=== PATIENT | male | born 1960 | race Caucasian/White ===

== ENCOUNTER 2016-11-03 08:10 | Inpatient (IN) | payer MEDICARE, BC ==
[2016-11-03] MEDS ORDERED: Aspirin Low Dose CHEW TAB* 81 MG PO ONE (08:56)
[2016-11-03] MEDS ORDERED: Furosemide IV* 10 MG/ML 10 ML VIAL (100 MG) IV ONE ×2 (09:17→13:23)
[2016-11-03] MEDS ORDERED: Midodrine (NF) 5 MG TAB PO ONE (09:18)
[2016-11-03 09:21] LABS: Hematocrit 28 % (42-52); Hemoglobin 8.4 g/dl (14.0-18.0); Mean Corpuscular HGB Conc 30 g/dl (31-36); Mean Corpuscular Hemoglobin 25 pg (27-31); Mean Corpuscular Volume 82 fL (80-94); Mean Platelet Volume 7 um3 (7.4-10.4); Red Blood Count 3.43 10^6/ul (4.0-5.4); Red Cell Distribution Width 23 % (10.5-15); White Blood Count 12.8 10^3/ul (3.5-10.8)
[2016-11-03 09:22] LABS: Comments Flag Yes
[2016-11-03 09:23] LABS: Add Diff/Slide Review? Slide Review Added
--- NOTE | 2016-11-03 09:34 | RAD ---
INDICATION: Shortness of breath. COMPARISON: Comparison is made with a prior chest x-ray study from September 20, 2016. TECHNIQUE: A portable view of the chest was obtained. FINDINGS: The heart is mildly enlarged. There is a transvenous cardiac pacemaker present. The lungs are clear. No pleural effusion is seen. IMPRESSION: NO EVIDENCE FOR ACUTE FINDING.
[2016-11-03 09:47] LABS: Albumin 2.7 g/dL (3.2-5.2); BUN/Creatinine Ratio 31.7 (8-20); Calcium 8.1 mg/dL (8.6-10.3); EGFR African American 44.9 (>60); EGFR Non-African American 34.9 (>60); Globulin 2.7 g/dL (2-4); Potassium 5.4 mmol/L (3.5-5.0); Total Bilirubin 0.4 mg/dL (0.2-1.0); Total Protein 5.4 g/dL (6.4-8.9); Uric Acid 5.1 mg/dL (4.4-7.6)
[2016-11-03 09:52] LABS: Eosinophils % 4 % (0-6); Immature Granulocytes 7 % (0-9); Metamyelocytes % 4 % (0-2); Myelocytes % 2 % (0-1); Neutrophil % 76 % (38-83)
[2016-11-03 09:53] LABS: Hypochromasia 1+; Macrocytosis 1+; Microcytosis 1+; Polychromasia 1+
[2016-11-03 09:55] LABS: Troponin I 0.08 ng/mL (<0.04)
--- NOTE | 2016-11-03 13:31 | ADMNOTE ---
Subjective Date of Service: 11/03/16 Interval History: ADMISSION HISTORY AND PHYSICAL EXAM: Allergies Allergy/AdvReac Type Severity Reaction Status Date / Time Oxycodone Allergy Intermediate Altered Verified 11/03/16 08:12 Mental Status Spironolactone Allergy Intermediate Rash And Verified 11/03/16 08:12 Itching Home Medications Medication Instructions Recorded Confirmed Type Pantoprazole TAB (NF) [Protonix 40 mg PO QAM 04/16/16 11/03/16 History TAB (NF)] Epleronone (NF) [Inspra (NF)] 25 mg PO BID #0 04/18/16 11/03/16 History Gabapentin CAP(*) [Neurontin 300 300 mg PO QID 04/18/16 11/03/16 History CAP(*)] Acetaminophen TAB* [Tylenol TAB*] 650 mg PO Q6H PRN 05/22/16 11/03/16 History Midodrine (NF) 15 mg PO TID 05/22/16 11/03/16 History Warfarin TAB(*) [Coumadin TAB(*)] 5 mg PO TUTH 05/22/16 11/03/16 History Potassium Chlor TAB* [Potassium 60 meq PO QID 06/11/16 11/03/16 History Chlor TAB 20 MEQ*] Torsemide TAB* [Demadex 20 MG*] 140 mg PO BID 09/15/16 11/03/16 History Metolazone TAB* [Zaroxolyn TAB*] 5 mg PO DAILY PRN MDD 1 dose daily 09/20/16 History Warfarin TAB(*) [Coumadin TAB(*)] 7.5 mg PO MOWEFR 11/03/16 11/03/16 History Patient states he has gained about 30 lbs at home and is somewhat SOB. He states [facility] to get his furosemide IV, and that he takes all his meds bu sometimes doesn't take his metolazone. No chest apin, cough. Family History: Findings - unemarkable Social History: Findings - No alcohol or tobacco use. Lives Review of Systems - Measurements Intake and Output: Intake and Output Last 24 Hours 11/01/16 11/02/16 11/03/16 11/04/16 06:59 06:59 06:59 06:59 Weight 239 lb 1.6 oz - Review of Systems Constitutional Symptoms: Positive: Weight Gain - 30 lbs in 1 month Dermatology: Positive: Normal HEENT: Positive: Normal Eyes: Positive: Normal Thyroid: Positive: Primary Hypothyroidism Pulmonary: Positive: Normal Cardiology: Positive: Shortness of Breath Gastroenterology: Positive: Other - increased abdominal girth Genital - Urinary: Negative: Normal, Dysuria, Hematuria, Polyuria, Nocturia, Other Musculoskeletal: Negative: Joint Pain, Joint Stiffness, Arthritis, Osteoporosis, Low Back Pain , Sciatica, Joint Deformities, Kyphoscoliosis, Other Endocrinology: Positive: Thyroid Problems Hematologic/Lymphatic: Positive: Anemia Neurology: Positive: Normal Psychiatry: Positive: Normal Allergic/Immunologic: Negative: Hx Anaphylaxis, Hx Angioedema, Hx Environmental, Hx Seasonal, Athsma, Hx HIV, Immunocompromise, Swollen Glands LymphNodes, Other Objective Vital Signs 11/03/16 11/03/16 11/03/16 08:12 08:46 08:48 Temperature 99.4 F Pulse Rate 92 90 90 Respiratory 17 9 Rate Blood Pressure 98/71 81/59 (mmHg) O2 Sat by Pulse 100 100 100 Oximetry 11/03/16 11/03/16 11/03/16 09:00 09:30 09:45 Temperature Pulse Rate 92 93 95 Respiratory 14 16 Rate Blood Pressure 79/55 92/60 (mmHg) O2 Sat by Pulse 100 99 Oximetry 11/03/16 11/03/16 11/03/16 10:00 10:30 11:00 Temperature Pulse Rate 94 94 95 Respiratory 20 24 16 Rate Blood Pressure 79/54 67/43 82/57 (mmHg) O2 Sat by Pulse 100 97 100 Oximetry 11/03/16 11/03/16 11/03/16 11:30 12:00 12:30 Temperature Pulse Rate 94 131 95 Respiratory 17 14 18 Rate Blood Pressure 79/46 96/60 96/71 (mmHg) O2 Sat by Pulse 100 100 100 Oximetry 11/03/16 13:00 Temperature Pulse Rate 87 Respiratory 14 Rate Blood Pressure 90/69 (mmHg) O2 Sat by Pulse 100 Oximetry Oxygen Devices in Use Now: Nasal Cannula Appearance: Alert partly up in bed. In god spirits. Looks comfortable. Eyes: No Scleral Icterus Neck: NL Appearance and Movements; NL JVP, No Thyroid Enlargement, Masses Respiratory: Symmetrical Chest Expansion and Respiratory Effort, Clear to Auscultation, Clear to Percussion Cardiovascular: NL Sounds; No Murmurs; No JVD, RRR, No Edema, - Abdominal: - - Very enlarged. Prominenet umbilical hernia. Catheter in RLQ to drainage bag. Lymphatic: No Cervical Adenopathy, No Axillary Adenopathy, No Inguinal Adenopathy, No Auricular Adenopathy, - Skin: No Rash or Ulcers, No Nodules or Sclerosis, - Neurological: Alert and Oriented x 3, NL Sensation Result Diagrams: 11/03/16 09:11 11/03/16 09:11 Assess/Plan/Problems-Billing Assessment: - Patient Problems (1) Acute on chronic systolic (congestive) heart failure Current Visit: No Status: Acute Code(s): I50.23 - ACUTE ON CHRONIC SYSTOLIC (CONGESTIVE) HEART FAILURE SNOMED Code(s): 288665731 Comment: The patient has an EF 20-25% due to amylodosis. Second dose furosemide 80 mg in ER ordered. Start tonight: toresemide 140 mg bid + metolazone 5 mg bid. BMP 11/04. Strict I&O's. (2) Afib Current Visit: No Status: Acute Code(s): I48.91 - UNSPECIFIED ATRIAL FIBRILLATION SNOMED Code(s): 46043923 Comment: Increase warfarin dose as of 11/03/16. (3) Hypothyroidism Current Visit: No Status: Acute Code(s): E03.9 - HYPOTHYROIDISM, UNSPECIFIED SNOMED Code(s): 30500350 Comment: TSH 10.28 on admission. Started on Levothyroxine. Repeat TSH addon 9.97, increase levothyroxine to 50 mcg daily start 11/04. (4) Hyponatremia Current Visit: No Status: Acute Code(s): E87.1 - HYPO-OSMOLALITY AND HYPONATREMIA SNOMED Code(s): 44085939 Comment: Fluid restriction ordered. BMP 11/04. (5) Hyperkalemia Current Visit: No Status: Acute Code(s): E87.5 - HYPERKALEMIA SNOMED Code( s): 21340545 Comment: KCL and epleronone d/c'd. BMP 11/04.
[2016-11-03] MEDS ORDERED: Warfarin TAB(*) 5 MG PO SCH (14:00)
[2016-11-03 14:36] LABS: TSH (Thyroid Stimulating Horm) 9.77 mcIU/mL (0.34-5.60)
--- NOTE | 2016-11-03 15:21 | ED ---
IJuan Soohyun, scribed for Frantz Duggan MD on 11/03/16 at 0915 . Shortness of Breath - HPI Summary HPI Summary: This 56 y/o male presents to ED for acute on chronic SOB since 2 weeks ago. He also reports nonproductive cough, increased abd swelling and bilat BLE edema. Pt was scheduled to Dr. Thomas yesterday. Negative hx of DM. PMHx includes amyloidosis, HTN, CHF, pleural effusion, and sliding hiatal hernia. Pt states that pt has been self draining his abd fluid, and last drained himself last night. He reports 30 lb weight gain since last ED visit in September 2016. Pt is noted with blood pressure of 79/55 at time of initial evaluation, but states that it is at his baseline. - History of Current Complaint Chief Complaint: EDShortnessOfBreath Time Seen by Provider: 11/03/16 08:50 Hx Obtained From: Patient, Medical Records Onset/Duration: Gradual Onset Timing: Constant Current Severity: Moderate Dyspnea At: Rest Aggrevating Factors: Nothing Alleviating Factors: Nothing Associated Signs & Symptoms: Cough (Nonproductive) - Allergy/Home Medications Allergies/Adverse Reactions: Allergies Allergy/AdvReac Type Severity Reaction Status Date / Time Oxycodone Allergy Intermediate Altered Verified 11/03/16 08:12 Mental Status Spironolactone Allergy Intermediate Rash And Verified 11/03/16 08:12 Itching Home Medications: Home Medications Warfarin TAB(*) [Coumadin TAB(*)] 7.5 mg PO MOWEFR 11/03/16 [History Confirmed 11/03/16] PMH/Surg Hx/FS Hx/Imm Hx Endocrine/Hematology History: Reports: Hx Anticoagulant Therapy - warfarin, Hx Blood Disorders - factor X deficiency, thrombocytopenia, Hx Anemia, Other Endocrine/Hematological Disorders - amyloidosis Denies: Hx Diabetes, Hx Thyroid Disease Cardiovascular History: Reports: Hx Auto Implanted Cardiovert Defib - PACER/AICD , Hx Cardiac Arrest, Hx Cardiomegaly - ISCHEMIC CARDIOMYOPATHY, Hx Congestive Heart Failure - EF 20% DUE TO AMLOYDOSIS, Hx Hypercholesterolemia, Hx Hypotension - regularly 90s for SBP, Hx Pacemaker/ICD, Hx Syncope - d/t dehydration, Other Cardiovascular Problems/Disorders - CARDIOMYOPATHY Denies: Hx Hypertension Respiratory History: Reports: Hx Pleural Effusion, Hx Pneumonia, Hx Sleep Apnea - wears 2L O2 concentrator to bed at home, Other Respiratory Problems/Disorders - PNA Denies: Hx Asthma, Hx Chronic Bronchitis, Hx Chronic Obstructive Pulmonary Disease (COPD) GI History: Reports: Hx Gastroesophageal Reflux Disease, Hx Hiatal Hernia - UMBILICAL & PARAUMBILICAL, Other GI Disorders - ASCITES Denies: Hx Gall Bladder Disease History: Reports: Hx Chronic Renal Failure, Other Problems/Disorders - CKD Denies: Hx Dialysis, Hx Renal Disease Musculoskeletal History: Reports: Hx Back Problems, Hx Gout, Other Musculoskeletal History - gout Denies: Hx Arthritis, Hx Osteoporosis Sensory History: Reports: Hx Contacts or Glasses Denies: Hx Glaucoma Opthamlomology History: Reports: Hx Contacts or Glasses Denies: Hx Glaucoma Neurological History: Reports: Other Neuro Impairments/Disorders - episodes of syncope r/t dehydration, amyloidosis Denies: Hx Headaches, Hx Seizures, Hx Transient Ischemic Attacks (TIA) Psychiatric History: Denies: Hx Anxiety, Hx Depression - Cancer History Cancer Type, Location and Year: Family history Hx Chemotherapy: Yes - for amyloidosis - Surgical History Surgery Procedure, Year, and Place: R leg vericose vein stripping. Hemorrhioidectomy. aicd/pacer- strong memoral 01/28/16. paracentesis 04/15/16 Hx Anesthesia Reactions: No - Immunization History Date of Tetanus Vaccine: 2007 Date of Influenza Vaccine: UNKNOWN & REFUSED Infectious Disease History: No Infectious Disease History: Denies: Traveled Outside the [place] in Last 30 Days - Family History Known Family History: Positive: Other - CA. no malignant hyperthemia. no anesthesia reaction. - Social History Alcohol Use: None Hx Substance Use: No Substance Use Type: Reports: None Hx Tobacco Use: No Smoking Status (MU): Never Smoked Tobacco Have You Smoked in the Last Year: No Review of Systems Negative: Fever Negative: Erythema Negative: Chest Pain Positive: Shortness Of Breath Positive: Other. Negative: Abdominal Pain, Vomiting - abd swelling, Nausea Negative: dysuria, hematuria Positive: Edema - acute on chronic. Negative: Myalgia Negative: Rash Neurological: Other - no dizziness Negative: Anxious, Depressed All Other Systems Reviewed And Are Negative: Yes Physical Exam - Summary Physical Exam Summary: Constitutional: Well-developed, Well-nourished, Alert. (-) Distressed Skin: Dry. Cool to touch. HENT: Normocephalic; Atraumatic Eyes: Conjunctiva normal Neck: Musculoskeletal ROM normal neck. (-) JVD, (-) Stridor, (-) Tracheal deviation Cardio: Rhythm regular, rate normal, Heart sounds normal; Intact distal pulses; The pedal pulses are 2+ and symmetric. Radial pulses are 2+ and symmetric. (-) Murmur Pulmonary/Chest wall: Effort normal. (-) Respiratory distress, (-) Wheezes, (-) Rales Abd: Soft, (-) Tenderness, (+) Distension, (-) Guarding, (-) Rebound. Hernia soft to touch and easily reducible. Musculoskeletal: (-) Edema Lymph: (-) Cervical adenopathy Neuro: Alert, Oriented x3 Psych: Mood and affect Normal Triage Information Reviewed: Yes Vital Signs On Initial Exam: Initial Vitals Temp Pulse Resp BP Pulse Ox 99.4 F 92 17 98/71 100 11/03/16 08:12 11/03/16 08:12 11/03/16 08:12 11/03/16 08:12 11/03/16 08:12 Vital Signs Reviewed: Yes Diagnostics - Vital Signs Vital Signs Temp Pulse Resp BP Pulse Ox 11/03/16 08:12 99.4 F 92 17 98/71 100 - Laboratory Result Diagrams: 11/03/16 09:11 11/03/16 09:11 Lab Statement: Any lab studies that have been ordered have been reviewed, and results considered in the medical decision making process. - Radiology CXR Xray Interpretation: No Acute Changes Radiology Interpretation Completed By: Radiologist - EKG 09 Cardiac Rate: NL - 95 bpm EKG Rhythm: Sinus Rhythm Re-Evaluation - Re-Evaluation First Eval Re-Evaluation Time: 11:04 Comment: MD in room to re-evaluate pt. Course/Dx - Course Assessment/Plan: THis 56 y/o male presents to ED for acute on chronic SOB since this morning. Pt reports difficulty controlling her breathing since 1 week ago. SOB is worse with exertion and deep breath. Pt states that he was unable to get out of bed for his appointment with Dr. Thomas. Bloodwork reports repeat trop of 0.08 at 0911 AM and 1200 PM. CXR indicates no acute dz. Pt was noted with low blood pressure. Plan of care is discussed with Dr. Witt (shot coat tender ) and Dr. Oleary, who accepts the admission of the pt. - Diagnoses Provider Diagnoses: CHF exacerbation - Physician Notifications Discussed Care of Patient With: Dr. Witt (Denture Model Maker) at [address] Oleary (Hospitalist) at 1120 AM Time Discussed With Above Provider: 11:05 Instructed by Provider To: Admit As Inpatient Discharge - Discharge Plan Condition: Stable Disposition: ADMITTED TO [facility] Referrals: Brandyn Geller MD [Primary Care Provider] - The documentation as recorded by the Juan villarreal Soohyun accurately reflects the service I personally performed and the decisions made by , Frantz Duggan MD.
[2016-11-03] MEDS: CMC:Midodrine (NF) 5 MG TAB PO SCH ×2 (16:23→20:32)
[2016-11-03] MEDS: Gabapentin CAP(*) 300 MG PO SCH ×2 (16:23→20:32)
[2016-11-03] MEDS ORDERED: Potassium Chlor TAB* 20 MEQ TAB.ER PO SCH (17:00)
[2016-11-03] MEDS: Torsemide TAB* 20 MG PO SCH (20:31)
[2016-11-03] MEDS ORDERED: Torsemide TAB* 20 MG PO SCH (21:00)
[2016-11-03] MEDS ORDERED: [UNRECOGNIZED DRUG - OTHER] PO SCH (21:00)
[2016-11-04 05:36] LABS: BUN/Creatinine Ratio 35.2 (8-20); Blood Urea Nitrogen 58 mg/dL (6-24); CO2 Carbon Dioxide 26 mmol/L (22-32); Calcium 7.8 mg/dL (8.6-10.3); Chloride 91 mmol/L (101-111); EGFR African American 55.8 (>60); EGFR Non-African American 43.4 (>60); Glucose 109 mg/dL (70-100); Sodium 126 mmol/L (133-145)
[2016-11-04] MEDS: Levothyroxine TAB* 50 MCG TAB PO SCH (05:40)
[2016-11-04] MEDS: Acetaminophen TAB* 325 MG PO PRN ×2 (05:43→23:15)
[2016-11-04] MEDS ORDERED: Levothyroxine TAB* 25 MCG TAB PO SCH (06:00)
[2016-11-04] MEDS: Torsemide TAB* 20 MG PO SCH ×2 (08:57→20:30)
[2016-11-04] MEDS: CMC:Pantoprazole TAB (NF) 40 MG TAB PO SCH (08:57)
[2016-11-04] MEDS: Gabapentin CAP(*) 300 MG PO SCH ×4 (08:58→20:30)
[2016-11-04] MEDS: Allopurinol TAB* 300 MG PO SCH (08:59)
[2016-11-04] MEDS: Warfarin TAB(*) 7.5 MG PO SCH (08:59)
[2016-11-04] MEDS: CMC:Midodrine (NF) 5 MG TAB PO SCH ×3 (09:00→20:30)
[2016-11-04] MEDS ORDERED: Warfarin TAB(*) 7.5 MG PO SCH (13:24)
[2016-11-04 14:45] LABS: Magnesium 1.8 mg/dL (1.9-2.7)
[2016-11-04] MEDS ORDERED: Magnesium Sulfate 2 GM IV* 2 GM/50 ML BAG IVPB ONE (15:00)
[2016-11-04] MEDS ORDERED: Potassium Chlor TAB* 20 MEQ TAB.ER PO ONE ×2 (15:01→19:26)
[2016-11-04] MEDS: KCL 20 MEQ/100 ML IVPREMIX* 20 MEQ/100 ML BAG IV SCH ×2 (15:39→18:27)
--- NOTE | 2016-11-04 19:32 | PN ---
Subjective Date of Service: 11/04/16 Interval History: patient reports he feels much better today but c/o "Im not getting enough IV diuretic". He does feel like he has lost weight today and is less sob. No fevers or chills. Reports he feels that he has "a cold" with a cough and nasal congestion and mild sore throat. Denies CP. Reports good appetite. Family History: Findings - unemarkable Social History: Findings - No alcohol or tobacco use. Lives Objective Active Medications: Acetaminophen (Tylenol Tab*) 650 mg PO Q6H PRN PRN Reason: FEVER/PAIN Last Admin: 11/04/16 05:43 Dose: 650 mg Allopurinol (Zyloprim Tab*) 300 mg PO DAILY [facility] Last Admin: 11/04/16 08:59 Dose: 300 mg Gabapentin (Neurontin Cap(*)) 300 mg PO QID [facility] Last Admin: 11/04/16 17:01 Dose: 300 mg Levothyroxine Sodium (Synthroid Tab*) 50 mcg PO DAILY@0600 [facility] Last Admin: 11/04/16 05:40 Dose: 50 mcg Midodrine (Midodrine (Nf)) 15 mg PO TID [facility] PRN Reason: Protocol Last Admin: 11/04/16 13:23 Dose: 15 mg Pantoprazole Sodium (Protonix Tab (Nf)) 40 mg PO QAM [facility] Last Admin: 11/04/16 08:57 Dose: 40 mg Torsemide (Demadex*) 140 mg PO BID [facility] Last Admin: 11/04/16 08:57 Dose: 140 mg Warfarin Sodium (Coumadin Tab(*)) 7.5 mg PO DAILY [facility] PRN Reason: Protocol Last Admin: 11/04/16 08:59 Dose: 7.5 mg Vital Signs 11/03/16 11/03/16 11/03/16 20:00 20:14 20:32 Temperature 97.7 F Pulse Rate 83 Respiratory 19 16 18 Rate Blood Pressure 80/54 (mmHg) O2 Sat by Pulse 100 Oximetry 11/03/16 11/04/16 11/04/16 22:32 00:01 03:34 Temperature 97.4 F 98.3 F Pulse Rate 105 101 Respiratory 18 16 17 Rate Blood Pressure 78/48 91/55 (mmHg) O2 Sat by Pulse 100 99 Oximetry 11/04/16 11/04/16 11/04/16 07:44 08:00 08:58 Temperature 97.3 F Pulse Rate 89 Respiratory 16 16 16 Rate Blood Pressure 88/54 (mmHg) O2 Sat by Pulse 98 Oximetry 11/04/16 11/04/16 11/04/16 10:58 12:38 14:11 Temperature 98.3 F Pulse Rate 89 Respiratory 16 16 16 Rate Blood Pressure 97/53 (mmHg) O2 Sat by Pulse 100 Oximetry 11/04/16 11/04/16 11/04/16 14:38 15:57 17:01 Temperature 97.5 F Pulse Rate 87 Respiratory 16 16 16 Rate Blood Pressure 96/83 (mmHg) O2 Sat by Pulse 100 Oximetry Oxygen Devices in Use Now: Nasal Cannula Appearance: 56 yo male A+O x3 sitting up on the side of the bed in NAD Eyes: No Scleral Icterus, PERRLA Ears/Nose/Mouth/Throat: NL Teeth, Lips, Gums, Mucous Membranes Moist Neck: NL Appearance and Movements; NL JVP Respiratory: Symmetrical Chest Expansion and Respiratory Effort, Clear to Auscultation Cardiovascular: - - S1S2, 1+ LE b/l edema. Abdominal: - - distended, soft, nontender, NL BS Extremities: No Clubbing, Cyanosis Skin: No Nodules or Sclerosis Neurological: Alert and Oriented x 3, NL Sensation, NL Gait, NL Muscle Strength and Tone Lines/Tubes/Other Access: Clean, Dry and Intact Peripheral IV Nutrition: Taking PO's Result Diagrams: 11/03/16 09:11 11/04/16 14:25 Assess/Plan/Problems-Billing Assessment: Mr. Ocampo is a 56 yo male with a PMH of end-stage cardiomyopathy with chronic systolic HF with self-tap peritoneal catheter, afib, CDK stg 3b, hx of cardiac arrest, hx DVT, AICD placement who presents with c/o of 30 lb weight gain - Patient Problems (1) Acute on chronic systolic (congestive) heart failure Comment: The patient has an EF 20-25% due to amylodosis. Down 18lbs today. Continue toresemide 140 mg bid + metolazone 5 mg bid. Strict I&O's. Daily Weights (2) Afib Comment: Increase warfarin dose as of 11/03/16. check INR in am (3) Hyperkalemia Comment: now hypokalemia with diuresing. give replcement check in am (4) Hyponatremia Comment: improving. continue Fluid restriction (5) Hypothyroidism Comment: TSH 10.28 on admission. Started on Levothyroxine. Repeat TSH addon 9.97 , increased levothyroxine to 50 mcg daily (6) CKD (chronic kidney disease) stage 3, GFR 30-59 ml/min Comment: improving. Creatinine stable. Cont to monitor with diuresis (7) Cardiomyopathy Comment: Due to amyloidosis. EF 20-25% on 02/04/16. runs of vtach - magnesium low today 18.8; give replacement and recheck in am. (8) Full code status (9) DVT prophylaxis Comment: coumadin
[2016-11-05] MEDS ORDERED: Potassium Chlor TAB* 20 MEQ TAB.ER PO ONE ×2 (01:00→14:57)
[2016-11-05 04:58] LABS: Hematocrit 26 % (42-52); Hemoglobin 7.9 g/dl (14.0-18.0); Mean Corpuscular HGB Conc 31 g/dl (31-36); Mean Corpuscular Hemoglobin 25 pg (27-31); Mean Corpuscular Volume 81 fL (80-94); Mean Platelet Volume 7 um3 (7.4-10.4); Red Blood Count 3.19 10^6/ul (4.0-5.4); White Blood Count 8.7 10^3/ul (3.5-10.8)
[2016-11-05 05:02] LABS: Comments Flag Yes; Red Cell Distribution Width 23 % (10.5-15)
[2016-11-05 05:09] LABS: BUN/Creatinine Ratio 30.6 (8-20); Calcium 7.7 mg/dL (8.6-10.3); EGFR African American 50.4 (>60); EGFR Non-African American 39.2 (>60); Potassium 3.7 mmol/L (3.5-5.0)
[2016-11-05] MEDS: Levothyroxine TAB* 50 MCG TAB PO SCH (05:09)
[2016-11-05] MEDS: Allopurinol TAB* 300 MG PO SCH (07:53)
[2016-11-05] MEDS: CMC:Pantoprazole TAB (NF) 40 MG TAB PO SCH (07:54)
[2016-11-05] MEDS: CMC:Midodrine (NF) 5 MG TAB PO SCH ×3 (07:54→21:02)
[2016-11-05] MEDS: Gabapentin CAP(*) 300 MG PO SCH ×4 (07:54→21:03)
[2016-11-05] MEDS: Torsemide TAB* 20 MG PO SCH ×2 (07:54→21:03)
[2016-11-05] MEDS ORDERED: Magnesium Hydroxide LIQ* 30 ML UDC PO PRN (12:29)
[2016-11-05] MEDS ORDERED: Sodium Phosphate ADULT ENEMA* 118 ml bottle PR ONE (12:37)
[2016-11-05] MEDS ORDERED: Furosemide IV* 10 MG/ML 10 ML VIAL (100 MG) IV ONE (12:39)
[2016-11-05] MEDS ORDERED: guaiFENesin LIQ* 100 MG/5 ML UDC PO PRN (12:53)
--- NOTE | 2016-11-05 12:55 | PN ---
Subjective Date of Service: 11/05/16 Interval History: . Patient reports he feels better today but still feels fluid overloaded in his legs and abdomen. is unable to tell me how much he drained from peritoneal catheter. Denies SOB or CP. Reports he feels "too weak to go home". Denies needing subacute rehab and reports he was recently set up with PT Reports Dr. Geller is setting him up to go to the [facility] and he is waiting to hear back about the details. Family History: Findings - unemarkable Social History: Findings - No alcohol or tobacco use. Lives Objective Active Medications: Acetaminophen (Tylenol Tab*) 650 mg PO Q6H PRN PRN Reason: FEVER/PAIN Last Admin: 11/04/16 23:15 Dose: 650 mg Allopurinol (Zyloprim Tab*) 300 mg PO DAILY [facility] Last Admin: 11/05/16 07:53 Dose: 300 mg Furosemide (Lasix Iv*) 80 mg IV ONCE ONE Stop: 11/05/16 12:40 Gabapentin (Neurontin Cap(*)) 300 mg PO QID [facility] Last Admin: 11/05/16 07:54 Dose: 300 mg Levothyroxine Sodium (Synthroid Tab*) 50 mcg PO DAILY@0600 [facility] Last Admin: 11/05/16 05:09 Dose: 50 mcg Magnesium Hydroxide (Milk Of Magnesia Liq*) 30 ml PO Q4H PRN PRN Reason: CONSTIPATION Midodrine (Midodrine (Nf)) 15 mg PO TID [facility] PRN Reason: Protocol Last Admin: 11/05/16 07:54 Dose: 15 mg Pantoprazole Sodium (Protonix Tab (Nf)) 40 mg PO QAM [facility] Last Admin: 11/05/16 07:54 Dose: 40 mg Sodium Biphosphate/Sodium Phosphate (Fleet Enema*) 1 bottle WA ONCE ONE Stop: 11/05/16 12:38 Torsemide (Demadex*) 140 mg PO BID [facility] Last Admin: 11/05/16 07:54 Dose: 140 mg Warfarin Sodium (Coumadin Tab(*)) 7.5 mg PO DAILY [facility] PRN Reason: Protocol Last Admin: 11/04/16 08:59 Dose: 7.5 mg Vital Signs 11/04/16 11/04/16 11/04/16 14:11 14:38 15:57 Temperature 98.3 F 97.5 F Pulse Rate 89 87 Respiratory 16 16 16 Rate Blood Pressure 97/53 96/83 (mmHg) O2 Sat by Pulse 100 100 Oximetry 11/04/16 11/04/16 11/04/16 17:01 19:59 20:00 Temperature 98.8 F Pulse Rate 92 Respiratory 16 16 16 Rate Blood Pressure 88/53 (mmHg) O2 Sat by Pulse 100 Oximetry 11/04/16 11/04/16 11/05/16 20:30 22:30 00:23 Temperature 98.1 F Pulse Rate 95 Respiratory 18 18 16 Rate Blood Pressure 82/48 (mmHg) O2 Sat by Pulse 100 Oximetry 11/05/16 11/05/16 11/05/16 04:11 07:36 07:54 Temperature 98.8 F 98.1 F Pulse Rate 99 107 Respiratory 16 16 16 Rate Blood Pressure 86/53 81/54 (mmHg) O2 Sat by Pulse 100 95 Oximetry 11/05/16 11/05/16 07:58 11:19 Temperature 97.6 F Pulse Rate 106 Respiratory 18 18 Rate Blood Pressure 101/60 (mmHg) O2 Sat by Pulse 100 Oximetry Oxygen Devices in Use Now: Nasal Cannula Appearance: 56 yo chronically ill appearing male sitting up on the side of the bed in NAD. A+O x3 Eyes: No Scleral Icterus, PERRLA Ears/Nose/Mouth/Throat: NL Teeth, Lips, Gums, Mucous Membranes Moist Neck: NL Appearance and Movements; NL JVP Respiratory: Symmetrical Chest Expansion and Respiratory Effort Cardiovascular: NL Sounds; No Murmurs; No JVD, - - 1+ nonpitting edema Abdominal: - - round, obese abdomen, soft, nontender does not appear edematous. Peritoneal catheter in place - not noted erythema or drainage around site. NL BS x4 Extremities: - - b/l calf tenderness Skin: No Rash or Ulcers, No Nodules or Sclerosis Neurological: Alert and Oriented x 3, NL Sensation, NL Gait - uses walker , NL Muscle Strength and Tone Lines/Tubes/Other Access: Clean, Dry and Intact Peripheral IV Nutrition: Taking PO's Result Diagrams: 11/05/16 04:40 11/05/16 04:40 Assess/Plan/Problems-Billing Assessment: Mr. Ocampo is a 56 yo male with a PMH of end-stage cardiomyopathy with chronic systolic HF with self-tap peritoneal catheter, afib, CDK stg 3b, hx of cardiac arrest, hx DVT, AICD placement who presents with c/o of 30 lb weight gain - Patient Problems (1) Acute on chronic systolic (congestive) heart failure Comment: The patient has an EF 20-25% due to amylodosis. Down 18lbs today from admission, but then gained 2lbs overnight, question scale and if that is correct. - recent dry weight of around 212lb prior discharge, pts weight today 224lbs. Continue toresemide 140 mg bid + metolazone 5 mg bid. Give lasix 80 mg IV x once now. Restart pts outpt Lasix infusion of Lasix 140 mg IV MWF starting tomorrow. Strict I&O's. Low salt diet. Daily Weights (2) Afib Comment: Increase warfarin dose as of 11/03/16. check INR in am (3) Hyperkalemia Comment: Resolved. check in am (4) Hyponatremia Comment: improving. continue Fluid restriction (5) Hypothyroidism Comment: TSH 9.97 (was 10.28 6-7 weeks ago), levothyroxine was increased to 50 mcg daily on admission, will need f/u TSH in 6-8 weeks. (6) CKD (chronic kidney disease) stage 3, GFR 30-59 ml/min Comment: Creatinine stable. Cont to monitor with diuresis (7) Cardiomyopathy Comment: Due to amyloidosis. EF 20-25% on 02/04/16. Keep magnesium around 2 and K+ 4, pt had a few runs of Vtach yesterday (8) Ascites Comment: - Secondary to CHF. Pt has peritoneal catheter in place and drains fluid daily. (9) Full code status (10) DVT prophylaxis Comment: coumadin, INR subtherapuetic, add on HSQ Status and Disposition: inpatient with acute on chronic congestive heart failure. PT consult pending
[2016-11-05] MEDS: Heparin VIAL(*) 5000 UNITS/ML VIAL (FIVE THOUSAND) SUBCUT SCH ×2 (15:34→21:03)
--- NOTE | 2016-11-05 16:20 | RAD ---
INDICATION: Pain and swelling. COMPARISON: May 22, 2016 TECHNIQUE: Duplex interrogation of the Lowerextremity was performed. FINDINGS: Deep veins: The common femoral, great saphenous, profunda femoris, proximal, mid, and distal deep femoral, popliteal, posterior tibial, and peroneal veins were interrogated. There is normal compressibility, augmentation, and phasic flow. No thrombus is identified. There is limited evaluation of the common femoral veins as the patient was unable to tolerate compression and there is limited evaluation of the tibial veins bilaterally Superficial veins: There are no findings of superficial thrombophlebitis. Popliteal fossa:There is no evidence of a popliteal cyst. Soft tissues:There are no soft tissue abnormalities. IMPRESSION: MILDLY LIMITED EXAMINATION . NO DEEP VENOUS THROMBOSIS IS IDENTIFIED, HOWEVER.
[2016-11-05] MEDS: Warfarin TAB(*) 7.5 MG PO SCH ×2 (17:47→17:51)
[2016-11-06 01:28] LABS: BUN/Creatinine Ratio 29.9 (8-20); EGFR African American 56.2 (>60); EGFR Non-African American 43.7 (>60)
[2016-11-06] MEDS ORDERED: Potassium Chlor TAB* 20 MEQ TAB.ER PO ONE ×2 (04:00→09:30)
[2016-11-06] MEDS: Levothyroxine TAB* 50 MCG TAB PO SCH (06:11)
[2016-11-06] MEDS: Heparin VIAL(*) 5000 UNITS/ML VIAL (FIVE THOUSAND) SUBCUT SCH ×2 (06:11→13:56)
[2016-11-06 06:20] LABS: Hematocrit 26 % (42-52); Hemoglobin 7.8 g/dl (14.0-18.0); Mean Corpuscular HGB Conc 30 g/dl (31-36); Mean Corpuscular Hemoglobin 25 pg (27-31); Mean Corpuscular Volume 81 fL (80-94); Mean Platelet Volume 7 um3 (7.4-10.4); Red Blood Count 3.18 10^6/ul (4.0-5.4); White Blood Count 7.9 10^3/ul (3.5-10.8)
[2016-11-06 06:22] LABS: Comments Flag Yes; Red Cell Distribution Width 22 % (10.5-15)
[2016-11-06 06:35] LABS: BUN/Creatinine Ratio 31.7 (8-20); Calcium 7.7 mg/dL (8.6-10.3); EGFR African American 57.4 (>60); EGFR Non-African American 44.6 (>60); Potassium 3.3 mmol/L (3.5-5.0); Uric Acid 5.5 mg/dL (4.4-7.6)
[2016-11-06] MEDS: Gabapentin CAP(*) 300 MG PO SCH ×4 (07:29→21:58)
[2016-11-06] MEDS: CMC:Pantoprazole TAB (NF) 40 MG TAB PO SCH (07:30)
[2016-11-06] MEDS: CMC:Midodrine (NF) 5 MG TAB PO SCH ×3 (07:30→21:59)
[2016-11-06] MEDS: Allopurinol TAB* 300 MG PO SCH (07:30)
[2016-11-06] MEDS ORDERED: Furosemide IV* 10 MG/ML 10 ML VIAL (100 MG) IV ONE (09:00)
[2016-11-06] MEDS ORDERED: Metolazone TAB* 5 MG PO PRN (10:06)
--- NOTE | 2016-11-06 10:23 | PN ---
Subjective Date of Service: 11/06/16 Interval History: . patient c/o bilateral lower extremity "tenderness, pain when walking". Pt thinks he is having a gout flare or maybe has too much fluid in his legs. Still does not feel like he can go home because he is weak. Refuses subacute rehab. He denies SOB or CP. No fevers or chills. Reports good appetite. Family History: Findings - unemarkable Social History: Findings - No alcohol or tobacco use. Lives Objective Active Medications: Acetaminophen (Tylenol Tab*) 650 mg PO Q6H PRN PRN Reason: FEVER/PAIN Last Admin: 11/04/16 23:15 Dose: 650 mg Allopurinol (Zyloprim Tab*) 300 mg PO DAILY [facility] Last Admin: 11/06/16 07:30 Dose: 300 mg Eplerenone (Inspra (Nf)) 25 mg PO BID [facility] PRN Reason: Protocol Gabapentin (Neurontin Cap(*)) 300 mg PO QID [facility] Last Admin: 11/06/16 07:29 Dose: 300 mg Guaifenesin (Robitussin*) 5 ml PO Q6H PRN PRN Reason: COUGH Last Admin: 11/05/16 15:32 Dose: 5 ml Heparin Sodium (Porcine) (Heparin Vial(*)) 5,000 units SUBCUT Q8HR [facility] Last Admin: 11/06/16 06:11 Dose: 5,000 units Levothyroxine Sodium (Synthroid Tab*) 50 mcg PO DAILY@0600 [facility] Last Admin: 11/06/16 06:11 Dose: 50 mcg Magnesium Hydroxide (Milk Of Magnesia Liq*) 30 ml PO Q4H PRN PRN Reason: CONSTIPATION Last Admin: 11/05/16 15:32 Dose: 30 ml Metolazone (Zaroxolyn Tab*) 5 mg PO DAILY PRN PRN Reason: fluid retention Midodrine (Midodrine (Nf)) 15 mg PO TID [facility] PRN Reason: Protocol Last Admin: 11/06/16 07:30 Dose: 15 mg Pantoprazole Sodium (Protonix Tab (Nf)) 40 mg PO QAM [facility] Last Admin: 11/06/16 07:30 Dose: 40 mg Torsemide (Demadex*) 140 mg PO BID [facility] Last Admin: 11/05/16 21:03 Dose: 140 mg Warfarin Sodium (Coumadin Tab(*)) 7.5 mg PO DAILY@1700 [facility] PRN Reason: Protocol Last Admin: 11/05/16 17:47 Dose: 7.5 mg Vital Signs 11/05/16 11/05/16 11/05/16 11:19 15:33 15:34 Temperature 97.6 F 98.2 F Pulse Rate 106 108 Respiratory 18 18 18 Rate Blood Pressure 101/60 81/52 (mmHg) O2 Sat by Pulse 100 100 Oximetry 11/05/16 11/05/16 11/05/16 17:46 19:58 20:00 Temperature 98.2 F Pulse Rate 112 Respiratory 18 16 18 Rate Blood Pressure 89/63 (mmHg) O2 Sat by Pulse 100 Oximetry 11/05/16 11/05/16 11/05/16 21:03 23:03 23:23 Temperature 98.4 F Pulse Rate 110 Respiratory 18 18 17 Rate Blood Pressure 88/62 (mmHg) O2 Sat by Pulse 100 Oximetry 11/06/16 11/06/16 07:29 07:39 Temperature 98.1 F Pulse Rate 109 Respiratory 20 20 Rate Blood Pressure 97/71 (mmHg) O2 Sat by Pulse 100 Oximetry Oxygen Devices in Use Now: Nasal Cannula Appearance: 56 yo chronically ill appearing male sitting up on the side of the bed in NAD. A+O x3 Eyes: No Scleral Icterus, PERRLA Ears/Nose/Mouth/Throat: NL Teeth, Lips, Gums, Mucous Membranes Moist Neck: NL Appearance and Movements; NL JVP Respiratory: Symmetrical Chest Expansion and Respiratory Effort, Clear to Auscultation Cardiovascular: NL Sounds; No Murmurs; No JVD, RRR, No Edema Abdominal: - - distended, soft, nontender. Peritoneal catheter in place - no noted erythema or drainage around catheter. umbilicus hernia noted - soft, nontender Lymphatic: No Cervical Adenopathy Extremities: No Clubbing, Cyanosis, - - 1+ Skin: No Rash or Ulcers, No Nodules or Sclerosis Neurological: Alert and Oriented x 3, NL Sensation, NL Muscle Strength and Tone Lines/Tubes/Other Access: Clean, Dry and Intact Peripheral IV Nutrition: Taking PO's Result Diagrams: 11/06/16 06:08 11/06/16 06:08 Assess/Plan/Problems-Billing Assessment: Mr. Ocampo is a 56 yo male with a PMH of end-stage cardiomyopathy with chronic systolic HF with self-tap peritoneal catheter, afib, CDK stg 3b, hx of cardiac arrest, hx DVT, AICD placement who presents with c/o of 30 lb weight gain - Patient Problems (1) Acute on chronic systolic (congestive) heart failure Comment: End-stage HF. 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 Down 6-8lbs since admission, recent dry weight of around 212lb? prior discharge. Called infusion center they do not know dry weight as they do not weigh him. Sugegsted weekly weights Continue toresemide 140 mg bid + Inspra 25 mg bid. Give lasix 80 mg IV x once now. Restart pts outpt Lasix infusion of Lasix 140 mg IV MWF Patients home potassium is usually 60 meq QID, restarted at 40 meq QID as inspra was restarted today and pt initially presented with hyperkalemia. Strict I&O's. Low salt diet (pt is noncompliant with diet - education given) Daily Weights (2) Afib Comment: Increase warfarin dose as of 11/03/16. check INR in am (3) Hyperkalemia Comment: Resolved. check in am (4) Hyponatremia Comment: stable. continue Fluid restriction (5) Hypothyroidism Comment: TSH 9.97 (was 10.28 6-7 weeks ago), levothyroxine was increased to 50 mcg daily on admission, will need f/u TSH in 6-8 weeks. (6) CKD (chronic kidney disease) stage 3, GFR 30-59 ml/min Comment: Creatinine stable. Cont to monitor with diuresis (7) Cardiomyopathy Comment: Due to amyloidosis. EF 20-25% on 02/04/16. Keep magnesium around 2 and K+ 4, pt had a few runs of Vtach (8) Ascites Comment: - Secondary to CHF. Pt has peritoneal catheter in place and drains fluid daily. (9) Full code status (10) DVT prophylaxis Comment: coumadin, INR subtherapuetic Status and Disposition: inpatient with end-stage acute on chronic congestive heart failure. Plan for DC to home when stable.
[2016-11-06] MEDS: CMCS - Epleronone (NF) 25 MG TAB PO SCH ×2 (12:06→22:06)
[2016-11-06] MEDS: Torsemide TAB* 20 MG PO SCH ×2 (12:37→22:01)
[2016-11-06] MEDS: Potassium Chlor TAB* 20 MEQ TAB.ER PO SCH ×2 (16:21→22:00)
[2016-11-06] MEDS: Warfarin TAB(*) 7.5 MG PO SCH (16:22)
[2016-11-06] MEDS ORDERED: Potassium Chlor TAB* 20 MEQ TAB.ER PO SCH (23:00)
[2016-11-07] MEDS: Levothyroxine TAB* 50 MCG TAB PO SCH (05:35)
[2016-11-07 05:55] LABS: Hematocrit 28 % (42-52); Hemoglobin 8.2 g/dl (14.0-18.0); Mean Corpuscular HGB Conc 29 g/dl (31-36); Mean Corpuscular Hemoglobin 24 pg (27-31); Mean Corpuscular Volume 83 fL (80-94); Mean Platelet Volume 7 um3 (7.4-10.4); Red Blood Count 3.38 10^6/ul (4.0-5.4); Red Cell Distribution Width 22 % (10.5-15); White Blood Count 9.2 10^3/ul (3.5-10.8)
[2016-11-07 06:00] LABS: Comments Flag Yes
[2016-11-07 06:13] LABS: BUN/Creatinine Ratio 31.9 (8-20); Calcium 8.1 mg/dL (8.6-10.3); EGFR African American 57.8 (>60); EGFR Non-African American 44.9 (>60); Potassium 5.3 mmol/L (3.5-5.0)
[2016-11-07] MEDS: Allopurinol TAB* 300 MG PO SCH (08:31)
[2016-11-07] MEDS: Gabapentin CAP(*) 300 MG PO SCH ×4 (08:32→20:47)
[2016-11-07] MEDS: CMC:Midodrine (NF) 5 MG TAB PO SCH ×3 (08:34→20:48)
[2016-11-07] MEDS: CMC:Pantoprazole TAB (NF) 40 MG TAB PO SCH (08:34)
[2016-11-07] MEDS: Torsemide TAB* 20 MG PO SCH ×2 (08:35→21:24)
[2016-11-07] MEDS: CMCS - Epleronone (NF) 25 MG TAB PO SCH ×2 (08:35→20:47)
[2016-11-07] MEDS ORDERED: Metolazone TAB* 5 MG PO ONE (11:11)
[2016-11-07] MEDS: Potassium Chlor TAB* 20 MEQ TAB.ER PO SCH ×4 (11:45→20:48)
--- NOTE | 2016-11-07 13:24 | PN ---
Subjective Date of Service: 11/07/16 Interval History: C/O edema of legs, interferes with his walking. Family History: Findings - unemarkable Social History: Findings - No alcohol or tobacco use. Lives Objective Active Medications: Acetaminophen (Tylenol Tab*) 650 mg PO Q6H PRN PRN Reason: FEVER/PAIN Last Admin: 11/04/16 23:15 Dose: 650 mg Allopurinol (Zyloprim Tab*) 300 mg PO DAILY [facility] Last Admin: 11/07/16 08:31 Dose: 300 mg Eplerenone (Inspra (Nf)) 25 mg PO BID [facility] PRN Reason: Protocol Last Admin: 11/07/16 08:35 Dose: 25 mg Gabapentin (Neurontin Cap(*)) 300 mg PO QID [facility] Last Admin: 11/07/16 12:04 Dose: 300 mg Guaifenesin (Robitussin*) 5 ml PO Q6H PRN PRN Reason: COUGH Last Admin: 11/05/16 15:32 Dose: 5 ml Levothyroxine Sodium (Synthroid Tab*) 50 mcg PO DAILY@0600 [facility] Last Admin: 11/07/16 05:35 Dose: 50 mcg Magnesium Hydroxide (Milk Of Magnesia Liq*) 30 ml PO Q4H PRN PRN Reason: CONSTIPATION Last Admin: 11/05/16 15:32 Dose: 30 ml Metolazone (Zaroxolyn Tab*) 5 mg PO BID [facility] Midodrine (Midodrine (Nf)) 15 mg PO TID [facility] PRN Reason: Protocol Last Admin: 11/07/16 08:34 Dose: 15 mg Pantoprazole Sodium (Protonix Tab (Nf)) 40 mg PO QAM [facility] Last Admin: 11/07/16 08:34 Dose: 40 mg Potassium Chloride (Klor Con Er Tab*) 40 meq PO QID [facility] Last Admin: 11/07/16 12:03 Dose: 40 meq Torsemide (Demadex*) 160 mg PO BID [facility] Warfarin Sodium (Coumadin Tab(*)) 7.5 mg PO DAILY@1700 [facility] PRN Reason: Protocol Last Admin: 11/06/16 16:22 Dose: 7.5 mg Vital Signs 11/06/16 11/06/16 11/06/16 15:32 16:21 20:00 Temperature 98.5 F Pulse Rate 126 Respiratory 18 18 18 Rate Blood Pressure 82/62 (mmHg) O2 Sat by Pulse 99 Oximetry 11/06/16 11/07/16 11/07/16 21:58 00:24 07:51 Temperature 98.1 F 97.9 F Pulse Rate 102 100 Respiratory 18 16 16 Rate Blood Pressure 91/64 84/62 (mmHg) O2 Sat by Pulse 100 100 Oximetry 11/07/16 11/07/16 11/07/16 08:00 08:32 10:32 Temperature Pulse Rate Respiratory 16 16 18 Rate Blood Pressure (mmHg) O2 Sat by Pulse Oximetry 11/07/16 12:04 Temperature Pulse Rate Respiratory 18 Rate Blood Pressure (mmHg) O2 Sat by Pulse Oximetry Oxygen Devices in Use Now: None Appearance: Alert, sitting up in bed. In fair spirits. Looks comfortable. Eyes: No Scleral Icterus Ears/Nose/Mouth/Throat: Clear Oropharnyx, Mucous Membranes Moist Neck: NL Appearance and Movements; NL JVP, No Thyroid Enlargement, Masses Respiratory: Symmetrical Chest Expansion and Respiratory Effort, Clear to Auscultation, Clear to Percussion Cardiovascular: NL Sounds; No Murmurs; No JVD, RRR, - - 1+ edema legs/thighs Extremities: No Clubbing, Cyanosis, - - 1+ edema legs/thighs Skin: No Rash or Ulcers, No Nodules or Sclerosis Neurological: Alert and Oriented x 3, NL Sensation Result Diagrams: 11/07/16 05:19 11/07/16 10:48 Assess/Plan/Problems-Billing Assessment: Mr. Ocampo is a 56 yo male with a PMH of end-stage cardiomyopathy with chronic systolic HF with self-tap peritoneal catheter, afib, CDK stg 3b, hx of cardiac arrest, hx DVT, AICD placement who presents with c/o of 30 lb weight gain - Patient Problems (1) Acute on chronic systolic (congestive) heart failure Current Visit: Yes Status: Acute Code(s): I50.23 - ACUTE ON CHRONIC SYSTOLIC (CONGESTIVE) HEART FAILURE SNOMED Code(s): 416286881 Comment: End-stage HF. 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 Good negative fluids balance since admission despite not getting full dose of metalozone. The patient is discouraged by the slowness of the diruesis and he is correct that he is capable of faster diuresis. Increase toresemide to 160 mg bid. (2) Afib Current Visit: Yes Status: Chronic Code(s): I48.91 - UNSPECIFIED ATRIAL FIBRILLATION SNOMED Code(s): 66233397 Comment: Increase warfarin dose as of 11/03/16. INR 1.92 11/07, check in 2 days. (3) Hypothyroidism Current Visit: Yes Status: Acute Code(s): E03.9 - HYPOTHYROIDISM, UNSPECIFIED SNOMED Code(s): 95724190 Comment: TSH 9.97 (was 10.28 6-7 weeks ago), levothyroxine was increased to 50 mcg daily on admission, will need f/u TSH in 6-8 weeks. (4) Hyponatremia Current Visit: Yes Status: Acute Code(s): E87.1 - HYPO-OSMOLALITY AND HYPONATREMIA SNOMED Code(s): 15325257 Comment: stable. continue Fluid restriction (5) Hyperkalemia Current Visit: Yes Status: Acute Code(s): E87.5 - HYPERKALEMIA SNOMED Code (s): 74869709 Comment: K+ level 5.3 on 11/07 appears to be a lab error. Status and Disposition: inpatient with end-stage acute on chronic congestive heart failure. Plan for DC to home when stable.
[2016-11-07] MEDS: Warfarin TAB(*) 7.5 MG PO SCH (16:14)
[2016-11-07] MEDS: Metolazone TAB* 5 MG PO SCH (20:47)
[2016-11-07] MEDS: Acetaminophen TAB* 325 MG PO PRN (21:24)
[2016-11-08] MEDS: Acetaminophen TAB* 325 MG PO PRN ×3 (06:20→20:06)
[2016-11-08] MEDS: Levothyroxine TAB* 50 MCG TAB PO SCH (06:21)
[2016-11-08] MEDS: Allopurinol TAB* 300 MG PO SCH (07:40)
[2016-11-08] MEDS: Metolazone TAB* 5 MG PO SCH ×2 (07:40→20:06)
[2016-11-08] MEDS: CMC:Pantoprazole TAB (NF) 40 MG TAB PO SCH (07:42)
[2016-11-08 08:04] LABS: BUN/Creatinine Ratio 29.5 (8-20); Calcium 7.9 mg/dL (8.6-10.3); EGFR African American 51.8 (>60); EGFR Non-African American 40.3 (>60); Potassium 4.6 mmol/L (3.5-5.0)
--- NOTE | 2016-11-08 08:16 | PN ---
Subjective Date of Service: 11/08/16 Interval History: Patient c/o that hi uric acid is "burning his veins" and causing his olegs to be swollen and stiff. He states Dr. Geller gave him steroids to lower his uric acid level. Family History: Findings - unemarkable Social History: Findings - No alcohol or tobacco use. Lives Objective Active Medications: Acetaminophen (Tylenol Tab*) 650 mg PO Q6H PRN PRN Reason: FEVER/PAIN Last Admin: 11/08/16 06:20 Dose: 650 mg Allopurinol (Zyloprim Tab*) 300 mg PO DAILY [facility] Last Admin: 11/08/16 07:40 Dose: 300 mg Eplerenone (Inspra (Nf)) 25 mg PO BID [facility] PRN Reason: Protocol Last Admin: 11/07/16 20:47 Dose: 25 mg Gabapentin (Neurontin Cap(*)) 300 mg PO QID [facility] Last Admin: 11/07/16 20:47 Dose: 300 mg Guaifenesin (Robitussin*) 5 ml PO Q6H PRN PRN Reason: COUGH Last Admin: 11/05/16 15:32 Dose: 5 ml Levothyroxine Sodium (Synthroid Tab*) 50 mcg PO DAILY@0600 [facility] Last Admin: 11/08/16 06:21 Dose: 50 mcg Magnesium Hydroxide (Milk Of Magnesia Liq*) 30 ml PO Q4H PRN PRN Reason: CONSTIPATION Last Admin: 11/05/16 15:32 Dose: 30 ml Metolazone (Zaroxolyn Tab*) 5 mg PO BID [facility] Last Admin: 11/08/16 07:40 Dose: 5 mg Midodrine (Midodrine (Nf)) 15 mg PO TID [facility] PRN Reason: Protocol Last Admin: 11/07/16 20:48 Dose: 15 mg Pantoprazole Sodium (Protonix Tab (Nf)) 40 mg PO QAM [facility] Last Admin: 11/08/16 07:42 Dose: 40 mg Potassium Chloride (Klor Con Er Tab*) 40 meq PO QID [facility] Last Admin: 11/07/16 20:48 Dose: 40 meq Torsemide (Demadex*) 160 mg PO BID [facility] Last Admin: 11/07/16 21:24 Dose: 160 mg Warfarin Sodium (Coumadin Tab(*)) 7.5 mg PO DAILY@1700 [facility] PRN Reason: Protocol Last Admin: 11/07/16 16:14 Dose: 7.5 mg Vital Signs 11/07/16 11/07/16 11/07/16 08:32 10:32 12:04 Temperature Pulse Rate Respiratory 16 18 18 Rate Blood Pressure (mmHg) O2 Sat by Pulse Oximetry 11/07/16 11/07/16 11/07/16 13:32 14:04 15:45 Temperature 98.4 F 97.9 F Pulse Rate 99 99 Respiratory 18 18 Rate Blood Pressure 82/60 81/54 (mmHg) O2 Sat by Pulse 99 100 Oximetry 11/07/16 11/07/16 11/07/16 16:13 18:13 20:00 Temperature Pulse Rate Respiratory 18 16 16 Rate Blood Pressure (mmHg) O2 Sat by Pulse Oximetry 11/07/16 11/07/16 11/07/16 20:47 22:47 23:40 Temperature 97.3 F Pulse Rate 102 Respiratory 16 18 16 Rate Blood Pressure 88/62 (mmHg) O2 Sat by Pulse 100 Oximetry 11/08/16 07:24 Temperature 98.5 F Pulse Rate 102 Respiratory 16 Rate Blood Pressure 83/58 (mmHg) O2 Sat by Pulse 98 Oximetry Oxygen Devices in Use Now: None Appearance: Patient in Trandelenberg position in bed. Alert, in fair spirits. Looks comfortable. Eyes: No Scleral Icterus Neck: NL Appearance and Movements; NL JVP, No Thyroid Enlargement, Masses Respiratory: Symmetrical Chest Expansion and Respiratory Effort, Clear to Auscultation, Clear to Percussion Extremities: No Clubbing, Cyanosis, - - 1+ edema both legs Skin: No Rash or Ulcers, No Nodules or Sclerosis Neurological: Alert and Oriented x 3, NL Sensation Result Diagrams: 11/07/16 05:19 11/08/16 07:39 Assess/Plan/Problems-Billing Assessment: Mr. Ocampo is a 56 yo male with a PMH of end-stage cardiomyopathy with chronic systolic HF with self-tap peritoneal catheter, afib, CDK stg 3b, hx of cardiac arrest, hx DVT, AICD placement who presents with c/o of 30 lb weight gain - Patient Problems (1) Acute on chronic systolic (congestive) heart failure Current Visit: Yes Status: Acute Code(s): I50.23 - ACUTE ON CHRONIC SYSTOLIC (CONGESTIVE) HEART FAILURE SNOMED Code(s): 746507395 Comment: Acute on chronic sysolic CHF, EF 20-25% due to amylodosis. Excellent neg fluid balance with bid metolazone and increase dose of toresemide 160 mg bid. BMP 11/09. (2) Afib Current Visit: Yes Status: Chronic Code(s): I48.91 - UNSPECIFIED ATRIAL FIBRILLATION SNOMED Code(s): 93017339 Comment: Increased warfarin dose as of 11/03/16. INR 11/09. (3) Hypothyroidism Current Visit: Yes Status: Acute Code(s): E03.9 - HYPOTHYROIDISM, UNSPECIFIED SNOMED Code(s): 67748735 Comment: TSH 9.97 (was 10.28 6-7 weeks ago), levothyroxine was increased to 50 mcg daily on admission, will need f/u TSH in 6-8 weeks. (4) Hyponatremia Current Visit: Yes Status: Acute Code(s): E87.1 - HYPO-OSMOLALITY AND HYPONATREMIA SNOMED Code(s): 76318666 Comment: Stable. Continue fluid restriction (5) Hyperkalemia Current Visit: Yes Status: Acute Code(s): E87.5 - HYPERKALEMIA SNOMED Code (s): 57756523 Comment: K+ level 5.3 on 11/07 appears to be a lab error. K+ 4.6 11/08. BMP . (6) Gout Current Visit: No Status: Acute Code(s): M10.9 - GOUT, UNSPECIFIED SNOMED Code(s): 66242679 Comment: Continue allopurinol. Uric acid 5.5 on 11/06/16 is in the lower part of his usual range. Status and Disposition: inpatient with end-stage acute on chronic congestive heart failure. Plan for DC to home when stable.
[2016-11-08] MEDS: Torsemide TAB* 20 MG PO SCH ×2 (08:53→20:44)
[2016-11-08] MEDS: CMCS - Epleronone (NF) 25 MG TAB PO SCH ×2 (08:53→20:43)
[2016-11-08] MEDS: Gabapentin CAP(*) 300 MG PO SCH ×4 (08:53→20:43)
[2016-11-08] MEDS: CMC:Midodrine (NF) 5 MG TAB PO SCH ×3 (08:53→21:56)
[2016-11-08] MEDS: Potassium Chlor TAB* 20 MEQ TAB.ER PO SCH ×4 (08:53→20:44)
[2016-11-08] MEDS: Warfarin TAB(*) 7.5 MG PO SCH (17:07)
[2016-11-08] MEDS ORDERED: CMCS: Midodrine (NF) 5 MG TAB PO ONE (22:00)
[2016-11-09] MEDS: Levothyroxine TAB* 50 MCG TAB PO SCH (05:41)
[2016-11-09 07:18] LABS: BUN/Creatinine Ratio 27.7 (8-20); Calcium 7.9 mg/dL (8.6-10.3); EGFR Non-African American 37.3 (>60)
[2016-11-09 07:30] VITALS: BP 75/52
[2016-11-09] MEDS: CMC:Midodrine (NF) 5 MG TAB PO SCH ×2 (07:56→12:56)
[2016-11-09] MEDS: Gabapentin CAP(*) 300 MG PO SCH ×2 (09:16→12:56)
[2016-11-09] MEDS: Allopurinol TAB* 300 MG PO SCH (09:16)
[2016-11-09] MEDS: Potassium Chlor TAB* 20 MEQ TAB.ER PO SCH ×2 (09:16→12:56)
[2016-11-09] MEDS: CMCS - Epleronone (NF) 25 MG TAB PO SCH (09:16)
[2016-11-09] MEDS: CMC:Pantoprazole TAB (NF) 40 MG TAB PO SCH (09:16)
[2016-11-09] MEDS: Metolazone TAB* 5 MG PO SCH (09:16)
[2016-11-09] MEDS: Torsemide TAB* 20 MG PO SCH (10:04)
--- NOTE | 2016-11-09 10:12 | DCNOTE ---
Subjective Date of Service: 11/09/16 Interval History: C/O difficulty walking due to edema of his legs. Not SOB. No new c/o. Family History: Findings - unemarkable Social History: Findings - No alcohol or tobacco use. Lives Objective Active Medications: Acetaminophen (Tylenol Tab*) 975 mg PO Q6H PRN PRN Reason: FEVER/PAIN Last Admin: 11/08/16 20:06 Dose: 975 mg Allopurinol (Zyloprim Tab*) 300 mg PO DAILY [facility] Last Admin: 11/09/16 09:16 Dose: 300 mg Eplerenone (Inspra (Nf)) 25 mg PO BID [facility] PRN Reason: Protocol Last Admin: 11/09/16 09:16 Dose: 25 mg Gabapentin (Neurontin Cap(*)) 300 mg PO QID [facility] Last Admin: 11/09/16 09:16 Dose: 300 mg Guaifenesin (Robitussin*) 5 ml PO Q6H PRN PRN Reason: COUGH Last Admin: 11/05/16 15:32 Dose: 5 ml Levothyroxine Sodium (Synthroid Tab*) 50 mcg PO DAILY@0600 [facility] Last Admin: 11/09/16 05:41 Dose: 50 mcg Magnesium Hydroxide (Milk Of Magnesia Liq*) 30 ml PO Q4H PRN PRN Reason: CONSTIPATION Last Admin: 11/05/16 15:32 Dose: 30 ml Metolazone (Zaroxolyn Tab*) 5 mg PO BID [facility] Last Admin: 11/09/16 09:16 Dose: 5 mg Midodrine (Midodrine (Nf)) 15 mg PO 0900,1400,2100 [facility] PRN Reason: Protocol Last Admin: 11/09/16 07:56 Dose: Not Given Pantoprazole Sodium (Protonix Tab (Nf)) 40 mg PO QAM [facility] Last Admin: 11/09/16 09:16 Dose: 40 mg Potassium Chloride (Klor Con Er Tab*) 40 meq PO QID [facility] Last Admin: 11/09/16 09:16 Dose: 40 meq Torsemide (Demadex*) 160 mg PO BID [facility] Last Admin: 11/09/16 10:04 Dose: 160 mg Warfarin Sodium (Coumadin Tab(*)) 5 mg PO DAILY@1700 [facility] PRN Reason: Protocol Vital Signs 11/08/16 11/08/16 11/08/16 10:41 12:24 14:24 Temperature Pulse Rate Respiratory 16 16 18 Rate Blood Pressure (mmHg) O2 Sat by Pulse Oximetry 11/08/16 11/08/16 11/08/16 16:29 17:06 19:06 Temperature 98.1 F Pulse Rate 102 Respiratory 18 18 18 Rate Blood Pressure 75/48 (mmHg) O2 Sat by Pulse 100 Oximetry 11/08/16 11/08/16 11/08/16 20:00 20:43 22:43 Temperature Pulse Rate Respiratory 16 16 16 Rate Blood Pressure (mmHg) O2 Sat by Pulse Oximetry 11/08/16 11/09/16 11/09/16 23:56 07:30 09:16 Temperature 98.0 F 98.0 F Pulse Rate 99 98 Respiratory 16 18 18 Rate Blood Pressure 85/59 75/52 (mmHg) O2 Sat by Pulse 100 99 Oximetry Oxygen Devices in Use Now: None Appearance: Alert, sitting on the edge of his bed. In fair spirits. Looks comfortable. Eyes: No Scleral Icterus Neck: NL Appearance and Movements; NL JVP, No Thyroid Enlargement, Masses Respiratory: Symmetrical Chest Expansion and Respiratory Effort, Clear to Auscultation, Clear to Percussion Cardiovascular: - - 1+ edema both legs. Irreg heart beat. Distant heart sounds Skin: No Rash or Ulcers, No Nodules or Sclerosis, - Neurological: Alert and Oriented x 3, NL Sensation Result Diagrams: 11/07/16 05:19 11/09/16 06:03 Assess/Plan/Problems-Billing Assessment: Mr. Ocampo is a 56 yo male with a PMH of end-stage cardiomyopathy with chronic systolic HF with self-tap peritoneal catheter, afib, CDK stg 3b, hx of cardiac arrest, hx DVT, AICD placement who presents with c/o of 30 lb weight gain - Patient Problems (1) Acute on chronic systolic (congestive) heart failure Current Visit: Yes Status: Acute Code(s): I50.23 - ACUTE ON CHRONIC SYSTOLIC (CONGESTIVE) HEART FAILURE SNOMED Code(s): 770603117 Comment: Acute on chronic sysolic CHF, EF 20-25% due to amylodosis. Excellent neg fluid balance with bid metolazone and increased dose of toresemide 160 mg bid. BMP 11/12 then EVERY WEDNESDAY AND WEDNESDAY as outpt. Pt instructed to weigh himself every day, write down the weights and discuss his weights and his BMP EVERY WEEK with his PCP. He did not know his PCP's name but state he was in [facility]. (2) Afib Current Visit: Yes Status: Chronic Code(s): I48.91 - UNSPECIFIED ATRIAL FIBRILLATION SNOMED Code(s): 86500811 Comment: Hold warfarin until after lab 11/12/16, then call Dr. Thomas for warfarin instructions. . INR 11/12. (3) Hypothyroidism Current Visit: Yes Status: Acute Code(s): E03.9 - HYPOTHYROIDISM, UNSPECIFIED SNOMED Code(s): 81809502 Comment: TSH 9.97 (was 10.28 6-7 weeks ago), levothyroxine was increased to 50 mcg daily on admission, will need f/u TSH in 6-8 weeks. (4) Hyponatremia Current Visit: Yes Status: Acute Code(s): E87.1 - HYPO-OSMOLALITY AND HYPONATREMIA SNOMED Code(s): 25636869 Comment: Stable. Continue fluid restriction (5) Hyperkalemia Current Visit: Yes Status: Acute Code(s): E87.5 - HYPERKALEMIA SNOMED Code (s): 12931707 Comment: K+ level 5.3 on 11/07 appears to be a lab error. K+ 4.6 11/08. BMP as outpt. (6) Gout Current Visit: No Status: Acute Code(s): M10.9 - GOUT, UNSPECIFIED SNOMED Code(s): 10167579 Comment: Continue allopurinol. Uric acid 5.5 on 11/06/16 is in the lower part of his usual range. Status and Disposition: inpatient with end-stage acute on chronic congestive heart failure. Discharge now. Fup his PCP, Dr. Thomas. I told patient he does not need to go to the [facility]fusion [facility] any more. I told him he should have his abdominal catheter removed.
--- NOTE | 2016-11-09 10:16 | PN ---
Progress Note - Progress Note Note: Time spent on discharge 65 minutes.
--- NOTE | 2016-11-09 21:50 | DS ---
DISCHARGE SUMMARY: DATE OF ADMISSION: 11/03/16 DATE OF DISCHARGE: 11/09/16 HISTORY: This 56-year-old man came to the emergency room complaining he had gained about 30 pounds at home. He may have been somewhat short of breath, although this is just a minor part of his complaints. He said at home he sometimes did not take his metolazone, I am not sure why. The patient has been admitted many times with the same presentation. We have found that with sufficient doses of oral diuretics, he maintained a negative fluid balance. He is certainly capable of following the dietary restrictions. My only explanation for why things do not go well as an outpatient as that of inpatient on presumably the same exact treatment regimen is that he is not complying with the treatment regimen, either the diet, the fluid restriction, the medications or some combination of the above. The patient did get two doses of furosemide, the first day in the emergency room but thereafter was treated entirely with oral medications, all of which he has at home. I did increase his furosemide dose from 140 mg b.i.d. to 160 mg b.i.d. When his fluid overload goes down to where his legs are not so stiff and uncomfortable, his furosemide dose can be lowered some I would think. It would take a long time as an outpatient to find a regimen that will keep him at a steady weight without impairing his renal function. I do note that in the past no matter how much diuresis was achieved, even losing 20 to 30 pounds, there was no discernible effect on his renal function. His renal function at baseline though is considerably impaired. Though on this admission his TSH is elevated and his levothyroxine dose is also increased, he had a subtherapeutic INR, his warfarin was increased and then he had a supratherapeutic INR. This will need more attention as an outpatient. I have told them to hold his warfarin until his INR on 11/12/16, he has 5 mg tablets at home, he can resume those. Assuming his INR is no longer supratherapeutic, this should probably be checked at least once a week as well. I arranged for the patient to have an INR and BMP on 11/12/16. I have also arranged for him to have a BMP every Wednesday and . I told them to weigh himself every day, write down the weights and call his primary care physician once a week to discuss his weight for the past week as well as the two BMPs for the past week. I told them that there was really no point in him to going to the infusion center as he diureses quite well without the infusion center and he is really wasting his time there as well as significant medical resources. The same goes for his abdominal catheter which poses a risk of infection. The small amount of fluid removed through the abdominal catheter could easily be replaced by adjusting his diuretic dose for adequate urine output, which seems to not be a problem at all. DISCHARGE DIAGNOSES: 1. Acute on chronic systolic congestive heart failure. 2. Atrial fibrillation. 3. Hypothyroidism. 4. Hyponatremia. 5. Hyperkalemia. 6. Gout. DISCHARGE MEDICATIONS: 1. Levothyroxine 50 mcg daily. 2. Metolazone 5 mg b.i.d. 3. Torsemide 20 mg 8 tablets twice daily. 4. Pantoprazole 40 mg daily. 5. Eplerenone 25 mg b.i.d. 6. Gabapentin 300 mg 4 times a day. 7. Allopurinol 300 mg daily. 8. Acetaminophen 650 mg every 6 hours as needed. 9. Midodrine 15 mg t.i.d. 10. Warfarin 5 mg daily, not to start, to be on hold until 11/12/16. DISCHARGE DIET: Low sodium diet, 1500 mL per day fluid restriction. CC: Dr. Thomas* [id number]/[facility] #: [id number] MTDD
[2016-11-11] MEDS ORDERED: Warfarin TAB(*) 5 MG PO SCH (17:00)
== END 2016-11-09 15:25 | disposition home or self-care (01) | DRG 292 ==
LOC: ED 08:10 → MEDTELE 13:04 → MED 11-07 13:21
PROVIDERS: ADMIT Internal Medicine; ATTEND Internal Medicine
DX: I50.23 Acute on chronic systolic (congestive) heart failure (principal); E87.1 Hypo-osmolality and hyponatremia; R18.8 Other ascites; N18.3 Chronic kidney disease, stage 3 (moderate); I42.9 Cardiomyopathy, unspecified; Z79.01 Long term (current) use of anticoagulants; I48.91 Unspecified atrial fibrillation; E03.9 Hypothyroidism, unspecified; E87.5 Hyperkalemia; M10.9 Gout, unspecified; Z95.810 Presence of automatic (implantable) cardiac defibrillator; Z86.718 Personal history of other venous thrombosis and embolism; Z88.6 Allergy status to analgesic agent; Z88.8 Allergy status to other drugs, medicaments and biological substances; Z79.1 Long term (current) use of non-steroidal anti-inflammatories (NSAID); Z79.899 Other long term (current) drug therapy
CPT/HCPCS: 36415; 71010; 80048; 80053; 83605; 83735; 83880; 84132; 84443; 84484; 84550; 85025; 85610; 85730; 93005; 93970; 96365; A9270-GY; J1644; J1940; J3475; J3480

== ENCOUNTER 2016-11-17 12:00 | Inpatient (IN) | payer MEDICARE, BC ==
[2016-11-17 14:01] LABS: Urine Bilirubin Negative (Negative); Urine Glucose Negative (Negative); Urine Nitrite Negative (Negative)
[2016-11-17 14:13] LABS: Hematocrit 26 % (42-52); Mean Corpuscular HGB Conc 30 g/dl (31-36); Mean Corpuscular Hemoglobin 24 pg (27-31); Mean Corpuscular Volume 80 fL (80-94); Mean Platelet Volume 7 um3 (7.4-10.4); Red Blood Count 3.31 10^6/ul (4.0-5.4); White Blood Count 9.3 10^3/ul (3.5-10.8)
--- NOTE | 2016-11-17 14:15 | RAD ---
INDICATION: Shortness of breath. COMPARISON: Comparison is made with prior study from November 03, 2016. TECHNIQUE: A portable view of the chest was obtained. FINDINGS: There is a transvenous pacemaker present. The heart is mildly enlarged and unchanged from the prior exam. The lungs are clear. No pleural effusion is seen. IMPRESSION: NO EVIDENCE FOR ACUTE FINDING.
[2016-11-17 14:24] LABS: Comments Flag Yes; Red Cell Distribution Width 22 % (10.5-15)
[2016-11-17 14:33] LABS: Albumin 2.7 g/dL (3.2-5.2); C Reactive Protein 19.82 mg/L (< 5.00); Calcium 8.1 mg/dL (8.6-10.3); EGFR African American 41.5 (>60); EGFR Non-African American 32.3 (>60); Globulin 2.9 g/dL (2-4); Magnesium 2.1 mg/dL (1.9-2.7); Potassium 3.7 mmol/L (3.5-5.0); Total Bilirubin 0.4 mg/dL (0.2-1.0); Total Protein 5.6 g/dL (6.4-8.9)
[2016-11-17 14:36] LABS: Troponin I 0.08 ng/mL (<0.04)
[2016-11-17 15:00] LABS: TSH (Thyroid Stimulating Horm) 5.98 mcIU/mL (0.34-5.60)
[2016-11-17] MEDS ORDERED: Gabapentin CAP(*) 300 MG PO ONE ×2 (16:49→23:00)
[2016-11-17 17:24] LABS: Uric Acid 6.2 mg/dL (4.4-7.6)
[2016-11-17] MEDS ORDERED: Furosemide IV* 10 MG/ML 10 ML VIAL (100 MG) IV ONE (18:12)
--- NOTE | 2016-11-17 19:44 | ED ---
Ton Vazquez Matthew, scribed for Gaetano Owusu MD on 11/17/16 at 1520 . Shortness of Breath - HPI Summary HPI Summary: A 56 y/o male presents to the ED with gradually worsening, constant SOB since . Associated symptoms include pedal edema and distended abdomen. States that he's been taking his demadex twice a day, but he used to be prescribed the medication three times a day. - History of Current Complaint Chief Complaint: EDShortnessOfBreath Time Seen by Provider: 11/17/16 14:55 Hx Obtained From: Patient Onset/Duration: Gradual Onset, Lasting Weeks, Still Present Timing: Constant Current Severity: Moderate Dyspnea At: Rest Aggrevating Factors: Nothing Alleviating Factors: Nothing Associated Signs & Symptoms: Calf Pain/Swelling, Edema - Allergy/Home Medications Allergies/Adverse Reactions: Allergies Allergy/AdvReac Type Severity Reaction Status Date / Time Oxycodone Allergy Intermediate Altered Verified 11/03/16 08:12 Mental Status Spironolactone Allergy Intermediate Rash And Verified 11/03/16 08:12 Itching Home Medications: Home Medications Bisacodyl SUPP* [Dulcolax Supp*] 10 mg PO DAILY 11/17/16 [History Confirmed ] Hydrocortisone (Rectal) [Proctozone-Hc] 1 dose NM TID PRN 11/17/16 [History Confirmed 11/17/16] Warfarin TAB(*) [Coumadin TAB(*)] 7.5 mg PO SUTUTHSA 11/17/16 [History Confirmed 11/17/16] Warfarin TAB(*) [Coumadin TAB(*)] 10 mg PO MOWEFR 11/17/16 [History Confirmed ] PMH/Surg Hx/FS Hx/Imm Hx Endocrine/Hematology History: Reports: Hx Anticoagulant Therapy - warfarin, Hx Blood Disorders - factor X deficiency, thrombocytopenia, Hx Anemia, Other Endocrine/Hematological Disorders - amyloidosis Denies: Hx Diabetes, Hx Thyroid Disease Cardiovascular History: Reports: Hx Auto Implanted Cardiovert Defib - PACER/AICD , Hx Cardiac Arrest, Hx Cardiomegaly - ISCHEMIC CARDIOMYOPATHY, Hx Congestive Heart Failure - EF 20% DUE TO AMLOYDOSIS, Hx Hypercholesterolemia, Hx Hypotension - regularly 90s for SBP, Hx Pacemaker/ICD, Hx Syncope - d/t dehydration, Other Cardiovascular Problems/Disorders - CARDIOMYOPATHY Denies: Hx Hypertension Respiratory History: Reports: Hx Pleural Effusion, Hx Pneumonia, Hx Sleep Apnea - wears 2L O2 concentrator to bed at home, Other Respiratory Problems/Disorders - PNA Denies: Hx Asthma, Hx Chronic Bronchitis, Hx Chronic Obstructive Pulmonary Disease (COPD) GI History: Reports: Hx Gastroesophageal Reflux Disease, Hx Hiatal Hernia - UMBILICAL & PARAUMBILICAL, Other GI Disorders - ASCITES Denies: Hx Gall Bladder Disease History: Reports: Hx Chronic Renal Failure, Other Problems/Disorders - CKD Denies: Hx Dialysis, Hx Renal Disease Musculoskeletal History: Reports: Hx Back Problems, Hx Gout, Other Musculoskeletal History - gout Denies: Hx Arthritis, Hx Osteoporosis Sensory History: Reports: Hx Contacts or Glasses Denies: Hx Glaucoma Opthamlomology History: Reports: Hx Contacts or Glasses Denies: Hx Glaucoma Neurological History: Reports: Other Neuro Impairments/Disorders - episodes of syncope r/t dehydration, amyloidosis Denies: Hx Dementia, Hx Headaches, Hx Seizures, Hx Transient Ischemic Attacks (TIA) Psychiatric History: Denies: Hx Anxiety, Hx Depression - Cancer History Cancer Type, Location and Year: Family history Hx Chemotherapy: Yes - for amyloidosis - Surgical History Surgery Procedure, Year, and Place: R leg vericose vein stripping. Hemorrhioidectomy. aicd/pacer- strong memoral 01/28/16. paracentesis 04/15/16 Hx Anesthesia Reactions: No - Immunization History Date of Tetanus Vaccine: 2007 Date of Influenza Vaccine: UNKNOWN & REFUSED Infectious Disease History: No Infectious Disease History: Denies: Traveled Outside the [place] in Last 30 Days - Family History Known Family History: Positive: None - no malignant hyperthemia. no anesthesia reaction., Other - CA. no malignant hyperthemia. no anesthesia reaction. Family History: R & n/C - Social History Alcohol Use: None Hx Substance Use: No Substance Use Type: Reports: None Hx Tobacco Use: No Smoking Status (MU): Never Smoked Tobacco Have You Smoked in the Last Year: No Review of Systems Constitutional: Negative Eyes: Negative ENT: Negative Cardiovascular: Negative Positive: Shortness Of Breath Gastrointestinal: Other - distended abdomen Genitourinary: Negative Positive: Edema - pedal Skin: Negative Neurological: Negative Psychological: Normal All Other Systems Reviewed And Are Negative: Yes Physical Exam Vital Signs On Initial Exam: Initial Vitals Temp Pulse Resp BP Pulse Ox 98.6 F 103 22 83/54 100 11/17/16 12:02 11/17/16 12:02 11/17/16 12:02 11/17/16 12:02 11/17/16 12:02 Appearance: Positive: Well-Appearing, No Pain Distress, Obese Skin: Positive: Warm, Skin Color Reflects Adequate Perfusion, Dry Eyes: Positive: EOMI, LILLIAN ENT: Positive: Normal ENT inspection Neck: Positive: Supple, Nontender Cardiovascular: Positive: Tachycardia Abdomen Description: Positive: Nontender, Soft Bowel Sounds: Positive: Present Musculoskeletal: Positive: Edema Left, Edema Right, Other - ptting edema; ascites Neurological: Positive: Normal, Sensory/Motor Intact, Alert, Oriented to Person Place, Time Psychiatric: Positive: Normal, Affect/Mood Appropriate - [place] Coma Scale Coma Scale Total: 15 Diagnostics - Vital Signs Vital Signs Temp Pulse Resp BP Pulse Ox 11/17/16 14:59 23 11/17/16 14:30 15 84/60 11/17/16 14:00 102 26 75/46 98 11/17/16 13:30 14 74/44 11/17/16 13:00 17 88/64 11/17/16 12:52 19 92/67 11/17/16 12:51 21 11/17/16 12:02 98.6 F 103 22 83/54 100 - Laboratory Lab Results: Lab Results 11/17/16 11/17/16 11/17/16 Range/Units 12:48 14:00 14:00 WBC 9.3 (3.5-10.8) 10^3/ul RBC 3.31 L (4.0-5.4) 10^6/ul Hgb 8.0 L (14.0-18.0) g/dl Hct 26 L (42-52) % MCV 80 (80-94) fL MCH 24 L (27-31) pg MCHC 30 L (31-36) g/dl RDW 22 H (10.5-15) % Plt Count 297 (150-450) 10^3/ul MPV 7 L (7.4-10.4) um3 Neut % (Auto) 84.0 H (38-83) % Lymph % (Auto) 3.9 L (25-47) % [place] % (Auto) 8.8 (1-9) % Eos % (Auto) 2.0 (0-6) % Baso % (Auto) 1.3 (0-2) % Absolute Neuts (auto) 7.8 H (1.5-7.7) 10^3/ul Absolute Lymphs (auto) 0.4 L (1.0-4.8) 10^3/ul Absolute Monos (auto) 0.8 (0-0.8) 10^3/ul Absolute Eos (auto) 0.2 (0-0.6) 10^3/ul Absolute Basos (auto) 0.1 (0-0.2) 10^3/ul Absolute Nucleated RBC 0.04 10^3/ul Nucleated RBC % 0.4 INR (Anticoag Therapy) 1.62 H (0.89-1.11) APTT 35.7 (26.0-36.3) seconds Sodium (133-145) mmol/L Potassium (3.5-5.0) mmol/L Chloride (101-111) mmol/L Carbon Dioxide (22-32) mmol/L Anion Gap (2-11) mmol/L BUN (6-24) mg/dL Creatinine (0.67-1.17) mg/dL Est GFR ( Amer) (>60) Est GFR (Non-Af Amer) (>60) BUN/Creatinine Ratio (8-20) Glucose (70-100) mg/dL Lactic Acid (0.5-2.0) mmol/L Calcium (8.6-10.3) mg/dL Magnesium (1.9-2.7) mg/dL Total Bilirubin (0.2-1.0) mg/dL AST (13-39) U/L ALT (7-52) U/L Alkaline Phosphatase (34-104) U/L Total Creatine Kinase (10-223) U/L CK-MB (CK-2) (0.6-6.3) ng/mL Troponin I (<0.04) ng/mL C-Reactive Protein (< 5.00) mg/L B-Natriuretic Peptide ( - 100) pg/mL Total Protein (6.4-8.9) g/dL Albumin (3.2-5.2) g/dL Globulin (2-4) g/dL Albumin/Globulin Ratio (1-3) Lipase (11.0-82.0) U/L TSH (0.34-5.60) mcIU/mL Urine Color Straw Urine Appearance Clear Urine pH 7.0 (5-9) Ur Specific [place] 1.006 L (1.010-1.030) Urine Protein Negative (Negative) Urine Ketones Negative (Negative) Urine Blood Negative (Negative) Urine Nitrate Negative (Negative) Urine Bilirubin Negative (Negative) Urine Urobilinogen Negative (Negative) Ur Leukocyte Esterase Negative (Negative) Urine Glucose Negative (Negative) Urine Ascorbic Acid * H (Negative) 11/17/16 11/17/16 11/17/16 Range/Units 14:00 14:00 14:00 WBC (3.5-10.8) 10^3/ul RBC (4.0-5.4) 10^6/ul Hgb (14.0-18.0) g/dl Hct (42-52) % MCV (80-94) fL MCH (27-31) pg MCHC (31-36) g/dl RDW (10.5-15) % Plt Count (150-450) 10^3/ul MPV (7.4-10.4) um3 Neut % (Auto) (38-83) % Lymph % (Auto) (25-47) % [place] % (Auto) (1-9) % Eos % (Auto) (0-6) % Baso % (Auto) (0-2) % Absolute Neuts (auto) (1.5-7.7) 10^3/ul Absolute Lymphs (auto) (1.0-4.8) 10^3/ul Absolute Monos (auto) (0-0.8) 10^3/ul Absolute Eos (auto) (0-0.6) 10^3/ul Absolute Basos (auto) (0-0.2) 10^3/ul Absolute Nucleated RBC 10^3/ul Nucleated RBC % INR (Anticoag Therapy) (0.89-1.11) APTT (26.0-36.3) seconds Sodium 123 L (133-145) mmol/L Potassium 3.7 (3.5-5.0) mmol/L Chloride 88 L (101-111) mmol/L Carbon Dioxide 27 (22-32) mmol/L Anion Gap 8 (2-11) mmol/L BUN 66 H (6-24) mg/dL Creatinine 2.13 H (0.67-1.17) mg/dL Est GFR ( Amer) 41.5 (>60) Est GFR (Non-Af Amer) 32.3 (>60) BUN/Creatinine Ratio 31.0 H (8-20) Glucose 101 H (70-100) mg/dL Lactic Acid 1.3 (0.5-2.0) mmol/L Calcium 8.1 L (8.6-10.3) mg/dL Magnesium 2.1 (1.9-2.7) mg/dL Total Bilirubin 0.40 (0.2-1.0) mg/dL AST 25 (13-39) U/L ALT 18 (7-52) U/L Alkaline Phosphatase 88 (34-104) U/L Total Creatine Kinase 26 (10-223) U/L CK-MB (CK-2) 3.5 (0.6-6.3) ng/mL Troponin I 0.08 H* (<0.04) ng/mL C-Reactive Protein 19.82 H (< 5.00) mg/L B-Natriuretic Peptide 763 H ( - 100) pg/mL Total Protein 5.6 L (6.4-8.9) g/dL Albumin 2.7 L (3.2-5.2) g/dL Globulin 2.9 (2-4) g/dL Albumin/Globulin Ratio 0.9 L (1-3) Lipase 79 (11.0-82.0) U/L TSH 5.98 H (0.34-5.60) mcIU/mL Urine Color Urine Appearance Urine pH (5-9) Ur Specific [place] (1.010-1.030) Urine Protein (Negative) Urine Ketones (Negative) Urine Blood (Negative) Urine Nitrate (Negative) Urine Bilirubin (Negative) Urine Urobilinogen (Negative) Ur Leukocyte Esterase (Negative) Urine Glucose (Negative) Urine Ascorbic Acid (Negative) Result Diagrams: 11/17/16 14:00 11/17/16 14:00 Lab Statement: Any lab studies that have been ordered have been reviewed, and results considered in the medical decision making process. - Radiology CXR Xray Interpretation: No Acute Changes Radiology Interpretation Completed By: Radiologist - EKG 12:10 Cardiac Rate: Tachycardia - 101 EKG Rhythm: Sinus Rhythm EKG Interpretation: RBBB EKG Comparison: No Significant Change - 11/03/16 Course/Dx - Course Assessment/Plan: A 56 y/o male presents to the ED with gradually worsening, constant SOB since 11/03. His Demadex was recently changed from three times daily to BID. CXR shows no active cardiopulmonary disease. EKG is sinus tachycardia at 101 bpm with a RBBB. No Change from 11/03/16. Discussed the case with Dr. Pritchett who will admit the patient into her services. - Diagnoses Provider Diagnoses: CHF - Physician Notifications Discussed Care of Patient With: Dr. Pritchett (Hospitalist) at 16:01 -- Notified of patient's history and will admit the patient. Discharge - Discharge Plan Condition: Stable Disposition: ADMITTED TO [facility] documentation as recorded by the Ton villarreal Matthew accurately reflects the service I personally performed and the decisions made by me, Gaetano Owusu MD.
[2016-11-17] MEDS ORDERED: Warfarin TAB(*) 10 MG PO ONE (20:00)
[2016-11-17] MEDS: Gabapentin CAP(*) 300 MG PO SCH (20:26)
[2016-11-17] MEDS: CMCS: Midodrine (NF) 5 MG TAB PO SCH (20:27)
[2016-11-17] MEDS: EPLERONONE 25 MG PO SCH (20:27)
[2016-11-17] MEDS ORDERED: Potassium Chlor TAB* 20 MEQ TAB.ER PO SCH (21:00)
[2016-11-17] MEDS: Heparin VIAL(*) 5000 UNITS/ML VIAL (FIVE THOUSAND) SUBCUT SCH (21:44)
[2016-11-18 02:44] LABS: BUN/Creatinine Ratio 34.2 (8-20); Calcium 8.2 mg/dL (8.6-10.3); EGFR African American 45.7 (>60); EGFR Non-African American 35.6 (>60); Magnesium 2.1 mg/dL (1.9-2.7); Potassium 3.2 mmol/L (3.5-5.0)
[2016-11-18] MEDS: Heparin VIAL(*) 5000 UNITS/ML VIAL (FIVE THOUSAND) SUBCUT SCH ×3 (05:10→21:20)
[2016-11-18] MEDS: Levothyroxine TAB* 50 MCG TAB PO SCH (05:10)
[2016-11-18] MEDS ORDERED: Furosemide IV* 10 MG/ML 10 ML VIAL (100 MG) IV ONE (07:38)
[2016-11-18] MEDS: Omeprazole CAP* 20 MG PO SCH (08:29)
[2016-11-18] MEDS: CMCS: Midodrine (NF) 5 MG TAB PO SCH ×3 (08:29→20:03)
[2016-11-18] MEDS: Gabapentin CAP(*) 300 MG PO SCH ×4 (08:29→20:02)
[2016-11-18] MEDS: EPLERONONE 25 MG PO SCH ×2 (08:30→20:04)
[2016-11-18] MEDS: Allopurinol TAB* 300 MG PO SCH (08:30)
[2016-11-18] MEDS: Potassium Chlor TAB* 20 MEQ TAB.ER PO SCH ×4 (08:31→20:01)
[2016-11-18] MEDS: Bisacodyl SUPP* 10 MG SUPP PR SCH ×2 (08:31→18:20)
[2016-11-18] MEDS: Metolazone TAB* 5 MG PO SCH ×2 (08:31→19:31)
--- NOTE | 2016-11-18 10:24 | HP ---
HISTORY AND PHYSICAL: DATE OF ADMISSION: 11/17/16 TIME OF EVALUATION: 5:20 p.m. PRIMARY CARE PROVIDER: Dr. Watson INSURANCE AND BENEFITS CLERK: Cain Thomas MD. SKEIN SPOOLER: Brandyn Geller MD. CHIEF COMPLAINT: Shortness of breath. HISTORY OF PRESENT ILLNESS: Mr. 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 The patient has a long and complex history of congestive heart failure and he has been admitted to the hospital almost monthly. His last admission was from 11/03/16 to 11/09/16, and he states that on that admission he was not "diuresed well." He went home on a higher dose of torsemide, but states that he was still gaining weight anyway. He was being maintained with monthly admissions and on top of that he would come to the infusion center and get intravenous furosemide three times a week. Even with all those aggressive measures, he still required admission. Last year a peritoneal drain was placed, and he states that he empties it daily with 300 to 400 mL drainage every day. After his discharge, he was seen by Lili Mora, physician photography assistant at Dr. Thomas's office on 11/12/16. At that point, the recommendation was to stop the infusions for now and continue his oral diuretics on a higher dose to see how he would do usp with this plan, but she was clear that he may need to re- initiate IV Lasix therapy if he gains weight aggressively. The patient states that he is compliant with his low-salt diet and fluid restriction, but he is still drinking V8 juice that he states is a low-sodium version and also low-sodium dill pickles. He states that his weight continues to go up, and this morning he was up to 235 pounds. Shortness of breath has progressed. Lower extremity edema is worsened with weeping at this point, and he came to the emergency room for further evaluation. PAST MEDICAL HISTORY: 1. End-stage heart failure secondary to amyloidosis AL with cardiac involvement with multiple admissions at least once a month on top of receiving furosemide infusions three times a week. 2. Amyloidosis AL with cardiac involvement. As per cardiology records, the patient was denied a heart transplant at multiple facilities including [facility] in [place], [place]; [facility] in [place]; [facility] in [place], [place] originally two years ago; [facility]; [place]; and [facility]. He states that he is now being reconsidered for possible heart transplant at [facility], but he has not had any contact with them yet. 3. Status post cardiac arrest. Evaluated at [facility] with initial diagnosis of amyloidosis three years ago. 4. Chronic ascites secondary to chronic CHF and end-stage cardiomyopathy. 5. Status post peritoneal abdominal drain placed by Dr. Ambriz in May 2016. 6. Atrial flutter/fibrillation, on warfarin. 7. Nonsustained ventricular tachycardia, status post ICD placement by Dr. Bhandari at [facility]. 8. Severe cardiomyopathy. As per cardiology records, last ejection fraction is 9%. Please note that on the last echocardi[place] done [place] [facility] ejection fraction was 20% to 25%. This number of 9% is obtained from the last cardiology progress note. 9. Coagulopathy with factor 10 deficiency. 10. Gout. 11. Chronic hyponatremia. 12. CKD stage 3. 13. History of questionable cirrhosis of the liver; recent biopsy done August 2016 showed chronic steatohepatitis grade I and was negative for amyloid deposition. 14. GERD. 15. Peripheral neuropathy. MEDICATION LIST: 1. Acetaminophen 650 mg p.o. q.6 hours for any pain or fever. 2. Allopurinol 300 mg p.o. daily. 3. Bisacodyl suppository 10 mg per rectum daily. 4. Eplerenone 25 mg p.o. b.i.d. 5. Gabapentin 200 mg p.o. q.i.d. 6. Hydrocortisone rectal, one dose per rectum t.i.d. p.r.n. 7. Levothyroxine 50 mcg p.o. daily. 8. Metolazone 5 mg p.o. b.i.d. 9. Midodrine 15 mg p.o. t.i.d. 10. Pantoprazole 40 mg p.o. daily. 11. Potassium chloride 60 mEq p.o. q.i.d. 12. Torsemide 160 mg p.o. b.i.d. 13. Warfarin 7.5 mg p.o. on Sundays, Tuesdays, and Saturdays; and 10 mg on Mondays, Wednesdays and Fridays. ALLERGIES: 1. With OXYCODONE, the patient had altered mental status. 2. With SPIRONOLACTONE, he had rash and itching. FAMILY HISTORY: Reviewed and is noncontributory. SOCIAL HISTORY: No tobacco, alcohol or drug use. REVIEW OF SYSTEMS: A 14-point review of systems was performed, and all the pertinent negative and positive findings are in the HPI. PHYSICAL EXAMINATION GENERAL: The patient is a middle-aged, currently ill-appearing male, lying in ER stretcher, in no acute distress. VITAL SIGNS: Temperature 98.6, heart rate 103, respiratory rate 20, oxygen saturation 98% on room air, blood pressure 97/66. HEENT: Pupils are equal, reactive to light. Extraocular movements intact. Moist mucous membranes. CHEST: Breath sounds present bilaterally, decreased in bases. CVS: Normal S1, S2. Regular rate and rhythm. ABDOMEN: Distended with ascites. Nontender. Bowel sounds are present. There is a catheter on the right lower quadrant with no surrounding drainage. EXTREMITIES: Very severe bilateral lower extremity edema with weeping. NEURO: He is alert, awake, and oriented x3. Able to move all 4 extremities. LABORATORY AND IMAGING DATA: The patient had a CBC that showed a WBC of 9.3, hemoglobin 8, hematocrit 26, platelets 297, 84% neutrophils. INR 1.6. Chemistry showed a sodium of 123, potassium 3.7, chloride 88, BUN 66, creatinine 2.1, glucose 101. Lactic acid 1.3. Uric acid 6.2. Calcium 8.1, magnesium 2.1. LFTs were normal. Troponin 0.08. CRP 19. BNP 763. TSH 5.98. Urinalysis was negative. Chest x-ray showed no evidence for acute findings. EKG showed sinus tachycardia at 101 beats per minute with a right bundle branch block, a left fascicular block. No significant change when compared to his prior EKG from October 2016. ASSESSMENT AND PLAN: Mr. Ocampo is a 56-year-old male with a past medical history of end-stage heart failure secondary to amyloidosis with chronic systolic CHF with ejection fraction of 20% to 25%, chronic ascites, frequent admissions for fluid overload who presents to the emergency room again after gaining more than 10 pounds after his discharge two weeks ago. 1. Acute systolic CHF exacerbation. The patient will be admitted to the Telemetry floor, and we are going to continue aggressive diuresis. He is at a point now that I believe he will not respond to oral medications, so I am going to give him one dose of furosemide 120 mg IV and monitor his fluid status. The patient has advanced terminal disease, but he is not ready for hospice care at this time. His renal function is worse despite his significant fluid overload. I foresee worsening of his renal function with aggressive diuresis, but that needs to be performed for symptomatic relief. I am going to continue his Inspra and his Zaroxolyn. We are going to monitor his I's and O's and daily weights. I agree with Dr. Oleary's discharge summary and with Lili Mora' note that his major issue is probably dietary noncompliance. Although he states that he tries to buy low salt things, he continues to eat pickles, drink V8, and he appears to respond well to medications while in the hospital. In any case, we are going to continue to try diuresis and I believe he will probably require furosemide infusions as outpatient after discharge. 2. Hyponatremia secondary to chronic CHF. Continue diuresis and monitor. 3. Hypothyroidism. His TSH is 5.9 today, improved from his TSH of almost 10 two weeks ago. We will continue levothyroxine. 4. Atrial fibrillation. The patient is actually in sinus rhythm at this time. His INR is subtherapeutic, and we are going to increase his warfarin dose today and monitor his INR. 5. CKD stage 3. I believe his renal disease continues to progress, and his baseline creatinine is probably higher than what we are seeing now. 6. GERD. Continue PPI. 7. Peripheral neuropathy. Continue gabapentin. 8. DVT prophylaxis. Subcu heparin until the patient's INR is therapeutic again. 9. Code status was discussed with the patient. He understands that he has end - stage cardiac disease, but states that he wishes to be a full code. He states that his surrogate decision maker is his sister, oSl Vásquez, phone No. [phone]. He states that he has discussed his code status with her in the past , and she knows that if he needs to be on life support for more than five days he would want to have this discontinued. TIME SPENT: Approximately 65 minutes were spent with the patient's interview, medical records review, physical examination to complete this admission; more than half this time was spent [id number] with the patient in coordination of care. CC: Dr. Watson; Cain Thomas MD; Brandyn Geller MD * [id number]/[facility] #: [id number] MTDD
[2016-11-18] MEDS ORDERED: Docusate CAP* 100 MG PO PRN (12:48)
[2016-11-18] MEDS ORDERED: Hydrocortisone 1% CREAM* 1.5 GM PAK TOPICAL PRN (12:48)
[2016-11-18] MEDS: MINERALS PO SCH (14:13)
[2016-11-18] MEDS: Magnesium Oxide TAB* 400 MG PO SCH ×2 (14:13→20:04)
[2016-11-18] MEDS: MULTIVITAMINS PO SCH (14:13)
[2016-11-18] MEDS: NEOMYCIN TOPICAL SCH (15:04)
[2016-11-18] MEDS: POLYMYXIN B TOPICAL SCH (15:04)
[2016-11-18] MEDS: BACITRACIN TOPICAL SCH (15:04)
[2016-11-18] MEDS ORDERED: Warfarin TAB(*) 10 MG PO SCH (17:00)
[2016-11-18] MEDS: Gabapentin CAP(*) 300 MG PO PRN (17:06)
--- NOTE | 2016-11-18 17:06 | PN ---
Subjective Date of Service: 11/18/16 Interval History: HOSPITALIST PROGRESS NOTE Patient seen and examined at bedside. He feels a little better today with less dyspnea and LE weeping. Family History: Unchanged from Admission Social History: Unchanged from Admission Past Medical History: Unchanged from Admission Objective Active Medications: Acetaminophen (Tylenol Tab*) 650 mg PO Q6H PRN PRN Reason: FEVER/PAIN Allopurinol (Zyloprim Tab*) 300 mg PO DAILY [facility] Last Admin: 11/18/16 08:30 Dose: 300 mg Bisacodyl (Dulcolax Supp*) 10 mg ND DAILY [facility] Docusate Sodium (Colace Cap*) 100 mg PO BID PRN PRN Reason: CONSTIPATION Eplerenone (Inspra (Nf)) 25 mg PO BID [facility] Last Admin: 11/18/16 08:30 Dose: 25 mg Furosemide (Lasix Iv*) 120 mg IV ONCE ONE Stop: 11/19/16 09:01 Gabapentin (Neurontin Cap(*)) 300 mg PO QID [facility] Last Admin: 11/18/16 11:59 Dose: 300 mg Gabapentin (Neurontin Cap(*)) 300 mg PO DAILY PRN PRN Reason: PAIN Heparin Sodium (Porcine) (Heparin Vial(*)) 5,000 units SUBCUT Q8HR [facility] Last Admin: 11/18/16 14:14 Dose: 5,000 units Hydrocortisone (Hydrocortisone 1% Cream*) 1 applic TOPICAL TID PRN PRN Reason: Rectal Pain Levothyroxine Sodium (Synthroid Tab*) 50 mcg PO DAILY@0600 [facility] Last Admin: 11/18/16 05:10 Dose: 50 mcg Magnesium Oxide (Magox 400 Tab*) 400 mg PO BID [facility] Last Admin: 11/18/16 14:13 Dose: 400 mg Metolazone (Zaroxolyn Tab*) 5 mg PO 0830,2030 [facility] Last Admin: 11/18/16 08:31 Dose: 5 mg Midodrine (Midodrine (Nf)) 15 mg PO TID [facility] PRN Reason: Protocol Last Admin: 11/18/16 14:14 Dose: 15 mg Multivitamins/Minerals (Theragran/Minerals Tab*) 1 tab PO DAILY [facility] Last Admin: 11/18/16 14:13 Dose: 1 tab Neomycin/Polymyxin/Bacitracin (Neosporin Top Oint Tube*) 1 applic TOPICAL DAILY [facility] Last Admin: 11/18/16 15:04 Dose: 1 applic Omeprazole (Prilosec Cap*) 20 mg PO DAILY@0730 [facility] Last Admin: 11/18/16 08:29 Dose: 20 mg Potassium Chloride (Klor Con Er Tab*) 80 meq PO QID [facility] Last Admin: 11/18/16 11:58 Dose: 80 meq Warfarin Sodium (Coumadin Tab(*)) 7.5 mg PO SuTuThSa@1700 [facility] PRN Reason: Protocol Warfarin Sodium (Coumadin Tab(*)) 10 mg PO MoWeFr@1700 [facility] PRN Reason: Protocol Vital Signs 11/18/16 11/18/16 13:59 15:39 Temperature 97.2 F Pulse Rate 105 Respiratory 17 16 Rate Blood Pressure 88/59 (mmHg) O2 Sat by Pulse 98 Oximetry Oxygen Devices in Use Now: Nasal Cannula Appearance: Middle aged, chronically ill male sitting [facility] in bed in [facility]. Eyes: No Scleral Icterus Ears/Nose/Mouth/Throat: Mucous Membranes Moist Neck: Trachea Midline Respiratory: Symmetrical Chest Expansion and Respiratory Effort, - - BS+ bilaterally with bibasilar rales Cardiovascular: RRR - Normal S1 and S2 Abdominal: - - SOft, mild distention, peritoneal drain in place with no erythema or discharge, BS+ Extremities: - - Bilateral moderate LE edema Neurological: Alert and Oriented x 3, NL Muscle Strength and Tone Lines/Tubes/Other Access: Clean, Dry and Intact Peripheral IV Nutrition: Taking PO's Result Diagrams: 11/17/16 14:00 11/18/16 02:17 Assess/Plan/Problems-Billing Assessment: Mr. 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 - Patient Problems (1) Acute on chronic systolic (congestive) heart failure Comment: - Acute on chronic sysolic CHF, EF 20-25% due to amylodosis. - Continue Furosemide 120mg IV as tolerated. - Continue Inspra and Metolazone. - Weight down to 224lbs today. (2) Hyponatremia Comment: - Secondary to CHF. - Improving. - Continue to monitor. (3) Hypokalemia Comment: - Replete. (4) CKD (chronic kidney disease) stage 3, GFR 30-59 ml/min Comment: - Continue to monitor renal function. (5) Afib Comment: - Continue Warfarin. - INR trending up. (6) Peripheral neuropathy Comment: - Continue Gabapentin. (7) DVT prophylaxis Comment: - SQ heparin until INR>2.0. (8) Full code status Status and Disposition: Inpatient.
[2016-11-18] MEDS ORDERED: Hydrocortisone 1% CREAM* 30 GM TUBE TOPICAL PRN (18:15)
[2016-11-18] MEDS ORDERED: BENZOCAINE TOPICAL PRN (18:27)
[2016-11-19] MEDS: Levothyroxine TAB* 50 MCG TAB PO SCH (05:04)
[2016-11-19] MEDS: Gabapentin CAP(*) 300 MG PO PRN (05:04)
[2016-11-19] MEDS: Heparin VIAL(*) 5000 UNITS/ML VIAL (FIVE THOUSAND) SUBCUT SCH ×2 (05:05→16:27)
[2016-11-19 05:37] LABS: BUN/Creatinine Ratio 36.8 (8-20); Calcium 8.4 mg/dL (8.6-10.3); EGFR African American 53.5 (>60); EGFR Non-African American 41.6 (>60); Magnesium 2.2 mg/dL (1.9-2.7); Potassium 5.9 mmol/L (3.5-5.0)
[2016-11-19] MEDS: MULTIVITAMINS PO SCH (08:58)
[2016-11-19] MEDS: CMCS: Midodrine (NF) 5 MG TAB PO SCH ×3 (08:58→20:03)
[2016-11-19] MEDS: MINERALS PO SCH (08:58)
[2016-11-19] MEDS: BACITRACIN TOPICAL SCH (08:59)
[2016-11-19] MEDS: NEOMYCIN TOPICAL SCH (08:59)
[2016-11-19] MEDS: Potassium Chlor TAB* 20 MEQ TAB.ER PO SCH ×2 (08:59→13:41)
[2016-11-19] MEDS: POLYMYXIN B TOPICAL SCH (08:59)
[2016-11-19] MEDS: Omeprazole CAP* 20 MG PO SCH (09:00)
[2016-11-19] MEDS: EPLERONONE 25 MG PO SCH ×2 (09:00→20:03)
[2016-11-19] MEDS: Allopurinol TAB* 300 MG PO SCH (09:00)
[2016-11-19] MEDS: Bisacodyl SUPP* 10 MG SUPP PR SCH (09:00)
[2016-11-19] MEDS ORDERED: Furosemide IV* 10 MG/ML 10 ML VIAL (100 MG) IV ONE (09:00)
[2016-11-19] MEDS: Metolazone TAB* 5 MG PO SCH ×2 (09:00→19:36)
[2016-11-19] MEDS: Magnesium Oxide TAB* 400 MG PO SCH ×2 (09:01→20:03)
[2016-11-19] MEDS: Gabapentin CAP(*) 300 MG PO SCH ×4 (09:01→20:03)
[2016-11-19] MEDS ORDERED: Sodium Phosphate ADULT ENEMA* 118 ml bottle PR PRN (09:46)
--- NOTE | 2016-11-19 16:22 | PN ---
Subjective Date of Service: 11/19/16 Interval History: pt feels better. Stated that he "lost about 6 lbs with bowel movement today". C/o no SOB, no CP, no abd pain. Telem shows intermittent PVC's Family History: Unchanged from Admission Social History: Unchanged from Admission Past Medical History: Unchanged from Admission Objective Active Medications: Acetaminophen (Tylenol Tab*) 650 mg PO Q6H PRN PRN Reason: FEVER/PAIN Allopurinol (Zyloprim Tab*) 300 mg PO DAILY [facility] Last Admin: 11/19/16 09:00 Dose: 300 mg Bisacodyl (Dulcolax Supp*) 10 mg SD DAILY [facility] Last Admin: 11/19/16 09:00 Dose: Not Given Docusate Sodium (Colace Cap*) 100 mg PO BID PRN PRN Reason: CONSTIPATION Eplerenone (Inspra (Nf)) 25 mg PO BID [facility] Last Admin: 11/19/16 09:00 Dose: 25 mg Gabapentin (Neurontin Cap(*)) 300 mg PO QID [facility] Last Admin: 11/19/16 13:41 Dose: 300 mg Gabapentin (Neurontin Cap(*)) 300 mg PO DAILY PRN PRN Reason: PAIN Last Admin: 11/19/16 05:04 Dose: 300 mg Heparin Sodium (Porcine) (Heparin Vial(*)) 5,000 units SUBCUT Q8HR [facility] Last Admin: 11/19/16 05:05 Dose: 5,000 units Hydrocortisone (Hytone Cream 1%*) 1 applic TOPICAL TID PRN PRN Reason: Rectal Pain Levothyroxine Sodium (Synthroid Tab*) 50 mcg PO DAILY@0600 [facility] Last Admin: 11/19/16 05:04 Dose: 50 mcg Magnesium Oxide (Magox 400 Tab*) 400 mg PO BID [facility] Last Admin: 11/19/16 09:01 Dose: 400 mg Metolazone (Zaroxolyn Tab*) 5 mg PO 0830,2030 [facility] Last Admin: 11/19/16 09:00 Dose: 5 mg Midodrine (Midodrine (Nf)) 15 mg PO TID [facility] PRN Reason: Protocol Last Admin: 11/19/16 13:41 Dose: 15 mg Multivitamins/Minerals (Theragran/Minerals Tab*) 1 tab PO DAILY [facility] Last Admin: 11/19/16 08:58 Dose: 1 tab Neomycin/Polymyxin/Bacitracin (Neosporin Top Oint Tube*) 1 applic TOPICAL DAILY [facility] Last Admin: 11/19/16 08:59 Dose: 1 applic Pto Non Formulary Med* (Gum Numb Benzocaine 20% 1 Applic) 1 applic TOPICAL Q1H PRN PRN Reason: Oral pain Last Admin: 11/18/16 20:04 Dose: 1 applic Omeprazole (Prilosec Cap*) 20 mg PO DAILY@0730 [facility] Last Admin: 11/19/16 09:00 Dose: 20 mg Potassium Chloride (Klor Con Er Tab*) 80 meq PO QID [facility] Last Admin: 11/19/16 13:41 Dose: 80 meq Sodium Biphosphate/Sodium Phosphate (Fleet Enema*) 1 bottle SD DAILY PRN PRN Reason: CONSTIPATION Warfarin Sodium (Coumadin Tab(*)) 7.5 mg PO SuTuThSa@1700 [facility] PRN Reason: Protocol Warfarin Sodium (Coumadin Tab(*)) 10 mg PO MoWeFr@1700 [facility] PRN Reason: Protocol Last Admin: 11/18/16 17:06 Dose: 10 mg Vital Signs 11/18/16 11/18/16 11/18/16 17:06 18:51 19:06 Temperature Pulse Rate Respiratory 17 18 18 Rate Blood Pressure (mmHg) O2 Sat by Pulse Oximetry 11/18/16 11/18/16 11/18/16 19:18 20:02 22:02 Temperature 98.4 F Pulse Rate 106 Respiratory 16 18 18 Rate Blood Pressure 93/66 (mmHg) O2 Sat by Pulse 100 Oximetry 11/18/16 11/19/16 11/19/16 23:22 03:45 05:04 Temperature 99.0 F 98.3 F Pulse Rate 101 92 Respiratory 16 16 16 Rate Blood Pressure 96/58 123/70 (mmHg) O2 Sat by Pulse 100 99 Oximetry 11/19/16 11/19/16 11/19/16 07:04 07:48 08:00 Temperature Pulse Rate Respiratory 16 16 16 Rate Blood Pressure (mmHg) O2 Sat by Pulse Oximetry 11/19/16 11/19/16 11/19/16 08:37 09:01 11:17 Temperature 98.0 F Pulse Rate 90 97 Respiratory 18 16 Rate Blood Pressure 86/64 91/71 (mmHg) O2 Sat by Pulse 98 100 Oximetry 11/19/16 11/19/16 13:41 15:26 Temperature 96.8 F Pulse Rate 90 Respiratory 16 16 Rate Blood Pressure 97/63 (mmHg) O2 Sat by Pulse Oximetry Oxygen Devices in Use Now: None Appearance: 56 yo M in NAD, aAOx3 Eyes: No Scleral Icterus, PERRLA Ears/Nose/Mouth/Throat: NL Teeth, Lips, Gums, Mucous Membranes Moist Neck: NL Appearance and Movements; NL JVP, Trachea Midline Respiratory: Symmetrical Chest Expansion and Respiratory Effort, Clear to Auscultation Cardiovascular: NL Sounds; No Murmurs; No JVD, RRR Abdominal: - - pertitoneal drain in place, pt emptied approx 200 ml yellow cloudy fluid today. Abd soft, tended on palpation in R periumbilival area, no rebound, no guarding, BS+ Lymphatic: No Cervical Adenopathy Extremities: No Clubbing, Cyanosis, - - trace pedal edema b/l Skin: No Nodules or Sclerosis, - - venous stasis changes b/l LE's, R great toenail with an area of eschar noted at the tip of the toe-not infected. Neurological: Alert and Oriented x 3, NL Muscle Strength and Tone Result Diagrams: 11/17/16 14:00 11/19/16 04:54 Additional Lab and Data: Lab Results 11/17/16 11/17/16 11/17/16 Range/Units 12:48 14:00 14:00 WBC 9.3 (3.5-10.8) 10^3/ul RBC 3.31 L (4.0-5.4) 10^6/ul Hgb 8.0 L (14.0-18.0) g/dl Hct 26 L (42-52) % MCV 80 (80-94) fL MCH 24 L (27-31) pg MCHC 30 L (31-36) g/dl RDW 22 H (10.5-15) % Plt Count 297 (150-450) 10^3/ul MPV 7 L (7.4-10.4) um3 Neut % (Auto) 84.0 H (38-83) % Lymph % (Auto) 3.9 L (25-47) % Robertson % (Auto) 8.8 (1-9) % Eos % (Auto) 2.0 (0-6) % Baso % (Auto) 1.3 (0-2) % Absolute Neuts (auto) 7.8 H (1.5-7.7) 10^3/ul Absolute Lymphs (auto) 0.4 L (1.0-4.8) 10^3/ul Absolute Monos (auto) 0.8 (0-0.8) 10^3/ul Absolute Eos (auto) 0.2 (0-0.6) 10^3/ul Absolute Basos (auto) 0.1 (0-0.2) 10^3/ul Absolute Nucleated RBC 0.04 10^3/ul Nucleated RBC % 0.4 INR (Anticoag Therapy) 1.62 H (0.89-1.11) APTT 35.7 (26.0-36.3) seconds Sodium (133-145) mmol/L Potassium (3.5-5.0) mmol/L Chloride (101-111) mmol/L Carbon Dioxide (22-32) mmol/L Anion Gap (2-11) mmol/L BUN (6-24) mg/dL Creatinine (0.67-1.17) mg/dL Est GFR ( Amer) (>60) Est GFR (Non-Af Amer) (>60) BUN/Creatinine Ratio (8-20) Glucose (70-100) mg/dL Lactic Acid (0.5-2.0) mmol/L Calcium (8.6-10.3) mg/dL Magnesium (1.9-2.7) mg/dL Total Bilirubin (0.2-1.0) mg/dL AST (13-39) U/L ALT (7-52) U/L Alkaline Phosphatase (34-104) U/L Total Creatine Kinase (10-223) U/L CK-MB (CK-2) (0.6-6.3) ng/mL Troponin I (<0.04) ng/mL C-Reactive Protein (< 5.00) mg/L B-Natriuretic Peptide ( - 100) pg/mL Total Protein (6.4-8.9) g/dL Albumin (3.2-5.2) g/dL Globulin (2-4) g/dL Albumin/Globulin Ratio (1-3) Lipase (11.0-82.0) U/L TSH (0.34-5.60) mcIU/mL Urine Color Straw Urine Appearance Clear Urine pH 7.0 (5-9) Ur Specific [place] 1.006 L (1.010-1.030) Urine Protein Negative (Negative) Urine Ketones Negative (Negative) Urine Blood Negative (Negative) Urine Nitrate Negative (Negative) Urine Bilirubin Negative (Negative) Urine Urobilinogen Negative (Negative) Ur Leukocyte Esterase Negative (Negative) Urine Glucose Negative (Negative) Urine Ascorbic Acid * H (Negative) 11/17/16 11/17/16 11/17/16 Range/Units 14:00 14:00 14:00 WBC (3.5-10.8) 10^3/ul RBC (4.0-5.4) 10^6/ul Hgb (14.0-18.0) g/dl Hct (42-52) % MCV (80-94) fL MCH (27-31) pg MCHC (31-36) g/dl RDW (10.5-15) % Plt Count (150-450) 10^3/ul MPV (7.4-10.4) um3 Neut % (Auto) (38-83) % Lymph % (Auto) (25-47) % Robertson % (Auto) (1-9) % Eos % (Auto) (0-6) % Baso % (Auto) (0-2) % Absolute Neuts (auto) (1.5-7.7) 10^3/ul Absolute Lymphs (auto) (1.0-4.8) 10^3/ul Absolute Monos (auto) (0-0.8) 10^3/ul Absolute Eos (auto) (0-0.6) 10^3/ul Absolute Basos (auto) (0-0.2) 10^3/ul Absolute Nucleated RBC 10^3/ul Nucleated RBC % INR (Anticoag Therapy) (0.89-1.11) APTT (26.0-36.3) seconds Sodium 123 L (133-145) mmol/L Potassium 3.7 (3.5-5.0) mmol/L Chloride 88 L (101-111) mmol/L Carbon Dioxide 27 (22-32) mmol/L Anion Gap 8 (2-11) mmol/L BUN 66 H (6-24) mg/dL Creatinine 2.13 H (0.67-1.17) mg/dL Est GFR ( Amer) 41.5 (>60) Est GFR (Non-Af Amer) 32.3 (>60) BUN/Creatinine Ratio 31.0 H (8-20) Glucose 101 H (70-100) mg/dL Lactic Acid 1.3 (0.5-2.0) mmol/L Calcium 8.1 L (8.6-10.3) mg/dL Magnesium 2.1 (1.9-2.7) mg/dL Total Bilirubin 0.40 (0.2-1.0) mg/dL AST 25 (13-39) U/L ALT 18 (7-52) U/L Alkaline Phosphatase 88 (34-104) U/L Total Creatine Kinase 26 (10-223) U/L CK-MB (CK-2) 3.5 (0.6-6.3) ng/mL Troponin I 0.08 H* (<0.04) ng/mL C-Reactive Protein 19.82 H (< 5.00) mg/L B-Natriuretic Peptide 763 H ( - 100) pg/mL Total Protein 5.6 L (6.4-8.9) g/dL Albumin 2.7 L (3.2-5.2) g/dL Globulin 2.9 (2-4) g/dL Albumin/Globulin Ratio 0.9 L (1-3) Lipase 79 (11.0-82.0) U/L TSH 5.98 H (0.34-5.60) mcIU/mL Urine Color Urine Appearance Urine pH (5-9) Ur Specific [place] (1.010-1.030) Urine Protein (Negative) Urine Ketones (Negative) Urine Blood (Negative) Urine Nitrate (Negative) Urine Bilirubin (Negative) Urine Urobilinogen (Negative) Ur Leukocyte Esterase (Negative) Urine Glucose (Negative) Urine Ascorbic Acid (Negative) Assess/Plan/Problems-Billing Assessment: Mr. 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 Continue Furosemide 120mg IV as tolerated. Continue Inspra and Metolazone. Weight at 228 lbs today. (2) Hyponatremia Comment: Secondary to CHF- chronic, stable (3) Hypokalemia Comment: resolved, today potassium level high. Will stop K Cl , repeat level tonight. (4) CKD (chronic kidney disease) stage 3, GFR 30-59 ml/min Comment: Continue to monitor renal function. at baseline (5) Afib Comment: Continue Warfarin. INR therapeutic (6) Peripheral neuropathy Comment: Continue Gabapentin. (7) Abdominal tenderness Comment: R periumbilical, no pain reported. H/o peritoneal drain -will check peritoneal fluid today (8) DVT prophylaxis Comment: coumadin Status and Disposition: Inpatient.
[2016-11-19] MEDS ORDERED: Warfarin TAB(*) 5 MG PO SCH (17:00)
[2016-11-19 17:25] LABS: Calcium 8.6 mg/dL (8.6-10.3); EGFR African American 53.2 (>60); EGFR Non-African American 41.3 (>60); Potassium 5.6 mmol/L (3.5-5.0)
[2016-11-19 17:40] LABS: Body Fluid Appearance Cloudy; Body Fluid Total Cells Counted 100
[2016-11-19 17:43] LABS: Body Fluid WBC 7973 /mcL
[2016-11-20] MEDS: Gabapentin CAP(*) 300 MG PO PRN (05:07)
[2016-11-20] MEDS: Levothyroxine TAB* 50 MCG TAB PO SCH (05:07)
[2016-11-20 06:42] LABS: BUN/Creatinine Ratio 33.5 (8-20); Calcium 8.6 mg/dL (8.6-10.3); EGFR African American 49.8 (>60); EGFR Non-African American 38.7 (>60)
[2016-11-20 06:44] LABS: Potassium 6.2 mmol/L (3.5-5.0)
[2016-11-20] MEDS ORDERED: Sodium Polystyrene ORAL.SOL* 15 GM/60 ML BTL PO ONE (07:24)
[2016-11-20] MEDS ORDERED: Calcium Gluconate INJ* 1 GM in NS 0.9% 50 ML* 50 ML IVPB ONE (07:24)
[2016-11-20] MEDS: Omeprazole CAP* 20 MG PO SCH (07:59)
[2016-11-20] MEDS: Metolazone TAB* 5 MG PO SCH ×2 (07:59→21:12)
[2016-11-20] MEDS: Magnesium Oxide TAB* 400 MG PO SCH ×2 (08:49→22:00)
[2016-11-20] MEDS: MULTIVITAMINS PO SCH (08:49)
[2016-11-20] MEDS: CMCS: Midodrine (NF) 5 MG TAB PO SCH ×3 (08:49→22:00)
[2016-11-20] MEDS: NEOMYCIN TOPICAL SCH ×2 (08:49→08:56)
[2016-11-20] MEDS: Allopurinol TAB* 300 MG PO SCH (08:49)
[2016-11-20] MEDS: POLYMYXIN B TOPICAL SCH ×2 (08:49→08:56)
[2016-11-20] MEDS: MINERALS PO SCH (08:49)
[2016-11-20] MEDS: BACITRACIN TOPICAL SCH ×2 (08:49→08:56)
[2016-11-20] MEDS: EPLERONONE 25 MG PO SCH ×2 (08:49→22:03)
[2016-11-20] MEDS: Gabapentin CAP(*) 300 MG PO SCH ×4 (08:52→22:01)
[2016-11-20] MEDS: Bisacodyl SUPP* 10 MG SUPP PR SCH (08:52)
--- NOTE | 2016-11-20 09:43 | PN ---
Progress Note - Progress Note SOAP: Subjective: []Patient called office and asked I see him. Admission fluid overload and has lost some weight. He has back pain and harder to walk. Had re-evaluation of his amyloid sent to [facility] in [facility] for possible cardiac transplant. Acetaminophen (Tylenol Tab*) 650 mg PO Q6H PRN PRN Reason: FEVER/PAIN Allopurinol (Zyloprim Tab*) 300 mg PO DAILY [facility] Last Admin: 11/20/16 08:49 Dose: 300 mg Bisacodyl (Dulcolax Supp*) 10 mg PA DAILY [facility] Last Admin: 11/20/16 08:52 Dose: Not Given Docusate Sodium (Colace Cap*) 100 mg PO BID PRN PRN Reason: CONSTIPATION Last Admin: 11/20/16 05:07 Dose: 100 mg Eplerenone (Inspra (Nf)) 25 mg PO BID [facility] Last Admin: 11/20/16 08:49 Dose: 25 mg Furosemide (Lasix Iv*) 120 mg IV DAILY [facility] Gabapentin (Neurontin Cap(*)) 300 mg PO QID [facility] Last Admin: 11/20/16 08:52 Dose: Not Given Gabapentin (Neurontin Cap(*)) 300 mg PO DAILY PRN PRN Reason: PAIN Last Admin: 11/20/16 05:07 Dose: 300 mg Hydrocortisone (Hytone Cream 1%*) 1 applic TOPICAL TID PRN PRN Reason: Rectal Pain Levothyroxine Sodium (Synthroid Tab*) 50 mcg PO DAILY@0600 [facility] Last Admin: 11/20/16 05:07 Dose: 50 mcg Magnesium Oxide (Magox 400 Tab*) 400 mg PO BID [facility] Last Admin: 11/20/16 08:49 Dose: 400 mg Metolazone (Zaroxolyn Tab*) 5 mg PO 0830,2030 [facility] Last Admin: 11/20/16 07:59 Dose: 5 mg Midodrine (Midodrine (Nf)) 15 mg PO TID [facility] PRN Reason: Protocol Last Admin: 11/20/16 08:49 Dose: 15 mg Multivitamins/Minerals (Theragran/Minerals Tab*) 1 tab PO DAILY [facility] Last Admin: 11/20/16 08:49 Dose: 1 tab Neomycin/Polymyxin/Bacitracin (Neosporin Top Oint Tube*) 1 applic TOPICAL DAILY [facility] Last Admin: 11/20/16 08:56 Dose: Not Given Pto Non Formulary Med* (Gum Numb Benzocaine 20% 1 Applic) 1 applic TOPICAL Q1H PRN PRN Reason: Oral pain Last Admin: 11/18/16 20:04 Dose: 1 applic Omeprazole (Prilosec Cap*) 20 mg PO DAILY@0730 [facility] Last Admin: 11/20/16 07:59 Dose: 20 mg Sodium Biphosphate/Sodium Phosphate (Fleet Enema*) 1 bottle PA DAILY PRN PRN Reason: CONSTIPATION Last Admin: 11/20/16 00:28 Dose: 1 bottle Warfarin Sodium (Coumadin Tab(*)) 7.5 mg PO SuTuThSa@1700 [facility] PRN Reason: Protocol Last Admin: 11/19/16 16:44 Dose: 7.5 mg Warfarin Sodium (Coumadin Tab(*)) 10 mg PO MoWeFr@1700 [facility] PRN Reason: Protocol Last Admin: 11/18/16 17:06 Dose: 10 mg Objective: [] Vital Signs Temp Pulse Resp BP Pulse Ox 98.3 F 90 18 87/63 100 11/20/16 03:34 11/20/16 03:34 11/20/16 07:52 11/20/16 03:34 11/20/16 03:34 HEENT - mucosa moist. CTA distant S1S2 and regular ABD - Fluid wave, modest tenderness, drain in place Assessment: []56 year old end stage heart failure from presumed amyloid cardiac disease, liver dysfunction and renal failure. Repeat admissions for fluid overload. Has peritoneal drain. He has been evaluated for transplant in [place] and turned down. Subsequently he has had discussions with team at [facility] but has not been evaluated. [facility] requested re-evaluation for amyloid, done end of 2016 and was negative. The are presenting his case at their conference to determine if he should present for further testing. I do not know if transplant is a realistic option for him, unlikely. However, since he did do the testing I think [facility] should provide him a formal answer. Plan: []1. Continue care per hospitalist team 2. PT for back pain 3. I will call [facility] for them to contact patient once he has been presented in conference.
[2016-11-20] MEDS ORDERED: Furosemide IV* 10 MG/ML 10 ML VIAL (100 MG) IV SCH (10:00)
[2016-11-20] MEDS: NS 0.9% IV SCH (10:20)
[2016-11-20] MEDS: FUROSEMIDE IV SCH (10:20)
[2016-11-20 11:06] LABS: BUN/Creatinine Ratio 31.2 (8-20); Calcium 8.8 mg/dL (8.6-10.3); EGFR African American 47.7 (>60); EGFR Non-African American 37.1 (>60); Potassium 5.3 mmol/L (3.5-5.0)
--- NOTE | 2016-11-20 12:41 | PN ---
Subjective Date of Service: 11/20/16 Interval History: Pt has no new complaints. hyperkalemic this AM, no significant arrhythmia noted on telem apart for PVC's Family History: Unchanged from Admission Social History: Unchanged from Admission Past Medical History: Unchanged from Admission Objective Active Medications: Acetaminophen (Tylenol Tab*) 650 mg PO Q6H PRN PRN Reason: FEVER/PAIN Allopurinol (Zyloprim Tab*) 300 mg PO DAILY [facility] Last Admin: 11/20/16 08:49 Dose: 300 mg Bisacodyl (Dulcolax Supp*) 10 mg [place] DAILY [facility] Last Admin: 11/20/16 08:52 Dose: Not Given Docusate Sodium (Colace Cap*) 100 mg PO BID PRN PRN Reason: CONSTIPATION Last Admin: 11/20/16 05:07 Dose: 100 mg Eplerenone (Inspra (Nf)) 25 mg PO BID [facility] Last Admin: 11/20/16 08:49 Dose: 25 mg Gabapentin (Neurontin Cap(*)) 300 mg PO QID [facility] Last Admin: 11/20/16 08:52 Dose: Not Given Gabapentin (Neurontin Cap(*)) 300 mg PO DAILY PRN PRN Reason: PAIN Last Admin: 11/20/16 05:07 Dose: 300 mg Hydrocortisone (Hytone Cream 1%*) 1 applic TOPICAL TID PRN PRN Reason: Rectal Pain Furosemide 120 mg/ Sodium (Chloride) 62 mls @ 124 mls/hr IV DAILY [facility] Last Admin: 11/20/16 10:20 Dose: 124 mls/hr Levothyroxine Sodium (Synthroid Tab*) 50 mcg PO DAILY@0600 [facility] Last Admin: 11/20/16 05:07 Dose: 50 mcg Magnesium Oxide (Magox 400 Tab*) 400 mg PO BID [facility] Last Admin: 11/20/16 08:49 Dose: 400 mg Metolazone (Zaroxolyn Tab*) 5 mg PO 0830,2030 [facility] Last Admin: 11/20/16 07:59 Dose: 5 mg Midodrine (Midodrine (Nf)) 15 mg PO TID [facility] PRN Reason: Protocol Last Admin: 11/20/16 08:49 Dose: 15 mg Multivitamins/Minerals (Theragran/Minerals Tab*) 1 tab PO DAILY [facility] Last Admin: 11/20/16 08:49 Dose: 1 tab Neomycin/Polymyxin/Bacitracin (Neosporin Top Oint Tube*) 1 applic TOPICAL DAILY [facility] Last Admin: 11/20/16 08:56 Dose: Not Given Pto Non Formulary Med* (Gum Numb Benzocaine 20% 1 Applic) 1 applic TOPICAL Q1H PRN PRN Reason: Oral pain Last Admin: 11/18/16 20:04 Dose: 1 applic Omeprazole (Prilosec Cap*) 20 mg PO DAILY@0730 [facility] Last Admin: 11/20/16 07:59 Dose: 20 mg Sodium Biphosphate/Sodium Phosphate (Fleet Enema*) 1 bottle [place] DAILY PRN PRN Reason: CONSTIPATION Last Admin: 11/20/16 00:28 Dose: 1 bottle Warfarin Sodium (Coumadin Tab(*)) 7.5 mg PO SuTuThSa@1700 [facility] PRN Reason: Protocol Last Admin: 11/19/16 16:44 Dose: 7.5 mg Warfarin Sodium (Coumadin Tab(*)) 10 mg PO MoWeFr@1700 [facility] PRN Reason: Protocol Last Admin: 11/18/16 17:06 Dose: 10 mg Vital Signs 11/19/16 11/19/16 11/19/16 13:41 14:53 15:26 Temperature 96.8 F Pulse Rate 97 90 Respiratory 16 16 16 Rate Blood Pressure 97/63 97/63 (mmHg) O2 Sat by Pulse 100 Oximetry 11/19/16 11/19/16 11/19/16 16:45 18:45 18:48 Temperature Pulse Rate Respiratory 16 18 16 Rate Blood Pressure (mmHg) O2 Sat by Pulse Oximetry 11/19/16 11/19/16 11/19/16 19:26 20:03 22:03 Temperature 97.3 F Pulse Rate 89 Respiratory 18 16 16 Rate Blood Pressure 85/57 (mmHg) O2 Sat by Pulse 100 Oximetry 11/19/16 11/20/16 11/20/16 23:43 03:34 05:07 Temperature 97.9 F 98.3 F Pulse Rate 113 90 Respiratory 16 16 18 Rate Blood Pressure 92/60 87/63 (mmHg) O2 Sat by Pulse 100 100 Oximetry 11/20/16 11/20/16 11/20/16 07:07 07:48 07:52 Temperature 98.3 F Pulse Rate 82 Respiratory 16 20 18 Rate Blood Pressure 85/58 (mmHg) O2 Sat by Pulse 100 Oximetry 11/20/16 11:48 Temperature 98.0 F Pulse Rate 103 Respiratory 16 Rate Blood Pressure 80/56 (mmHg) O2 Sat by Pulse 100 Oximetry Oxygen Devices in Use Now: None Appearance: 56 yo M in nAD, aAOx3 Eyes: No Scleral Icterus, PERRLA Neck: NL Appearance and Movements; NL JVP, Trachea Midline Respiratory: Symmetrical Chest Expansion and Respiratory Effort, Clear to Auscultation Cardiovascular: NL Sounds; No Murmurs; No JVD, RRR Abdominal: - - distended-chronic, small umbillical hernia, nontender. Abd soft, NT, BS+. peritoneal drain in place Lymphatic: No Cervical Adenopathy Extremities: No Clubbing, Cyanosis, - - trace pedal edema b/l and venous stasis changes-distal LE's Skin: No Nodules or Sclerosis Neurological: Alert and Oriented x 3, NL Muscle Strength and Tone Result Diagrams: 11/17/16 14:00 11/20/16 10:21 Additional Lab and Data: Lab Results 11/17/16 11/17/16 11/17/16 Range/Units 12:48 14:00 14:00 WBC 9.3 (3.5-10.8) 10^3/ul RBC 3.31 L (4.0-5.4) 10^6/ul Hgb 8.0 L (14.0-18.0) g/dl Hct 26 L (42-52) % MCV 80 (80-94) fL MCH 24 L (27-31) pg MCHC 30 L (31-36) g/dl RDW 22 H (10.5-15) % Plt Count 297 (150-450) 10^3/ul MPV 7 L (7.4-10.4) um3 Neut % (Auto) 84.0 H (38-83) % Lymph % (Auto) 3.9 L (25-47) % [place] % (Auto) 8.8 (1-9) % Eos % (Auto) 2.0 (0-6) % Baso % (Auto) 1.3 (0-2) % Absolute Neuts (auto) 7.8 H (1.5-7.7) 10^3/ul Absolute Lymphs (auto) 0.4 L (1.0-4.8) 10^3/ul Absolute Monos (auto) 0.8 (0-0.8) 10^3/ul Absolute Eos (auto) 0.2 (0-0.6) 10^3/ul Absolute Basos (auto) 0.1 (0-0.2) 10^3/ul Absolute Nucleated RBC 0.04 10^3/ul Nucleated RBC % 0.4 INR (Anticoag Therapy) 1.62 H (0.89-1.11) APTT 35.7 (26.0-36.3) seconds Sodium (133-145) mmol/L Potassium (3.5-5.0) mmol/L Chloride (101-111) mmol/L Carbon Dioxide (22-32) mmol/L Anion Gap (2-11) mmol/L BUN (6-24) mg/dL Creatinine (0.67-1.17) mg/dL Est GFR ( Amer) (>60) Est GFR (Non-Af Amer) (>60) BUN/Creatinine Ratio (8-20) Glucose (70-100) mg/dL Lactic Acid (0.5-2.0) mmol/L Calcium (8.6-10.3) mg/dL Magnesium (1.9-2.7) mg/dL Total Bilirubin (0.2-1.0) mg/dL AST (13-39) U/L ALT (7-52) U/L Alkaline Phosphatase (34-104) U/L Total Creatine Kinase (10-223) U/L CK-MB (CK-2) (0.6-6.3) ng/mL Troponin I (<0.04) ng/mL C-Reactive Protein (< 5.00) mg/L B-Natriuretic Peptide ( - 100) pg/mL Total Protein (6.4-8.9) g/dL Albumin (3.2-5.2) g/dL Globulin (2-4) g/dL Albumin/Globulin Ratio (1-3) Lipase (11.0-82.0) U/L TSH (0.34-5.60) mcIU/mL Urine Color Straw Urine Appearance Clear Urine pH 7.0 (5-9) Ur Specific [place] 1.006 L (1.010-1.030) Urine Protein Negative (Negative) Urine Ketones Negative (Negative) Urine Blood Negative (Negative) Urine Nitrate Negative (Negative) Urine Bilirubin Negative (Negative) Urine Urobilinogen Negative (Negative) Ur Leukocyte Esterase Negative (Negative) Urine Glucose Negative (Negative) Urine Ascorbic Acid * H (Negative) 11/17/16 11/17/16 11/17/16 Range/Units 14:00 14:00 14:00 WBC (3.5-10.8) 10^3/ul RBC (4.0-5.4) 10^6/ul Hgb (14.0-18.0) g/dl Hct (42-52) % MCV (80-94) fL MCH (27-31) pg MCHC (31-36) g/dl RDW (10.5-15) % Plt Count (150-450) 10^3/ul MPV (7.4-10.4) um3 Neut % (Auto) (38-83) % Lymph % (Auto) (25-47) % [place] % (Auto) (1-9) % Eos % (Auto) (0-6) % Baso % (Auto) (0-2) % Absolute Neuts (auto) (1.5-7.7) 10^3/ul Absolute Lymphs (auto) (1.0-4.8) 10^3/ul Absolute Monos (auto) (0-0.8) 10^3/ul Absolute Eos (auto) (0-0.6) 10^3/ul Absolute Basos (auto) (0-0.2) 10^3/ul Absolute Nucleated RBC 10^3/ul Nucleated RBC % INR (Anticoag Therapy) (0.89-1.11) APTT (26.0-36.3) seconds Sodium 123 L (133-145) mmol/L Potassium 3.7 (3.5-5.0) mmol/L Chloride 88 L (101-111) mmol/L Carbon Dioxide 27 (22-32) mmol/L Anion Gap 8 (2-11) mmol/L BUN 66 H (6-24) mg/dL Creatinine 2.13 H (0.67-1.17) mg/dL Est GFR ( Amer) 41.5 (>60) Est GFR (Non-Af Amer) 32.3 (>60) BUN/Creatinine Ratio 31.0 H (8-20) Glucose 101 H (70-100) mg/dL Lactic Acid 1.3 (0.5-2.0) mmol/L Calcium 8.1 L (8.6-10.3) mg/dL Magnesium 2.1 (1.9-2.7) mg/dL Total Bilirubin 0.40 (0.2-1.0) mg/dL AST 25 (13-39) U/L ALT 18 (7-52) U/L Alkaline Phosphatase 88 (34-104) U/L Total Creatine Kinase 26 (10-223) U/L CK-MB (CK-2) 3.5 (0.6-6.3) ng/mL Troponin I 0.08 H* (<0.04) ng/mL C-Reactive Protein 19.82 H (< 5.00) mg/L B-Natriuretic Peptide 763 H ( - 100) pg/mL Total Protein 5.6 L (6.4-8.9) g/dL Albumin 2.7 L (3.2-5.2) g/dL Globulin 2.9 (2-4) g/dL Albumin/Globulin Ratio 0.9 L (1-3) Lipase 79 (11.0-82.0) U/L TSH 5.98 H (0.34-5.60) mcIU/mL Urine Color Urine Appearance Urine pH (5-9) Ur Specific [place] (1.010-1.030) Urine Protein (Negative) Urine Ketones (Negative) Urine Blood (Negative) Urine Nitrate (Negative) Urine Bilirubin (Negative) Urine Urobilinogen (Negative) Ur Leukocyte Esterase (Negative) Urine Glucose (Negative) Urine Ascorbic Acid (Negative) Microbiology and Other Data: Microbiology 11/19/16 15:43 Sterile Body Fluid Culture - Preliminary Peritoneal Fluid Sterile Body Fluid Culture - Preliminary 11/19/16 15:43 Gram Stain - Final Body Fluid - Peritoneal Assess/Plan/Problems-Billing Assessment: Mr. 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 Continue Furosemide 120mg IV as tolerated. Continue Inspra and Metolazone. Weight at 224 lbs today. (2) Hyponatremia Comment: Secondary to CHF- chronic, stable (3) CKD (chronic kidney disease) stage 3, GFR 30-59 ml/min Comment: Continue to monitor renal function. at baseline (4) Afib Comment: INR>3.7 , coumadin on hold (5) Peripheral neuropathy Comment: Continue Gabapentin. (6) Abdominal tenderness Comment: R periumbilical-resolved. H/o peritoneal drain -peritoneal fluid with only 100 cells total, but positive for G+ cocci, most likley strep. Suspect colonization of drain, since cell count and diff not suggestive of infection. Pt also currently asymptomatic, nontoxic appearing. afebrile will follow cx results (7) Hyperkalemia Comment: Kcl d/c'd on 11/19/16 AM, still hyperkalemia worsened. Given Kayexalate adn Ca Gluconate. Repeat K down to 5.3. Lasix also could be therapeutic for hyperkalemia today will re-check levels in AM (8) DVT prophylaxis Comment: INR>3 coumadin on hold Status and Disposition: Inpatient.
[2016-11-21 05:11] LABS: BUN/Creatinine Ratio 32.4 (8-20); Calcium 8.2 mg/dL (8.6-10.3); EGFR African American 49.8 (>60); EGFR Non-African American 38.7 (>60); Magnesium 1.9 mg/dL (1.9-2.7); Potassium 3.8 mmol/L (3.5-5.0)
[2016-11-21] MEDS: Levothyroxine TAB* 50 MCG TAB PO SCH (05:39)
[2016-11-21] MEDS: Acetaminophen TAB* 325 MG PO PRN ×2 (07:25→17:52)
[2016-11-21] MEDS: Omeprazole CAP* 20 MG PO SCH (07:25)
[2016-11-21] MEDS ORDERED: Piperac/Tazob 3.375 gm in NS* 3.375 GM/100 ML BAG IVPB ONE (09:00)
[2016-11-21] MEDS: Gabapentin CAP(*) 300 MG PO SCH ×4 (09:10→20:55)
[2016-11-21] MEDS: CMCS: Midodrine (NF) 5 MG TAB PO SCH ×3 (09:11→20:53)
[2016-11-21] MEDS: MULTIVITAMINS PO SCH (09:11)
[2016-11-21] MEDS: Allopurinol TAB* 300 MG PO SCH (09:11)
[2016-11-21] MEDS: Magnesium Oxide TAB* 400 MG PO SCH ×2 (09:11→20:55)
[2016-11-21] MEDS: Metolazone TAB* 5 MG PO SCH ×2 (09:11→20:42)
[2016-11-21] MEDS: MINERALS PO SCH (09:11)
[2016-11-21] MEDS: Bisacodyl SUPP* 10 MG SUPP PR SCH (09:12)
[2016-11-21] MEDS: NS 0.9% IV SCH (10:05)
[2016-11-21] MEDS: FUROSEMIDE IV SCH (10:05)
[2016-11-21] MEDS: EPLERONONE 25 MG PO SCH ×2 (10:07→20:51)
[2016-11-21] MEDS: POLYMYXIN B TOPICAL SCH (12:31)
[2016-11-21] MEDS: NEOMYCIN TOPICAL SCH (12:31)
[2016-11-21] MEDS: BACITRACIN TOPICAL SCH (12:31)
--- NOTE | 2016-11-21 12:48 | PN ---
Subjective Date of Service: 11/21/16 Interval History: Feels well, denies abd pain. Family History: Unchanged from Admission Social History: Unchanged from Admission Past Medical History: Unchanged from Admission Objective Active Medications: Acetaminophen (Tylenol Tab*) 650 mg PO Q6H PRN PRN Reason: FEVER/PAIN Last Admin: 11/21/16 07:25 Dose: 650 mg Allopurinol (Zyloprim Tab*) 300 mg PO DAILY [facility] Last Admin: 11/21/16 09:11 Dose: 300 mg Bisacodyl (Dulcolax Supp*) 10 mg [place] DAILY [facility] Last Admin: 11/21/16 09:12 Dose: Not Given Docusate Sodium (Colace Cap*) 100 mg PO BID PRN PRN Reason: CONSTIPATION Last Admin: 11/20/16 05:07 Dose: 100 mg Eplerenone (Inspra (Nf)) 25 mg PO BID [facility] Last Admin: 11/21/16 10:07 Dose: 25 mg Gabapentin (Neurontin Cap(*)) 300 mg PO QID [facility] Last Admin: 11/21/16 09:10 Dose: 300 mg Gabapentin (Neurontin Cap(*)) 300 mg PO DAILY PRN PRN Reason: PAIN Last Admin: 11/20/16 05:07 Dose: 300 mg Hydrocortisone (Hytone Cream 1%*) 1 applic TOPICAL TID PRN PRN Reason: Rectal Pain Furosemide 120 mg/ Sodium (Chloride) 62 mls @ 124 mls/hr IV DAILY [facility] Last Admin: 11/21/16 10:05 Dose: 124 mls/hr Piperacillin Sod/Tazobactam Sod (Zosyn 3.375 Gm In Ns Premix*) 3.375 gm in 100 mls @ 25 mls/hr IVPB Q8H [facility] Levothyroxine Sodium (Synthroid Tab*) 50 mcg PO DAILY@0600 [facility] Last Admin: 11/21/16 05:39 Dose: 50 mcg Magnesium Oxide (Magox 400 Tab*) 400 mg PO BID [facility] Last Admin: 11/21/16 09:11 Dose: 400 mg Metolazone (Zaroxolyn Tab*) 5 mg PO 0830,2030 [facility] Last Admin: 11/21/16 09:11 Dose: 5 mg Midodrine (Midodrine (Nf)) 15 mg PO TID [facility] PRN Reason: Protocol Last Admin: 11/21/16 09:11 Dose: 15 mg Multivitamins/Minerals (Theragran/Minerals Tab*) 1 tab PO DAILY [facility] Last Admin: 11/21/16 09:11 Dose: 1 tab Neomycin/Polymyxin/Bacitracin (Neosporin Top Oint Tube*) 1 applic TOPICAL DAILY [facility] Last Admin: 11/21/16 12:31 Dose: Not Given Pto Non Formulary Med* (Gum Numb Benzocaine 20% 1 Applic) 1 applic TOPICAL Q1H PRN PRN Reason: Oral pain Last Admin: 11/18/16 20:04 Dose: 1 applic Omeprazole (Prilosec Cap*) 20 mg PO DAILY@0730 [facility] Last Admin: 11/21/16 07:25 Dose: 20 mg Sodium Biphosphate/Sodium Phosphate (Fleet Enema*) 1 bottle [place] DAILY PRN PRN Reason: CONSTIPATION Last Admin: 11/20/16 00:28 Dose: 1 bottle Vital Signs 11/20/16 11/20/16 11/20/16 13:53 15:08 17:53 Temperature 98.0 F Pulse Rate 100 Respiratory 18 18 16 Rate Blood Pressure 96/59 (mmHg) O2 Sat by Pulse 100 Oximetry 11/20/16 11/20/16 11/20/16 19:53 20:00 20:01 Temperature 98.1 F Pulse Rate 102 Respiratory 16 16 18 Rate Blood Pressure 92/66 (mmHg) O2 Sat by Pulse 100 Oximetry 11/20/16 11/20/16 11/20/16 22:01 23:54 23:55 Temperature 98.3 F Pulse Rate 103 137 Respiratory 16 16 Rate Blood Pressure 150/90 81/50 (mmHg) O2 Sat by Pulse 99 Oximetry 11/21/16 11/21/16 11/21/16 00:01 03:30 07:35 Temperature 97.9 F 98.6 F Pulse Rate 103 91 Respiratory 16 16 16 Rate Blood Pressure 86/64 82/59 (mmHg) O2 Sat by Pulse 98 96 Oximetry 11/21/16 11/21/16 11/21/16 08:00 09:10 11:18 Temperature 98.6 F Pulse Rate 108 Respiratory 16 16 16 Rate Blood Pressure 99/56 (mmHg) O2 Sat by Pulse 100 Oximetry Oxygen Devices in Use Now: None Appearance: 56 yo M in nAd, aAOx3 Eyes: No Scleral Icterus, PERRLA Ears/Nose/Mouth/Throat: NL Teeth, Lips, Gums, Mucous Membranes Moist Neck: NL Appearance and Movements; NL JVP, Trachea Midline Respiratory: Symmetrical Chest Expansion and Respiratory Effort, Clear to Auscultation Cardiovascular: NL Sounds; No Murmurs; No JVD, RRR Abdominal: - - distended, peritoneal drain in place. Umbilical hernia-not tender Extremities: No Clubbing, Cyanosis, - - trace pedal edema b/l Skin: No Nodules or Sclerosis, - - venosu stasis skin discoloration -b/l LE's Neurological: Alert and Oriented x 3, NL Muscle Strength and Tone Result Diagrams: 11/17/16 14:00 11/21/16 04:48 Additional Lab and Data: Lab Results 11/17/16 11/17/16 11/17/16 Range/Units 12:48 14:00 14:00 WBC 9.3 (3.5-10.8) 10^3/ul RBC 3.31 L (4.0-5.4) 10^6/ul Hgb 8.0 L (14.0-18.0) g/dl Hct 26 L (42-52) % MCV 80 (80-94) fL MCH 24 L (27-31) pg MCHC 30 L (31-36) g/dl RDW 22 H (10.5-15) % Plt Count 297 (150-450) 10^3/ul MPV 7 L (7.4-10.4) um3 Neut % (Auto) 84.0 H (38-83) % Lymph % (Auto) 3.9 L (25-47) % [place] % (Auto) 8.8 (1-9) % Eos % (Auto) 2.0 (0-6) % Baso % (Auto) 1.3 (0-2) % Absolute Neuts (auto) 7.8 H (1.5-7.7) 10^3/ul Absolute Lymphs (auto) 0.4 L (1.0-4.8) 10^3/ul Absolute Monos (auto) 0.8 (0-0.8) 10^3/ul Absolute Eos (auto) 0.2 (0-0.6) 10^3/ul Absolute Basos (auto) 0.1 (0-0.2) 10^3/ul Absolute Nucleated RBC 0.04 10^3/ul Nucleated RBC % 0.4 INR (Anticoag Therapy) 1.62 H (0.89-1.11) APTT 35.7 (26.0-36.3) seconds Sodium (133-145) mmol/L Potassium (3.5-5.0) mmol/L Chloride (101-111) mmol/L Carbon Dioxide (22-32) mmol/L Anion Gap (2-11) mmol/L BUN (6-24) mg/dL Creatinine (0.67-1.17) mg/dL Est GFR ( Amer) (>60) Est GFR (Non-Af Amer) (>60) BUN/Creatinine Ratio (8-20) Glucose (70-100) mg/dL Lactic Acid (0.5-2.0) mmol/L Calcium (8.6-10.3) mg/dL Magnesium (1.9-2.7) mg/dL Total Bilirubin (0.2-1.0) mg/dL AST (13-39) U/L ALT (7-52) U/L Alkaline Phosphatase (34-104) U/L Total Creatine Kinase (10-223) U/L CK-MB (CK-2) (0.6-6.3) ng/mL Troponin I (<0.04) ng/mL C-Reactive Protein (< 5.00) mg/L B-Natriuretic Peptide ( - 100) pg/mL Total Protein (6.4-8.9) g/dL Albumin (3.2-5.2) g/dL Globulin (2-4) g/dL Albumin/Globulin Ratio (1-3) Lipase (11.0-82.0) U/L TSH (0.34-5.60) mcIU/mL Urine Color Straw Urine Appearance Clear Urine pH 7.0 (5-9) Ur Specific [place] 1.006 L (1.010-1.030) Urine Protein Negative (Negative) Urine Ketones Negative (Negative) Urine Blood Negative (Negative) Urine Nitrate Negative (Negative) Urine Bilirubin Negative (Negative) Urine Urobilinogen Negative (Negative) Ur Leukocyte Esterase Negative (Negative) Urine Glucose Negative (Negative) Urine Ascorbic Acid * H (Negative) 11/17/16 11/17/16 11/17/16 Range/Units 14:00 14:00 14:00 WBC (3.5-10.8) 10^3/ul RBC (4.0-5.4) 10^6/ul Hgb (14.0-18.0) g/dl Hct (42-52) % MCV (80-94) fL MCH (27-31) pg MCHC (31-36) g/dl RDW (10.5-15) % Plt Count (150-450) 10^3/ul MPV (7.4-10.4) um3 Neut % (Auto) (38-83) % Lymph % (Auto) (25-47) % [place] % (Auto) (1-9) % Eos % (Auto) (0-6) % Baso % (Auto) (0-2) % Absolute Neuts (auto) (1.5-7.7) 10^3/ul Absolute Lymphs (auto) (1.0-4.8) 10^3/ul Absolute Monos (auto) (0-0.8) 10^3/ul Absolute Eos (auto) (0-0.6) 10^3/ul Absolute Basos (auto) (0-0.2) 10^3/ul Absolute Nucleated RBC 10^3/ul Nucleated RBC % INR (Anticoag Therapy) (0.89-1.11) APTT (26.0-36.3) seconds Sodium 123 L (133-145) mmol/L Potassium 3.7 (3.5-5.0) mmol/L Chloride 88 L (101-111) mmol/L Carbon Dioxide 27 (22-32) mmol/L Anion Gap 8 (2-11) mmol/L BUN 66 H (6-24) mg/dL Creatinine 2.13 H (0.67-1.17) mg/dL Est GFR ( Amer) 41.5 (>60) Est GFR (Non-Af Amer) 32.3 (>60) BUN/Creatinine Ratio 31.0 H (8-20) Glucose 101 H (70-100) mg/dL Lactic Acid 1.3 (0.5-2.0) mmol/L Calcium 8.1 L (8.6-10.3) mg/dL Magnesium 2.1 (1.9-2.7) mg/dL Total Bilirubin 0.40 (0.2-1.0) mg/dL AST 25 (13-39) U/L ALT 18 (7-52) U/L Alkaline Phosphatase 88 (34-104) U/L Total Creatine Kinase 26 (10-223) U/L CK-MB (CK-2) 3.5 (0.6-6.3) ng/mL Troponin I 0.08 H* (<0.04) ng/mL C-Reactive Protein 19.82 H (< 5.00) mg/L B-Natriuretic Peptide 763 H ( - 100) pg/mL Total Protein 5.6 L (6.4-8.9) g/dL Albumin 2.7 L (3.2-5.2) g/dL Globulin 2.9 (2-4) g/dL Albumin/Globulin Ratio 0.9 L (1-3) Lipase 79 (11.0-82.0) U/L TSH 5.98 H (0.34-5.60) mcIU/mL Urine Color Urine Appearance Urine pH (5-9) Ur Specific [place] (1.010-1.030) Urine Protein (Negative) Urine Ketones (Negative) Urine Blood (Negative) Urine Nitrate (Negative) Urine Bilirubin (Negative) Urine Urobilinogen (Negative) Ur Leukocyte Esterase (Negative) Urine Glucose (Negative) Urine Ascorbic Acid (Negative) Microbiology and Other Data: Microbiology 11/19/16 15:43 Sterile Body Fluid Culture - Preliminary Peritoneal Fluid Sterile Body Fluid Culture - Preliminary 11/19/16 15:43 Gram Stain - Final Body Fluid - Peritoneal Assess/Plan/Problems-Billing Assessment: Mr. 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 - Patient Problems (1) Peritonitis Comment: associated with peritoneal cath Cx growing E. Faecium No symptoms, but ascites fluid shows >7000 WBC's Zosynn started , blood cx pending (2) Acute on chronic systolic (congestive) heart failure Comment: Acute on chronic sysolic CHF, EF 20-25% due to amylodosis. Continue Furosemide 120mg IV as tolerated. Continue Inspra and Metolazone. Weight at 223 lbs today. (3) Hyponatremia Comment: Secondary to CHF- chronic, stable (4) CKD (chronic kidney disease) stage 3, GFR 30-59 ml/min Comment: Continue to monitor renal function. at baseline (5) Afib Comment: INR>3.7 , coumadin on hold (6) Peripheral neuropathy Comment: Continue Gabapentin. (7) Hyperkalemia Comment: resolved (8) DVT prophylaxis Comment: INR>3 coumadin on hold Status and Disposition: Inpatient.
[2016-11-21] MEDS: Piperac/Tazob 3.375 gm in NS* 3.375 GM/100 ML BAG IVPB SCH ×2 (12:51→20:57)
[2016-11-21 14:53] LABS: Total Protein, BF 3.1 g/dL
[2016-11-22] MEDS: Piperac/Tazob 3.375 gm in NS* 3.375 GM/100 ML BAG IVPB SCH (05:40)
[2016-11-22] MEDS: Gabapentin CAP(*) 300 MG PO PRN (05:43)
[2016-11-22] MEDS: Levothyroxine TAB* 50 MCG TAB PO SCH (05:44)
[2016-11-22 06:55] LABS: Hematocrit 28 % (42-52); Hemoglobin 8.2 g/dl (14.0-18.0); Mean Corpuscular HGB Conc 29 g/dl (31-36); Mean Corpuscular Hemoglobin 24 pg (27-31); Mean Corpuscular Volume 80 fL (80-94); Mean Platelet Volume 7 um3 (7.4-10.4); Red Blood Count 3.48 10^6/ul (4.0-5.4); Red Cell Distribution Width 22 % (10.5-15); White Blood Count 6.6 10^3/ul (3.5-10.8)
[2016-11-22 07:02] LABS: Comments Flag Yes
[2016-11-22 07:19] LABS: BUN/Creatinine Ratio 26.8 (8-20); Calcium 8.2 mg/dL (8.6-10.3); EGFR African American 43.4 (>60); EGFR Non-African American 33.8 (>60); Potassium 3.1 mmol/L (3.5-5.0)
[2016-11-22] MEDS: Omeprazole CAP* 20 MG PO SCH (07:58)
[2016-11-22] MEDS: Gabapentin CAP(*) 300 MG PO SCH ×4 (07:58→20:46)
[2016-11-22] MEDS: Metolazone TAB* 5 MG PO SCH ×2 (07:59→20:43)
[2016-11-22] MEDS: Allopurinol TAB* 300 MG PO SCH (07:59)
[2016-11-22 08:55] LABS: C Reactive Protein 9.1 mg/L (< 5.00)
[2016-11-22 08:56] LABS: C Reactive Protein 25.99 mg/L (< 5.00)
[2016-11-22] MEDS ORDERED: Furosemide IV* 10 MG/ML 10 ML VIAL (100 MG) ONE (08:58)
[2016-11-22] MEDS: CMCS: Midodrine (NF) 5 MG TAB PO SCH ×3 (09:05→20:48)
[2016-11-22] MEDS: MINERALS PO SCH (09:06)
[2016-11-22] MEDS: MULTIVITAMINS PO SCH (09:06)
[2016-11-22] MEDS: FUROSEMIDE IV SCH (09:06)
[2016-11-22] MEDS: EPLERONONE 25 MG PO SCH ×2 (09:06→20:45)
[2016-11-22] MEDS: Potassium Chlor TAB* 20 MEQ TAB.ER PO SCH (09:06)
[2016-11-22] MEDS: Magnesium Oxide TAB* 400 MG PO SCH ×2 (09:06→20:48)
[2016-11-22] MEDS: NS 0.9% IV SCH (09:06)
[2016-11-22] MEDS: POLYMYXIN B TOPICAL SCH (09:07)
[2016-11-22] MEDS: BACITRACIN TOPICAL SCH (09:07)
[2016-11-22] MEDS: NEOMYCIN TOPICAL SCH (09:07)
[2016-11-22] MEDS: Bisacodyl SUPP* 10 MG SUPP PR SCH (11:20)
--- NOTE | 2016-11-22 13:01 | PN ---
Subjective Date of Service: 11/22/16 Interval History: Pt feels well. Denies abd pain. Happy with weight loss. Family History: Unchanged from Admission Social History: Unchanged from Admission Past Medical History: Unchanged from Admission Objective Active Medications: Acetaminophen (Tylenol Tab*) 650 mg PO Q6H PRN PRN Reason: FEVER/PAIN Last Admin: 11/21/16 17:52 Dose: 650 mg Allopurinol (Zyloprim Tab*) 300 mg PO DAILY [facility] Last Admin: 11/22/16 07:59 Dose: 300 mg Bisacodyl (Dulcolax Supp*) [address] DAILY [facility] Last Admin: 11/22/16 11:20 Dose: Not Given Docusate Sodium (Colace Cap*) 100 mg PO BID PRN PRN Reason: CONSTIPATION Last Admin: 11/20/16 05:07 Dose: 100 mg Eplerenone (Inspra (Nf)) 25 mg PO BID [facility] Last Admin: 11/22/16 09:06 Dose: 25 mg Gabapentin (Neurontin Cap(*)) 300 mg PO QID [facility] [place] Last Admin: 11/22/16 12:34 Dose: 300 mg Gabapentin (Neurontin Cap(*)) 300 mg PO DAILY PRN PRN Reason: PAIN Last Admin: 11/22/16 05:43 Dose: 300 mg Hydrocortisone (Hytone Cream 1%*) 1 applic TOPICAL TID PRN PRN Reason: Rectal Pain Furosemide 100 mg/ Sodium (Chloride) 60 mls @ 120 mls/hr IV DAILY [facility] Last Admin: 11/22/16 09:06 Dose: 120 mls/hr Ampicillin Sodium 1 gm/ Sodium (Chloride) 50 mls @ 200 mls/hr IVPB Q6H [facility] Ceftriaxone Sodium 1,000 mg/ (Sodium Chloride) 50 mls @ 200 mls/hr IVPB Q24H [facility] Levothyroxine Sodium (Synthroid Tab*) 50 mcg PO DAILY@0600 [facility] Last Admin: 11/22/16 05:44 Dose: 50 mcg Magnesium Oxide (Magox 400 Tab*) 400 mg PO BID [facility] Last Admin: 11/22/16 09:06 Dose: 400 mg Metolazone (Zaroxolyn Tab*) 5 mg PO 30,2029 [facility] Last Admin: 11/22/16 07:59 Dose: 5 mg Midodrine (Midodrine (Nf)) 15 mg PO TID [facility] PRN Reason: Protocol Last Admin: 11/22/16 12:34 Dose: 15 mg Multivitamins/Minerals (Theragran/Minerals Tab*) 1 tab PO DAILY [facility] [place] Last Admin: 11/22/16 09:06 Dose: 1 tab Neomycin/Polymyxin/Bacitracin (Neosporin Top Oint Tube*) 1 applic TOPICAL DAILY [facility] [place] Last Admin: 11/22/16 09:07 Dose: 1 applic Pto Non Formulary Med* (Gum Numb Benzocaine 20% 1 Applic) 1 applic TOPICAL Q1H PRN PRN Reason: Oral pain Last Admin: 11/18/16 20:04 Dose: 1 applic Omeprazole (Prilosec Cap*) 20 mg PO DAILY@0730 [facility] [place] Last Admin: 11/22/16 07:58 Dose: 20 mg Potassium Chloride (Klor Con Er Tab*) 40 meq PO DAILY [facility] [place] Last Admin: 11/22/16 09:06 Dose: 40 meq Sodium Biphosphate/Sodium Phosphate (Fleet Enema*) [address] DAILY PRN PRN Reason: CONSTIPATION Last Admin: 11/20/16 00:28 Dose: 1 bottle Warfarin Sodium (Coumadin Tab(*)) 5 mg PO DAILY@1700 [facility] PRN Reason: Protocol Vital Signs 11/21/16 11/21/16 11/21/16 17:46 18:58 20:00 Temperature 98.6 F Pulse Rate 109 Respiratory 18 18 16 Rate Blood Pressure 89/56 (mmHg) O2 Sat by Pulse 100 Oximetry 11/21/16 11/21/16 11/22/16 20:55 23:29 03:33 Temperature 98.2 F 98.1 F Pulse Rate 97 98 Respiratory 16 16 16 Rate Blood Pressure 88/52 90/63 (mmHg) O2 Sat by Pulse 100 100 Oximetry 11/22/16 11/22/16 11/22/16 05:43 07:16 07:58 Temperature 98.9 F Pulse Rate 104 Respiratory 16 20 16 Rate Blood Pressure 88/53 (mmHg) O2 Sat by Pulse 96 Oximetry 11/22/16 11/22/16 08:00 12:34 Temperature Pulse Rate Respiratory 16 20 Rate Blood Pressure (mmHg) O2 Sat by Pulse Oximetry Oxygen Devices in Use Now: None Appearance: 56 yo M in nAd, aAOx3 Eyes: No Scleral Icterus, PERRLA Ears/Nose/Mouth/Throat: NL Teeth, Lips, Gums, Mucous Membranes Moist Neck: NL Appearance and Movements; NL JVP, Trachea Midline Respiratory: Symmetrical Chest Expansion and Respiratory Effort, Clear to Auscultation Cardiovascular: NL Sounds; No Murmurs; No JVD, RRR Abdominal: - - slightly distended, soft, NT, BS+, small umbilical hernia in place, nontender. Peritoneal cath in place Lymphatic: No Cervical Adenopathy Extremities: No Clubbing, Cyanosis, - - trace ankle edema b/l Skin: No Nodules or Sclerosis Neurological: Alert and Oriented x 3, NL Muscle Strength and Tone Result Diagrams: 11/22/16 06:47 11/22/16 06:47 Additional Lab and Data: Lab Results 11/17/16 11/17/16 11/17/16 Range/Units 12:48 14:00 14:00 WBC 9.3 (3.5-10.8) 10^3/ul RBC 3.31 L (4.0-5.4) 10^6/ul Hgb 8.0 L (14.0-18.0) g/dl Hct 26 L (42-52) % MCV 80 (80-94) fL MCH 24 L (27-31) pg MCHC 30 L (31-36) g/dl RDW 22 H (10.5-15) % Plt Count 297 (150-450) 10^3/ul MPV 7 L (7.4-10.4) um3 Neut % (Auto) 84.0 H (38-83) % Lymph % (Auto) 3.9 L (25-47) % [place] % (Auto) 8.8 (1-9) % Eos % (Auto) 2.0 (0-6) % Baso % (Auto) 1.3 (0-2) % Absolute Neuts (auto) 7.8 H (1.5-7.7) 10^3/ul Absolute Lymphs (auto) 0.4 L (1.0-4.8) 10^3/ul Absolute Monos (auto) 0.8 (0-0.8) 10^3/ul Absolute Eos (auto) 0.2 (0-0.6) 10^3/ul Absolute Basos (auto) 0.1 (0-0.2) 10^3/ul Absolute Nucleated RBC 0.04 10^3/ul Nucleated RBC % 0.4 INR (Anticoag Therapy) 1.62 H (0.89-1.11) APTT 35.7 (26.0-36.3) seconds Sodium (133-145) mmol/L Potassium (3.5-5.0) mmol/L Chloride (101-111) mmol/L Carbon Dioxide (22-32) mmol/L Anion Gap (2-11) mmol/L BUN (6-24) mg/dL Creatinine (0.67-1.17) mg/dL Est GFR ( Amer) (>60) Est GFR (Non-Af Amer) (>60) BUN/Creatinine Ratio (8-20) Glucose (70-100) mg/dL Lactic Acid (0.5-2.0) mmol/L Calcium (8.6-10.3) mg/dL Magnesium (1.9-2.7) mg/dL Total Bilirubin (0.2-1.0) mg/dL AST (13-39) U/L ALT (7-52) U/L Alkaline Phosphatase (34-104) U/L Total Creatine Kinase (10-223) U/L CK-MB (CK-2) (0.6-6.3) ng/mL Troponin I (<0.04) ng/mL C-Reactive Protein (< 5.00) mg/L B-Natriuretic Peptide ( - 100) pg/mL Total Protein (6.4-8.9) g/dL Albumin (3.2-5.2) g/dL Globulin (2-4) g/dL Albumin/Globulin Ratio (1-3) Lipase (11.0-82.0) U/L TSH (0.34-5.60) mcIU/mL Urine Color Straw Urine Appearance Clear Urine pH 7.0 (5-9) Ur Specific [place] 1.006 L (1.010-1.030) Urine Protein Negative (Negative) Urine Ketones Negative (Negative) Urine Blood Negative (Negative) Urine Nitrate Negative (Negative) Urine Bilirubin Negative (Negative) Urine Urobilinogen Negative (Negative) Ur Leukocyte Esterase Negative (Negative) Urine Glucose Negative (Negative) Urine Ascorbic Acid * H (Negative) 11/17/16 11/17/16 11/17/16 Range/Units 14:00 14:00 14:00 WBC (3.5-10.8) 10^3/ul RBC (4.0-5.4) 10^6/ul Hgb (14.0-18.0) g/dl Hct (42-52) % MCV (80-94) fL MCH (27-31) pg MCHC (31-36) g/dl RDW (10.5-15) % Plt Count (150-450) 10^3/ul MPV (7.4-10.4) um3 Neut % (Auto) (38-83) % Lymph % (Auto) (25-47) % [place] % (Auto) (1-9) % Eos % (Auto) (0-6) % Baso % (Auto) (0-2) % Absolute Neuts (auto) (1.5-7.7) 10^3/ul Absolute Lymphs (auto) (1.0-4.8) 10^3/ul Absolute Monos (auto) (0-0.8) 10^3/ul Absolute Eos (auto) (0-0.6) 10^3/ul Absolute Basos (auto) (0-0.2) 10^3/ul Absolute Nucleated RBC 10^3/ul Nucleated RBC % INR (Anticoag Therapy) (0.89-1.11) APTT (26.0-36.3) seconds Sodium 123 L (133-145) mmol/L Potassium 3.7 (3.5-5.0) mmol/L Chloride 88 L (101-111) mmol/L Carbon Dioxide 27 (22-32) mmol/L Anion Gap 8 (2-11) mmol/L BUN 66 H (6-24) mg/dL Creatinine 2.13 H (0.67-1.17) mg/dL Est GFR ( Amer) 41.5 (>60) Est GFR (Non-Af Amer) 32.3 (>60) BUN/Creatinine Ratio 31.0 H (8-20) Glucose 101 H (70-100) mg/dL Lactic Acid 1.3 (0.5-2.0) mmol/L Calcium 8.1 L (8.6-10.3) mg/dL Magnesium 2.1 (1.9-2.7) mg/dL Total Bilirubin 0.40 (0.2-1.0) mg/dL AST 25 (13-39) U/L ALT 18 (7-52) U/L Alkaline Phosphatase 88 (34-104) U/L Total Creatine Kinase 26 (10-223) U/L CK-MB (CK-2) 3.5 (0.6-6.3) ng/mL Troponin I 0.08 H* (<0.04) ng/mL C-Reactive Protein 19.82 H (< 5.00) mg/L B-Natriuretic Peptide 763 H ( - 100) pg/mL Total Protein 5.6 L (6.4-8.9) g/dL Albumin 2.7 L (3.2-5.2) g/dL Globulin 2.9 (2-4) g/dL Albumin/Globulin Ratio 0.9 L (1-3) Lipase 79 (11.0-82.0) U/L TSH 5.98 H (0.34-5.60) mcIU/mL Urine Color Urine Appearance Urine pH (5-9) Ur Specific [place] (1.010-1.030) Urine Protein (Negative) Urine Ketones (Negative) Urine Blood (Negative) Urine Nitrate (Negative) Urine Bilirubin (Negative) Urine Urobilinogen (Negative) Ur Leukocyte Esterase (Negative) Urine Glucose (Negative) Urine Ascorbic Acid (Negative) Microbiology and Other Data: Microbiology 11/19/16 15:43 Sterile Body Fluid Culture - Preliminary Peritoneal Fluid Sterile Body Fluid Culture - Preliminary 11/19/16 15:43 Gram Stain - Final Body Fluid - Peritoneal Assess/Plan/Problems-Billing Assessment: Mr. 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 - Patient Problems (1) Peritonitis Comment: associated with peritoneal cath Cx growing E. Faecium No symptoms, but ascites fluid shows >7000 WBC's Zosyn started initially, will change to ampicillin and Ceftriaxone based on sensitivities. (2) Acute on chronic systolic (congestive) heart failure Comment: Acute on chronic sysolic CHF, EF 20-25% due to amyloidosis. Continue Furosemide 100 mg IV as tolerated. Continue Inspra and Metolazone. Weight at 215 lbs today. (3) Hyponatremia Comment: Secondary to CHF- chronic, stable (4) CKD (chronic kidney disease) stage 3, GFR 30-59 ml/min Comment: Continue to monitor renal function. at baseline (5) Afib Comment: INR>3.7 , coumadin will be restarted today at a lower dose 5 mg. (6) Peripheral neuropathy Comment: Continue Gabapentin. (7) Hyperkalemia Comment: resolved (8) DVT prophylaxis Comment: INR>3 Status and Disposition: Inpatient.
[2016-11-22] MEDS ORDERED: cefTRIAXone VIAL(*) 1,000 MG in NS 0.9% 50 ML* 50 ML IVPB SCH (13:30)
[2016-11-22] MEDS: Ampicillin ADVAN(*) 1 GM in NS 0.9% 50 ML* 50 ML IVPB SCH ×2 (15:45→20:31)
[2016-11-22] MEDS: Acetaminophen TAB* 325 MG PO PRN (16:49)
[2016-11-22] MEDS ORDERED: Warfarin TAB(*) 5 MG PO SCH (17:00)
[2016-11-22 22:10] LABS: Magnesium 1.9 mg/dL (1.9-2.7)
[2016-11-23] MEDS: Ampicillin ADVAN(*) 1 GM in NS 0.9% 50 ML* 50 ML IVPB SCH ×4 (02:24→20:54)
[2016-11-23] MEDS: Levothyroxine TAB* 50 MCG TAB PO SCH (05:28)
[2016-11-23 06:11] LABS: BUN/Creatinine Ratio 26.1 (8-20); Calcium 8.3 mg/dL (8.6-10.3); EGFR Non-African American 32.7 (>60); Potassium 2.9 mmol/L (3.5-5.0)
[2016-11-23] MEDS: Omeprazole CAP* 20 MG PO SCH (08:13)
[2016-11-23] MEDS: Gabapentin CAP(*) 300 MG PO SCH ×4 (08:13→20:55)
[2016-11-23] MEDS: Metolazone TAB* 5 MG PO SCH ×2 (08:13→20:57)
[2016-11-23] MEDS: Allopurinol TAB* 300 MG PO SCH (08:13)
[2016-11-23] MEDS ORDERED: Potassium Chlor TAB* 20 MEQ TAB.ER PO ONE (08:45)
[2016-11-23] MEDS ORDERED: Furosemide IV* 10 MG/ML 10 ML VIAL (100 MG) ONE (08:47)
[2016-11-23] MEDS: EPLERONONE 25 MG PO SCH ×2 (08:54→21:00)
[2016-11-23] MEDS: NS 0.9% IV SCH (08:55)
[2016-11-23] MEDS: FUROSEMIDE IV SCH (08:55)
[2016-11-23] MEDS: Potassium Chlor TAB* 20 MEQ TAB.ER PO SCH (08:56)
[2016-11-23] MEDS: MULTIVITAMINS PO SCH (08:56)
[2016-11-23] MEDS: POLYMYXIN B TOPICAL SCH (08:56)
[2016-11-23] MEDS: NEOMYCIN TOPICAL SCH (08:56)
[2016-11-23] MEDS: Magnesium Oxide TAB* 400 MG PO SCH ×2 (08:56→20:57)
[2016-11-23] MEDS: BACITRACIN TOPICAL SCH (08:56)
[2016-11-23] MEDS: CMCS: Midodrine (NF) 5 MG TAB PO SCH ×3 (08:56→20:58)
[2016-11-23] MEDS: MINERALS PO SCH (08:56)
[2016-11-23] MEDS: Torsemide TAB* 20 MG PO SCH ×2 (09:14→22:47)
[2016-11-23] MEDS: Bisacodyl SUPP* 10 MG SUPP PR SCH (09:19)
[2016-11-23] MEDS ORDERED: Vancomycin(*) 500 MG VIAL ONE (12:00)
--- NOTE | 2016-11-23 15:45 | CONS ---
CONSULTATION REPORT: DATE OF CONSULT: 11/23/16 REQUESTING PHYSICIAN: Isha Bland MD CONSULTING SERVICE: Infectious Disease. REASON FOR CONSULT: Peritoneal catheter infection. IMPRESSION: 1. Right lower quadrant peritoneal catheter for intermittent drainage of chronic ascites. He has had some purulent drainage around it. He has had some focal abdominal pain around the catheter, but the fluids come out clear, fluid sample sent to lab that showed 79,00 white blood cells, 70% polys, and the cultures growing Enterococcus faecalis. He has been on ampicillin. He thinks the drainage around it has resolved and he has no further pain. I do think that the catheter is infected. 2. Chronic ascites secondary to hepatic congestion from chronic heart failure and end-stage cardiomyopathy. 3. Amyloidosis with cardiac involvement of congestive heart failure. 4. History of cardiac arrest. 5. Peritoneal abdominal drain, placed May 2016. 6. Atrial fibrillation. 7. History of nonsustained ventricular tachycardia, status post ICD placement. 8. 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 RECOMMENDATIONS: Continue ampicillin 1 g every 6 hours. Stop the ceftriaxone. I discussed with him that retaining the catheter and curing this infection is low likelihood, but not zero. He would like to try and retain the catheter all costs and willing to accept the risks that thus may develop a recurrence including abdominal pain that would be life threatening if antibiotic alone fails, so we will continue the ampicillin a gram every 6 hours and I would like to have and get 500 mg of vancomycin intraperitoneally through the catheter to attempt to sterilize it and dwell within the peritoneum to treatment for peritoneal dialysis catheter infections. Then, we will plan on a few more days of ampicillin and monitor for return of symptoms if they do not, great; if they do, then he would need the catheter out and he can accept that. HISTORY OF PRESENT ILLNESS: This is a 56-year-old man with right lower quadrant peritoneal drain placed for intermittent ascites removal, which is done daily. He gets between 200 and 800 cc a day out. It has been clear and no crud floating it. He has had no fever, chills, or sweats and was admitted for heart failure. About 5 days ago, developed pain around the catheter with some purulent drainage. Dr. Bland sent the fluid with results as above. He has been on ampicillin and ceftriaxone with improvement in the pain and drainage, which have both resolved. Still has no fever, chills, or sweats. PAST MEDICAL HISTORY: 1. 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 2. Chronic ascites likely due to passive congestion of the liver in the setting of congestive heart failure now with right lower quadrant drain placed in May 2016. 3. History of cardiac arrest, history of nonsustained ventricular tachycardia. 4. Status post ICD placement. 5. Atrial fibrillation. 6. Factor X deficiency. 7. Gout. 8. Chronic hyponatremia. 9. Chronic kidney disease, stage 3. 10. Gastroesophageal reflux disease. 11. Peripheral neuropathy. MEDICATIONS: 1. Ampicillin 1 g every 6 hours. 2. Tylenol. 3. Allopurinol. 4. Bisacodyl. 5. Eplerenone. 6. Gabapentin. 7. Magnesium. 8. Levothyroxine. 9. Metolazone. 10. Midodrine. 11. Omeprazole. 12. Torsemide. 13. Warfarin. 14. Ceftriaxone 1 g a day. ALLERGIES: To SPIRONOLACTONE and OXYCODONE. FAMILY HISTORY: No recurrent infections or TB. SOCIAL HISTORY: Lives outside of [place] and . Has no travel or sick contact. REVIEW OF SYSTEMS: All negative except as noted above. PHYSICAL EXAM: General: He is not in distress and not diaphoretic. Vital Signs : Temperature is 36.8, heart rate is 110, respiratory rate 16, blood pressure 80 /60, and O2 sat 96% on room air. Neurological: He is awake and oriented x3. Follows all commands. Moves all extremities. Answers all questions. HEENT: There is no conjunctival hemorrhage. Oropharynx is clear. Neck: Neck is supple without nuchal rigidity. Lymph Nodes: There is no cervical, supraclavicular, inguinal, axillary, or epitrochlear lymphadenopathy. Heart: Regular and tachycardic without murmurs. Lungs: Decreased breath sounds at the bases bilaterally without wheezes or rales. Abdomen: Distended mildly, nontender. His umbilicus is everted. There is a right lower quadrant drain without surrounding erythema or expressible drainage. The fluid that is draining out of it is clear. Skin: There is no rash or splinter hemorrhage. There is diffuse hyperpigmentation. Musculoskeletal: There is no spine tenderness to palpation or joint synovitis. DIAGNOSTIC STUDIES/LAB DATA: White blood cell 6, hemoglobin 8, and platelets 253. Creatinine is 2.1. Please see impressions and recommendations as outlined above, which I have discussed with Dr. Bland. Thank for asking me to see Mr. Ocampo in consultation. [id number]/[facility] #: [id number]
[2016-11-23] MEDS: Acetaminophen TAB* 325 MG PO PRN (17:54)
[2016-11-23] MEDS: Warfarin TAB(*) 7.5 MG PO SCH (17:54)
--- NOTE | 2016-11-23 18:06 | PN ---
Subjective Date of Service: 11/23/16 Interval History: Pt has no complaints Family History: Unchanged from Admission Social History: Unchanged from Admission Past Medical History: Unchanged from Admission Objective Active Medications: Acetaminophen (Tylenol Tab*) 650 mg PO Q6H PRN PRN Reason: FEVER/PAIN Last Admin: 11/23/16 17:54 Dose: 650 mg Allopurinol (Zyloprim Tab*) 300 mg PO DAILY [facility] Last Admin: 11/23/16 08:13 Dose: 300 mg Bisacodyl (Dulcolax Supp*) 10 mg AR DAILY [facility] Last Admin: 11/23/16 09:19 Dose: Not Given Docusate Sodium (Colace Cap*) 100 mg PO BID PRN PRN Reason: CONSTIPATION Last Admin: 11/20/16 05:07 Dose: 100 mg Eplerenone (Inspra (Nf)) 25 mg PO BID [facility] Last Admin: 11/23/16 08:54 Dose: 25 mg Gabapentin (Neurontin Cap(*)) 300 mg PO QID [facility] Last Admin: 11/23/16 17:55 Dose: 300 mg Gabapentin (Neurontin Cap(*)) 300 mg PO DAILY PRN PRN Reason: PAIN Last Admin: 11/22/16 05:43 Dose: 300 mg Hydrocortisone (Hytone Cream 1%*) 1 applic TOPICAL TID PRN PRN Reason: Rectal Pain Ampicillin Sodium 1 gm/ Sodium (Chloride) 50 mls @ 200 mls/hr IVPB Q6H [facility] Last Admin: 11/23/16 16:07 Dose: 200 mls/hr Levothyroxine Sodium (Synthroid Tab*) 50 mcg PO DAILY@0600 [facility] Last Admin: 11/23/16 05:28 Dose: 50 mcg Magnesium Oxide (Magox 400 Tab*) 400 mg PO BID [facility] Last Admin: 11/23/16 08:56 Dose: 400 mg Metolazone (Zaroxolyn Tab*) 5 mg PO 829,2029 [facility] Last Admin: 11/23/16 08:13 Dose: 5 mg Midodrine (Midodrine (Nf)) 15 mg PO TID [facility] PRN Reason: Protocol Last Admin: 11/23/16 12:50 Dose: 15 mg Multivitamins/Minerals (Theragran/Minerals Tab*) 1 tab PO DAILY [facility] Last Admin: 11/23/16 08:56 Dose: 1 tab Neomycin/Polymyxin/Bacitracin (Neosporin Top Oint Tube*) 1 applic TOPICAL DAILY [facility] Last Admin: 11/23/16 08:56 Dose: 1 applic Pto Non Formulary Med* (Gum Numb Benzocaine 20% 1 Applic) 1 applic TOPICAL Q1H PRN PRN Reason: Oral pain Last Admin: 11/18/16 20:04 Dose: 1 applic Omeprazole (Prilosec Cap*) 20 mg PO DAILY@0730 [facility] Last Admin: 11/23/16 08:13 Dose: 20 mg Pharmacy Profile Note (Coumadin Daily Reminder*) 1 note FOLLOW UP 1700 [facility] Last Admin: 11/23/16 17:56 Dose: 1 note Potassium Chloride (Klor Con Er Tab*) 40 meq PO DAILY [facility] Last Admin: 11/23/16 08:56 Dose: 40 meq Sodium Biphosphate/Sodium Phosphate (Fleet Enema*) 1 bottle AR DAILY PRN PRN Reason: CONSTIPATION Last Admin: 11/20/16 00:28 Dose: 1 bottle Torsemide (Demadex*) 160 mg PO BID [facility] Last Admin: 11/23/16 09:14 Dose: 160 mg Warfarin Sodium (Coumadin Tab(*)) 7.5 mg PO DAILY@1700 [facility] PRN Reason: Protocol Last Admin: 11/23/16 17:54 Dose: 7.5 mg Vital Signs 11/22/16 11/22/16 11/22/16 19:47 20:00 20:23 Temperature 98.4 F Pulse Rate 110 109 Respiratory 18 18 Rate Blood Pressure 80/50 92/55 (mmHg) O2 Sat by Pulse 99 Oximetry 11/22/16 11/22/16 11/22/16 20:46 22:46 23:45 Temperature 98.2 F Pulse Rate 107 Respiratory 18 18 20 Rate Blood Pressure 88/62 (mmHg) O2 Sat by Pulse 96 Oximetry 11/23/16 11/23/16 11/23/16 03:34 07:17 08:00 Temperature 98.2 F Pulse Rate 107 109 Respiratory 16 16 18 Rate Blood Pressure 87/54 83/62 (mmHg) O2 Sat by Pulse 100 96 Oximetry 11/23/16 11/23/16 11/23/16 08:13 12:50 17:55 Temperature Pulse Rate Respiratory 18 18 16 Rate Blood Pressure (mmHg) O2 Sat by Pulse Oximetry Oxygen Devices in Use Now: None Appearance: 56 yo m in NAD, aAOx3 Eyes: No Scleral Icterus, PERRLA Ears/Nose/Mouth/Throat: NL Teeth, Lips, Gums, Mucous Membranes Moist Neck: NL Appearance and Movements; NL JVP, Trachea Midline Respiratory: Symmetrical Chest Expansion and Respiratory Effort, Clear to Auscultation Cardiovascular: NL Sounds; No Murmurs; No JVD, RRR Abdominal: - - distened, soft, NT, BS+, umbilical hernia present. Peritoneal cath in place Lymphatic: No Cervical Adenopathy Extremities: No Clubbing, Cyanosis, - - trace pedal edema b/l Skin: No Nodules or Sclerosis Neurological: Alert and Oriented x 3, NL Muscle Strength and Tone Result Diagrams: 11/22/16 06:47 11/23/16 05:22 Additional Lab and Data: Lab Results 11/17/16 11/17/16 11/17/16 Range/Units 12:48 14:00 14:00 WBC 9.3 (3.5-10.8) 10^3/ul RBC 3.31 L (4.0-5.4) 10^6/ul Hgb 8.0 L (14.0-18.0) g/dl Hct 26 L (42-52) % MCV 80 (80-94) fL MCH 24 L (27-31) pg MCHC 30 L (31-36) g/dl RDW 22 H (10.5-15) % Plt Count 297 (150-450) 10^3/ul MPV 7 L (7.4-10.4) um3 Neut % (Auto) 84.0 H (38-83) % Lymph % (Auto) 3.9 L (25-47) % [place] % (Auto) 8.8 (1-9) % Eos % (Auto) 2.0 (0-6) % Baso % (Auto) 1.3 (0-2) % Absolute Neuts (auto) 7.8 H (1.5-7.7) 10^3/ul Absolute Lymphs (auto) 0.4 L (1.0-4.8) 10^3/ul Absolute Monos (auto) 0.8 (0-0.8) 10^3/ul Absolute Eos (auto) 0.2 (0-0.6) 10^3/ul Absolute Basos (auto) 0.1 (0-0.2) 10^3/ul Absolute Nucleated RBC 0.04 10^3/ul Nucleated RBC % 0.4 INR (Anticoag Therapy) 1.62 H (0.89-1.11) APTT 35.7 (26.0-36.3) seconds Sodium (133-145) mmol/L Potassium (3.5-5.0) mmol/L Chloride (101-111) mmol/L Carbon Dioxide (22-32) mmol/L Anion Gap (2-11) mmol/L BUN (6-24) mg/dL Creatinine (0.67-1.17) mg/dL Est GFR ( Amer) (>60) Est GFR (Non-Af Amer) (>60) BUN/Creatinine Ratio (8-20) Glucose (70-100) mg/dL Lactic Acid (0.5-2.0) mmol/L Calcium (8.6-10.3) mg/dL Magnesium (1.9-2.7) mg/dL Total Bilirubin (0.2-1.0) mg/dL AST (13-39) U/L ALT (7-52) U/L Alkaline Phosphatase (34-104) U/L Total Creatine Kinase (10-223) U/L CK-MB (CK-2) (0.6-6.3) ng/mL Troponin I (<0.04) ng/mL C-Reactive Protein (< 5.00) mg/L B-Natriuretic Peptide ( - 100) pg/mL Total Protein (6.4-8.9) g/dL Albumin (3.2-5.2) g/dL Globulin (2-4) g/dL Albumin/Globulin Ratio (1-3) Lipase (11.0-82.0) U/L TSH (0.34-5.60) mcIU/mL Urine Color Straw Urine Appearance Clear Urine pH 7.0 (5-9) Ur Specific [place] 1.006 L (1.010-1.030) Urine Protein Negative (Negative) Urine Ketones Negative (Negative) Urine Blood Negative (Negative) Urine Nitrate Negative (Negative) Urine Bilirubin Negative (Negative) Urine Urobilinogen Negative (Negative) Ur Leukocyte Esterase Negative (Negative) Urine Glucose Negative (Negative) Urine Ascorbic Acid * H (Negative) 11/17/16 11/17/16 11/17/16 Range/Units 14:00 14:00 14:00 WBC (3.5-10.8) 10^3/ul RBC (4.0-5.4) 10^6/ul Hgb (14.0-18.0) g/dl Hct (42-52) % MCV (80-94) fL MCH (27-31) pg MCHC (31-36) g/dl RDW (10.5-15) % Plt Count (150-450) 10^3/ul MPV (7.4-10.4) um3 Neut % (Auto) (38-83) % Lymph % (Auto) (25-47) % [place] % (Auto) (1-9) % Eos % (Auto) (0-6) % Baso % (Auto) (0-2) % Absolute Neuts (auto) (1.5-7.7) 10^3/ul Absolute Lymphs (auto) (1.0-4.8) 10^3/ul Absolute Monos (auto) (0-0.8) 10^3/ul Absolute Eos (auto) (0-0.6) 10^3/ul Absolute Basos (auto) (0-0.2) 10^3/ul Absolute Nucleated RBC 10^3/ul Nucleated RBC % INR (Anticoag Therapy) (0.89-1.11) APTT (26.0-36.3) seconds Sodium 123 L (133-145) mmol/L Potassium 3.7 (3.5-5.0) mmol/L Chloride 88 L (101-111) mmol/L Carbon Dioxide 27 (22-32) mmol/L Anion Gap 8 (2-11) mmol/L BUN 66 H (6-24) mg/dL Creatinine 2.13 H (0.67-1.17) mg/dL Est GFR ( Amer) 41.5 (>60) Est GFR (Non-Af Amer) 32.3 (>60) BUN/Creatinine Ratio 31.0 H (8-20) Glucose 101 H (70-100) mg/dL Lactic Acid 1.3 (0.5-2.0) mmol/L Calcium 8.1 L (8.6-10.3) mg/dL Magnesium 2.1 (1.9-2.7) mg/dL Total Bilirubin 0.40 (0.2-1.0) mg/dL AST 25 (13-39) U/L ALT 18 (7-52) U/L Alkaline Phosphatase 88 (34-104) U/L Total Creatine Kinase 26 (10-223) U/L CK-MB (CK-2) 3.5 (0.6-6.3) ng/mL Troponin I 0.08 H* (<0.04) ng/mL C-Reactive Protein 19.82 H (< 5.00) mg/L B-Natriuretic Peptide 763 H ( - 100) pg/mL Total Protein 5.6 L (6.4-8.9) g/dL Albumin 2.7 L (3.2-5.2) g/dL Globulin 2.9 (2-4) g/dL Albumin/Globulin Ratio 0.9 L (1-3) Lipase 79 (11.0-82.0) U/L TSH 5.98 H (0.34-5.60) mcIU/mL Urine Color Urine Appearance Urine pH (5-9) Ur Specific [place] (1.010-1.030) Urine Protein (Negative) Urine Ketones (Negative) Urine Blood (Negative) Urine Nitrate (Negative) Urine Bilirubin (Negative) Urine Urobilinogen (Negative) Ur Leukocyte Esterase (Negative) Urine Glucose (Negative) Urine Ascorbic Acid (Negative) Microbiology and Other Data: Microbiology 11/19/16 15:43 Sterile Body Fluid Culture - Preliminary Peritoneal Fluid Sterile Body Fluid Culture - Preliminary 11/19/16 15:43 Gram Stain - Final Body Fluid - Peritoneal Assess/Plan/Problems-Billing Assessment: Mr. 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 - Patient Problems (1) Peritonitis Comment: associated with peritoneal cath Cx growing E. Faecium No symptoms, but ascites fluid shows >7000 WBC's cont ampicillin. Intraperitoneal Vanc ordered by ID. consult appreciated (2) Acute on chronic systolic (congestive) heart failure Comment: Acute on chronic sysolic CHF, EF 20-25% due to amyloidosis. due to mild increase in creatinine will d/c IV Lasix and start Torsemide PO. Continue Inspra and Metolazone. Weight at 212 lbs today. (3) Hyponatremia Comment: Secondary to CHF- chronic, stable (4) CKD (chronic kidney disease) stage 3, GFR 30-59 ml/min Comment: Continue to monitor renal function. silghtly increased (5) Afib Comment: INR 1.9 , coumadin restarted on 11/22/16 (6) Peripheral neuropathy Comment: Continue Gabapentin. (7) Hyperkalemia Comment: resolved (8) DVT prophylaxis Comment: INR 1.9 Status and Disposition: Inpatient.
[2016-11-24] MEDS: Ampicillin ADVAN(*) 1 GM in NS 0.9% 50 ML* 50 ML IVPB SCH ×4 (02:11→20:14)
[2016-11-24 05:38] LABS: BUN/Creatinine Ratio 28.7 (8-20); Calcium 8.7 mg/dL (8.6-10.3); EGFR African American 52.5 (>60); EGFR Non-African American 40.8 (>60); Potassium 2.9 mmol/L (3.5-5.0)
[2016-11-24] MEDS: Levothyroxine TAB* 50 MCG TAB PO SCH (06:06)
[2016-11-24] MEDS ORDERED: Potassium Chlor TAB* 20 MEQ TAB.ER PO ONE (07:23)
[2016-11-24] MEDS: Metolazone TAB* 5 MG PO SCH ×2 (07:33→20:16)
[2016-11-24] MEDS: Omeprazole CAP* 20 MG PO SCH (07:33)
[2016-11-24] MEDS: Allopurinol TAB* 300 MG PO SCH (07:33)
[2016-11-24] MEDS: Gabapentin CAP(*) 300 MG PO SCH ×4 (07:33→21:11)
--- NOTE | 2016-11-24 09:00 | PN ---
Subjective Date of Service: 11/24/16 Interval History: pt stated that after draining his peritoneal fluid approx 50 ml of cloudy fluid was obtained Denies abd pain Family History: Unchanged from Admission Social History: Unchanged from Admission Past Medical History: Unchanged from Admission Objective Active Medications: Acetaminophen (Tylenol Tab*) 650 mg PO Q6H PRN PRN Reason: FEVER/PAIN Last Admin: 11/23/16 17:54 Dose: 650 mg Allopurinol (Zyloprim Tab*) 300 mg PO DAILY [facility] Last Admin: 11/24/16 07:33 Dose: 300 mg Bisacodyl (Dulcolax Supp*) 10 mg DC DAILY [facility] Last Admin: 11/23/16 09:19 Dose: Not Given Docusate Sodium (Colace Cap*) 100 mg PO BID PRN PRN Reason: CONSTIPATION Last Admin: 11/20/16 05:07 Dose: 100 mg Eplerenone (Inspra (Nf)) 25 mg PO BID [facility] Last Admin: 11/23/16 21:00 Dose: 25 mg Gabapentin (Neurontin Cap(*)) 300 mg PO QID [facility] Last Admin: 11/24/16 07:33 Dose: 300 mg Gabapentin (Neurontin Cap(*)) 300 mg PO DAILY PRN PRN Reason: PAIN Last Admin: 11/22/16 05:43 Dose: 300 mg Hydrocortisone (Hytone Cream 1%*) 1 applic TOPICAL TID PRN PRN Reason: Rectal Pain Ampicillin Sodium 1 gm/ Sodium (Chloride) 50 mls @ 200 mls/hr IVPB Q6H [facility] Last Admin: 11/24/16 07:32 Dose: 200 mls/hr Levothyroxine Sodium (Synthroid Tab*) 50 mcg PO DAILY@0600 [facility] Last Admin: 11/24/16 06:06 Dose: 50 mcg Magnesium Oxide (Magox 400 Tab*) 400 mg PO BID [facility] Last Admin: 11/23/16 20:57 Dose: 400 mg Metolazone (Zaroxolyn Tab*) 5 mg PO 0830,2029 [facility] Last Admin: 11/24/16 07:33 Dose: 5 mg Midodrine (Midodrine (Nf)) 15 mg PO TID [facility] PRN Reason: Protocol Last Admin: 11/23/16 20:58 Dose: 15 mg Multivitamins/Minerals (Theragran/Minerals Tab*) 1 tab PO DAILY [facility] Last Admin: 11/23/16 08:56 Dose: 1 tab Neomycin/Polymyxin/Bacitracin (Neosporin Top Oint Tube*) 1 applic TOPICAL DAILY [facility] Last Admin: 11/23/16 08:56 Dose: 1 applic Pto Non Formulary Med* (Gum Numb Benzocaine 20% 1 Applic) 1 applic TOPICAL Q1H PRN PRN Reason: Oral pain Last Admin: 11/18/16 20:04 Dose: 1 applic Omeprazole (Prilosec Cap*) 20 mg PO DAILY@0730 [facility] Last Admin: 11/24/16 07:33 Dose: 20 mg Pharmacy Profile Note (Coumadin Daily Reminder*) 1 note FOLLOW UP 1700 [facility] Last Admin: 11/23/16 17:56 Dose: 1 note Potassium Chloride (Klor Con Er Tab*) 40 meq PO DAILY [facility] Last Admin: 11/23/16 08:56 Dose: 40 meq Sodium Biphosphate/Sodium Phosphate (Fleet Enema*) 1 bottle DC DAILY PRN PRN Reason: CONSTIPATION Last Admin: 11/20/16 00:28 Dose: 1 bottle Torsemide (Demadex*) 160 mg PO BID [facility] Last Admin: 11/23/16 22:47 Dose: 160 mg Warfarin Sodium (Coumadin Tab(*)) 7.5 mg PO DAILY@1700 [facility] PRN Reason: Protocol Last Admin: 11/23/16 17:54 Dose: 7.5 mg Vital Signs 11/23/16 11/23/16 11/23/16 12:50 14:45 17:55 Temperature 97.8 F Pulse Rate 102 Respiratory 18 16 Rate Blood Pressure 89/64 (mmHg) O2 Sat by Pulse 100 Oximetry 11/23/16 11/23/16 11/23/16 19:53 20:00 20:55 Temperature 98.4 F Pulse Rate 95 Respiratory 18 20 20 Rate Blood Pressure 67/39 (mmHg) O2 Sat by Pulse 99 Oximetry 11/24/16 11/24/16 11/24/16 00:20 01:30 03:35 Temperature 97.4 F 97.0 F Pulse Rate 93 94 Respiratory 16 20 16 Rate Blood Pressure 88/57 80/52 (mmHg) O2 Sat by Pulse 98 100 Oximetry 11/24/16 11/24/16 07:33 07:37 Temperature Pulse Rate Respiratory 18 18 Rate Blood Pressure (mmHg) O2 Sat by Pulse Oximetry Oxygen Devices in Use Now: None Appearance: 56 yo M in nAD, aAOx3 Eyes: No Scleral Icterus, PERRLA Ears/Nose/Mouth/Throat: NL Teeth, Lips, Gums Neck: NL Appearance and Movements; NL JVP, Trachea Midline Respiratory: Symmetrical Chest Expansion and Respiratory Effort, Clear to Auscultation Cardiovascular: NL Sounds; No Murmurs; No JVD, RRR Abdominal: - - slightly distended, soft, NT, BS+, peritoneal cath in place- surrounding skin clean. Umbilical hernia-nontender Lymphatic: No Cervical Adenopathy Extremities: No Clubbing, Cyanosis, - - trace pedal edema Skin: No Nodules or Sclerosis Neurological: Alert and Oriented x 3, NL Muscle Strength and Tone Result Diagrams: 11/22/16 06:47 11/24/16 05:15 Additional Lab and Data: Lab Results 11/17/16 11/17/16 11/17/16 Range/Units 12:48 14:00 14:00 WBC 9.3 (3.5-10.8) 10^3/ul RBC 3.31 L (4.0-5.4) 10^6/ul Hgb 8.0 L (14.0-18.0) g/dl Hct 26 L (42-52) % MCV 80 (80-94) fL MCH 24 L (27-31) pg MCHC 30 L (31-36) g/dl RDW 22 H (10.5-15) % Plt Count 297 (150-450) 10^3/ul MPV 7 L (7.4-10.4) um3 Neut % (Auto) 84.0 H (38-83) % Lymph % (Auto) 3.9 L (25-47) % [place] % (Auto) 8.8 (1-9) % Eos % (Auto) 2.0 (0-6) % Baso % (Auto) 1.3 (0-2) % Absolute Neuts (auto) 7.8 H (1.5-7.7) 10^3/ul Absolute Lymphs (auto) 0.4 L (1.0-4.8) 10^3/ul Absolute Monos (auto) 0.8 (0-0.8) 10^3/ul Absolute Eos (auto) 0.2 (0-0.6) 10^3/ul Absolute Basos (auto) 0.1 (0-0.2) 10^3/ul Absolute Nucleated RBC 0.04 10^3/ul Nucleated RBC % 0.4 INR (Anticoag Therapy) 1.62 H (0.89-1.11) APTT 35.7 (26.0-36.3) seconds Sodium (133-145) mmol/L Potassium (3.5-5.0) mmol/L Chloride (101-111) mmol/L Carbon Dioxide (22-32) mmol/L Anion Gap (2-11) mmol/L BUN (6-24) mg/dL Creatinine (0.67-1.17) mg/dL Est GFR ( Amer) (>60) Est GFR (Non-Af Amer) (>60) BUN/Creatinine Ratio (8-20) Glucose (70-100) mg/dL Lactic Acid (0.5-2.0) mmol/L Calcium (8.6-10.3) mg/dL Magnesium (1.9-2.7) mg/dL Total Bilirubin (0.2-1.0) mg/dL AST (13-39) U/L ALT (7-52) U/L Alkaline Phosphatase (34-104) U/L Total Creatine Kinase (10-223) U/L CK-MB (CK-2) (0.6-6.3) ng/mL Troponin I (<0.04) ng/mL C-Reactive Protein (< 5.00) mg/L B-Natriuretic Peptide ( - 100) pg/mL Total Protein (6.4-8.9) g/dL Albumin (3.2-5.2) g/dL Globulin (2-4) g/dL Albumin/Globulin Ratio (1-3) Lipase (11.0-82.0) U/L TSH (0.34-5.60) mcIU/mL Urine Color Straw Urine Appearance Clear Urine pH 7.0 (5-9) Ur Specific [place] 1.006 L (1.010-1.030) Urine Protein Negative (Negative) Urine Ketones Negative (Negative) Urine Blood Negative (Negative) Urine Nitrate Negative (Negative) Urine Bilirubin Negative (Negative) Urine Urobilinogen Negative (Negative) Ur Leukocyte Esterase Negative (Negative) Urine Glucose Negative (Negative) Urine Ascorbic Acid * H (Negative) 11/17/16 11/17/16 11/17/16 Range/Units 14:00 14:00 14:00 WBC (3.5-10.8) 10^3/ul RBC (4.0-5.4) 10^6/ul Hgb (14.0-18.0) g/dl Hct (42-52) % MCV (80-94) fL MCH (27-31) pg MCHC (31-36) g/dl RDW (10.5-15) % Plt Count (150-450) 10^3/ul MPV (7.4-10.4) um3 Neut % (Auto) (38-83) % Lymph % (Auto) (25-47) % [place] % (Auto) (1-9) % Eos % (Auto) (0-6) % Baso % (Auto) (0-2) % Absolute Neuts (auto) (1.5-7.7) 10^3/ul Absolute Lymphs (auto) (1.0-4.8) 10^3/ul Absolute Monos (auto) (0-0.8) 10^3/ul Absolute Eos (auto) (0-0.6) 10^3/ul Absolute Basos (auto) (0-0.2) 10^3/ul Absolute Nucleated RBC 10^3/ul Nucleated RBC % INR (Anticoag Therapy) (0.89-1.11) APTT (26.0-36.3) seconds Sodium 123 L (133-145) mmol/L Potassium 3.7 (3.5-5.0) mmol/L Chloride 88 L (101-111) mmol/L Carbon Dioxide 27 (22-32) mmol/L Anion Gap 8 (2-11) mmol/L BUN 66 H (6-24) mg/dL Creatinine 2.13 H (0.67-1.17) mg/dL Est GFR ( Amer) 41.5 (>60) Est GFR (Non-Af Amer) 32.3 (>60) BUN/Creatinine Ratio 31.0 H (8-20) Glucose 101 H (70-100) mg/dL Lactic Acid 1.3 (0.5-2.0) mmol/L Calcium 8.1 L (8.6-10.3) mg/dL Magnesium 2.1 (1.9-2.7) mg/dL Total Bilirubin 0.40 (0.2-1.0) mg/dL AST 25 (13-39) U/L ALT 18 (7-52) U/L Alkaline Phosphatase 88 (34-104) U/L Total Creatine Kinase 26 (10-223) U/L CK-MB (CK-2) 3.5 (0.6-6.3) ng/mL Troponin I 0.08 H* (<0.04) ng/mL C-Reactive Protein 19.82 H (< 5.00) mg/L B-Natriuretic Peptide 763 H ( - 100) pg/mL Total Protein 5.6 L (6.4-8.9) g/dL Albumin 2.7 L (3.2-5.2) g/dL Globulin 2.9 (2-4) g/dL Albumin/Globulin Ratio 0.9 L (1-3) Lipase 79 (11.0-82.0) U/L TSH 5.98 H (0.34-5.60) mcIU/mL Urine Color Urine Appearance Urine pH (5-9) Ur Specific [place] (1.010-1.030) Urine Protein (Negative) Urine Ketones (Negative) Urine Blood (Negative) Urine Nitrate (Negative) Urine Bilirubin (Negative) Urine Urobilinogen (Negative) Ur Leukocyte Esterase (Negative) Urine Glucose (Negative) Urine Ascorbic Acid (Negative) Microbiology and Other Data: Microbiology 11/19/16 15:43 Sterile Body Fluid Culture - Preliminary Peritoneal Fluid Sterile Body Fluid Culture - Preliminary 11/19/16 15:43 Gram Stain - Final Body Fluid - Peritoneal Assess/Plan/Problems-Billing Assessment: Mr. 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 - Patient Problems (1) Peritonitis Comment: associated with peritoneal cath Cx growing E. Faecium No symptoms, but ascites fluid shows >7000 WBC's cont ampicillin. Intraperitoneal Vanc ordered by ID on 11/23/16. ID consult appreciated (2) Acute on chronic systolic (congestive) heart failure Comment: Acute on chronic sysolic CHF, EF 20-25% due to amyloidosis. due to mild increase in creatinine IV Lasix was discontinued and pt was restarted on at home dose of Torsemide PO on 11/23/16. Continue Inspra and Metolazone. Weight at 212 lbs today. (3) Hyponatremia Comment: Secondary to CHF- chronic, stable (4) CKD (chronic kidney disease) stage 3, GFR 30-59 ml/min Comment: Continue to monitor renal function. silghtly increased (5) Afib Comment: INR 1.9 , coumadin restarted on 11/22/16 (6) Peripheral neuropathy Comment: Continue Gabapentin. (7) Hyperkalemia Comment: resolved (8) Hypokalemia Comment: increase K Cl to BID (9) Hypotension Comment: chronic, pt's SBP is at 80-90 baseline. cont midodrine (10) DVT prophylaxis Comment: INR 1.9 Status and Disposition: Inpatient.
[2016-11-24] MEDS: EPLERONONE 25 MG PO SCH ×2 (09:13→21:12)
[2016-11-24] MEDS: Torsemide TAB* 20 MG PO SCH ×2 (09:14→21:15)
[2016-11-24] MEDS: Potassium Chlor TAB* 20 MEQ TAB.ER PO SCH ×2 (09:14→21:12)
[2016-11-24] MEDS: POLYMYXIN B TOPICAL SCH (09:15)
[2016-11-24] MEDS: BACITRACIN TOPICAL SCH (09:15)
[2016-11-24] MEDS: MULTIVITAMINS PO SCH (09:15)
[2016-11-24] MEDS: CMCS: Midodrine (NF) 5 MG TAB PO SCH ×3 (09:15→21:11)
[2016-11-24] MEDS: MINERALS PO SCH (09:15)
[2016-11-24] MEDS: Magnesium Oxide TAB* 400 MG PO SCH ×2 (09:15→21:10)
[2016-11-24] MEDS: NEOMYCIN TOPICAL SCH (09:15)
[2016-11-24] MEDS: Bisacodyl SUPP* 10 MG SUPP PR SCH (12:52)
[2016-11-24] MEDS: Warfarin TAB(*) 7.5 MG PO SCH (17:16)
--- NOTE | 2016-11-24 17:40 | PN ---
Progress Note - Progress Note SOAP: Subjective: DOS: 11/24/16 CC: abd pain HPI: 56 year old man with NICM, hepatic congestion, chronic ascites with RLQ drain since May 2016. Admitted with CHF. Now with lower abd pain, pus around catheter, had fluid sample sent. Fluid comes out clear, pus is resolved around catheter and pain improve. No fever, rash, or diarrhea. Objective: [] Vital Signs Temp 37.0 C 11/24/16 15:53 Pulse 89 11/24/16 15:53 Resp 16 11/24/16 17:15 BP 92/57 11/24/16 15:53 Pulse Ox 97 11/24/16 15:53 Intake & Output 11/23/16 11/24/16 11/24/16 18:59 06:59 18:59 Intake Total 827 470 223 Output Total 1515 2050 1025 Balance -450 -6602 -802 Weight 212 lb 14.4 oz Intake: IV Fluids 77 60 58 AMPIC ILLIN 57 60 58 NS (0.9%) 20 IVPB 10 50 AMPIC ILLIN 50 Lasix 10 Oral 730 360 165 Pigtail Drain 10 Output: Abdominal Drain 90 Pigtail Drain 50 Urine 1425 2050 975 Other: Estimated Void Medium # Bowel Movements 0 # Voids 2 0 1 Gen:[id number] HEENT:PERRL, MMM Neck:supple Heart:RRR no murmur Lungs:CTA BL Abd:+BS NTND soft; RLQ catheter, no surrounding erythema Skin: no rash LN:no visible or palpable LN Laboratory Results - last 24 hr 11/19/16 11/24/16 11/24/16 15:43 05:15 05:15 INR (Anticoag Therapy) 1.90 H Sodium 132 L Potassium 2.9 L Chloride 92 L Carbon Dioxide 32 Anion Gap 8 BUN 50 H Creatinine 1.74 H Est GFR ( Amer) 52.5 Est GFR (Non-Af Amer) 40.8 BUN/Creatinine Ratio 28.7 H Glucose 91 Calcium 8.7 Fluid Source Peritoneal Fluid Albumin 1150 Assessment: 1. Enterococcal peritoneal drain catheter infection and peritonitis 2. NICM with acute systolic congestive heart failure 3. chronic ascites Plan: 1. continue ampicillin IV and vancomycin 500 mg in catheter overnight Discussed with Dr Bland
[2016-11-24] MEDS ORDERED: Vancomycin(*) 500 MG in NS 0.9% 250 ML* 250 ML IVPB ONE (17:47)
[2016-11-24] MEDS ORDERED: Vancomycin(*) 500 MG in NS 0.9% 250 ML* 250 ML ONE (18:30)
--- NOTE | 2016-11-24 19:30 | RAD ---
HISTORY: Peritoneal catheter for fluid drainage, pain and discomfort around catheter COMPARISONS: None relevant TECHNIQUE: Multiple transverse and longitudinal ultrasound images were obtained of the area of pain in the right lower quadrant and around the entry of the peritoneal catheter. FINDINGS: There is no inflammatory change or free fluid or loculated fluid collection in the area of pain around the visualized portion of the peritoneal catheter. IMPRESSION: NO FREE OR LOCULATED FLUID COLLECTIONS OR INFLAMMATORY CHANGE WITHIN THE AREA OF PAIN OR AROUND THE VISUALIZED PORTION OF THE PERITONEAL CATHETER.
[2016-11-25] MEDS: Ampicillin ADVAN(*) 1 GM in NS 0.9% 50 ML* 50 ML IVPB SCH ×4 (02:00→21:27)
[2016-11-25] MEDS: Levothyroxine TAB* 50 MCG TAB PO SCH (05:32)
[2016-11-25 05:40] LABS: BUN/Creatinine Ratio 27.1 (8-20); Calcium 8.3 mg/dL (8.6-10.3); EGFR African American 51.4 (>60)
[2016-11-25] MEDS: Gabapentin CAP(*) 300 MG PO SCH ×4 (08:38→22:10)
[2016-11-25] MEDS: Metolazone TAB* 5 MG PO SCH ×2 (08:40→21:27)
[2016-11-25] MEDS: Omeprazole CAP* 20 MG PO SCH (08:40)
--- NOTE | 2016-11-25 09:40 | PN ---
Progress Note - Progress Note SOAP: Subjective: DOS: 11/25/16 CC: abd pain HPI: 56 year old man with NICM, hepatic congestion, chronic ascites with RLQ drain since May 2016. Admitted with CHF. Then developed lower abd pain, pus around catheter, had fluid sample sent. Fluid continues to come out clear, pus is resolved around catheter and pain almost gone. No fever, rash, or diarrhea. Objective: [] Vital Signs Temp 36.9 C 11/25/16 07:43 Pulse 89 11/25/16 07:43 Resp 16 11/25/16 08:38 BP 84/55 11/25/16 07:43 Pulse Ox 97 11/25/16 07:43 Intake & Output 11/24/16 11/25/16 11/25/16 18:59 06:59 18:59 Intake Total 223 1120 Output Total 1025 1400 775 Balance -802 -280 -775 Weight 212 lb 3.2 oz Intake: IV Fluids 58 20 AMPIC ILLIN 58 NS (0.9%) 20 IVPB 50 AMPIC ILLIN 50 Oral 165 800 Pigtail Drain 250 Output: Abdominal Drain 75 Pigtail Drain 50 Urine 975 1400 700 Other: # Bowel Movements 1 Estimated Stool Amount Medium # Voids 1 Gen:AAOX3 HEENT:PERRL, MMM Neck:supple Heart:RRR no murmur Lungs:CTA BL Abd:+BS NTND soft; RLQ catheter, no surrounding erythema Skin: no rash LN:no visible or palpable LN Laboratory Results - last 24 hr 11/19/16 11/25/16 11/25/16 15:43 04:41 04:41 INR (Anticoag Therapy) 2.28 H Sodium 132 L Potassium 3.0 L Chloride 93 L Carbon Dioxide 29 Anion Gap 10 BUN 48 H Creatinine 1.77 H Est GFR ( Amer) 51.4 Est GFR (Non-Af Amer) 40.0 BUN/Creatinine Ratio 27.1 H Glucose 97 Calcium 8.3 L Fluid Source Peritoneal Fluid Albumin 1150 Assessment: 1. Enterococcal peritoneal drain catheter infection and peritonitis, improving 2. NICM with acute systolic congestive heart failure 3. chronic ascites Plan: 1. continue ampicillin IV and vancomycin 500 mg again this evening to dwell overnight. I discussed with him need to watch for return of symptoms after stopping abx and that case would need to remove the catheter. 25 min floor time >50% in counseling regarding risk of recurrence of infection and need to return and likely catheter removal in that case. All questions answered.
[2016-11-25] MEDS: Bisacodyl SUPP* 10 MG SUPP PR SCH (10:03)
[2016-11-25] MEDS: Allopurinol TAB* 300 MG PO SCH (10:11)
[2016-11-25] MEDS: Potassium Chlor TAB* 20 MEQ TAB.ER PO SCH ×2 (10:12→22:09)
[2016-11-25] MEDS: Magnesium Oxide TAB* 400 MG PO SCH ×2 (10:13→22:11)
[2016-11-25] MEDS: CMCS: Midodrine (NF) 5 MG TAB PO SCH ×3 (10:13→22:11)
[2016-11-25] MEDS: Torsemide TAB* 20 MG PO SCH ×2 (10:13→22:12)
[2016-11-25] MEDS: MULTIVITAMINS PO SCH (10:14)
[2016-11-25] MEDS: MINERALS PO SCH (10:14)
[2016-11-25] MEDS: EPLERONONE 25 MG PO SCH ×2 (10:14→22:13)
[2016-11-25] MEDS: POLYMYXIN B TOPICAL SCH (10:18)
[2016-11-25] MEDS: NEOMYCIN TOPICAL SCH (10:18)
[2016-11-25] MEDS: BACITRACIN TOPICAL SCH (10:18)
[2016-11-25] MEDS: Acetaminophen TAB* 325 MG PO PRN (14:02)
--- NOTE | 2016-11-25 14:18 | PN ---
Subjective Date of Service: 11/25/16 Interval History: Patient seen this afternoon. Has no complaints. Says legs are skinny. No SOB. No abdominal pain. Family History: Unchanged from Admission Social History: Unchanged from Admission Past Medical History: Unchanged from Admission Objective Active Medications: Acetaminophen (Tylenol Tab*) 650 mg PO Q6H PRN Allopurinol (Zyloprim Tab*) 300 mg PO DAILY ANAHI Bisacodyl (Dulcolax Supp*) 10 mg MO DAILY ANAHI Docusate Sodium (Colace Cap*) 100 mg PO BID PRN Eplerenone (Inspra (Nf)) 25 mg PO BID ANAHI Gabapentin (Neurontin Cap(*)) 300 mg PO QID ANAHI Gabapentin (Neurontin Cap(*)) 300 mg PO DAILY PRN Hydrocortisone (Hytone Cream 1%*) 1 applic TOPICAL TID PRN Ampicillin Sodium 1 gm/ Sodium (Chloride) 50 mls @ 200 mls/hr IVPB Q6H ANAHI Vancomycin HCl 500 mg/ Sodium (Chloride) 250 mls @ 0 mls/hr .SEE ORDER ONCE ONE Levothyroxine Sodium (Synthroid Tab*) 50 mcg PO DAILY@0600 [facility] Magnesium Oxide (Magox 400 Tab*) 400 mg PO BID ANAHI Metolazone (Zaroxolyn Tab*) 5 mg PO 0830,2030 [facility] Midodrine (Midodrine (Nf)) 15 mg PO TID [facility] Multivitamins/Minerals (Theragran/Minerals Tab*) 1 tab PO DAILY [facility] Neomycin/Polymyxin/Bacitracin (Neosporin Top Oint Tube*) 1 applic TOPICAL DAILY [facility] Pto Non Formulary Med* (Gum Numb Benzocaine 20% 1 Applic) 1 applic TOPICAL Q1H PRN Omeprazole (Prilosec Cap*) 20 mg PO DAILY@0730 [facility] Pharmacy Profile Note (Coumadin Daily Reminder*) 1 note FOLLOW UP 1700 [facility] Potassium Chloride (Klor Con Er Tab*) 40 meq PO BID [facility] Sodium Biphosphate/Sodium Phosphate (Fleet Enema*) 1 bottle MO DAILY PRN Torsemide (Demadex*) 160 mg PO BID [facility] Warfarin Sodium (Coumadin Tab(*)) 7.5 mg PO DAILY@1700 [facility] Vital Signs 11/24/16 11/24/16 11/24/16 15:53 17:15 19:41 Temperature 98.6 F 98.2 F Pulse Rate 89 98 Respiratory 19 16 16 Rate Blood Pressure 92/57 88/54 (mmHg) O2 Sat by Pulse 97 97 Oximetry 11/24/16 11/25/16 11/25/16 23:33 04:04 07:43 Temperature 98.1 F 98.7 F 98.5 F Pulse Rate 91 86 89 Respiratory 16 16 15 Rate Blood Pressure 82/56 98/79 84/55 (mmHg) O2 Sat by Pulse 100 99 97 Oximetry 11/25/16 11/25/16 12:15 12:37 Temperature 98.3 F Pulse Rate 94 Respiratory 18 16 Rate Blood Pressure 97/68 (mmHg) O2 Sat by Pulse 100 Oximetry Oxygen Devices in Use Now: None Appearance: Middle-aged, M, laying in bed in NAD Ears/Nose/Mouth/Throat: Mucous Membranes Moist Neck: NL Appearance and Movements; NL JVP Respiratory: Symmetrical Chest Expansion and Respiratory Effort, Clear to Auscultation Cardiovascular: NL Sounds; No Murmurs; No JVD, RRR Abdominal: NL Sounds; No Tenderness; No Distention, - - abdominal drain dressing appears c/d/i Lymphatic: No Cervical Adenopathy Extremities: No Edema Skin: No Rash or Ulcers Neurological: Alert and Oriented x 3 Result Diagrams: 11/22/16 06:47 11/25/16 04:41 Microbiology and Other Data: Assess/Plan/Problems-Billing Assessment: Mr. 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 Faecium No symptoms, but ascites fluid shows >7000 WBC's cont ampicillin. Intraperitoneal Vanc ordered by ID on 11/23/16. ID consult appreciated, will give one more dose tonight (11/25) and then stop ABx (2) Acute on chronic systolic (congestive) heart failure Current Visit: Yes Comment: Acute on chronic sysolic CHF, EF 20-25% due to amyloidosis. due to mild increase in creatinine IV Lasix was discontinued and pt was restarted on at home dose of Torsemide PO on 11/23/16. Continue Inspra and Metolazone. Weight at 211 lbs today. (3) Afib Current Visit: Yes Comment: INR 2.2, coumadin restarted on 11/22/16 (4) CKD (chronic kidney disease) stage 3, GFR 30-59 ml/min Current Visit: Yes Comment: Continue to monitor renal function, seems back to baseline (5) Hyponatremia Current Visit: Yes Comment: Secondary to CHF- chronic, stable (6) Peripheral neuropathy Current Visit: Yes Comment: Continue Gabapentin. (7) Hypokalemia Current Visit: Yes Comment: Continue 40 mEq BID (8) Hypotension Current Visit: No Comment: chronic, pt's SBP is at 80-90 baseline. cont midodrine (9) DVT prophylaxis Current Visit: No Comment: coumadin, INR therapuetic Status and Disposition: Inpatient, possible d/c 11/26
[2016-11-25] MEDS: Warfarin TAB(*) 7.5 MG PO SCH (16:23)
[2016-11-25] MEDS ORDERED: Vancomycin(*) 500 MG in NS 0.9% 250 ML* 250 ML ONE (18:00)
[2016-11-26] MEDS: Ampicillin ADVAN(*) 1 GM in NS 0.9% 50 ML* 50 ML IVPB SCH ×3 (03:15→14:22)
[2016-11-26] MEDS: Acetaminophen TAB* 325 MG PO PRN (03:22)
[2016-11-26] MEDS: Gabapentin CAP(*) 300 MG PO PRN (03:22)
[2016-11-26] MEDS: Levothyroxine TAB* 50 MCG TAB PO SCH (05:59)
[2016-11-26 06:19] LABS: BUN/Creatinine Ratio 29.5 (8-20); Calcium 8.2 mg/dL (8.6-10.3); EGFR African American 52.8 (>60); EGFR Non-African American 41.1 (>60); Potassium 3.2 mmol/L (3.5-5.0)
[2016-11-26 07:29] VITALS: BP 80/55
[2016-11-26] MEDS: Torsemide TAB* 20 MG PO SCH (08:51)
[2016-11-26] MEDS: Omeprazole CAP* 20 MG PO SCH (08:54)
[2016-11-26] MEDS: CMCS: Midodrine (NF) 5 MG TAB PO SCH ×2 (08:54→14:23)
[2016-11-26] MEDS: Allopurinol TAB* 300 MG PO SCH (08:55)
[2016-11-26] MEDS: Metolazone TAB* 5 MG PO SCH (08:55)
[2016-11-26] MEDS: Bisacodyl SUPP* 10 MG SUPP PR SCH (08:56)
[2016-11-26] MEDS: EPLERONONE 25 MG PO SCH (08:56)
[2016-11-26] MEDS: Gabapentin CAP(*) 300 MG PO SCH ×2 (08:57→14:21)
[2016-11-26] MEDS: Magnesium Oxide TAB* 400 MG PO SCH (08:58)
[2016-11-26] MEDS: Potassium Chlor TAB* 20 MEQ TAB.ER PO SCH (08:58)
[2016-11-26] MEDS: MULTIVITAMINS PO SCH (08:58)
[2016-11-26] MEDS: MINERALS PO SCH (08:58)
[2016-11-26] MEDS: NEOMYCIN TOPICAL SCH (09:03)
[2016-11-26] MEDS: POLYMYXIN B TOPICAL SCH (09:03)
[2016-11-26] MEDS: BACITRACIN TOPICAL SCH (09:03)
--- NOTE | 2016-11-26 09:55 | DCNOTE ---
Patient seen this morning. Says he feels well, no abdominal pain, fever, chills , SOB. Says he has gained weight. On exam, mild LE edema, R sided abdominal drain site appears c/d/i, some bloody/ yellow discharge on dressing when removed Completed ID recommended ABx therapy. Will discharge home with a close eye on catheter. F/U with ID. Will continue outpatient IV Lasix infusions, will give 80 mg IV x 1 today.
[2016-11-26] MEDS ORDERED: Furosemide IV* 10 MG/ML 10 ML VIAL (100 MG) IV ONE (10:00)
--- NOTE | 2016-11-26 13:19 | DS ---
CC: Dr. Watson DATE OF ADMISSION: 11/17/2016. DATE OF DISCHARGE: 11/26/2016. PRIMARY CARE PHYSICIAN: Dr. Watson. CONSULTATIONS DURING HOSPITALIZATION: Dr. Raleigh Wetzel, Infectious Disease; Dr. Brandyn Geller, He matology/Oncology. PRINCIPAL DISCHARGE DIAGNOSES: Acute on chronic systolic CHF exacerbation, peritonitis secondary to intra-abdominal catheter. SECONDARY DIAGNOSES: End-stage heart failure secondary to amyloidosis, as per Dr. Geller's last note recent biopsy was negative, following up with [facility]; chronic ascites secondary to CHF; atrial fibrillation/flutter, on Coumadin; nonsustained ventricular tachycardia, status post ICD placement; coagulopathy and factor X deficiency; gout; hyponatremia; chronic kidney disease stage 3; GERD; per ipheral neuropathy. DISCHARGE MEDICATION REGIMEN: 1. Triamcinolone paste 0.1 percent one application topically daily as needed for sores. 2. Tylenol 650 mg by mouth every 6 hours as needed for pain. 3. Allopurinol 300 mg by mouth daily. 4. Eplerenone 25 mg by mouth 2 times daily. 5. Gabapentin 300 mg by mouth four times daily. 6. Synthroid 50 mcg by mouth daily. 7. Metolazone 5 mg by mouth 2 times daily. 8. Midodrine 50 mg by mouth 3 times daily. 9. Coumadin 10 mg by mouth Wednesday, Wednesday and Wednesday; 7.5 mg Wednesday, Wednesday, and . 10. Dulcolax suppository 10 mg by mouth daily. 11. Protonix 40 mg by mouth daily. 12. Potassium chloride 60 mEq by mouth 4 times daily. 13. Torsemide 160 mg by mouth 2 times daily. 14. Hydrocortisone one dose rectally 3 times daily as needed for hemorrhoids. 15. Magnesium oxide 400 mg by mouth 2 times daily. 16. Colace 100 mg by mouth 2 times daily as needed for constipation. 17. Multivitamin one tablet by mouth daily. 18. Neosporin one application topical daily. 19. Gabapentin 300 mg by mouth daily as needed. 20. Benzocaine one application topical every hour as needed for mouth sores. STUDIES DONE DURING HOSPITALIZATION: 1. Chest x-ray: Impression: No evidence for acute findings. 2. Ultrasound of the abdomen: Impression: No free or loculated fluid collections or inflammatory change within the area of pain or around the visualized portion of the peritoneal catheter. HISTORY OF PRESENT ILLNESS AND HOSPITAL SUMMARY: Please see the full history and physical by Dr. Abrams for full details. Briefly, Mr. Ocampo is a 56-year-old man with a past medical history as above who presented to the hospital with shortness of breath, weight gain which is a recurrent issue for the patient and has prompted multiple hospitalization recently. He was started on IV diuresis in ad dition to his high doses of oral diuretics at home. The patient's weight and symptoms decreased ove r the following days. The patient has an abdominal catheter that was placed by Dr. Ambriz in order to drain his recurrent ascitic fluid. He had some discharge from around the catheter which prompted culture of his peritoneal fluid which grew enterococcus. The patient was evaluated by Maria Guadalupe D jt after receiving a few days of IV antibiotics and Dr. Wetzel recommended continuing Ampicill in and also doing a 500 mg of Vancomycin intraperitoneal catheter dwell in order to try to salvage t he catheter. This was done for a total of three days in addition to the IV antibiotic therapy. The patient will be discharged home and will need to keep a very close eye on the catheter. I encourag ed him to maintain sterile procedure when changing the dressing. He will need to follow-up with Dr. Wetzel and with his PCP Dr. Watson, as well as keep the scheduled appointment with Dr. Geller. Total time spent on this discharge was 40 minutes. This is a summary of the hospitalization. Doris calle see the full medical record for further details. [id number]/[facility] #: [id number]
== END 2016-11-26 14:41 | disposition home or self-care (01) | DRG 291 ==
LOC: ED 12:00 → MEDTELE 15:54
PROVIDERS: ADMIT Hospitalist; ATTEND Hospitalist
DX: I50.23 Acute on chronic systolic (congestive) heart failure (principal); K65.8 Other peritonitis; I47.2 Ventricular tachycardia; E85.4 Organ-limited amyloidosis; R18.8 Other ascites; I43 Cardiomyopathy in diseases classified elsewhere; E87.1 Hypo-osmolality and hyponatremia; I48.92 Unspecified atrial flutter; T85.79XA Infection and inflammatory reaction due to other internal prosthetic devices, implants and grafts, initial encounter; I45.2 Bifascicular block; B95.2 Enterococcus as the cause of diseases classified elsewhere; M10.9 Gout, unspecified; N18.3 Chronic kidney disease, stage 3 (moderate); K74.60 Unspecified cirrhosis of liver; I48.91 Unspecified atrial fibrillation; K21.9 Gastro-esophageal reflux disease without esophagitis; G62.9 Polyneuropathy, unspecified; Y92.9 Unspecified place or not applicable; Z95.810 Presence of automatic (implantable) cardiac defibrillator; Z79.01 Long term (current) use of anticoagulants; Z79.1 Long term (current) use of non-steroidal anti-inflammatories (NSAID); Z79.899 Other long term (current) drug therapy; Z88.6 Allergy status to analgesic agent; Z88.8 Allergy status to other drugs, medicaments and biological substances
CPT/HCPCS: 36415; 71010; 76705; 80048; 80053; 81003; 82042; 82550; 82553; 83605; 83690; 83735; 83880; 84157; 84443; 84484; 84550; 85025; 85610; 85730; 86140; 87040; 87077; 87186; 87205; 89051; 93005; 99232; A9270-GY; J0610; J0696; J1644; J1940; J2543; J3370

== ENCOUNTER 2016-12-11 12:19 | Emergency (ER) | payer MEDICARE, BC ==
[2016-12-11 19:05] VITALS: BP 96/58
--- NOTE | 2016-12-11 19:20 | ED ---
Do Vazquez Erika, scribed for Guillermo Solorzano MD on 12/11/16 at 1912 . Complex/Multi-Sys Presentation - HPI Summary HPI Summary: Patient is a 56-year-old male presenting to the ED with a CC of a constantly leaking peritoneal catheter. Patient reports that he nicked the catheter this morning. He states he drained 500 ccs yesterday and 800 ccs this morning. - History Of Current Complaint Chief Complaint: EDGeneral Time Seen by Provider: 12/11/16 15:45 Hx Obtained From: Patient Onset/Duration: Sudden Onset, Lasting Hours, Still Present Timing: Constant Severity Currently: Moderate Severity Initially: Moderate Aggravating Factor(s): Nothing Alleviating Factor(s): Nothing Associated Signs And Symptoms: Positive: Other - leaking peritoneal tube - Allergies/Home Medications Allergies/Adverse Reactions: Allergies Allergy/AdvReac Type Severity Reaction Status Date / Time Oxycodone Allergy Intermediate Altered Verified 12/11/16 12:22 Mental Status Spironolactone Allergy Intermediate Rash And Verified 12/11/16 12:22 Itching PMH/Surg Hx/FS Hx/Imm Hx Endocrine/Hematology History: Reports: Hx Anticoagulant Therapy - warfarin, Hx Blood Disorders - factor X deficiency, thrombocytopenia, Hx Anemia, Other Endocrine/Hematological Disorders - amyloidosis Denies: Hx Diabetes, Hx Thyroid Disease Cardiovascular History: Reports: Hx Auto Implanted Cardiovert Defib - PACER/AICD , Hx Cardiac Arrest, Hx Cardiomegaly - ISCHEMIC CARDIOMYOPATHY, Hx Congestive Heart Failure - EF 20% DUE TO AMLOYDOSIS, Hx Hypercholesterolemia, Hx Hypotension - regularly 90s for SBP, Hx Pacemaker/ICD, Hx Syncope - d/t dehydration, Other Cardiovascular Problems/Disorders - CARDIOMYOPATHY Denies: Hx Hypertension Respiratory History: Reports: Hx Pleural Effusion, Hx Pneumonia, Hx Sleep Apnea - wears 2L O2 concentrator to bed at home, Other Respiratory Problems/Disorders - PNA Denies: Hx Asthma, Hx Chronic Bronchitis, Hx Chronic Obstructive Pulmonary Disease (COPD) GI History: Reports: Hx Gastroesophageal Reflux Disease, Hx Hiatal Hernia - UMBILICAL & PARAUMBILICAL, Other GI Disorders - ASCITES Denies: Hx Gall Bladder Disease History: Reports: Hx Chronic Renal Failure, Other Problems/Disorders - CKD Denies: Hx Dialysis, Hx Renal Disease Musculoskeletal History: Reports: Hx Back Problems, Hx Gout, Other Musculoskeletal History - gout Denies: Hx Arthritis, Hx Osteoporosis Sensory History: Reports: Hx Contacts or Glasses - reading Denies: Hx Glaucoma Opthamlomology History: Reports: Hx Contacts or Glasses - reading Denies: Hx Glaucoma Neurological History: Reports: Other Neuro Impairments/Disorders - episodes of syncope r/t dehydration, amyloidosis Denies: Hx Dementia, Hx Headaches, Hx Seizures, Hx Transient Ischemic Attacks (TIA) Psychiatric History: Denies: Hx Anxiety, Hx Depression - Cancer History Cancer Type, Location and Year: Family history Hx Chemotherapy: Yes - for amyloidosis - Surgical History Surgery Procedure, Year, and Place: R leg vericose vein stripping. Hemorrhioidectomy. aicd/pacer- strong memoral 01/28/16. paracentesis 04/15/16 Hx Anesthesia Reactions: No - Immunization History Date of Tetanus Vaccine: 2007 Date of Influenza Vaccine: UNKNOWN & REFUSED Infectious Disease History: No Infectious Disease History: Denies: Traveled Outside the [place] in Last 30 Days - Family History Known Family History: Positive: Other - [place] - Social History Alcohol Use: None Hx Substance Use: No Substance Use Type: Reports: None Hx Tobacco Use: No Smoking Status (MU): Never Smoked Tobacco Have You Smoked in the Last Year: No Review of Systems Negative: Fever Gastrointestinal: Other - leaking peritoneal tube All Other Systems Reviewed And Are Negative: Yes Physical Exam - Summary Physical Exam Summary: The patient is well-nourished in no acute distress and in no acute pain. The skin is warm and dry and skin color reflects adequate perfusion. HEENT: The head is normocephalic and atraumatic. The pupils are equal and reactive. The conjunctivae are clear and without drainage. Nares are patent and without drainage. Mouth reveals moist mucous membranes and the throat is without erythema and exudate. The external ears are intact. The ear canals are patent and without drainage. The tympanic membranes are intact. Neck is supple with full range of motion and non-tender. There are no carotid bruits. There is no neck vein distension. Respiratory: Chest is non-tender. Lungs are clear to auscultation and breath sounds are symmetrical and equal. Cardiovascular: Hear is regular rate and rhythm. There is no murmur or rub auscultated. There is no peripheral edema and pulses are symmetrical and equal. Abdomen: The abdomen is soft and non-tender. There are normal bowel sounds heard in all four quadrants and there is no organomegaly palpated. Ascites in abdomen. Draining from the peritoneal catheter. Musculoskeletal: There is no back pain noted. Extremities are non-tender with full range of motion. There is good capillary refill. There is no peripheral edema or calf tenderness elicited. Neurological: Patient is alert and oriented to person, place and time. The patient has symmetrical motor strength in all four extremities. Cranial nerves are grossly intact. Deep tendon reflexes are symmetrical and equal in all four extremities. Psychiatric: The patient has an appropriate affect and does not exhibit any anxiety or depression. Triage Information Reviewed: Yes Vital Signs On Initial Exam: Initial Vitals Temp Pulse Resp BP Pulse Ox 98.3 F 94 18 72/51 100 12/11/16 12:22 12/11/16 12:22 12/11/16 12:22 12/11/16 12:22 12/11/16 12:22 Vital Signs Reviewed: Yes - Shay Coma Scale Coma Scale Total: 15 Diagnostics - Vital Signs Vital Signs Temp Pulse Resp BP Pulse Ox 12/11/16 14:30 81 20 84/58 96 12/11/16 14:00 91 20 79/60 96 12/11/16 13:30 91 20 79/59 98 12/11/16 13:00 95 18 77/54 99 12/11/16 12:53 95 20 79/53 100 12/11/16 12:44 95 22 99 12/11/16 12:42 80/50 12/11/16 12:22 98.3 F 94 18 72/51 100 - Laboratory Lab Statement: Any lab studies that have been ordered have been reviewed, and results considered in the medical decision making process. Complex Multi-Symp Course/Dx Assessment/Plan: A 56 y/o M presents to the ED with a leaking peritoneal tube that was nicked this morning. Dr. Ambriz clamped the tube and will follow up with the patient next week for formal repair. Dr. Anand is aware of the patient in case symptoms return. Patient was discharged home with follow up from Dr. Ambriz, and was advised to return to the ED should symptoms return. - Diagnoses Differential Diagnoses/HQI/PQRI: Other - ascites, chf Provider Diagnoses: chronic ascites - Physician Notifications Discussed Care Of Patient With: Dr. Ambriz (radiology) at 15:58 - will evaluate the patient. Dr. Ambriz at 17:57 - successfully clamped the tube. Discharge - Discharge Plan Condition: Stable Disposition: HOME Referrals: Brandyn Geller MD [Primary Care Provider] - Tom Ambriz MD [Medical Doctor] - Additional Instructions: Please keep the clamp in place. Call Dr. Ambriz next week for a formal replacement. Return to the ED if symptoms worsen. The documentation as recorded by the Do villarreal Erika accurately reflects the service I personally performed and the decisions made by , Guillermo Solorzano MD.
== END 2016-12-11 19:30 | disposition home or self-care (01) ==
LOC: ED 12:19
DX: R18.8 Other ascites (principal); T85.631A Leakage of intraperitoneal dialysis catheter, initial encounter; Z79.01 Long term (current) use of anticoagulants
CPT/HCPCS: 99283

== ENCOUNTER 2016-12-27 20:07 | Observation (INO) | payer MEDICARE, BC ==
[2016-12-27] MEDS ORDERED: Furosemide IV* 10 MG/ML 10 ML VIAL (100 MG) IV ONE (20:41)
[2016-12-27 20:53] LABS: Hematocrit 30 % (42-52); Hemoglobin 8.7 g/dl (14.0-18.0); Mean Corpuscular HGB Conc 29 g/dl (31-36); Mean Corpuscular Hemoglobin 24 pg (27-31); Mean Corpuscular Volume 81 fL (80-94); Mean Platelet Volume 8 um3 (7.4-10.4); Red Blood Count 3.68 10^6/ul (4.0-5.4); Red Cell Distribution Width 23 % (10.5-15); White Blood Count 11.9 10^3/ul (3.5-10.8)
[2016-12-27 20:54] LABS: Add Diff/Slide Review? Slide Review Added; Comments Flag Yes
[2016-12-27 21:02] LABS: Albumin 2.9 g/dL (3.2-5.2); BUN/Creatinine Ratio 29.8 (8-20); Calcium 8.4 mg/dL (8.6-10.3); EGFR Non-African American 30.3 (>60); Globulin 3.1 g/dL (2-4); Magnesium 2.3 mg/dL (1.9-2.7); Potassium 5.1 mmol/L (3.5-5.0); Total Bilirubin 0.4 mg/dL (0.2-1.0)
[2016-12-27 21:08] LABS: Troponin I 0.08 ng/mL (<0.04)
--- NOTE | 2016-12-27 21:16 | RAD ---
Indication: Shortness of breath. Single frontal view of the chest performed at 6 hours was reviewed. Comparison is made with previous exam dated November 17, 2016. Cardiomegaly is noted. Pacemaker leads are in place. Lung cobian are clear. When compared to previous exam no significant change is noted. IMPRESSION: CARDIOMEGALY. NO ACTIVE DISEASE IS NOTED.
[2016-12-27 21:25] LABS: Eosinophils % 4 % (0-6); Hypochromasia 2+; Immature Granulocytes 8 % (0-9); Macrocytosis 1+; Metamyelocytes % 2 % (0-2); Microcytosis 1+; Neutrophil % 80 % (38-83)
--- NOTE | 2016-12-28 00:53 | ED ---
Ton Vazquez Matthew, scribed for Alfred Iniguez on 12/27/16 at 2039 . Shortness of Breath - HPI Summary HPI Summary: A 56 y/o male presents to the ED with SOB since last night. The patient has a Hx of CHF and states that he's been building up fluid. Associated symptoms include pedal edema bilaterally, constipation, and mild cough. The patient denies chest pain. His SOB worsens with exertion. - History of Current Complaint Chief Complaint: EDShortnessOfBreath Time Seen by Provider: 12/27/16 20:24 Hx Obtained From: Patient Onset/Duration: Gradual Onset, Lasting Days, Still Present Timing: Constant Current Severity: Moderate Dyspnea At: Rest Aggrevating Factors: Movement Associated Signs & Symptoms: Cough (Nonproductive) - mild, Edema - pedal bilaterally - Allergy/Home Medications Allergies/Adverse Reactions: Allergies Allergy/AdvReac Type Severity Reaction Status Date / Time Oxycodone Allergy Intermediate Altered Verified 12/25/16 12:15 Mental Status Spironolactone Allergy Intermediate Rash And Verified 12/25/16 12:15 Itching PMH/Surg Hx/FS Hx/Imm Hx Endocrine/Hematology History: Reports: Hx Anticoagulant Therapy - warfarin, Hx Blood Disorders - factor X deficiency, thrombocytopenia, Hx Anemia, Other Endocrine/Hematological Disorders - amyloidosis Denies: Hx Diabetes, Hx Thyroid Disease Cardiovascular History: Reports: Hx Auto Implanted Cardiovert Defib - PACER/AICD , Hx Cardiac Arrest, Hx Cardiomegaly - ISCHEMIC CARDIOMYOPATHY, Hx Congestive Heart Failure - EF 20% DUE TO AMLOYDOSIS, Hx Hypercholesterolemia, Hx Hypotension - regularly 90s for SBP, Hx Pacemaker/ICD, Hx Syncope - d/t dehydration, Other Cardiovascular Problems/Disorders - CARDIOMYOPATHY Denies: Hx Hypertension Respiratory History: Reports: Hx Pleural Effusion, Hx Pneumonia, Hx Sleep Apnea - wears 2L O2 concentrator to bed at home, Other Respiratory Problems/Disorders - PNA Denies: Hx Asthma, Hx Chronic Bronchitis, Hx Chronic Obstructive Pulmonary Disease (COPD) GI History: Reports: Hx Gastroesophageal Reflux Disease, Hx Hiatal Hernia - UMBILICAL & PARAUMBILICAL, Other GI Disorders - ASCITES Denies: Hx Gall Bladder Disease History: Reports: Hx Chronic Renal Failure, Other Problems/Disorders - CKD Denies: Hx Dialysis, Hx Renal Disease Musculoskeletal History: Reports: Hx Back Problems, Hx Gout, Other Musculoskeletal History - gout Denies: Hx Arthritis, Hx Osteoporosis Sensory History: Reports: Hx Contacts or Glasses - reading Denies: Hx Glaucoma Opthamlomology History: Reports: Hx Contacts or Glasses - reading Denies: Hx Glaucoma Neurological History: Reports: Other Neuro Impairments/Disorders - episodes of syncope r/t dehydration, amyloidosis Denies: Hx Dementia, Hx Headaches, Hx Seizures, Hx Transient Ischemic Attacks (TIA) Psychiatric History: Denies: Hx Anxiety, Hx Depression - Cancer History Cancer Type, Location and Year: Family history Hx Chemotherapy: Yes - for amyloidosis - Surgical History Surgery Procedure, Year, and Place: R leg vericose vein stripping. Hemorrhioidectomy. aicd/pacer- strong memoral 01/28/16. paracentesis 04/15/16 Hx Anesthesia Reactions: No - Immunization History Date of Tetanus Vaccine: 2007 Date of Influenza Vaccine: UNKNOWN & REFUSED Infectious Disease History: No Infectious Disease History: Denies: Traveled Outside the [place] in Last 30 Days - Family History Known Family History: Positive: Other - CA Family History: no malignant hyperthemia. no anesthesia reaction. - Social History Alcohol Use: None Hx Substance Use: No Substance Use Type: Reports: None Hx Tobacco Use: No Smoking Status (MU): Never Smoked Tobacco Have You Smoked in the Last Year: No Review of Systems Constitutional: Negative Eyes: Negative ENT: Negative Cardiovascular: Negative Negative: Chest Pain Positive: Shortness Of Breath, Cough - mild Gastrointestinal: Negative Genitourinary: Other - constipation Positive: Edema - pedal bilaterally Skin: Negative Neurological: Negative Psychological: Normal All Other Systems Reviewed And Are Negative: Yes Physical Exam Triage Information Reviewed: Yes Vital Signs On Initial Exam: Initial Vitals Temp Pulse Resp BP Pulse Ox 98.9 F 86 22 82/62 100 12/27/16 20:10 12/27/16 20:10 12/27/16 20:10 12/27/16 20:10 12/27/16 20:10 Vital Signs Reviewed: Yes Appearance: Positive: No Pain Distress Skin: Positive: Warm, Skin Color Reflects Adequate Perfusion, Dry Head/Face: Positive: Normal Head/Face Inspection Eyes: Positive: EOMI, LILLIAN ENT: Positive: Normal ENT inspection Neck: Positive: Supple, Nontender Respiratory/Lung Sounds: Positive: Clear to Auscultation, Breath Sounds Present Cardiovascular: Positive: RRR, Pulses are Symmetrical in both Upper and Lower Extremities Abdomen Description: Positive: Nontender, Soft, Distended, Other: - right sided peritoneal drain Bowel Sounds: Positive: Present Musculoskeletal: Positive: Other - bilateral pedal edema Neurological: Positive: Normal, Sensory/Motor Intact, Alert, Oriented to Person Place, Time Psychiatric: Positive: Affect/Mood Appropriate Diagnostics - Vital Signs Vital Signs Temp Pulse Resp BP Pulse Ox 12/27/16 20:10 98.9 F 86 22 82/62 100 - Laboratory Result Diagrams: 12/27/16 20:35 12/27/16 20:35 Lab Statement: Any lab studies that have been ordered have been reviewed, and results considered in the medical decision making process. - Radiology CXR Xray Interpretation: Positive (See Comments) - IMPRESSION: CARDIOMEGALY. NO ACTIVE DISEASE IS NOTED. Radiology Interpretation Completed By: Radiologist - EKG 20:27 Cardiac Rate: NL - 88 bpm EKG Rhythm: Sinus Rhythm EKG Interpretation: RBBB Course/Dx - Course Assessment/Plan: A 56 y/o male presents to the ED with SOB since last night. Associated symptoms include pedal edema bilaterally, constipation, and mild cough. The patient denies chest pain. His SOB worsens with exertion. Labs were reviewed. CXR shows cardiomegaly. EKG shows NSR at 88 bpm with RBBB. Discussed the case with Dr. Lema who will admit the patient. - Diagnoses Provider Diagnoses: Ascites, CHF exacerbation - Physician Notifications Discussed Care of Patient With: Dr. Lema (Hospitalist) at 23:18 -- Notified of patient's history and will evalute the patient. Dr. Lema ( Hospitalist) at 00:25 -- He will admit the patient Discharge - Discharge Plan Condition: Stable Disposition: ADMITTED TO [facility] Referrals: Brandyn Geller MD [Primary Care Provider] - The documentation as recorded by the Ton villarreal Matthew accurately reflects the service I personally performed and the decisions made by , Alfred Iniguez.
--- NOTE | 2016-12-28 01:50 | HP ---
H&P (Free Text) History and Physical: PCP: Date/Time of Evaluation: CC: HPI: PMedHx PSurgHx SocHx: FamHx: ROS: as above, otherwise reviewed and all were negative Constitutional: NAD, normally developed, well-nourished vitals: HEENM: atraumatic; sclera/conjunctiva: ; blephara: ; fundi: ; auricles: ; external auditory canals/tympanic membranes: ; hearing: ; nose/nasal: ; dentition: ; oropharynx: Neck: soft tissue: ; thyroid: Pulmonary: clear to auscultation bilaterally, good aeration, no accessory muscle use, percussion, fremitus CV: RR/RR, normal S1S2, no carotid bruit, no femoral bruit, no abdominal bruit, no jugular venous distention, 2+ B DP/PT, no edema Abdominal: soft, non-distended, non-tender, no rebound/guarding/rigidity, normoactive bowel sounds, no hepatosplenomegaly or masses, no costovertebral angle tenderness Lymph: neck: ; axilla: ; groin: Musculoskeletal: general: ; gait: ; stability: Integumental: Neurological cranial nerves I: smell II: visual cobian III/IV/: light reflex, EOMI/PERRLA, convergence, accommodation V: corneal reflex, facial sensation, mastication VII: facial symmetry, eye clench VIII: hearing IX/X: palatal motion, gag reflex, dysarthria XI: shoulder shrug, trapezius atrophy XII: tongue fasciculation, protrusion, voice articulation motor: handed LUE: proximally, distally, & floor press operator strength RUE: proximally, distally, & floor press operator strength LLE: proximally & distally RLE: proximally & distally coordination finger/nose: heal/broussard: dysdiadochokinesia: sensory crude touch: pinprick: vibration: proprioception: DTRs biceps: triceps: brachioradialis: patellar: Achilles: Babinski: Psychiatric orientation: affect: mood: eye contact: content: memory: responses: insight: Testing: ECG, personally reviewed: CXR, personally reviewed: Impression: DIAGNOSIS & PLAN Primary Secondary Admission Rational: DVTp: Code Status: HCP:
[2016-12-28] MEDS ORDERED: Triamcinolone PASTE 0.1% (NF) 5 GM TUBE TOPICAL PRN (05:06)
[2016-12-28] MEDS ORDERED: Gabapentin CAP(*) 300 MG PO PRN (05:06)
[2016-12-28] MEDS ORDERED: HYDROCORTISONE PR PRN (05:06)
[2016-12-28] MEDS ORDERED: Docusate CAP* 100 MG PO PRN (05:06)
[2016-12-28] MEDS ORDERED: BENZOCAINE TOPICAL PRN (05:06)
[2016-12-28] MEDS: Carvedilol TAB* 3.125 MG PO SCH ×2 (06:35→16:56)
[2016-12-28] MEDS: Levothyroxine TAB* 50 MCG TAB PO SCH (06:36)
[2016-12-28] MEDS: Acetaminophen TAB* 325 MG PO PRN ×2 (06:36→12:40)
[2016-12-28] MEDS: Gabapentin CAP(*) 300 MG PO SCH ×4 (06:37→21:26)
[2016-12-28] MEDS: Allopurinol TAB* 300 MG PO SCH (06:38)
[2016-12-28] MEDS: Omeprazole CAP* 20 MG PO SCH (06:38)
[2016-12-28] MEDS: Potassium Chlor TAB* 20 MEQ TAB.ER PO SCH ×4 (08:18→21:19)
[2016-12-28] MEDS: Magnesium Oxide TAB* 400 MG PO SCH ×2 (08:18→21:20)
[2016-12-28] MEDS: MIDODRINE 5 MG PO SCH ×3 (08:19→21:16)
[2016-12-28] MEDS: Multivitamins/Minerals TAB PO SCH ×2 (08:19→21:20)
[2016-12-28] MEDS: Torsemide TAB* 20 MG PO SCH ×3 (08:34→21:13)
[2016-12-28] MEDS: [UNRECOGNIZED DRUG - OTHER] PO SCH ×2 (10:33→21:18)
[2016-12-28] MEDS: Metolazone TAB* 5 MG PO SCH ×2 (10:33→21:20)
[2016-12-28 14:08] LABS: BUN/Creatinine Ratio 34.3 (8-20); Calcium 8.1 mg/dL (8.6-10.3); EGFR African American 45.2 (>60); EGFR Non-African American 35.1 (>60); Potassium 3.1 mmol/L (3.5-5.0)
[2016-12-28 14:10] LABS: Troponin I 0.1 ng/mL (<0.04)
[2016-12-28] MEDS: Neomycin/Polym/Bacit TOP OINT* 15 GM TOPICAL SCH (14:41)
[2016-12-28 14:59] LABS: TSH (Thyroid Stimulating Horm) 4.92 mcIU/mL (0.34-5.60)
[2016-12-28] MEDS ORDERED: Warfarin TAB(*) 5 MG PO SCH (17:00)
--- NOTE | 2016-12-28 22:44 | HP ---
HISTORY AND PHYSICAL: DATE OF ADMISSION: 12/28/16 PROVIDER: NICOLAS Brojas ATTENDING PHYSICIAN: Dr. Himanshu Herrera * (report dictated by UZIEL Borjas). PRIMARY CARE PROVIDER: Dr. Watson. CARDIOLOGISTS: Dr. Thomas and PRIMO Bassett. HYDRO PLANT TECHNICIAN: Dr. Geller. CHIEF COMPLAINT: Shortness of breath. HISTORY OF PRESENT ILLNESS: Mr. 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 He reports his peritoneal catheter, which he drains 3 times a day and normally gets 200-300 mL , is only draining 25 mL. His catheter was just exchanged several weeks ago by Dr. Ambriz. The patient denies any fever, chills, or cough. He does report orthopnea, stating, "I feel like my lungs are filling up with fluid when I lay down." The patient states, "I know what my problem is, I'm constipated and therefore my pills don't work and I can't pee." He also thinks this is why his peritoneal catheter will not drain. His last bowel movement was last night and he did have a bowel movement yesterday morning after a Fleet enema. He reports the constipation is slowly resolving, but he states in the meantime, he has "filled up with fluid." The patient reports a 20-pound weight gain in the last week. He reports his dry weight to be 205 pounds. Today, he is noted to be 227 pounds. I spoke with his primary financial director, PRIMO Bassett, who reports that the patient's dry weight is actually between 218 and 225 pounds and has not been 205 pounds in approximately a year. The last weight the financial director's office has on file is from 11/12/16 of 224 pounds. The patient goes to the outpatient infusion clinic for IV Lasix Wednesday, Wednesday, and Wednesday, in which the patient receives 100 mg of Lasix Wednesday, Wednesday, and Wednesday; this was recently decreased in the last several weeks from 140 mg 3 times a week. Due to that, his torsemide was increased. The patient's blood pressures on my assessment were noted to be systolically in the 60s, so the patient's midodrine was held. The patient was given his midodrine this morning and his blood pressures are now systolically in the 80s, which is the patient's baseline. The patient denies any recent fevers or chills. No erythema or drainage noted around the peritoneal catheter. No pain around the catheter site. The patient was treated for a peritoneal catheter infection in early November and the catheter was exchanged. Again I spoke to PRIMO Bassett, on admission, who follows the patient closely as an outpatient. She reports that she sees the patient regularly and the patient calls the office almost every day. The patient is also followed by Dr. Geller, who has sent a request to the [facility] [place] [facility] for reevaluation for amyloid, which was done at the end of and was negative. The patient is still awaiting to hear from the [facility] [place] [facility] to see if he is a candidate for a heart transplant. He was evaluated for transplant in [place] and was turned down, as well as at the [facility] [place] [facility] in [place], [place]. Per Lili Mora, she confirms that they are still awaiting word from the [facility] [place] [facility]. She has spoken to the patient at length in the past about palliative care and the patient has adamantly refused. The patient will be admitted to the hospitalist service on telemetry for diuresing. It appears that the patient is not far from his dry weight as his weight is 227 today and per Lili Mora, his weight fluctuates between 218 and 225. PAST MEDICAL HISTORY: 1. End-stage heart failure secondary to amyloidosis AL with cardiac involvement with multiple admissions at least once a month on top of receiving Lasix infusions t.i.d. 2. Amyloidosis AL with cardiac involvement. The patient has been denied a heart transplant at multiple facilities including [facility] [place] [facility] in [place], [place], [facility] in [place], [facility] [place] [facility] in [place], [place], [facility], and [place], [place], [facility] [place] [facility]. The patient is currently awaiting reevaluation for a possible heart transplant at [facility] [place] [facility] at [place], but has not had any contact with them yet. 3. Chronic ascites secondary to chronic CHF and end-stage cardiomyopathy. 4. Status post cardiac arrest, evaluated at [facility] with initial diagnosis of amyloidosis 3 years ago. 5. Status post peritoneal abdominal drain placed by Dr. Ambriz in May 2016. 6. Atrial flutter/fib, on Coumadin. 7. Nonsustained ventricular tachycardia, status post ICD placement by Dr. Maldonado at [facility]. 8. Severe cardiomyopathy. Per Lili Mora, EF is less than 20%. 9. Coagulopathy with factor X deficiency. 10. Gout. 11. Chronic hyponatremia. 12. Chronic kidney disease stage 3. 13. Questionable history of cirrhosis of the liver, recent biopsy done in August 2016 showed chronic steatohepatitis grade 1 and was negative for amyloid deposition. 14. Peripheral neuropathy. 15. GERD. HOME MEDICATIONS: 1. Coreg 3.125 mg p.o. b.i.d. 2. Multivitamin 1 tab p.o. b.i.d. 3. Torsemide 140 mg p.o. t.i.d. 4. Coumadin 5 mg p.o. Wednesday, Wednesday, , Wednesday. 5. Coumadin 10 mg p.o. Wednesday, Wednesday, and Wednesday. 6. Triamcinolone 0.1% one application topical daily p.r.n. 7. Potassium chloride 60 mEq p.o. q.i.d. 8. Protonix 40 mg p.o. q.a.m. 9. Neosporin 1 application daily p.r.n. 10. Midodrine 50 mg p.o. t.i.d. 11. Zaroxolyn 5 mg p.o. b.i.d. 12. Magnesium oxide 400 mg p.o. b.i.d. 13. Synthroid 50 mcg p.o. daily. 14. Hydrocortisone rectal 1 dose per rectum t.i.d. p.r.n. 15. GumNumb Benzocaine one application topical q.1 hour p.r.n. 16. Neurontin 300 mg p.o. daily p.r.n. 17. Neurontin 300 mg p.o. q.i.d. 18. Eplerenone 25 mg p.o. b.i.d. 19. Colace 100 mg p.o. b.i.d. p.r.n. 20. Dulcolax suppository 10 mg p.o. daily. 21. Allopurinol 300 mg p.o. daily. 22. Acetaminophen 650 mg p.o. q. 6 hours p.r.n. 23. Furosemide 100 mg IV 3 times a week at the outpatient infusion clinic. This was recently decreased from 140 mg. ALLERGIES: OXYCODONE - altered mental status, SPIRONOLACTONE - rash and itching. FAMILY HISTORY: Reviewed and noncontributory. SOCIAL HISTORY: Denies any history of tobacco abuse. Denies alcohol use or recreational drug use. The patient currently lives alone. His sister is his healthcare proxy. REVIEW OF SYSTEMS: A 14-point review of systems was performed. All the pertinent positives and negatives are mentioned in the history of present illness. PHYSICAL EXAMINATION GENERAL APPEARANCE: A 56-year-old chronically ill-appearing male, sitting up on the side of the bed, in no acute distress. VITAL SIGNS: Temperature 97.4, heart rate 95, respirations 22, O2 sat 100% on room air, and blood pressure 84/55. HEENT: Head is normocephalic, atraumatic. Pupils are equal and reactive to light. Oropharynx is clear. Moist mucous membranes. Extraocular movements are intact. NECK: Supple. No cervical or supraclavicular lymphadenopathy. LUNGS: Clear to auscultation bilaterally. Good aeration throughout. CARDIAC: S1 and S2. Regular rate and rhythm. ABDOMEN: Obese, soft, nontender, nondistended. Normal bowel sounds x4. There is no ascites noted. There is a right lower quadrant catheter with clean, dry, and intact dressing. No drainage noted. No erythema noted. EXTREMITIES: Moves all extremities equally. Right lower extremity has trace to 1+ edema with noted weeping on his broussard. Left lower extremity, no weeping noted, trace to 1+ edema. NEUROLOGICAL: Alert and oriented x3. Sensation in lower extremities is intact to light touch. Neuro exam is grossly intact. DIAGNOSTIC STUDIES/LAB DATA: Sodium 124, potassium 5.1, chloride 93, carbon dioxide 23, anion gap 8, BUN 67, creatinine 2.25, glucose 98, lactic acid 1.3, calcium 8.4, magnesium 2.3, total bilirubin 0.40, AST 35, ALT 23, alkaline phosphatase 101. Troponin 0.08, BNP 694, total protein 6.0, albumin 2.9, INR 2.49. WBC is 11.9, RBC 6.68, Hgb 8.7, Hct 30, MCV 81, MCH 24, MCHC 29, RDW 23, platelet count 315. Chest x-ray. Impression: Cardiomegaly. No active disease is noted. EKG: Sinus rhythm with a rate of 88. Right bundle-branch block noted. In comparison to prior EKG, no acute ischemic changes noted. ASSESSMENT AND PLAN: Mr. Ocampo is a 56-year-old male with a past medical history of end-stage heart failure secondary to amyloidosis with chronic congestive heart failure with an ejection fraction less than 20%, chronic ascites with peritoneal catheter with self-drainage and outpatient furosemide infusions 3 times a week, who presents to the emergency department today with complaint of shortness of breath for one day, right lower extremity edema with weeping, and a 20-pound weight gain. 1. Acute systolic congestive heart failure. The patient will be admitted to the telemetry floor. After evaluating the patient and speaking with PRIMO Bassett, it appears the patient is just mildly fluid overloaded. The patient reports a 20- pound weight gain and states that his dry weight is 205, but per Lili Mora, he has not been 205 in close to a year and his dry weight really is 218 to 225. The patient received 100 mg of Lasix IV last night, recommendation per Lili Mora is to hold his IV 100 mg of Lasix today, and the patient can be maintained on his normal scheduled medications. At that time, I am not going to change any of the patient's medications and see what the patient's weight is tomorrow. At that time, he may need one more IV dose, but that is not clear yet. I do have concerns that the peritoneal catheter is reported to only be draining 25 mL when he reports usually 200-300. We will touch base with Dr. Ambriz to ask him to look at the catheter for patency. The patient does not appear to be infected and the peritoneal catheter site does not appear to be infected. Continue to monitor strict I's and O's. Daily weights. He is on a fluid restriction of 1500 mL. Heart healthy diet, low salt. 2. Elevated troponin. No EKG changes. No chest pain. This appears to be around the patient's baseline of 0.07 to 0.08. 3. Hyponatremia. The patient appears to be around his baseline. Per Lili Mora, his baseline is between 122 and 124. 4. Chronic kidney disease stage 3. The patient's creatinine is 2.25. The patient appears to be around his baseline. 5. Atrial fibrillation. Currently in sinus rhythm with a right bundle branch block. INR is therapeutic. Continue his home dose Coumadin. Continue to monitor INR. 6. Gastroesophageal reflux disease. Continue PPI. 7. Hypothyroidism. Add on TSH. Continue Synthroid. 8. Peripheral neuropathy. Continue gabapentin. 9. DVT prophylaxis. INR is therapeutic on Coumadin. 10. Code status. The patient wishes to be a full code. His healthcare proxy is his sister Sol Vásquez, phone number is [phone]. TIME SPENT: Approximately 75 minutes was spent on this admission. This case was discussed with the attending physician, Dr. Herrera, who agreed with the plan of care. GORDY PEACE NP CC: Dr. Watson; Dr. Thomas; PRIMO Bassett; Dr. Geller* [id number]/[facility] #: [id number] [facility]
[2016-12-29] MEDS: [UNRECOGNIZED DRUG - OTHER] PO SCH ×2 (00:09→08:19)
[2016-12-29] MEDS: Metolazone TAB* 5 MG PO SCH ×2 (00:09→08:20)
[2016-12-29] MEDS: Torsemide TAB* 20 MG PO SCH ×3 (00:15→14:06)
[2016-12-29] MEDS: Levothyroxine TAB* 50 MCG TAB PO SCH (05:42)
[2016-12-29] MEDS: Carvedilol TAB* 3.125 MG PO SCH (05:42)
[2016-12-29] MEDS: Allopurinol TAB* 300 MG PO SCH (05:42)
[2016-12-29 05:47] LABS: Hematocrit 29 % (42-52); Hemoglobin 8.8 g/dl (14.0-18.0); Mean Corpuscular HGB Conc 30 g/dl (31-36); Mean Corpuscular Hemoglobin 24 pg (27-31); Mean Corpuscular Volume 80 fL (80-94); Mean Platelet Volume 7 um3 (7.4-10.4); Red Blood Count 3.63 10^6/ul (4.0-5.4); White Blood Count 10.6 10^3/ul (3.5-10.8)
[2016-12-29 05:56] LABS: Comments Flag Yes; Red Cell Distribution Width 23 % (10.5-15)
[2016-12-29] MEDS: Gabapentin CAP(*) 300 MG PO SCH ×2 (05:58→12:30)
[2016-12-29 06:05] LABS: BUN/Creatinine Ratio 36.6 (8-20); Calcium 8.2 mg/dL (8.6-10.3); EGFR African American 49.5 (>60); EGFR Non-African American 38.5 (>60); Potassium 3.1 mmol/L (3.5-5.0)
[2016-12-29 08:07] LABS: Troponin I 0.11 ng/mL (<0.04)
[2016-12-29] MEDS: MIDODRINE 5 MG PO SCH ×2 (08:19→14:05)
[2016-12-29] MEDS: Potassium Chlor TAB* 20 MEQ TAB.ER PO SCH ×2 (08:20→12:30)
[2016-12-29] MEDS: Omeprazole CAP* 20 MG PO SCH (08:21)
[2016-12-29] MEDS: Magnesium Oxide TAB* 400 MG PO SCH (08:21)
[2016-12-29] MEDS: Multivitamins/Minerals TAB PO SCH (08:21)
[2016-12-29] MEDS: Neomycin/Polym/Bacit TOP OINT* 15 GM TOPICAL SCH (10:41)
[2016-12-29 12:49] VITALS: BP 93/64
[2016-12-29] MEDS ORDERED: Warfarin TAB(*) 5 MG PO SCH ×2 (17:00)
--- NOTE | 2016-12-30 04:53 | DS ---
DISCHARGE SUMMARY: DATE OF ADMISSION: 12/28/16 DATE OF DISCHARGE: 12/29/16 HOSPITAL STATUS: Observation. PROVIDER: Gordy Peace NP ATTENDING PHYSICIAN: Dr. Bland* (report dictated by Gordy Peace NP). PRIMARY CARE PROVIDER: Dr. Watson. CERTIFIED PHYSICAL THERAPIST ASSISTANT: Dr. Thomas and PRIMO Bassett. ASSEMBLER DC FIELD YOKE: Dr. Geller. PRIMARY DIAGNOSIS: End-stage systolic heart failure exacerbation, mild, secondary to amyloidosis AL with cardiac involvement with frequent hospital admissions, on outpatient IV infusions of Lasix. SECONDARY DIAGNOSES: 1. Amyloidosis AL with cardiac involvement. The patient has been denied heart transplant in multiple facilities including [facility] in [place], [place] ; [facility] in [place]; [facility] in [place], [place]; [facility]; [place]; [place], [place], [facility] [place] [facility]. The patient is currently waiting a re- evaluation for possible heart transplant in [facility] [place] [facility] in [place], but has not contacted them yet. Dr. Geller is following this. 2. Chronic ascites secondary to chronic congestive heart failure and end-stage cardiomyopathy with a peritoneal catheter placed by Dr. Ambriz. 3. Status post cardiac arrest, evaluated at [facility] with initial diagnosis of amyloidosis 3 years ago. 4. Atrial flutter/fibrillation, on Coumadin. 5. Nonsustained ventricular tachycardia, status post implantable cardioverter- defibrillator placement by Dr. Bhandari at [facility]. 6. Severe cardiomyopathy per Lili Mora. Ejection fraction of less than 20%. 7. Coagulopathy with factor X deficiency. 8. Gout. 9. Chronic hyponatremia. 10. Chronic kidney disease, stage 3. 11. Questionable history of cirrhosis with a recent biopsy done in August 2016 showing chronic steatohepatitis grade 1 and was negative for amyloid deposition. 12. Peripheral neuropathy. 13. Gastroesophageal reflux disease. DISCHARGE MEDICATIONS: 1. Coreg 3.125 mg p.o. b.i.d. 2. Multivitamin 1 tab p.o. b.i.d. 3. Torsemide 140 mg p.o. t.i.d. 4. Coumadin 5 mg p.o. Wednesday, Wednesday, , and Wednesday. 5. Coumadin 10 mg p.o. Wednesday, Wednesday, Wednesday. 6. Triamcinolone 0.1% one application topically daily p.r.n. 7. Potassium chloride 60 mEq p.o. four times a day. 8. Protonix 40 mg p.o. q.a.m. 9. Neosporin 1 application topical daily p.r.n. 10. Midodrine 15 mg p.o. t.i.d. 11. Zaroxolyn 5 mg p.o. b.i.d. 12. Magnesium oxide 400 mg p.o. b.i.d. 13. Synthroid 50 mcg p.o. daily. 14. Hydrocortisone rectal 1 dose per rectum t.i.d. p.r.n. 15. GumNumb benzocaine 1 application topical q.1 hour p.r.n. 16. Neurontin 300 mg p.o. daily p.r.n. 17. Neurontin 300 mg p.o. four times a day. 18. Eplerenone 25 mg p.o. b.i.d. 19. Colace 100 mg p.o. b.i.d. p.r.n. 20. Dulcolax suppository 10 mg p.o. daily. 21. Allopurinol 300 mg p.o. daily. 22. Acetaminophen 650 mg p.o. q.6 hours p.r.n. 23. Furosemide 100 mg IV 3 times a week at the outpatient infusion clinic, recently decreased from 140 mg. 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 The patient reports his peritoneal catheter which he drains out 3 times a day and normally gets 200 to 300 mL each drainage, was only draining 25 mL for the past day. The patient was admitted to the hospitalist service for end-stage systolic congestive heart failure exacerbation. I know the patient from previous hospitalizations and his exacerbation appeared to be mild. The patient's weight on admission was between 127 to 135. Please note that the 235 was in the emergency department and frequently differs from the floor weight. Therefore, I suspect the weight that was done on for admission of December 14 was his real weight. The patient today on evaluation was down to 221. I spoke to the patient's primary web marketing analyst, PRIMO Bassett, who reports the patient' s dry weight is between 218 and 225. Per the patient, his dry weight is 205; however, per his web marketing analyst, he has not been this way in approximately a year. The patient receives IV Lasix in the outpatient infusion clinic of 100 mg Wednesday, Wednesday, and Wednesday. On admission, he received 100 mg of Lasix on Wednesday evening. Wednesday, I held his 100 mg of Lasix as the patient received it the evening before and the patient has done well with weight loss where he is now at his dry weight. The patient has very trace to 1+ lower extremity edema with a small area on the right leg noted to be weeping. His peritoneal catheter since admission has been draining 200 to 300 mL 3 times a day. I did speak with Dr. Ambriz who recommended that the catheter was not draining to obtain a CT of the abdomen; however, this was not needed as the catheter appeared to be working without difficulty. The patient was admitted to telemetry and had 3 beats of ventricular tachycardia noted. His magnesium was within normal limits at 2.3. He was asymptomatic of this. Sodium on admission was 124, up to 130 today. This is the patient's baseline. Cardiac enzymes, troponin were between 0.08 and 0.11, which is the patient's baseline. No EKG changes noted. His creatinine was 2.25 on admission, down to 1.83, which is the patient's baseline. Chest x-ray on admission showing cardiomegaly with no active disease noted. Per the patient, lung exam is completely clear without any fluid noted. Per Lili Mora, the patient never has fluid in his lungs even when he is fluid overloaded. The patient's blood pressures were noted to be systolically in the 70s to 90s which is the patient's baseline. He did have a couple of blood pressure systolically in the 60s; however, his midodrine was held in the emergency department and he was asymptomatic of this. Once restarted, his blood pressures came back up to his baseline. The patient is stable for discharge home. Please note the patient's dry weight is between 218 and 225 pounds. The patient will resume his home medications and follow up with his web marketing analyst as an outpatient. DISCHARGE PLAN: The patient is stable for discharge home. The patient is at his dry weight, around 221. The patient was instructed to follow up with PRIMO Bassett, Cardiology, within the next week. Follow up with Dr. Watson within 3 to 5 days. Continue outpatient furosemide IV infusions as previously scheduled. TIME SPENT: Approximately 60 minutes was spent on this discharge. GORDY PEACE NP CC: Dr. Watson; Dr. Thomas; PRIMO Bassett; Dr. Geller* [id number]/[facility] #: [id number] [facility]
== END 2016-12-29 14:25 | disposition home or self-care (01) ==
LOC: ED 20:07 → MEDTELE 12-28 01:37
PROVIDERS: ADMIT Hospitalist; ATTEND Internal Medicine
DX: E85.9 Amyloidosis, unspecified (principal); I50.20 Unspecified systolic (congestive) heart failure; R18.8 Other ascites; I42.8 Other cardiomyopathies; Z86.74 Personal history of sudden cardiac arrest; I48.91 Unspecified atrial fibrillation; Z79.01 Long term (current) use of anticoagulants; I47.2 Ventricular tachycardia; Z95.810 Presence of automatic (implantable) cardiac defibrillator; D68.2 Hereditary deficiency of other clotting factors; M10.9 Gout, unspecified; E87.1 Hypo-osmolality and hyponatremia; N18.3 Chronic kidney disease, stage 3 (moderate); G62.9 Polyneuropathy, unspecified; K21.9 Gastro-esophageal reflux disease without esophagitis; Z79.899 Other long term (current) drug therapy
CPT/HCPCS: 36415; 71010; 80048; 80053; 83605; 83735; 83880; 84443; 84484; 85025; 85610; 85730; 93005; 96374; 99284; A9270-GY; G0378; J1940

== ENCOUNTER 2016-12-31 13:23 | Inpatient (IN) | payer MEDICARE, BC ==
[2016-12-31] MEDS: Piperac/Tazob 3.375 gm in NS* 3.375 GM/100 ML BAG IVPB ONE ×2 (14:50→19:49)
--- NOTE | 2016-12-31 15:01 | RAD ---
INDICATION: Short of breath COMPARISON: Chest x-ray December 27, 2016 TECHNIQUE: An AP portable view obtained at 1440 hours is submitted. FINDINGS: Bones/Soft Tissues: There are no acute bony findings. There is a left-sided cardiac pacemaker/defibrillator Cardiomediastinal: The cardiomediastinal silhouette is enlarged, unchanged. Lungs: There are no infiltrates. Pleura: There are no pleural effusions. Other: None IMPRESSION: ENLARGED CARDIAC SILHOUETTE, UNCHANGED.
[2016-12-31 15:24] LABS: Add Diff/Slide Review? Slide Review Added; Comments Flag Yes; Hematocrit 31 % (42-52); Hemoglobin 9.1 g/dl (14.0-18.0); Mean Corpuscular HGB Conc 29 g/dl (31-36); Mean Corpuscular Hemoglobin 24 pg (27-31); Mean Corpuscular Volume 83 fL (80-94); Mean Platelet Volume 8 um3 (7.4-10.4); Red Blood Count 3.76 10^6/ul (4.0-5.4); White Blood Count 12.6 10^3/ul (3.5-10.8)
[2016-12-31 15:25] LABS: Red Cell Distribution Width 23 % (10.5-15)
[2016-12-31 15:47] LABS: Troponin I 0.09 ng/mL (<0.04)
[2016-12-31 15:52] LABS: Eosinophils % 3 % (0-6); Hypochromasia 1+; Neutrophil % 83 % (38-83)
[2016-12-31 15:53] LABS: Albumin 2.8 g/dL (3.2-5.2); BUN/Creatinine Ratio 25.2 (8-20); Calcium 8.8 mg/dL (8.6-10.3); EGFR African American 30.5 (>60); EGFR Non-African American 23.8 (>60); Macrocytosis 1+; Polychromasia 1+; Total Bilirubin 0.9 mg/dL (0.2-1.0); Total Protein 5.8 g/dL (6.4-8.9)
[2016-12-31 15:58] LABS: Potassium 7.2 mmol/L (3.5-5.0)
[2016-12-31] MEDS: NS 0.9% 1000 ML* 1,000 ML IV ONE ×4 (16:00→19:50)
[2016-12-31] MEDS: Calcium Gluconate INJ* 4 GM in NS 0.9% 250 ML* 250 ML IV ONE ×2 (16:10→19:50)
[2016-12-31] MEDS ORDERED: Albuterol 2.5 MG/3 ML NEB.SOL* (0.083%) INH ONE (16:37)
[2016-12-31] MEDS ORDERED: Albuterol 0.5% CONC NEB.SOL* 5 MG/ML 20 ml BOT ONE (16:40)
[2016-12-31] MEDS ORDERED: EPINEPHrine AMP 1 MG/ML* 1 MG in D5W 250 ML BAG* 250 ML SCH (17:00)
[2016-12-31] MEDS ORDERED: Albuterol 2.5 MG/3 ML NEB.SOL* (0.083%) INH SCH (17:00)
[2016-12-31] MEDS ORDERED: EPINEPHrine SYR 0.1 MG/ML* (1:10,000) SYRINGE ONE (17:03)
[2016-12-31] MEDS ORDERED: DOPamine 200 MG/250 ML IVPREM* 200 MG/250 ML ML IV ONE (17:05)
[2016-12-31] MEDS ORDERED: Ondansetron INJ* 2 MG/ML VIAL IV PRN (17:10)
[2016-12-31] MEDS ORDERED: Sodium Polystyrene RECTAL* 30 GM/120 ML RECTAL.SUS PR ONE (17:10)
[2016-12-31] MEDS ORDERED: NS 0.9% 1000 ML* 1,000 ML IV SCH (17:15)
[2016-12-31] MEDS: Dextrose 50% Syringe 50 ML* 25 GM/50 ML SYRINGE IV PUSH ONE ×2 (17:55→19:51)
[2016-12-31] MEDS ORDERED: Piperac/Tazob 3.375 gm in NS* 3.375 GM/100 ML BAG IVPB ONE (18:00)
--- NOTE | 2016-12-31 18:21 | RAD ---
INDICATION: Central line placement. COMPARISON: Comparison is made with a prior chest x-ray study from approximately 3 hours earlier. TECHNIQUE: A portable view of the chest was obtained. FINDINGS: The heart is moderately enlarged and unchanged. There is a transvenous pacemaker present. The patient is status post placement of a central venous catheter. The catheter enters from the right jugular approach and demonstrates normal course. The catheter tip projects over the region of the superior vena cava. The lungs are clear. No pneumothorax or pleural effusion is seen. IMPRESSION: STATUS POST CENTRAL VENOUS CATHETER PLACEMENT, NO EVIDENCE FOR ACUTE FINDING.
--- NOTE | 2016-12-31 19:13 | RAD ---
INDICATION: Lower abdominal pain. COMPARISON: Comparison is made with a prior CT of the abdomen and pelvis from July 13, 2016. TECHNIQUE: A CT scan of the abdomen and pelvis was performed without intravenous or oral contrast. Contiguous axial sections were obtained from the lung bases through the symphysis pubis. Images were reconstructed in the coronal and sagittal planes. FINDINGS: Images through the lung bases demonstrate small bilateral pleural effusions and a small pericardial effusion. The pericardial effusion appears unchanged from the prior exam. The pleural effusions have decreased from the prior study. The liver is normal and size and without significant focal abnormality on this noncontrast study. There are calcified gallstones present. The spleen is mildly enlarged and unchanged. The pancreas appears to be within normal limits. The adrenal glands and kidneys are normal in size. No renal calculi or hydronephrosis is seen. The aorta is normal in caliber with mild calcific plaque present. No significant enlarged retroperitoneal lymph nodes are seen. The stomach, small and large bowel appear nondistended. The appendix is within normal limits. There is a small to moderate amount of ascites present. There is diffuse thickening of the wall of the small bowel and colon which may be secondary to ascites or infection. There is a small periumbilical hernia containing fat. There is a peritoneal catheter present in the right lower quadrant. There is a small a moderate amount of free intraperitoneal fluid present. No free intraperitoneal air is seen. No significant focal osseous abnormality is seen. IMPRESSION: 1. SMALL PERICARDIAL EFFUSION, UNCHANGED. 2. SMALL BILATERAL PLEURAL EFFUSIONS, DECREASED. 3. SOTAO-DI-TCJNTEYP AMOUNT OF ASCITES, NEW. 4. DIFFUSE THICKENING OF THE WALL OF THE SMALL BOWEL AND COLON POSSIBLY SECONDARY TO THE ASCITES ALTERNATIVELY CONSIDER ENTEROCOLITIS SECONDARY TO INFECTIOUS OR LESS LIKELY ISCHEMIC ETIOLOGIES. 5. CHOLELITHIASIS.
[2016-12-31 19:39] LABS: BUN/Creatinine Ratio 25.2 (8-20); Calcium 8.7 mg/dL (8.6-10.3); EGFR African American 35.2 (>60); EGFR Non-African American 27.4 (>60)
[2016-12-31] MEDS: Vancomycin(*) 1,000 MG in NS 0.9% 250 ML* 250 ML IVPB ONE (19:50)
--- NOTE | 2016-12-31 20:12 | RAD ---
INDICATION: Acute renal failure. COMPARISON: Comparison is made with a prior CT of the abdomen and pelvis of the same day. TECHNIQUE: Multiple real-time images of the kidneys were obtained. FINDINGS: The kidneys are normal in size shape and echogenicity. The right kidney measured 10.0 x 5.4 x 4.6 cm and the left kidney measured 10.6 x 5.1 x 5.1 cm. No significant focal abnormality or hydronephrosis was present. IMPRESSION: NEGATIVE EXAM.
[2016-12-31] MEDS: Piperac/Tazob 3.375 gm in NS* 3.375 GM/100 ML BAG IVPB SCH (21:05)
[2016-12-31] MEDS: Heparin VIAL(*) 5000 UNITS/ML VIAL (FIVE THOUSAND) SUBCUT SCH (21:05)
[2016-12-31 22:06] LABS: Body Fluid Appearance Clear
--- NOTE | 2016-12-31 22:25 | HP ---
HISTORY AND PHYSICAL: DATE OF ADMISSION: 12/31/16 PRIMARY CARE PROVIDER: Dr. Watson. The patient is presenting to the ER today with complaints of not feeling well. ATTENDING PHYSICIAN: Jeff Rangel DO *(report being dictated by Jean Marie England NP) CHIEF COMPLAINT: Not feeling well. HISTORY OF PRESENT ILLNESS: Mr. Ocampo is a 56-year-old male patient with multiple medical problems. He was just here for 2 days, discharged about 2 days ago secondary to the CHF exacerbation and was sent home on his standing diuretics and sent home with potassium. Fortunately today, he was feeling weak and tired. He says that he was having some abdominal discomfort and he decided to coming into the ER. He was complaining of also having a headache. He denied having any chest pain or any shortness of breath. He appeared to be stable in terms of his fluid management. He denied having any cough, fevers, shortness of breath, or any chest discomfort. He came in and was evaluated. It was noted that he was profoundly bradycardic. It was noted that he was hypotensive and he had several electrolyte abnormalities and derangements, so the regeneration operator service was asked to evaluate for admission. PAST MEDICAL HISTORY: Significant for: 1. Amyloidosis AL with cardiac involvement. 2. Chronic ascites secondary to CHF and end-stage cardiomyopathy. 3. Status post cardiac arrest. 4. AFib and aflutter. 5. Nonsustained V-tach, status post ICD. 6. Severe cardiomyopathy with EF less than 20%. 7. Coagulopathy with factor X deficiency. 8. Gout. 9. Chronic hyponatremia. 10. CKD stage 3. 11. Question of history of cirrhosis. 12. Peripheral neuropathy. 13. GERD. PAST SURGICAL HISTORY: He has had an AICD placement and a history of a peritoneal drain catheter placed. HOME MEDICATIONS: According to the last discharge summary include: 1. Coreg 3.125 mg p.o. b.i.d. 2. Multivitamin 1 tablet p.o. b.i.d. 3. Demadex 140 mg p.o. every t.i.d. 4. Coumadin 5 mg Wednesday, Wednesday, , and Wednesday. 5. Coumadin 10 mg Wednesday, Wednesday, and Wednesday. 6. Triamcinolone cream 1 application topical daily as needed. 7. Potassium 60 mEq 4 times a day. 8. Protonix 40 mg p.o. daily. 9. Neosporin 1 application topically daily as needed. 10. Midodrine 1 tablet p.o. t.i.d. 11. Zaroxolyn 5 mg p.o. b.i.d. 12. Mag ox 400 mg p.o. b.i.d. 13. Synthroid 50 mcg daily. 14. Hydrocortisone rectal one dose per rectum t.i.d. as needed. 15. Benzocaine 1 application topically every hour as needed. 16. Neurontin 300 mg daily as needed. 17. Neurontin 300 mg p.o. t.i.d. 18. Eplerenone 25 mg p.o. b.i.d. 19. Colace 100 mg p.o. b.i.d. as needed. 20. Dulcolax 10 mg p.o. daily. 21. Allopurinol 300 mg daily. 22. Acetaminophen 650 mg p.o. every 6 hours as needed. 23. Lasix 100 mg IV 3 times a week at an outpatient clinic. ALLERGIES TO MEDICATIONS: Include ALDACTONE and OXYCODONE. FAMILY HISTORY: Reviewed and noncontributory to the chief complaint at this point. His mother had colon cancer, father of old age. SOCIAL HISTORY: He does not smoke and he does not drink. Surrogate decision maker is his sister, Avis. REVIEW OF SYSTEMS: He denied any weight change. He denied having any double vision. He denied having any ear discharge. He denies having any rhinorrhea or sore throat. There is no thyroid enlargement. He denied any chest pain. He denies any orthopnea. He does admit to having some abdominal discomfort, though no nausea or vomiting. Denied having any dysuria or any frequency or loss of consciousness. Says that the peritoneal drain has been working and he denied having any cloudy discharge from here. PHYSICAL EXAMINATION GENERAL: At this time, Mr. Ocampo is a 56-year-old male patient. He appears to be older than stated age. He is drowsy. He does not appear to be tachypneic, but he does not appear to be in extremis. He is lying in the ER stretcher. He is in Trendelenburg. VITAL SIGNS: Blood pressure initially when he came in was 80/53 with a pulse of 57 down to 30 with a respirations of 14, O2 sat 97%, his heart rate now is 108, blood pressure 80/51. His baseline blood pressure systolics run right between 80 and 90. HEENT: Head atraumatic. Eyes: Sclerae anicteric. Throat: Oral mucosa appears to be dry. No oropharyngeal erythema. NECK: Supple. LUNGS: Clear to auscultation. They were diminished in the bases. HEART: Sounds S1 and S2. He is bradycardic. ABDOMEN: Rounded and appeared to have a massive amount of ascites. There is a PD drain, which the site does not appear to be erythematic. The PD fluid that is in the catheter appears to be clear. He has tenderness in the right upper and right lower quadrant. EXTREMITIES: Pulses were 2+ throughout. He is moving his extremities. SKIN: Intact. NEUROLOGIC: He is drowsy, but he awakens to his name. He follows simple commands. He had no gross focal deficits. LABORATORY DATA: Labs revealed a WBC of 12.6, RBC of 3.76, hemoglobin of 9.1, hematocrit of 30, platelet count of 331. Sodium was 124, potassium 7.2, chloride 92, bicarb 21, BUN 70, creatinine 2.78. His baseline creatinine is about 1.9 to 2. His glucose 110, lactic 3.4, calcium 8.8, total bili 0.9, AST 31 , ALT 20, alk phos 94, troponin 0.09, which runs right near his baseline and his albumin was 2.8. He had a chest x-ray obtained today, showed enlarged cardiac silhouette unchanged. The EKG obtained today initially showed a sinus bradycardia with a rate of 47 with a right bundle-branch block that is changed from his previous EKG. The bradycardia is new. He typically does have actually right bundle-branch block with a fascicular block as well. His last echo shows an EF of 20% to 25%. Old medical records were reviewed. ASSESSMENT AND PLAN: Mr. Ocampo is a 56-year-old male patient with multiple medical problems presenting today with abdominal discomfort, headache, not feeling well, on evaluation found to be bradycardic and found to be hypotensive. Alumni Relations Officer service was asked to evaluate for admission. He will be admitted under inpatient status for: 1. Bradycardia. I suspect this is probably from metabolic derangements. He is hyperkalemic. The plan is to treat the underlying metabolic derangements and for the time being, I did put him on dopamine. He is responding. I gave him a little bit of bicarb and atropine and this has helped. I am hopeful that continue the dopamine and wean him off this after his potassium and his acid load clears. I did discuss the case with Dr. Thomas, who felt we need to treat the underlying hyperkalemia. 2. Shock. Again, this is probably cardiogenic secondary to poor flow state due to the bradycardia and hypotensive. We are reversing the hypotension right now. Dopamine seems to be improving. He is more alert now and we will continue to follow this. We will be giving him fluids. He is breathing stable. Obviously, we are going to need to diurese this gentleman after all the amount of fluids that we have given him. He has gotten about 3 L down here in the ER. He may need more. 3. Acute renal failure. This is probably multifactorial. Somewhat related to prerenal secondary to poor flow state and shock. There is probably some acute tubular necrosis and he is also hydrated. I think we need to give him fluids. We will get a FENa and renal ultrasound to make sure he is not obstructed, but this purely seems to be from dehydration. 4. Hyperkalemia. This is probably again causing the bradycardia thus leading to his shock state. I am going to go ahead and give him Kayexalate, insulin, calcium gluconate, and he is on albuterol, and for the time being, we will support him through with atropine p.r.n. in addition to this, dopamine drip. We will follow his BMPs every 4 hours and I am going to give him another dose of P.R. Kayexalate. I do not think he would withstand dialysis with his blood pressures. His baseline blood pressure is right around 90 to 80, so I do not think dialysis is an option. 5. Congestive heart failure. Again, at this point, we are holding diuretics. We will need to diurese him after all the fluids and the shock state resolved. 6. Amyloidosis. He can follow with Dr. Geller and his primary team. 7. Ascites with abdominal discomfort. I am going to drain his peritoneal drain t.i.d. In addition to this, we will send off his fluid for evaluation. He was tender on exam. CT is pending. For the time being, I am treating empirically with Zosyn. If the peritoneal fluids comes back and appears to be suspicious for infection, obviously we will give him a dose of peritoneal vanco. 8. History of atrial fibrillation. He appears to be in a sinus rhythm currently, we will monitor. 9. History of ventricular tachycardia. He has got the defibrillator. The pacer pads will be on. 10. Gout. Hold his allopurinol. 11. Chronic kidney disease with acute renal failure. Again, probably multifactorial. We will hold nephrotoxic agents. I tried to hydrate him and we will follow. 12. Cirrhosis of the liver. Again, not an active process at this point. 13. Neuropathy. Holding the gabapentin. We are going to start this later. 14. Gastroesophageal reflux disease. Continue with PPI therapy. 15. DVT prophylaxis. I do not have an INR on the gentleman. He is on Coumadin for the factor V disorder. We will try to get an INR on him and adjust his Coumadin quarterly. 16. Factor X deficiency and history of atrial fibrillation. Continue with his meds as prescribed. 17. Code status: Full code. 18. Fluid, electrolytes, nutrition. He is n.p.o. until we can stabilize him. TIME SPENT: Time spent on the admission was approximately 90 minutes of critical care of time, I did discuss the plan of care with the regeneration operator, Dr. Rangel, who is in agreement. JEAN MARIE ENGLAND NP CC: Dr. Watson; Dr. Thomas* [id number]/[facility] #: [id number] [facility]
[2016-12-31 22:27] LABS: Body Fluid Reactive Lymph 3 %; Body Fluid Total Cells Counted 100
[2016-12-31 22:29] LABS: BUN/Creatinine Ratio 26.5 (8-20); Calcium 8.7 mg/dL (8.6-10.3); EGFR African American 35.3 (>60); EGFR Non-African American 27.5 (>60); Potassium 4.8 mmol/L (3.5-5.0)
[2016-12-31 22:30] LABS: Body Fluid WBC 521 /mcL
[2016-12-31] MEDS: DOPamine 200 MG/250 ML IVPREM* 200 MG/250 ML ML IV SCH (23:59)
[2017-01-01 02:36] LABS: BUN/Creatinine Ratio 25.5 (8-20); Calcium 8.7 mg/dL (8.6-10.3); EGFR Non-African American 27.2 (>60); Potassium 4.6 mmol/L (3.5-5.0)
[2017-01-01] MEDS: DOPamine 200 MG/250 ML IVPREM* 200 MG/250 ML ML IV SCH ×2 (04:22→08:33)
[2017-01-01] MEDS: Piperac/Tazob 3.375 gm in NS* 3.375 GM/100 ML BAG IVPB SCH (05:37)
[2017-01-01] MEDS: Heparin VIAL(*) 5000 UNITS/ML VIAL (FIVE THOUSAND) SUBCUT SCH (05:37)
[2017-01-01 05:51] LABS: BUN/Creatinine Ratio 25.6 (8-20); Calcium 8.8 mg/dL (8.6-10.3); EGFR African American 35.2 (>60); EGFR Non-African American 27.4 (>60); Potassium 4.3 mmol/L (3.5-5.0)
[2017-01-01 06:02] LABS: Hematocrit 30 % (42-52); Hemoglobin 9.1 g/dl (14.0-18.0); Mean Corpuscular HGB Conc 30 g/dl (31-36); Mean Corpuscular Hemoglobin 24 pg (27-31); Mean Corpuscular Volume 81 fL (80-94); Mean Platelet Volume 8 um3 (7.4-10.4); Red Blood Count 3.74 10^6/ul (4.0-5.4); White Blood Count 12.9 10^3/ul (3.5-10.8)
[2017-01-01 06:03] LABS: Comments Flag Yes; Red Cell Distribution Width 23 % (10.5-15)
[2017-01-01] MEDS: Vancomycin(*) 1,000 MG in NS 0.9% 250 ML* 250 ML IVPB ONE (07:08)
[2017-01-01] MEDS: NS 0.9% 1000 ML* 1,000 ML IV ONE (07:12)
--- NOTE | 2017-01-01 11:29 | PN ---
Progress Note - Progress Note Note: CRITICAL CARE MEDICINE Date: 01/01/17 Time: 1000 SUBJECTIVE: Patient seen and examined. PHYSICAL EXAM: Vital Signs: Reviewed. Neurologic: awake, communicating well. HEENT: pupils equal. Sclera anicteric. Trachea midline. Cardiovascular: S1 S2 tachy 100. Respiratory: clear with dec bases Abdomen: Soft, nt, distention probably chronic. dep fluid. drain in place. Extremities: Warm. Chronic skin changes. dep fluid. Access: RIJ with significant ecchymosis in region. LABS: Reviewed. IMAGING: Reviewed. MEDICATIONS: Reviewed. ASSESSMENT: 56 M Symptomatic bradycardia and cardiogenic shock on admission sec to hyperkalemia ( iatrogenic) with acute on chronic renal failure Amylodosis AL CAF on anticoag Chronic ascities - tx for peritonitis on admission PLAN: Neurologic: much better. stable. Can resume chronic regimens for discomfort. Cardiovascular: Perfsuing. vol status stable. No further IVF but can take po. add back bb if bp stable. utilize outpt midodrine. Nml sbp 80s. Respiratory: Yamile well. Ra. oob. Gastrointestinal: po diet. drained 800ml this am and doesn't need further drainage. Abd pain better with K clearance. Renal/Metabolic: better K. Bun slow to come down. Baseline Cr clearance disfunction and will need diuretics back soon but can hold off today. Infectious Disease: No sbp. can dc abx. Hematology: stable. inr ok. resume Coumadin tomorrow. Endocrine: stable. Musculoskeletal: oob. ambulate. Psych/Social: pt expressed understanding. Supportive and preventative care as ordered. SUP: po VTE prophylaxis: coumadin. Pyle catheter dcd; dc cvc Disposition: ICU today but potential floor within next 24h Code Status: Full presently Critical Care Time: 30min Karma Rangel DO
[2017-01-01] MEDS: CMCS: Midodrine (NF) 5 MG TAB PO SCH ×3 (12:32→20:58)
[2017-01-01] MEDS: Gabapentin CAP(*) 300 MG PO SCH ×2 (12:38→21:00)
[2017-01-01] MEDS ORDERED: Warfarin TAB(*) 5 MG PO ONE (17:00)
[2017-01-01] MEDS ORDERED: Omeprazole CAP* 20 MG PO ONE (17:42)
[2017-01-01] MEDS ORDERED: Gabapentin CAP(*) 300 MG ONE (17:51)
[2017-01-01] MEDS: Levothyroxine TAB* 50 MCG TAB PO SCH (17:53)
[2017-01-01] MEDS ORDERED: [UNRECOGNIZED DRUG - OTHER] TOPICAL PRN (20:32)
[2017-01-01] MEDS ORDERED: BENZOCAINE TOPICAL PRN (20:32)
[2017-01-01] MEDS: Carvedilol TAB* 3.125 MG PO SCH (20:58)
[2017-01-01] MEDS: TRIAMCINOLONE PASTE 0.1% TOPICAL SCH (20:59)
[2017-01-01 21:11] LABS: Magnesium 2.3 mg/dL (1.9-2.7)
[2017-01-02] MEDS: Omeprazole CAP* 20 MG PO SCH (05:42)
[2017-01-02] MEDS: Levothyroxine TAB* 50 MCG TAB PO SCH (05:42)
[2017-01-02 06:00] LABS: Hematocrit 26 % (42-52); Hemoglobin 7.8 g/dl (14.0-18.0); Mean Corpuscular HGB Conc 31 g/dl (31-36); Mean Corpuscular Hemoglobin 25 pg (27-31); Mean Corpuscular Volume 81 fL (80-94); Mean Platelet Volume 7 um3 (7.4-10.4); Red Blood Count 3.15 10^6/ul (4.0-5.4); Red Cell Distribution Width 24 % (10.5-15); White Blood Count 9.6 10^3/ul (3.5-10.8)
[2017-01-02 06:01] LABS: Comments Flag Yes
[2017-01-02 06:15] LABS: BUN/Creatinine Ratio 27.2 (8-20); EGFR African American 38.4 (>60); EGFR Non-African American 29.9 (>60); Magnesium 2.3 mg/dL (1.9-2.7); Phosphorus 5.4 mg/dL (2.5-5.0); Potassium 3.4 mmol/L (3.5-5.0)
[2017-01-02] MEDS: Gabapentin CAP(*) 300 MG PO SCH ×3 (06:49→17:02)
[2017-01-02] MEDS ORDERED: Triamcinolone PASTE 0.1% (NF) 5 GM TUBE TOPICAL PRN (08:57)
[2017-01-02] MEDS ORDERED: Docusate CAP* 100 MG PO PRN (08:57)
[2017-01-02] MEDS ORDERED: Carvedilol TAB* 3.125 MG PO SCH (09:00)
[2017-01-02] MEDS ORDERED: Gabapentin CAP(*) 300 MG PO SCH (09:00)
[2017-01-02] MEDS: Carvedilol TAB* 3.125 MG PO SCH ×2 (09:21→21:06)
[2017-01-02] MEDS: CMCS: Midodrine (NF) 5 MG TAB PO SCH ×3 (09:21→21:07)
[2017-01-02] MEDS: Torsemide TAB* 20 MG PO SCH ×3 (09:27→22:02)
[2017-01-02] MEDS: Allopurinol TAB* 300 MG PO SCH (09:27)
[2017-01-02] MEDS: Metolazone TAB* 5 MG PO SCH ×2 (09:28→21:06)
[2017-01-02] MEDS: Magnesium Oxide TAB* 400 MG PO SCH ×2 (09:28→21:06)
[2017-01-02] MEDS: Bisacodyl SUPP* 10 MG SUPP PR SCH (09:29)
[2017-01-02] MEDS: Neomycin/Polym/Bacit TOP OINT* 15 GM TOPICAL SCH (12:30)
[2017-01-02 13:08] LABS: Body Fluid Sodium 128 mmol/L
--- NOTE | 2017-01-02 13:35 | PN ---
Subjective Date of Service: 01/02/17 Interval History: pt feels well. Upset about his weight increase. His goal of weight is 221 lbs. Objective Active Medications: Acetaminophen (Tylenol Supp*) 650 mg NC Q6H PRN PRN Reason: FEVER/PAIN Albuterol (Ventolin 2.5 Mg/3 Ml Neb.Dede*) 2.5 mg INH .Q20M [facility] Allopurinol (Zyloprim Tab*) 300 mg PO DAILY [facility] Last Admin: 01/02/17 09:27 Dose: 300 mg Bisacodyl (Dulcolax Supp*) 10 mg NC DAILY [facility] Last Admin: 01/02/17 09:29 Dose: Not Given Carvedilol (Coreg Tab*) 3.125 mg PO BID [facility] Last Admin: 01/02/17 09:21 Dose: 3.125 mg Docusate Sodium (Colace Cap*) 100 mg PO BID PRN PRN Reason: CONSTIPATION Gabapentin (Neurontin Cap(*)) 300 mg PO 0000,0600,1200,1800 [facility] Last Admin: 01/02/17 12:41 Dose: 300 mg Gabapentin (Neurontin Cap(*)) 300 mg PO DAILY PRN PRN Reason: PAIN Levothyroxine Sodium (Synthroid Tab*) 50 mcg PO DAILY@0600 [facility] Last Admin: 01/02/17 05:42 Dose: 50 mcg Magnesium Oxide (Magox 400 Tab*) 400 mg PO BID [facility] Last Admin: 01/02/17 09:28 Dose: 400 mg Metolazone (Zaroxolyn Tab*) 5 mg PO BID [facility] Last Admin: 01/02/17 09:28 Dose: 5 mg Midodrine (Midodrine (Nf)) 15 mg PO TID [facility] PRN Reason: Protocol Last Admin: 01/02/17 12:41 Dose: 15 mg Neomycin/Polymyxin/Bacitracin (Neosporin Top Oint Tube*) 1 applic TOPICAL DAILY [facility] Last Admin: 01/02/17 12:30 Dose: Not Given Pto: Gumb Numb Topical Anesthetic Gel [20% Benzocaine] 1 dose TOPICAL Q1H PRN PRN Reason: MOUTH PAIN Last Admin: 01/01/17 21:02 Dose: 1 dose Omeprazole (Prilosec Cap*) 20 mg PO DAILY@0600 [facility] Last Admin: 01/02/17 05:42 Dose: 20 mg Ondansetron HCl (Zofran Inj*) 4 mg IV Q6H PRN PRN Reason: NAUSEA Pharmacy Profile Note (Coumadin Daily Reminder*) 1 note FOLLOW UP 1700 [facility] Last Admin: 01/01/17 17:57 Dose: 1 note Torsemide (Demadex*) 140 mg PO TID [facility] Last Admin: 01/02/17 12:42 Dose: 140 mg Triamcinolone Acetonide (Triamcinolone 0.1% Paste *) 1 applic TOPICAL BEDTIME [facility] Last Admin: 01/01/17 20:59 Dose: 1 applic Warfarin Sodium (Coumadin Tab(*)) 5 mg PO SUTUTHSA [facility] PRN Reason: Protocol Warfarin Sodium (Coumadin Tab(*)) 10 mg PO MOWEFR [facility] PRN Reason: Protocol Vital Signs 01/01/17 01/01/17 01/01/17 14:00 14:15 14:16 Temperature Pulse Rate 77 Respiratory 21 23 Rate Blood Pressure 78/50 (mmHg) O2 Sat by Pulse 95 Oximetry 01/01/17 01/01/17 01/01/17 15:00 16:00 17:00 Temperature 97.3 F Pulse Rate 85 81 85 Respiratory 17 22 16 Rate Blood Pressure 82/57 64/37 85/55 (mmHg) O2 Sat by Pulse 100 95 98 Oximetry 01/01/17 01/01/17 01/01/17 18:00 18:07 19:00 Temperature Pulse Rate 90 87 Respiratory 17 15 12 Rate Blood Pressure 81/50 83/51 (mmHg) O2 Sat by Pulse 95 100 Oximetry 01/01/17 01/01/17 01/01/17 19:57 20:00 21:00 Temperature 97.2 F Pulse Rate 174 81 Respiratory 16 18 Rate Blood Pressure 78/49 82/51 (mmHg) O2 Sat by Pulse 100 100 Oximetry 01/01/17 01/02/17 01/02/17 22:00 00:28 03:31 Temperature 98.7 F 96.8 F Pulse Rate 79 86 Respiratory 17 16 16 Rate Blood Pressure 77/54 88/53 94/65 (mmHg) O2 Sat by Pulse 100 100 Oximetry 01/02/17 01/02/17 01/02/17 06:49 07:45 09:19 Temperature Pulse Rate Respiratory 16 20 Rate Blood Pressure (mmHg) O2 Sat by Pulse 99 Oximetry 01/02/17 12:41 Temperature Pulse Rate Respiratory 18 Rate Blood Pressure (mmHg) O2 Sat by Pulse Oximetry Oxygen Devices in Use Now: None Appearance: 56 yo F in nAd, aAOx3 Eyes: No Scleral Icterus, PERRLA Ears/Nose/Mouth/Throat: NL Teeth, Lips, Gums, Mucous Membranes Moist Neck: NL Appearance and Movements; NL JVP, Trachea Midline Respiratory: Symmetrical Chest Expansion and Respiratory Effort, Clear to Auscultation Cardiovascular: NL Sounds; No Murmurs; No JVD, RRR Abdominal: - - soft, distended, peritoneal drain in place, BS presents, NT Extremities: - - +1 pitting pedeal edema b/l Skin: No Nodules or Sclerosis Neurological: Alert and Oriented x 3, NL Muscle Strength and Tone Result Diagrams: 01/02/17 05:30 01/02/17 05:30 Microbiology and Other Data: Microbiology 12/31/16 21:50 Gram Stain - Final Peritoneal Fluid Body Fluid Culture - Preliminary No Growth Day 1 01/01/17 05:05 Aerobic Blood Culture - Preliminary Blood Line No Growth Day 1 Anaerobic Blood Culture - Preliminary No Growth Day 1 01/01/17 04:50 Aerobic Blood Culture - Preliminary Blood Venous No Growth Day 1 Anaerobic Blood Culture - Preliminary No Growth Day 1 Assess/Plan/Problems-Billing Assessment: 56 yo M with h/o CHF(sysrolic-chronic), amyloidosis, CKD, V. tach, ICD, A. fib on Coumadin ,admitted with cardiogenic shock due to hyperkalemia and bradycardia - Patient Problems (1) Cardiogenic shock Comment: due to bradycardia secondary to iatrogenic hyperkalemia. Pt stated that he took a lot of potassium, because naik was afraid of "getting too low". He was unable to tell me how many tabs of KCl he took pririor to his admission. (2) Chronic systolic CHF (congestive heart failure) Comment: chronic sysolic CHF, EF 20-25% due to amyloidosis. pt was restarted on at home dose of Torsemide PO on 01/02/17. Continue Inspra and Metolazolone (3) Ascites Comment: chronic, Due to CHF. Patient is past came weekly for therapeutic paracentesis. He was advised in the past to have the abdominal catheter removed due to the risk of infection He refused. Had an episode of peritonitis in 11/2016. today he obtained 400 ml of fluid via catheter. no evidence of infection. (4) Hyperkalemia Comment: resolved. due to restarting pt's diurectics will restart KCl at a lower dose (5) Anemia Comment: Followed by Dr Geller. this time, suspect hemodilution, but will check stool guaiac (6) Hyponatremia Comment: Stable, due to CHF. (7) Hypotension Comment: chronic, pt's SBP is at 80-90 baseline. cont midodrine (8) DVT prophylaxis Comment: coumadin, INR therapuetic
[2017-01-02] MEDS: Warfarin TAB(*) 5 MG PO SCH (17:02)
[2017-01-02] MEDS ORDERED: Potassium Chlor TAB* 20 MEQ TAB.ER PO SCH (21:00)
[2017-01-02] MEDS: [UNRECOGNIZED DRUG - OTHER] PO SCH (22:02)
[2017-01-02] MEDS: TRIAMCINOLONE PASTE 0.1% TOPICAL SCH (22:03)
[2017-01-03] MEDS: Gabapentin CAP(*) 300 MG PO SCH ×5 (01:39→23:14)
[2017-01-03] MEDS ORDERED: Levothyroxine TAB* 50 MCG TAB PO SCH (06:00)
[2017-01-03] MEDS: Omeprazole CAP* 20 MG PO SCH (06:11)
[2017-01-03] MEDS: Levothyroxine TAB* 50 MCG TAB PO SCH (06:11)
[2017-01-03 07:47] LABS: Hematocrit 26 % (42-52); Hemoglobin 7.8 g/dl (14.0-18.0); Mean Corpuscular HGB Conc 30 g/dl (31-36); Mean Corpuscular Hemoglobin 24 pg (27-31); Mean Corpuscular Volume 81 fL (80-94); Mean Platelet Volume 7 um3 (7.4-10.4); Red Blood Count 3.24 10^6/ul (4.0-5.4); White Blood Count 8.6 10^3/ul (3.5-10.8)
[2017-01-03 07:59] LABS: BUN/Creatinine Ratio 29.9 (8-20); Calcium 7.9 mg/dL (8.6-10.3); EGFR African American 43.7 (>60); EGFR Non-African American 33.9 (>60)
[2017-01-03 08:01] LABS: Comments Flag Yes; Red Cell Distribution Width 23 % (10.5-15)
[2017-01-03 08:06] LABS: Potassium 2.7 mmol/L (3.5-5.0)
[2017-01-03] MEDS: [UNRECOGNIZED DRUG - OTHER] PO SCH ×2 (08:36→21:57)
[2017-01-03] MEDS: CMCS: Midodrine (NF) 5 MG TAB PO SCH ×3 (08:37→21:56)
[2017-01-03] MEDS: Potassium Chlor TAB* 20 MEQ TAB.ER PO SCH ×3 (08:38→21:54)
[2017-01-03] MEDS: Carvedilol TAB* 3.125 MG PO SCH ×2 (08:40→21:55)
[2017-01-03] MEDS: Metolazone TAB* 5 MG PO SCH ×2 (08:41→21:55)
[2017-01-03] MEDS: Magnesium Oxide TAB* 400 MG PO SCH ×2 (08:41→21:55)
[2017-01-03] MEDS: Allopurinol TAB* 300 MG PO SCH (08:41)
[2017-01-03] MEDS: Torsemide TAB* 20 MG PO SCH ×3 (08:46→22:25)
[2017-01-03] MEDS: Neomycin/Polym/Bacit TOP OINT* 15 GM TOPICAL SCH (08:47)
[2017-01-03] MEDS: Bisacodyl SUPP* 10 MG SUPP PR SCH (08:47)
--- NOTE | 2017-01-03 09:35 | ED ---
Ton Vazquez Matthew, scribed for Frantz Duggan MD on 12/31/16 at 1525 . Abdominal Pain/Male - HPI Summary HPI Summary: A 56 y/o male presents to the ED with diffuse abdominal pain since this morning. The pain is rated 8/10 in severity. Associated symptoms include headache, back pain, and diarrhea - since yesterday. The patient states that his nurse came to visit him this morning and found him to be hypotensive. The patient has not urinated today. He has a Hx of CHF and ascites. - History of Current Complaint Stated Complaint: WEAKNESS Time Seen by Provider: 12/31/16 14:39 Hx Obtained From: Patient Onset/Duration: Lasting Hours, Still Present Timing: Constant Severity Initially: Moderate Severity Currently: Moderate Location: Diffuse Associated Signs And Symptoms: Positive: Back Pain, Diarrhea - since 2 days ago , Other - headache, abdominal distended; hypotension - Allergies/Home Medications Allergies/Adverse Reactions: Allergies Allergy/AdvReac Type Severity Reaction Status Date / Time Oxycodone Allergy Intermediate Altered Verified 12/25/16 12:15 Mental Status Spironolactone Allergy Intermediate Rash And Verified 12/25/16 12:15 Itching Home Medications: Home Medications Multivitamins/Minerals TAB* [Theragran/minerals TAB*] 1 tab PO BID 12/31/16 [ History Confirmed 12/31/16] Warfarin TAB(*) [Coumadin TAB(*)] 10 mg PO MOWEFR 12/31/16 [History Confirmed ] PMH/Surg Hx/FS Hx/Imm Hx Endocrine/Hematology History: Reports: Hx Anticoagulant Therapy - warfarin, Hx Blood Disorders - factor X deficiency, thrombocytopenia, Hx Anemia, Other Endocrine/Hematological Disorders - amyloidosis Denies: Hx Diabetes, Hx Thyroid Disease Cardiovascular History: Reports: Hx Auto Implanted Cardiovert Defib - PACER/AICD , Hx Cardiac Arrest, Hx Cardiomegaly - ISCHEMIC CARDIOMYOPATHY, Hx Congestive Heart Failure - EF 20% DUE TO AMLOYDOSIS, Hx Hypercholesterolemia, Hx Hypotension - regularly 90s for SBP, Hx Pacemaker/ICD, Hx Syncope - d/t dehydration, Other Cardiovascular Problems/Disorders - CARDIOMYOPATHY Denies: Hx Hypertension Respiratory History: Reports: Hx Pleural Effusion, Hx Pneumonia, Hx Sleep Apnea - wears 2L O2 concentrator to bed at home, Other Respiratory Problems/Disorders - PNA Denies: Hx Asthma, Hx Chronic Bronchitis, Hx Chronic Obstructive Pulmonary Disease (COPD) GI History: Reports: Hx Gastroesophageal Reflux Disease, Hx Hiatal Hernia - UMBILICAL & PARAUMBILICAL, Other GI Disorders - ASCITES Denies: Hx Gall Bladder Disease History: Reports: Hx Chronic Renal Failure, Other Problems/Disorders - CKD Denies: Hx Dialysis, Hx Renal Disease Musculoskeletal History: Reports: Hx Arthritis, Hx Back Problems, Hx Gout, Other Musculoskeletal History - gout Denies: Hx Osteoporosis Sensory History: Reports: Hx Contacts or Glasses - reading Denies: Hx Glaucoma Opthamlomology History: Reports: Hx Contacts or Glasses - reading Denies: Hx Glaucoma Neurological History: Reports: Other Neuro Impairments/Disorders - episodes of syncope r/t dehydration, amyloidosis Denies: Hx Dementia, Hx Headaches, Hx Seizures, Hx Transient Ischemic Attacks (TIA) Psychiatric History: Denies: Hx Anxiety, Hx Depression - Cancer History Cancer Type, Location and Year: Family history Hx Hematologic Symptoms: No Hx Chemotherapy: Yes - for amyloidosis - Surgical History Surgery Procedure, Year, and Place: R leg vericose vein stripping. Hemorrhioidectomy. aicd/pacer- strong memoral 01/28/16. paracentesis 04/15/16 Hx Anesthesia Reactions: No - Immunization History Date of Tetanus Vaccine: 2007 Date of Influenza Vaccine: UNKNOWN & REFUSED Infectious Disease History: Denies: Traveled Outside the [place] in Last 30 Days - Family History Known Family History: Positive: Other - [place] Family History: no malignant hyperthemia. no anesthesia reaction. - Social History Alcohol Use: None Hx Substance Use: No Substance Use Type: Reports: None Hx Tobacco Use: No Smoking Status (MU): Never Smoked Tobacco Have You Smoked in the Last Year: No Review of Systems Constitutional: Negative Negative: Fever, Chills Eyes: Negative Negative: Erythema ENT: Negative Negative: Sore Throat Cardiovascular: Other - hypotension Negative: Palpitations, Chest Pain Respiratory: Negative Negative: Shortness Of Breath, Cough Gastrointestinal: Other - abdominal distended Positive: Abdominal Pain - Diffuse, Diarrhea - since 2 days ago. Negative: Vomiting, Nausea Genitourinary: Negative Negative: dysuria, hematuria Positive: Myalgia - back pain Skin: Negative Negative: Rash Positive: Headache Psychological: Normal All Other Systems Reviewed And Are Negative: Yes Physical Exam Triage Information Reviewed: Yes Vital Signs On Initial Exam: Initial Vitals BP 80/53 12/31/16 14:18 Vital Signs Reviewed: Yes Appearance: Positive: No Pain Distress Skin: Positive: Warm, Dry Head/Face: Positive: Other - Normocephalic; Atraumatic Eyes: Positive: Conjunctiva Clear ENT: Positive: Other - Dry Oral mucous membrane Neck: Positive: No Lymphadenopathy, Other: - Full ROM Respiratory/Lung Sounds: Positive: Other - Normal Effort. Negative: Rales, Rhonchi, Stridor, Tracheal Deviation, Wheezes Cardiovascular: Positive: RRR, Pulses are Symmetrical in both Upper and Lower Extremities. Negative: Murmur Abdomen Description: Positive: Soft, Other: - Distended abdomen; Abdomen is tender to palpitation; Clear fluid coming from the patient's drain; ascites of the abdomen Musculoskeletal: Positive: Other - +1 pitting edema in the LE Neurological: Positive: Alert, Oriented to Person Place, Time Psychiatric: Positive: Affect/Mood Appropriate Procedures - Procedure Summary Procedure Summary: Ultrasound guided in real time time into cannulated non-pulsatile compressible vessel representing internal vesicle - Central Line Central Line Lumen: triple Central Line Procedure: betadine prep, sterile drapes applied, sterile dressing applied Central Line Position: internal jugular (R) Anesthesia: Lidocaine cc's of anesthesia: 2 Complications: none Central Line Post Position: sutured, good blood return, position confirmed w/ CXR Diagnostics - Vital Signs Vital Signs Pulse Resp BP Pulse Ox 12/31/16 14:30 54 14 72/49 97 12/31/16 14:20 79 13 99 12/31/16 14:18 80/53 - Laboratory Result Diagrams: 12/31/16 15:15 12/31/16 19:13 Lab Statement: Any lab studies that have been ordered have been reviewed, and results considered in the medical decision making process. - Radiology CXR Xray Interpretation: No Acute Changes - IMPRESSION: ENLARGED CARDIAC SILHOUETTE , UNCHANGED. Radiology Interpretation Completed By: Radiologist - EKG 16:05 Cardiac Rate: Bradycardia - 47 bpm EKG Interpretation: Wide Complex; No STEMI Abdominal Pain Fem Course/Dx - Diagnoses Provider Diagnoses: Hyperkalemia, EKG abnormalities, Peritonitis, Sinus tachycardia - Provider Notifications Discussed Care Of Patient With: Dr. Rangel (ICU) at 16:16 -- Notified of patient's history. He agrees with large volume fluid resuscitation, and holding of pressors. He understands CT A/P is pending on the patient and that he may have peritonitis. He was notified that the patients BP is currently in the 70s and the potassium is 7.2 with EKG changes. Jean Marie England (Hospitalist PA) at 17 :13 -- Notified of patient's history and will admit the patient to the ICU. - Critical Care Time Critical Care Time: 30-74 min - 60 minutes Discharge - Discharge Plan Condition: Critical Disposition: ADMITTED TO [facility] The documentation as recorded by the Ton villarreal Matthew accurately reflects the service I personally performed and the decisions made by me, Frantz Duggan MD.
[2017-01-03] MEDS ORDERED: Furosemide IV* 10 MG/ML 10 ML VIAL (100 MG) IV ONE (10:25)
--- NOTE | 2017-01-03 10:54 | PN ---
Subjective Date of Service: 01/03/17 Interval History: Pt is feeling ok. He states his breathing remains labored especially while up and walking. He feels he has a tremendous amount of fluid in his legs. Objective Active Medications: Acetaminophen (Tylenol Supp*) 650 mg NE Q6H PRN PRN Reason: FEVER/PAIN Albuterol (Ventolin 2.5 Mg/3 Ml Neb.Dede*) 2.5 mg INH .Q20M [facility] Allopurinol (Zyloprim Tab*) 300 mg PO DAILY [facility] Last Admin: 01/03/17 08:41 Dose: 300 mg Bisacodyl (Dulcolax Supp*) 10 mg NE DAILY [facility] Last Admin: 01/03/17 08:47 Dose: Not Given Carvedilol (Coreg Tab*) 3.125 mg PO BID [facility] Last Admin: 01/03/17 08:40 Dose: 3.125 mg Docusate Sodium (Colace Cap*) 100 mg PO BID PRN PRN Reason: CONSTIPATION Eplerenone (Inspra (Nf)) 25 mg PO BID [facility] Last Admin: 01/03/17 08:36 Dose: 25 mg Gabapentin (Neurontin Cap(*)) 300 mg PO 0000,0600,1200,1800 [facility] Last Admin: 01/03/17 06:11 Dose: 300 mg Gabapentin (Neurontin Cap(*)) 300 mg PO DAILY PRN PRN Reason: PAIN Levothyroxine Sodium (Synthroid Tab*) 50 mcg PO DAILY@0600 [facility] Last Admin: 01/03/17 06:11 Dose: 50 mcg Magnesium Oxide (Magox 400 Tab*) 400 mg PO BID [facility] Last Admin: 01/03/17 08:41 Dose: 400 mg Metolazone (Zaroxolyn Tab*) 5 mg PO BID [facility] Last Admin: 01/03/17 08:41 Dose: 5 mg Midodrine (Midodrine (Nf)) 15 mg PO TID [facility] PRN Reason: Protocol Last Admin: 01/03/17 08:37 Dose: 15 mg Neomycin/Polymyxin/Bacitracin (Neosporin Top Oint Tube*) 1 applic TOPICAL DAILY [facility] Last Admin: 01/03/17 08:47 Dose: 1 applic Pto: Gumb Numb Topical Anesthetic Gel [20% Benzocaine] 1 dose TOPICAL Q1H PRN PRN Reason: MOUTH PAIN Last Admin: 01/01/17 21:02 Dose: 1 dose Omeprazole (Prilosec Cap*) 20 mg PO DAILY@0600 [facility] Last Admin: 01/03/17 06:11 Dose: 20 mg Ondansetron HCl (Zofran Inj*) 4 mg IV Q6H PRN PRN Reason: NAUSEA Pharmacy Profile Note (Coumadin Daily Reminder*) 1 note FOLLOW UP 1700 [facility] Last Admin: 01/02/17 17:11 Dose: 1 note Potassium Chloride (Klor Con Er Tab*) 60 meq PO TID [facility] Last Admin: 01/03/17 08:38 Dose: 60 meq Torsemide (Demadex*) 140 mg PO TID [facility] Last Admin: 01/03/17 08:46 Dose: 140 mg Triamcinolone Acetonide (Triamcinolone 0.1% Paste *) 1 applic TOPICAL BEDTIME [facility] Last Admin: 01/02/17 22:03 Dose: 1 applic Warfarin Sodium (Coumadin Tab(*)) 5 mg PO SUTUTHSA [facility] PRN Reason: Protocol Last Admin: 01/02/17 17:02 Dose: 5 mg Warfarin Sodium (Coumadin Tab(*)) 10 mg PO MOWEFR [facility] PRN Reason: Protocol Vital Signs 01/02/17 01/02/17 01/02/17 11:58 12:41 15:08 Temperature 97.6 F 97.6 F Pulse Rate 83 89 Respiratory 16 18 17 Rate Blood Pressure 91/58 85/58 (mmHg) O2 Sat by Pulse 99 100 Oximetry 01/02/17 01/02/17 01/02/17 17:02 19:14 20:00 Temperature 98.1 F Pulse Rate 87 Respiratory 16 17 17 Rate Blood Pressure 95/56 (mmHg) O2 Sat by Pulse 100 Oximetry 01/02/17 01/03/17 01/03/17 23:52 01:39 04:39 Temperature 98.6 F 98.2 F Pulse Rate 82 80 Respiratory 16 16 16 Rate Blood Pressure 93/53 86/52 (mmHg) O2 Sat by Pulse 100 98 Oximetry 01/03/17 01/03/17 06:11 08:00 Temperature Pulse Rate Respiratory 16 16 Rate Blood Pressure (mmHg) O2 Sat by Pulse Oximetry Oxygen Devices in Use Now: None Appearance: Middle aged male sitting on the edge of the bed, NAD Eyes: No Scleral Icterus Ears/Nose/Mouth/Throat: Mucous Membranes Moist Respiratory: Symmetrical Chest Expansion and Respiratory Effort, Clear to Auscultation Cardiovascular: NL Sounds; No Murmurs; No JVD, RRR, - - 2+ tense LE edema Abdominal: NL Sounds; No Tenderness; No Distention, - - Peritoneal drain in place Extremities: No Clubbing, Cyanosis Skin: No Rash or Ulcers, No Nodules or Sclerosis Neurological: Alert and Oriented x 3 Result Diagrams: 01/03/17 07:09 01/03/17 07:10 Microbiology and Other Data: Microbiology 12/31/16 21:50 Gram Stain - Final Peritoneal Fluid Body Fluid Culture - Preliminary No Growth Day 1 01/01/17 05:05 Aerobic Blood Culture - Preliminary Blood Line No Growth Day 1 Anaerobic Blood Culture - Preliminary No Growth Day 1 01/01/17 04:50 Aerobic Blood Culture - Preliminary Blood Venous No Growth Day 1 Anaerobic Blood Culture - Preliminary No Growth Day 1 Assess/Plan/Problems-Billing Mr Ocampo is a 56 yo M with h/o CHF (sysrolic-chronic), amyloidosis, CKD, V. tach , ICD, A. fib on Coumadin ,admitted with cardiogenic shock due to hyperkalemia and bradycardia. - Patient Problems (1) Cardiogenic shock Current Visit: Yes Status: Acute Code(s): R57.0 - CARDIOGENIC SHOCK SNOMED Code(s): 68148469 Comment: [place] to be due to bradycardia secondary to marked hyperkalemia. Today the patient states he did not take any more than his prescribed amount of KCl at home. Cardiogenic shock has resolved. He remains hypotensive though this is his baseline. (2) Hyperkalemia Current Visit: Yes Status: Acute Code(s): E87.5 - HYPERKALEMIA SNOMED Code (s): 40030082 Comment: Resolved-pt is now low as he has been off his usual dose of KCl. Unclear how much potassium he was actually taking at home as he has told 2 different people 2 different stories. (3) Chronic systolic CHF (congestive heart failure) Current Visit: Yes Status: Acute Code(s): I50.22 - CHRONIC SYSTOLIC ( CONGESTIVE) HEART FAILURE SNOMED Code(s): 723844509 Comment: The patient has chronic sysolic CHF with an EF of 20-25% due to amyloidosis. He has been restarted on his home diuretics as of 01/02/17 however he remains heavier than his dry weight. Will give 100mg IV lasix today and monitor his UOP and weight. (4) Ascites Current Visit: Yes Status: Acute Code(s): R18.8 - OTHER ASCITES SNOMED Code(s): 792560536 Comment: Secondary to severe CHF. He continues to use a peritoneal drain daily. Fluid from admission grew enterococcus faecalis though he clinically does not appear to be infected. ? colonization of the drain. Will discuss with Dr. Wetzel tomorrow. (5) Hyponatremia Current Visit: Yes Status: Acute Code(s): E87.1 - HYPO-OSMOLALITY AND HYPONATREMIA SNOMED Code(s): 81890654 Comment: Chronic and stable. Hyponatremia is secondary to his chronic CHF and diuretic usage. (6) Anemia Current Visit: Yes Status: Acute Code(s): D64.9 - ANEMIA, UNSPECIFIED SNOMED Code(s): 531174296 Comment: H/H is stable but slightly lower than his baseline. Stool guaiac negative. Continue to follow H/H. (7) Afib Current Visit: Yes Status: Acute Code(s): I48.91 - UNSPECIFIED ATRIAL FIBRILLATION SNOMED Code(s): 50477957 Comment: INR remains therapeutic. Continue current dose of coumadin. HR is controlled on coreg 3.125mg BID. (8) Amyloidosis Current Visit: Yes Status: Acute Code(s): E85.9 - AMYLOIDOSIS, UNSPECIFIED SNOMED Code(s): 67224050 Comment: Diagnosis noted. Follow up with Dr. Geller and outpatient team for further management. (9) CKD (chronic kidney disease) stage 3, GFR 30-59 ml/min Current Visit: Yes Status: Acute Code(s): N18.3 - CHRONIC KIDNEY DISEASE, STAGE 3 (MODERATE) SNOMED Code(s): 028172107 Comment: The patient had LEÓN on admission likely secondary to cardiogenic shock. He now is close to his baseline creatinine. (10) Hypothyroidism Current Visit: Yes Status: Acute Code(s): E03.9 - HYPOTHYROIDISM, UNSPECIFIED SNOMED Code(s): 67698592 Comment: TSH in appropriate range on 12/28/16. Continue current dose of synthroid. (11) DVT prophylaxis Current Visit: Yes Status: Acute Onset Date: 12/30/14 Code(s): KGC4738 - SNOMED Code(s): 674483006 Comment: coumadin, therapuetic INR (12) Full code status Current Visit: Yes Status: Chronic Onset Date: 12/30/14 Code(s): Z78.9 - OTHER SPECIFIED HEALTH STATUS SNOMED Code(s): 090341308
[2017-01-03] MEDS: Warfarin TAB(*) 5 MG PO SCH ×2 (16:38→16:39)
[2017-01-03] MEDS: TRIAMCINOLONE PASTE 0.1% TOPICAL SCH ×2 (22:26)
[2017-01-04] MEDS: Omeprazole CAP* 20 MG PO SCH (05:39)
[2017-01-04] MEDS: Gabapentin CAP(*) 300 MG PO SCH ×4 (05:39→23:52)
[2017-01-04] MEDS: Levothyroxine TAB* 50 MCG TAB PO SCH (05:40)
[2017-01-04] MEDS ORDERED: Furosemide IV* 10 MG/ML 10 ML VIAL (100 MG) IV ONE (07:59)
[2017-01-04] MEDS ORDERED: KCL 20 MEQ/100 ML IVPREMIX* 20 MEQ/100 ML BAG IV SCH (08:00)
--- NOTE | 2017-01-04 08:12 | PN ---
Subjective Date of Service: 01/04/17 Interval History: Pt is feeling well. He states today when he flushed the peritoneal drain he noted particles in the fluid. He denies any abdominal pain. He states that his drain was changed about 2 weeks ago. He states he did not urinate as much as he thought he would after getting the IV lasix yesterday. Objective Active Medications: Acetaminophen (Tylenol Supp*) 650 mg ME Q6H PRN PRN Reason: FEVER/PAIN Albuterol (Ventolin 2.5 Mg/3 Ml Neb.Dede*) 2.5 mg INH .Q20M [facility] Allopurinol (Zyloprim Tab*) 300 mg PO DAILY [facility] Last Admin: 01/03/17 08:41 Dose: 300 mg Bisacodyl (Dulcolax Supp*) 10 mg ME DAILY [facility] Last Admin: 01/03/17 08:47 Dose: Not Given Carvedilol (Coreg Tab*) 3.125 mg PO BID [facility] Last Admin: 01/03/17 21:55 Dose: 3.125 mg Docusate Sodium (Colace Cap*) 100 mg PO BID PRN PRN Reason: CONSTIPATION Eplerenone (Inspra (Nf)) 25 mg PO BID [facility] Gabapentin (Neurontin Cap(*)) 300 mg PO 0000,0600,1200,1800 [facility] Last Admin: 01/04/17 05:39 Dose: 300 mg Gabapentin (Neurontin Cap(*)) 300 mg PO DAILY PRN PRN Reason: PAIN Potassium Chloride (Potassium Chloride 20 Meq/100 Ml Ivpremix*) 20 meq in 100 mls @ 50 mls/hr IV Q2H [facility] Stop: 01/04/17 11:59 Furosemide 100 mg/ Sodium (Chloride) 60 mls @ 120 mls/hr IV ONCE ONE Stop: 01/04/17 08:59 Levothyroxine Sodium (Synthroid Tab*) 50 mcg PO DAILY@0600 [facility] Last Admin: 01/04/17 05:40 Dose: 50 mcg Magnesium Oxide (Magox 400 Tab*) 400 mg PO BID [facility] Last Admin: 01/03/17 21:55 Dose: 400 mg Metolazone (Zaroxolyn Tab*) 5 mg PO BID [facility] Last Admin: 01/03/17 21:55 Dose: 5 mg Midodrine (Midodrine (Nf)) 15 mg PO TID [facility] PRN Reason: Protocol Last Admin: 01/03/17 21:56 Dose: 15 mg Neomycin/Polymyxin/Bacitracin (Neosporin Top Oint Tube*) 1 applic TOPICAL DAILY [facility] Last Admin: 01/03/17 08:47 Dose: 1 applic Pto: Gumb Numb Topical Anesthetic Gel [20% Benzocaine] 1 dose TOPICAL Q1H PRN PRN Reason: MOUTH PAIN Last Admin: 01/01/17 21:02 Dose: 1 dose Omeprazole (Prilosec Cap*) 20 mg PO DAILY@0600 [facility] Last Admin: 01/04/17 05:39 Dose: 20 mg Ondansetron HCl (Zofran Inj*) 4 mg IV Q6H PRN PRN Reason: NAUSEA Pharmacy Profile Note (Coumadin Daily Reminder*) 1 note FOLLOW UP 1700 [facility] Last Admin: 01/03/17 16:39 Dose: 1 note Potassium Chloride (Klor Con Er Tab*) 60 meq PO QID [facility] Torsemide (Demadex*) 140 mg PO TID [facility] Last Admin: 01/03/17 22:25 Dose: 140 mg Triamcinolone Acetonide (Triamcinolone 0.1% Paste *) 1 applic TOPICAL BEDTIME [facility] Last Admin: 01/03/17 22:26 Dose: Not Given Warfarin Sodium (Coumadin Tab(*)) 5 mg PO SUTUTHSA [facility] PRN Reason: Protocol Last Admin: 01/03/17 16:39 Dose: Not Given Warfarin Sodium (Coumadin Tab(*)) 10 mg PO MOWEFR [facility] PRN Reason: Protocol Vital Signs 01/03/17 01/03/17 01/03/17 13:21 16:13 16:38 Temperature 97.5 F Pulse Rate 74 Respiratory 18 18 18 Rate Blood Pressure 88/53 (mmHg) O2 Sat by Pulse 100 Oximetry 01/03/17 01/03/17 01/03/17 19:25 19:31 19:32 Temperature 97.6 F Pulse Rate 85 Respiratory 18 18 Rate Blood Pressure 83/52 (mmHg) O2 Sat by Pulse 100 Oximetry 01/03/17 01/03/17 01/04/17 20:40 23:14 01:03 Temperature 98.1 F Pulse Rate 63 Respiratory 16 20 Rate Blood Pressure 83/53 (mmHg) O2 Sat by Pulse 99 99 Oximetry 01/04/17 01/04/17 01/04/17 01:14 03:08 05:39 Temperature 97.7 F Pulse Rate 77 Respiratory 14 20 16 Rate Blood Pressure 85/50 (mmHg) O2 Sat by Pulse 94 Oximetry Oxygen Devices in Use Now: None Appearance: Middle aged male lying in bed with his feet raised, NAD Eyes: No Scleral Icterus Ears/Nose/Mouth/Throat: Mucous Membranes Moist Respiratory: Symmetrical Chest Expansion and Respiratory Effort, Clear to Auscultation Cardiovascular: NL Sounds; No Murmurs; No JVD, RRR, - - 1+ LE edema, skin is wrinkled slightly Abdominal: NL Sounds; No Tenderness; No Distention Extremities: No Clubbing, Cyanosis Skin: No Rash or Ulcers, No Nodules or Sclerosis Neurological: Alert and Oriented x 3 Result Diagrams: 01/03/17 07:09 01/03/17 16:00 Microbiology and Other Data: Microbiology 12/31/16 21:50 Gram Stain - Final Peritoneal Fluid Body Fluid Culture - Preliminary No Growth Day 1 01/01/17 05:05 Aerobic Blood Culture - Preliminary Blood Line No Growth Day 1 Anaerobic Blood Culture - Preliminary No Growth Day 1 01/01/17 04:50 Aerobic Blood Culture - Preliminary Blood Venous No Growth Day 1 Anaerobic Blood Culture - Preliminary No Growth Day 1 Assess/Plan/Problems-Billing Mr Ocampo is a 56 yo M with h/o CHF (sysrolic-chronic), amyloidosis, CKD, V. tach , ICD, A. fib on Coumadin ,admitted with cardiogenic shock due to hyperkalemia and bradycardia. - Patient Problems (1) Cardiogenic shock Current Visit: Yes Status: Acute Code(s): R57.0 - CARDIOGENIC SHOCK SNOMED Code(s): 69236863 Comment: [place] to be due to bradycardia secondary to marked hyperkalemia. Cardiogenic shock has resolved. He remains hypotensive though this is his baseline. (2) Hyperkalemia Current Visit: Yes Status: Acute Code(s): E87.5 - HYPERKALEMIA SNOMED Code (s): 32913910 Comment: Resolved-pt's K level remains low. Continue aggressive supplementation due to his aggressive diuretic therapy. (3) Chronic systolic CHF (congestive heart failure) Current Visit: Yes Status: Acute Code(s): I50.22 - CHRONIC SYSTOLIC ( CONGESTIVE) HEART FAILURE SNOMED Code(s): 732990324 Comment: Continue IV lasix today. His weight decreased slightly from yesterday. While trying to correct the hypokalemia will work on diuresing the patient further. Continue home doses of torsemide, metolazone and inspra. (4) Ascites Current Visit: Yes Status: Acute Code(s): R18.8 - OTHER ASCITES SNOMED Code(s): 285485980 Comment: Secondary to severe CHF. He continues to use a peritoneal drain daily. Fluid from admission grew enterococcus faecalis though he clinically does not appear to be infected. The patient states he had the drain changed about 2 weeks ago which makes me more concerned than if it was the original drain that was thought to be colonized. Will talk to Dr. Wetzel today. (5) Hyponatremia Current Visit: Yes Status: Acute Code(s): E87.1 - HYPO-OSMOLALITY AND HYPONATREMIA SNOMED Code(s): 39894049 Comment: Chronic and stable. Hyponatremia is secondary to his chronic CHF and diuretic usage. (6) Anemia Current Visit: Yes Status: Acute Code(s): D64.9 - ANEMIA, UNSPECIFIED SNOMED Code(s): 021071409 Comment: H/H is stable but slightly lower than his baseline. Stool guaiac negative. Follow up CBC tomorrow-he has bruising on the R side of his neck- perhaps this contributed some. (7) Afib Current Visit: Yes Status: Acute Code(s): I48.91 - UNSPECIFIED ATRIAL FIBRILLATION SNOMED Code(s): 49832079 Comment: INR remains therapeutic. Continue current dose of coumadin. HR is controlled on coreg 3.125mg BID. (8) Amyloidosis Current Visit: Yes Status: Acute Code(s): E85.9 - AMYLOIDOSIS, UNSPECIFIED SNOMED Code(s): 63375727 Comment: Diagnosis noted. Follow up with Dr. Geller and outpatient team for further management. (9) CKD (chronic kidney disease) stage 3, GFR 30-59 ml/min Current Visit: Yes Status: Acute Code(s): N18.3 - CHRONIC KIDNEY DISEASE, STAGE 3 (MODERATE) SNOMED Code(s): 861029815 Comment: The patient had LEÓN on admission likely secondary to cardiogenic shock. Follow up creatinine pending. (10) Hypothyroidism Current Visit: Yes Status: Acute Code(s): E03.9 - HYPOTHYROIDISM, UNSPECIFIED SNOMED Code(s): 22825663 Comment: TSH in appropriate range on 12/28/16. Continue current dose of synthroid. (11) DVT prophylaxis Current Visit: Yes Status: Acute Onset Date: 12/30/14 Code(s): EZB5405 - SNOMED Code(s): 624787232 Comment: coumadin, therapuetic INR (12) Full code status Current Visit: Yes Status: Chronic Onset Date: 12/30/14 Code(s): Z78.9 - OTHER SPECIFIED HEALTH STATUS SNOMED Code(s): 472348783
[2017-01-04] MEDS ORDERED: NS 0.9% IV ONE (08:30)
[2017-01-04] MEDS ORDERED: FUROSEMIDE IV ONE (08:30)
[2017-01-04] MEDS ORDERED: Warfarin TAB(*) 5 MG PO SCH (08:57)
[2017-01-04 09:12] LABS: BUN/Creatinine Ratio 31.5 (8-20); Calcium 8.4 mg/dL (8.6-10.3); EGFR African American 44.7 (>60); EGFR Non-African American 34.7 (>60); Magnesium 2.1 mg/dL (1.9-2.7); Potassium 3.2 mmol/L (3.5-5.0)
[2017-01-04] MEDS: Bisacodyl SUPP* 10 MG SUPP PR SCH (09:21)
[2017-01-04] MEDS: Allopurinol TAB* 300 MG PO SCH (09:21)
[2017-01-04] MEDS: Carvedilol TAB* 3.125 MG PO SCH ×2 (09:21→20:50)
[2017-01-04] MEDS: Metolazone TAB* 5 MG PO SCH ×2 (09:22→20:51)
[2017-01-04] MEDS: CMCS: Midodrine (NF) 5 MG TAB PO SCH ×3 (09:22→20:52)
[2017-01-04] MEDS: EPLERONONE 25 MG PO SCH ×2 (09:22→21:31)
[2017-01-04] MEDS: Magnesium Oxide TAB* 400 MG PO SCH ×2 (09:22→20:52)
[2017-01-04] MEDS: Potassium Chlor TAB* 20 MEQ TAB.ER PO SCH ×4 (09:24→20:50)
[2017-01-04] MEDS: Torsemide TAB* 20 MG PO SCH ×3 (09:24→21:31)
[2017-01-04] MEDS ORDERED: Furosemide IV* 10 MG/ML 10 ML VIAL (100 MG) ONE (10:07)
[2017-01-04] MEDS: Neomycin/Polym/Bacit TOP OINT* 15 GM TOPICAL SCH (10:26)
[2017-01-04] MEDS: Warfarin TAB(*) 5 MG PO SCH (18:07)
[2017-01-04] MEDS: TRIAMCINOLONE PASTE 0.1% TOPICAL SCH (21:34)
[2017-01-04 21:51] LABS: BF PH 6.3
[2017-01-05] MEDS: Levothyroxine TAB* 50 MCG TAB PO SCH (06:25)
[2017-01-05] MEDS: Omeprazole CAP* 20 MG PO SCH (06:25)
[2017-01-05] MEDS: Gabapentin CAP(*) 300 MG PO SCH ×4 (06:26→23:33)
[2017-01-05 08:30] LABS: Hematocrit 28 % (42-52); Hemoglobin 8.3 g/dl (14.0-18.0); Mean Corpuscular HGB Conc 30 g/dl (31-36); Mean Corpuscular Hemoglobin 24 pg (27-31); Mean Corpuscular Volume 81 fL (80-94); Mean Platelet Volume 7 um3 (7.4-10.4); Red Blood Count 3.43 10^6/ul (4.0-5.4); White Blood Count 8.8 10^3/ul (3.5-10.8)
[2017-01-05 08:33] LABS: Comments Flag Yes
[2017-01-05 08:34] LABS: Red Cell Distribution Width 23 % (10.5-15)
[2017-01-05 08:53] LABS: BUN/Creatinine Ratio 31.6 (8-20); Calcium 8.3 mg/dL (8.6-10.3); EGFR African American 45.7 (>60); EGFR Non-African American 35.6 (>60); Potassium 4.1 mmol/L (3.5-5.0)
[2017-01-05] MEDS: Allopurinol TAB* 300 MG PO SCH (09:27)
[2017-01-05] MEDS: Magnesium Oxide TAB* 400 MG PO SCH ×2 (09:27→21:23)
[2017-01-05] MEDS: Carvedilol TAB* 3.125 MG PO SCH (09:27)
[2017-01-05] MEDS: Metolazone TAB* 5 MG PO SCH ×2 (09:27→21:23)
[2017-01-05] MEDS: Potassium Chlor TAB* 20 MEQ TAB.ER PO SCH ×4 (09:27→21:22)
[2017-01-05] MEDS: Bisacodyl SUPP* 10 MG SUPP PR SCH (09:30)
[2017-01-05] MEDS: CMCS: Midodrine (NF) 5 MG TAB PO SCH ×3 (09:32→21:22)
[2017-01-05] MEDS: EPLERONONE 25 MG PO SCH ×2 (09:56→21:22)
[2017-01-05] MEDS: Torsemide TAB* 20 MG PO SCH ×3 (09:57→21:53)
--- NOTE | 2017-01-05 11:45 | PN ---
Subjective Date of Service: 01/05/17 Interval History: Pt is feeling ok. He thinks it is difficult to walk from his room to the shower room because of the swelling in his LE. He would like to increase the lasix IV to 120mg today. He is also confused how his potassium level can improve on his usual home dose of potassium despite continuing on the diuretic therapy. Objective Active Medications: Acetaminophen (Tylenol Supp*) 650 mg [place] Q6H PRN PRN Reason: FEVER/PAIN Albuterol (Ventolin 2.5 Mg/3 Ml Neb.Dede*) 2.5 mg INH .Q20M [facility] Allopurinol (Zyloprim Tab*) 300 mg PO DAILY [facility] Last Admin: 01/05/17 09:27 Dose: 300 mg Bisacodyl (Dulcolax Supp*) 10 mg [place] DAILY [facility] Last Admin: 01/05/17 09:30 Dose: Not Given Carvedilol (Coreg Tab*) 3.125 mg PO BID [facility] Last Admin: 01/05/17 09:27 Dose: 3.125 mg Docusate Sodium (Colace Cap*) 100 mg PO BID PRN PRN Reason: CONSTIPATION Eplerenone (Inspra (Nf)) 25 mg PO BID [facility] Last Admin: 01/05/17 09:56 Dose: 25 mg Furosemide (Lasix Iv*) 120 mg IV ONCE ONE Stop: 01/05/17 12:01 Gabapentin (Neurontin Cap(*)) 300 mg PO 0000,0600,1200,1800 [facility] Last Admin: 01/05/17 06:26 Dose: 300 mg Gabapentin (Neurontin Cap(*)) 300 mg PO DAILY PRN PRN Reason: PAIN Levothyroxine Sodium (Synthroid Tab*) 50 mcg PO DAILY@0600 [facility] Last Admin: 01/05/17 06:25 Dose: 50 mcg Magnesium Oxide (Magox 400 Tab*) 400 mg PO BID [facility] Last Admin: 01/05/17 09:27 Dose: 400 mg Metolazone (Zaroxolyn Tab*) 5 mg PO BID [facility] Last Admin: 01/05/17 09:27 Dose: 5 mg Midodrine (Midodrine (Nf)) 15 mg PO TID [facility] PRN Reason: Protocol Last Admin: 01/05/17 09:32 Dose: 15 mg Neomycin/Polymyxin/Bacitracin (Neosporin Top Oint Tube*) 1 applic TOPICAL DAILY [facility] Last Admin: 01/04/17 10:26 Dose: 1 applic Pto: Gumb Numb Topical Anesthetic Gel [20% Benzocaine] 1 dose TOPICAL Q1H PRN PRN Reason: MOUTH PAIN Last Admin: 01/01/17 21:02 Dose: 1 dose Omeprazole (Prilosec Cap*) 20 mg PO DAILY@0600 [facility] Last Admin: 01/05/17 06:25 Dose: 20 mg Ondansetron HCl (Zofran Inj*) 4 mg IV Q6H PRN PRN Reason: NAUSEA Pharmacy Profile Note (Coumadin Daily Reminder*) 1 note FOLLOW UP 1700 [facility] Last Admin: 01/04/17 18:10 Dose: 1 note Potassium Chloride (Klor Con Er Tab*) 60 meq PO QID [facility] Last Admin: 01/05/17 09:27 Dose: 60 meq Throat Lozenges (Chloraseptic Christine*) 1 christine PO Q4H PRN PRN Reason: SORE THROAT Torsemide (Demadex*) 140 mg PO TID [facility] Last Admin: 01/05/17 09:57 Dose: 140 mg Triamcinolone Acetonide (Triamcinolone 0.1% Paste *) 1 applic TOPICAL BEDTIME [facility] Last Admin: 01/04/17 21:34 Dose: Not Given Warfarin Sodium (Coumadin Tab(*)) 5 mg PO SuTuThSa@1700 [facility] PRN Reason: Protocol Warfarin Sodium (Coumadin Tab(*)) 10 mg PO MoWeFr@1700 [facility] PRN Reason: Protocol Last Admin: 01/04/17 18:07 Dose: 10 mg Vital Signs 01/04/17 01/04/17 01/04/17 12:35 14:35 15:07 Temperature 97.6 F Pulse Rate 73 Respiratory 18 20 14 Rate Blood Pressure 93/57 (mmHg) O2 Sat by Pulse 99 Oximetry 01/04/17 01/04/17 01/04/17 18:08 19:36 20:00 Temperature 98.4 F Pulse Rate 80 Respiratory 18 16 16 Rate Blood Pressure 88/42 (mmHg) O2 Sat by Pulse 100 Oximetry 01/04/17 01/04/17 01/04/17 20:08 23:31 23:52 Temperature 98.6 F Pulse Rate 75 Respiratory 16 20 16 Rate Blood Pressure 84/55 (mmHg) O2 Sat by Pulse 100 100 Oximetry 01/05/17 01/05/17 01/05/17 01:52 03:16 06:26 Temperature 98.9 F Pulse Rate 71 Respiratory 16 18 16 Rate Blood Pressure 81/52 (mmHg) O2 Sat by Pulse 100 Oximetry 01/05/17 01/05/17 01/05/17 07:10 07:29 08:26 Temperature 98.6 F Pulse Rate 72 Respiratory 14 16 16 Rate Blood Pressure 84/52 (mmHg) O2 Sat by Pulse 100 Oximetry Oxygen Devices in Use Now: None Appearance: Middle aged male sitting on the edge of the bed, NAD Eyes: No Scleral Icterus Ears/Nose/Mouth/Throat: Mucous Membranes Moist, - - slightly marbled appearance of posterior pharynx Respiratory: Symmetrical Chest Expansion and Respiratory Effort, Clear to Auscultation Cardiovascular: NL Sounds; No Murmurs; No JVD, RRR, - - 1+ LE edema Abdominal: NL Sounds; No Tenderness; No Distention Extremities: No Clubbing, Cyanosis Skin: No Rash or Ulcers, No Nodules or Sclerosis Neurological: Alert and Oriented x 3 Result Diagrams: 01/05/17 08:22 01/05/17 08:22 Microbiology and Other Data: Microbiology 12/31/16 21:50 Gram Stain - Final Peritoneal Fluid Body Fluid Culture - Preliminary No Growth Day 1 01/01/17 05:05 Aerobic Blood Culture - Preliminary Blood Line No Growth Day 1 Anaerobic Blood Culture - Preliminary No Growth Day 1 01/01/17 04:50 Aerobic Blood Culture - Preliminary Blood Venous No Growth Day 1 Anaerobic Blood Culture - Preliminary No Growth Day 1 Assess/Plan/Problems-Billing Mr Ocampo is a 56 yo M with h/o CHF (sysrolic-chronic), amyloidosis, CKD, V. tach , ICD, A. fib on Coumadin ,admitted with cardiogenic shock due to hyperkalemia and bradycardia. - Patient Problems (1) Cardiogenic shock Current Visit: Yes Status: Acute Code(s): R57.0 - CARDIOGENIC SHOCK SNOMED Code(s): 93685359 Comment: [place] to be due to bradycardia secondary to marked hyperkalemia. Cardiogenic shock has resolved. He remains hypotensive though this is his baseline. (2) Hyperkalemia Current Visit: Yes Status: Acute Code(s): E87.5 - HYPERKALEMIA SNOMED Code (s): 81201327 Comment: Hypokalemia has resolved. Continue to monitor in the setting of aggressive diuresis. (3) Chronic systolic CHF (congestive heart failure) Current Visit: Yes Status: Acute Code(s): I50.22 - CHRONIC SYSTOLIC ( CONGESTIVE) HEART FAILURE SNOMED Code(s): 697581768 Comment: Continue IV lasix today though increase to 120mg IV x1 as his weight is not dropping as fast as it has in the past. His weight today is again down however. Clinically the patient is doing well. He does not want to go home until his LE edema is completely gone and he is at his dry weight of 210lb. I tried to explain that it is not necessary to diurese him completely as he can continue to work on this as an outpatient and that while the LE edema is furstrating it is not life threatening. Will evaluate day by day to determine if he needs to stay in the hospital. Continue torsemide, metolazone and inspra. (4) Ascites Current Visit: Yes Status: Acute Code(s): R18.8 - OTHER ASCITES SNOMED Code(s): 974738027 Comment: Secondary to severe CHF and cirrhosis. He continues to use a peritoneal drain daily. Fluid from admission grew enterococcus faecalis though he clinically does not appear to be infected. Dr. Wetzel will consult today. No signs that he is actually infected at this time. (5) Hyponatremia Current Visit: Yes Status: Acute Code(s): E87.1 - HYPO-OSMOLALITY AND HYPONATREMIA SNOMED Code(s): 00316660 Comment: Chronic and stable. Hyponatremia is secondary to his chronic CHF and diuretic usage. (6) Anemia Current Visit: Yes Status: Acute Code(s): D64.9 - ANEMIA, UNSPECIFIED SNOMED Code(s): 910216205 Comment: H/H is stable. (7) Afib Current Visit: Yes Status: Acute Code(s): I48.91 - UNSPECIFIED ATRIAL FIBRILLATION SNOMED Code(s): 22879231 Comment: INR remains therapeutic. Continue current dose of coumadin. HR is controlled on coreg 3.125mg BID. (8) Amyloidosis Current Visit: Yes Status: Acute Code(s): E85.9 - AMYLOIDOSIS, UNSPECIFIED SNOMED Code(s): 32442607 Comment: Diagnosis noted. Follow up with Dr. Geller and outpatient team for further management. (9) CKD (chronic kidney disease) stage 3, GFR 30-59 ml/min Current Visit: Yes Status: Acute Code(s): N18.3 - CHRONIC KIDNEY DISEASE, STAGE 3 (MODERATE) SNOMED Code(s): 507631685 Comment: Creatinine is actually improving in the face of IV diuresis in addition to his usual oral regimen. (10) Hypothyroidism Current Visit: Yes Status: Acute Code(s): E03.9 - HYPOTHYROIDISM, UNSPECIFIED SNOMED Code(s): 53652238 Comment: TSH in appropriate range on 12/28/16. Continue current dose of synthroid. (11) DVT prophylaxis Current Visit: Yes Status: Acute Onset Date: 12/30/14 Code(s): IKY3272 - SNOMED Code(s): 174055613 Comment: coumadin, therapuetic INR (12) Full code status Current Visit: Yes Status: Chronic Onset Date: 12/30/14 Code(s): Z78.9 - OTHER SPECIFIED HEALTH STATUS SNOMED Code(s): 391500326
[2017-01-05] MEDS ORDERED: Furosemide IV* 10 MG/ML 10 ML VIAL (100 MG) IV ONE (12:00)
[2017-01-05] MEDS: Neomycin/Polym/Bacit TOP OINT* 15 GM TOPICAL SCH (12:13)
[2017-01-05] MEDS: Benzocaine/Menthol LOZ* 1 LOZENGE PO PRN (14:20)
[2017-01-05] MEDS ORDERED: Vancomycin(*) 500 MG VIAL ONE (16:00)
[2017-01-05] MEDS: Warfarin TAB(*) 5 MG PO SCH (17:26)
[2017-01-05] MEDS: TRIAMCINOLONE PASTE 0.1% TOPICAL SCH (21:26)
--- NOTE | 2017-01-05 22:06 | CONS ---
CONSULTATION REPORT: DATE OF CONSULTATION: 01/05/17 REQUESTING PHYSICIAN: Dr. Pritchett. CONSULTING SERVICE: Infectious Disease. REASON FOR CONSULTATION: Positive ascites fluid culture. IMPRESSION: 1. Enterococcus faecalis growing from peritoneal drain which he uses to drain his chronic ascites. It had a tunnel infection with Enterococcus faecalis in October, then it was replaced after treatment. He has had some pain and particulate in the fluid when he flushes it, and a small amount of purulent drainage around the tube. We will plan to treat as a catheter infection. I do not think he has peritonitis. 2. Chronic ascites due to passive congestion of the liver due to heart failure. 3. Amyloidosis, cardiac. 4. Status post ICD placement. 5. Factor X deficiency. 6. Chronic kidney disease. RECOMMENDATIONS: Vancomycin to dwell in the catheter overnight. I will follow his symptoms around the catheter. HISTORY OF PRESENT ILLNESS: This is a 56-year-old man with chronic ascites, admitted with hyperkalemia and shock felt to be cardiogenic. He had an ICU stay requiring pressors, had correction of his hyperkalemia, and he is back to baseline. Incidentally, he had a culture taken from his catheter on the that showed no organisms on a Gram stain and the culture grew Enterococcus faecalis. There are 500 white cells in the fluid, 50% monocytes, 20% neutrophils. He has had no abdominal pain. He has had a scant amount of drainage around the catheter entrance site. Occasional cloudy material in the fluid that drains out. He has had no fevers or chills. PAST MEDICAL HISTORY: 1. Cardiac amyloid with nonischemic cardiomyopathy. 2. Passive congestion of the liver and chronic ascites. 3. Atrial fibrillation. 4. Factor X deficiency. 5. History of cardiac arrest. 6. Status post ICD placement. 7. Gout. 8. Hyponatremia. 9. Chronic kidney disease stage 3. 10. Peripheral neuropathy. 11. Gastroesophageal reflux disease. 12. Chronic right lower quadrant peritoneal drain. ALLERGIES: 1. ALDACTONE. 2. OXYCODONE. MEDICATIONS: 1. Tylenol. 2. Albuterol. 3. Benzocaine. 4. Coreg. 5. Docusate. 6. Eplerenone. 7. Lasix IV. 8. Gabapentin. 9. Levothyroxine. 10. Metolazone. 11. Omeprazole. 12. Warfarin. SOCIAL HISTORY: Lives outside [place]. No sick contacts. He has been in the hospital over the last week. FAMILY HISTORY: No recurrent infections. His mother had colon cancer. His father of old age. REVIEW OF SYSTEMS: All negative through 12-point review of systems except as noted above. PHYSICAL EXAM: Vital Signs: Temperature is 37, heart rate 70, respiratory rate 16, blood pressure 90/50, O2 sat 100% on room air. In general, he is awake in no distress. Neurologically, he is oriented x3. Follows all commands. HEENT: There is no conjunctival hemorrhage. Oropharynx without lesions. Neck is supple without nuchal rigidity. Lymph Nodes: There is no cervical, supraclavicular, inguinal, axillary, or epitrochlear lymphadenopathy. Heart has regular rate and rhythm without murmurs, rubs, or gallops. Lungs are clear to auscultation bilaterally. Abdomen is obese. There is a shifting wave. His umbilicus is protuberant. It is nontender. There are bowel sounds present. There is a right lower quadrant drain site without surrounding erythema. Skin: There is no rash or splinter hemorrhages. Musculoskeletal: No spine tenderness to palpation or joint synovitis. LABORATORY DATA: White blood cell count 8, hemoglobin 8, platelets 222, creatinine is 1.9. Please see impressions and recommendations outlined above, which I have discussed with Dr. Pritchett. Thanks for asking me to see Mr. Ocampo in consultation. [id number]/[facility] #: [id number] MTDD
[2017-01-06] MEDS: Carvedilol TAB* 3.125 MG PO SCH ×3 (01:43→21:17)
[2017-01-06] MEDS: Benzocaine/Menthol LOZ* 1 LOZENGE PO PRN ×2 (02:56→08:24)
[2017-01-06] MEDS: Omeprazole CAP* 20 MG PO SCH (05:28)
[2017-01-06] MEDS: Gabapentin CAP(*) 300 MG PO SCH ×4 (05:28→23:31)
[2017-01-06] MEDS: Levothyroxine TAB* 50 MCG TAB PO SCH (05:29)
[2017-01-06 07:34] LABS: BUN/Creatinine Ratio 31.4 (8-20); Calcium 8.2 mg/dL (8.6-10.3); EGFR Non-African American 37.3 (>60); Magnesium 2.1 mg/dL (1.9-2.7); Potassium 3.3 mmol/L (3.5-5.0)
[2017-01-06] MEDS: Potassium Chlor TAB* 20 MEQ TAB.ER PO SCH ×4 (08:14→21:25)
[2017-01-06] MEDS: Allopurinol TAB* 300 MG PO SCH (08:15)
[2017-01-06] MEDS: Magnesium Oxide TAB* 400 MG PO SCH ×2 (08:15→21:18)
[2017-01-06] MEDS: Metolazone TAB* 5 MG PO SCH ×2 (08:15→21:18)
[2017-01-06] MEDS: Bisacodyl SUPP* 10 MG SUPP PR SCH (08:15)
[2017-01-06] MEDS: CMCS: Midodrine (NF) 5 MG TAB PO SCH ×3 (08:15→21:17)
[2017-01-06] MEDS: Neomycin/Polym/Bacit TOP OINT* 15 GM TOPICAL SCH (08:15)
[2017-01-06] MEDS ORDERED: Potassium Chlor TAB* 20 MEQ TAB.ER PO ONE (08:43)
[2017-01-06] MEDS: Torsemide TAB* 20 MG PO SCH ×3 (09:45→21:19)
[2017-01-06] MEDS: EPLERONONE 25 MG PO SCH ×2 (09:46→21:17)
--- NOTE | 2017-01-06 09:56 | PN ---
Subjective Date of Service: 01/06/17 Interval History: Pt is feeling well. He states the SCDs have helped with his LE edema. He denies any SOB. He wants his potassium to be stable prior to going home. Objective Active Medications: Acetaminophen (Tylenol Supp*) 650 mg IL Q6H PRN PRN Reason: FEVER/PAIN Albuterol (Ventolin 2.5 Mg/3 Ml Neb.Dede*) 2.5 mg INH .Q20M [facility] Allopurinol (Zyloprim Tab*) 300 mg PO DAILY [facility] Last Admin: 01/06/17 08:15 Dose: 300 mg Bisacodyl (Dulcolax Supp*) 10 mg [place] DAILY [facility] Last Admin: 01/06/17 08:15 Dose: Not Given Carvedilol (Coreg Tab*) 3.125 mg PO BID [facility] Last Admin: 01/06/17 08:14 Dose: 3.125 mg Docusate Sodium (Colace Cap*) 100 mg PO BID PRN PRN Reason: CONSTIPATION Eplerenone (Inspra (Nf)) 25 mg PO BID [facility] Last Admin: 01/05/17 21:22 Dose: 25 mg Gabapentin (Neurontin Cap(*)) 300 mg PO 0000,0600,1200,1800 [facility] Last Admin: 01/06/17 05:28 Dose: 300 mg Gabapentin (Neurontin Cap(*)) 300 mg PO DAILY PRN PRN Reason: PAIN Levothyroxine Sodium (Synthroid Tab*) 50 mcg PO DAILY@0600 [facility] Last Admin: 01/06/17 05:29 Dose: 50 mcg Magnesium Oxide (Magox 400 Tab*) 400 mg PO BID [facility] Last Admin: 01/06/17 08:15 Dose: 400 mg Metolazone (Zaroxolyn Tab*) 5 mg PO BID [facility] Last Admin: 01/06/17 08:15 Dose: 5 mg Midodrine (Midodrine (Nf)) 15 mg PO TID [facility] PRN Reason: Protocol Last Admin: 01/06/17 08:15 Dose: 15 mg Neomycin/Polymyxin/Bacitracin (Neosporin Top Oint Tube*) 1 applic TOPICAL DAILY [facility] Last Admin: 01/05/17 12:13 Dose: 1 applic Pto: Gumb Numb Topical Anesthetic Gel [20% Benzocaine] 1 dose TOPICAL Q1H PRN PRN Reason: MOUTH PAIN Last Admin: 01/01/17 21:02 Dose: 1 dose Omeprazole (Prilosec Cap*) 20 mg PO DAILY@0600 [facility] Last Admin: 01/06/17 05:28 Dose: 20 mg Ondansetron HCl (Zofran Inj*) 4 mg IV Q6H PRN PRN Reason: NAUSEA Pharmacy Profile Note (Coumadin Daily Reminder*) 1 note FOLLOW UP 1700 [facility] Last Admin: 01/05/17 17:27 Dose: 1 note Potassium Chloride (Klor Con Er Tab*) 60 meq PO QID [facility] Last Admin: 01/06/17 08:14 Dose: 60 meq Throat Lozenges (Chloraseptic [place]*) 1 christine PO Q4H PRN PRN Reason: SORE THROAT Last Admin: 01/06/17 08:24 Dose: 1 christine Torsemide (Demadex*) 140 mg PO TID [facility] Last Admin: 01/05/17 21:53 Dose: 140 mg Triamcinolone Acetonide (Triamcinolone 0.1% Paste *) 1 applic TOPICAL BEDTIME [facility] Last Admin: 01/05/17 21:26 Dose: 1 applic Warfarin Sodium (Coumadin Tab(*)) 5 mg PO SuTuThSa@1700 [facility] PRN Reason: Protocol Last Admin: 01/05/17 17:26 Dose: 5 mg Warfarin Sodium (Coumadin Tab(*)) 10 mg PO MoWeFr@1700 [facility] PRN Reason: Protocol Last Admin: 01/04/17 18:07 Dose: 10 mg Vital Signs 01/05/17 01/05/17 01/05/17 12:11 14:11 15:49 Temperature 98.6 F Pulse Rate 73 Respiratory 16 15 Rate Blood Pressure 83/58 (mmHg) O2 Sat by Pulse 100 Oximetry 01/05/17 01/05/17 01/05/17 17:27 19:27 19:40 Temperature 97.8 F Pulse Rate 74 Respiratory 15 20 20 Rate Blood Pressure 81/58 (mmHg) O2 Sat by Pulse 100 Oximetry 01/05/17 01/05/17 01/05/17 20:00 23:33 23:47 Temperature 97.4 F Pulse Rate 46 Respiratory 18 18 Rate Blood Pressure 90/47 (mmHg) O2 Sat by Pulse 100 Oximetry 01/06/17 01/06/17 01/06/17 01:33 05:28 07:19 Temperature 98.0 F Pulse Rate 76 Respiratory 18 18 16 Rate Blood Pressure 119/55 (mmHg) O2 Sat by Pulse 100 Oximetry 01/06/17 07:28 Temperature Pulse Rate Respiratory 16 Rate Blood Pressure (mmHg) O2 Sat by Pulse Oximetry Oxygen Devices in Use Now: None Appearance: Middle aged male sitting up in bed, NAD Eyes: No Scleral Icterus Ears/Nose/Mouth/Throat: Mucous Membranes Moist Respiratory: Symmetrical Chest Expansion and Respiratory Effort, Clear to Auscultation Cardiovascular: NL Sounds; No Murmurs; No JVD, RRR, - - 1+ LE edema Abdominal: NL Sounds; No Tenderness; No Distention Extremities: No Clubbing, Cyanosis Skin: No Rash or Ulcers, No Nodules or Sclerosis Neurological: Alert and Oriented x 3 Result Diagrams: 01/05/17 08:22 01/06/17 06:17 Microbiology and Other Data: Microbiology 12/31/16 21:50 Gram Stain - Final Peritoneal Fluid Body Fluid Culture - Preliminary No Growth Day 1 01/01/17 05:05 Aerobic Blood Culture - Preliminary Blood Line No Growth Day 1 Anaerobic Blood Culture - Preliminary No Growth Day 1 01/01/17 04:50 Aerobic Blood Culture - Preliminary Blood Venous No Growth Day 1 Anaerobic Blood Culture - Preliminary No Growth Day 1 Assess/Plan/Problems-Billing Mr Ocampo is a 56 yo M with h/o CHF (sysrolic-chronic), amyloidosis, CKD, V. tach , ICD, A. fib on Coumadin ,admitted with cardiogenic shock due to hyperkalemia and bradycardia. - Patient Problems (1) Cardiogenic shock Current Visit: Yes Status: Acute Code(s): R57.0 - CARDIOGENIC SHOCK SNOMED Code(s): 24628360 Comment: [place] to be due to bradycardia secondary to marked hyperkalemia. Cardiogenic shock has resolved. He remains hypotensive though this is his baseline. (2) Hyperkalemia Current Visit: Yes Status: Acute Code(s): E87.5 - HYPERKALEMIA SNOMED Code (s): 94055238 Comment: Pt is hypokalemic again. Continue to replace and monitor in the setting of aggressive diuresis. (3) Chronic systolic CHF (congestive heart failure) Current Visit: Yes Status: Acute Code(s): I50.22 - CHRONIC SYSTOLIC ( CONGESTIVE) HEART FAILURE SNOMED Code(s): 607049676 Comment: Give IV lasix 120mg IV today. Continue inspra, metolazone and torsemide. Possibly home tomorrow. (4) Ascites Current Visit: Yes Status: Acute Code(s): R18.8 - OTHER ASCITES SNOMED Code(s): 762750663 Comment: Secondary to severe CHF and cirrhosis. He continues to use a peritoneal drain daily. Fluid from admission grew enterococcus faecalis. No peritonitis, ? catheter infection. Dr. Wetzel had vancomycin instilled into the drain last night. Await further recommendations. (5) Hyponatremia Current Visit: Yes Status: Acute Code(s): E87.1 - HYPO-OSMOLALITY AND HYPONATREMIA SNOMED Code(s): 42488999 Comment: Chronic and stable. Hyponatremia is secondary to his chronic CHF and diuretic usage. (6) Anemia Current Visit: Yes Status: Acute Code(s): D64.9 - ANEMIA, UNSPECIFIED SNOMED Code(s): 955223885 Comment: H/H is stable. (7) Afib Current Visit: Yes Status: Acute Code(s): I48.91 - UNSPECIFIED ATRIAL FIBRILLATION SNOMED Code(s): 76598645 Comment: INR remains therapeutic. Continue current dose of coumadin. HR is controlled on coreg 3.125mg BID. (8) Amyloidosis Current Visit: Yes Status: Acute Code(s): E85.9 - AMYLOIDOSIS, UNSPECIFIED SNOMED Code(s): 64198730 Comment: Diagnosis noted. Follow up with Dr. Geller and outpatient team for further management. (9) CKD (chronic kidney disease) stage 3, GFR 30-59 ml/min Current Visit: Yes Status: Acute Code(s): N18.3 - CHRONIC KIDNEY DISEASE, STAGE 3 (MODERATE) SNOMED Code(s): 625582380 Comment: Creatinine is actually improving in the face of IV diuresis in addition to his usual oral regimen. (10) Hypothyroidism Current Visit: Yes Status: Acute Code(s): E03.9 - HYPOTHYROIDISM, UNSPECIFIED SNOMED Code(s): 54590101 Comment: TSH in appropriate range on 12/28/16. Continue current dose of synthroid. (11) DVT prophylaxis Current Visit: Yes Status: Acute Onset Date: 12/30/14 Code(s): HJI3712 - SNOMED Code(s): 367405367 Comment: coumadin, therapuetic INR (12) Full code status Current Visit: Yes Status: Chronic Onset Date: 12/30/14 Code(s): Z78.9 - OTHER SPECIFIED HEALTH STATUS SNOMED Code(s): 842984535
[2017-01-06] MEDS ORDERED: Furosemide IV* 10 MG/ML 10 ML VIAL (100 MG) IV ONE (12:00)
[2017-01-06] MEDS ORDERED: Furosemide IV* 10 MG/ML 2 ML VIAL (20 MG) IV ONE (12:00)
[2017-01-06] MEDS: Warfarin TAB(*) 5 MG PO SCH (17:21)
[2017-01-06] MEDS: TRIAMCINOLONE PASTE 0.1% TOPICAL SCH (21:26)
[2017-01-06] MEDS: Gabapentin CAP(*) 300 MG PO PRN (23:31)
[2017-01-07] MEDS: Benzocaine/Menthol LOZ* 1 LOZENGE PO PRN (00:30)
[2017-01-07] MEDS: Omeprazole CAP* 20 MG PO SCH (05:48)
[2017-01-07] MEDS: Levothyroxine TAB* 50 MCG TAB PO SCH (05:49)
[2017-01-07] MEDS: Gabapentin CAP(*) 300 MG PO SCH ×4 (05:51→23:53)
[2017-01-07 06:20] LABS: Hematocrit 29 % (42-52); Hemoglobin 8.5 g/dl (14.0-18.0); Mean Corpuscular HGB Conc 30 g/dl (31-36); Mean Corpuscular Hemoglobin 24 pg (27-31); Mean Corpuscular Volume 82 fL (80-94); Mean Platelet Volume 8 um3 (7.4-10.4); Red Blood Count 3.49 10^6/ul (4.0-5.4); White Blood Count 9.3 10^3/ul (3.5-10.8)
[2017-01-07 06:24] LABS: Comments Flag Yes; Red Cell Distribution Width 23 % (10.5-15)
[2017-01-07 06:41] LABS: BUN/Creatinine Ratio 33.7 (8-20); Calcium 8.1 mg/dL (8.6-10.3); EGFR African American 51.1 (>60); EGFR Non-African American 39.7 (>60); Potassium 3.9 mmol/L (3.5-5.0)
[2017-01-07] MEDS: Bisacodyl SUPP* 10 MG SUPP PR SCH (08:35)
[2017-01-07] MEDS: Metolazone TAB* 5 MG PO SCH ×2 (08:38→21:10)
[2017-01-07] MEDS: Magnesium Oxide TAB* 400 MG PO SCH ×2 (08:38→21:10)
[2017-01-07] MEDS: EPLERONONE 25 MG PO SCH ×2 (08:39→21:08)
[2017-01-07] MEDS: Potassium Chlor TAB* 20 MEQ TAB.ER PO SCH ×4 (08:39→21:15)
[2017-01-07] MEDS: Carvedilol TAB* 3.125 MG PO SCH ×2 (08:39→21:08)
[2017-01-07] MEDS: Allopurinol TAB* 300 MG PO SCH (08:39)
[2017-01-07] MEDS: CMCS: Midodrine (NF) 5 MG TAB PO SCH ×3 (08:40→21:07)
[2017-01-07] MEDS: Neomycin/Polym/Bacit TOP OINT* 15 GM TOPICAL SCH (08:42)
[2017-01-07] MEDS: Torsemide TAB* 20 MG PO SCH ×3 (09:58→21:16)
[2017-01-07] MEDS ORDERED: Furosemide IV* 10 MG/ML 2 ML VIAL (20 MG) IV SLOW PU ONE (12:00)
--- NOTE | 2017-01-07 12:49 | PN ---
Subjective Date of Service: 01/07/17 Interval History: HOSPITALIST PROGRESS NOTE Patient seen and examined at bedside. He feels better today. States his LE edema is much improved with elevation and SCDs. Dyspnea is still present, but close to his baseline. He's puzzled with the fact he's taking all his medications, respecting the fluid balance, but he lost less than 1 pound over the last 24h. Family History: Unchanged from Admission Social History: Unchanged from Admission Past Medical History: Unchanged from Admission Objective Active Medications: Acetaminophen (Tylenol Supp*) [address] Q6H PRN PRN Reason: FEVER/PAIN Albuterol (Ventolin 2.5 Mg/3 Ml Neb.Dede*) 2.5 mg INH .Q20M [facility] Allopurinol (Zyloprim Tab*) 300 mg PO DAILY [facility] Last Admin: 01/07/17 08:39 Dose: 300 mg Bisacodyl (Dulcolax Supp*) [address] DAILY [facility] Last Admin: 01/07/17 08:35 Dose: Not Given Carvedilol (Coreg Tab*) 3.125 mg PO BID [facility] Last Admin: 01/07/17 08:39 Dose: 3.125 mg Docusate Sodium (Colace Cap*) 100 mg PO BID PRN PRN Reason: CONSTIPATION Eplerenone (Inspra (Nf)) 25 mg PO BID [facility] Last Admin: 01/07/17 08:39 Dose: 25 mg Gabapentin (Neurontin Cap(*)) 300 mg PO 0000,0600,1200,1800 [facility] Last Admin: 01/07/17 05:51 Dose: 300 mg Gabapentin (Neurontin Cap(*)) 300 mg PO DAILY PRN PRN Reason: PAIN Last Admin: 01/06/17 23:31 Dose: 300 mg Levothyroxine Sodium (Synthroid Tab*) 50 mcg PO DAILY@0600 [facility] Last Admin: 01/07/17 05:49 Dose: 50 mcg Magnesium Oxide (Magox 400 Tab*) 400 mg PO BID [facility] Last Admin: 01/07/17 08:38 Dose: 400 mg Metolazone (Zaroxolyn Tab*) 5 mg PO BID [facility] Last Admin: 01/07/17 08:38 Dose: 5 mg Midodrine (Midodrine (Nf)) 15 mg PO TID [facility] PRN Reason: Protocol Last Admin: 01/07/17 08:40 Dose: 15 mg Neomycin/Polymyxin/Bacitracin (Neosporin Top Oint Tube*) 1 applic TOPICAL DAILY [facility] Last Admin: 01/07/17 08:42 Dose: 1 applic Pto: Gumb Numb Topical Anesthetic Gel [20% Benzocaine] 1 dose TOPICAL Q1H PRN PRN Reason: MOUTH PAIN Last Admin: 01/01/17 21:02 Dose: 1 dose Omeprazole (Prilosec Cap*) 20 mg PO DAILY@0600 [facility] Last Admin: 01/07/17 05:48 Dose: 20 mg Ondansetron HCl (Zofran Inj*) 4 mg IV Q6H PRN PRN Reason: NAUSEA Pharmacy Profile Note (Coumadin Daily Reminder*) 1 note FOLLOW UP 1700 [facility] Last Admin: 01/06/17 17:21 Dose: 1 note Phenol/Menthol (Chloroseptic Throat [place]*) 1 spray MT TID PRN PRN Reason: SORE THROAT Potassium Chloride (Klor Con Er Tab*) 60 meq PO QID [facility] Last Admin: 01/07/17 08:39 Dose: 60 meq Throat Lozenges (Chloraseptic [place]*) 1 noah PO Q4H PRN PRN Reason: SORE THROAT Last Admin: 01/07/17 00:30 Dose: 1 noah Torsemide (Demadex*) 140 mg PO TID [facility] Last Admin: 01/07/17 09:58 Dose: 140 mg Triamcinolone Acetonide (Triamcinolone 0.1% Paste *) 1 applic TOPICAL BEDTIME [facility] Last Admin: 01/06/17 21:26 Dose: 1 applic Warfarin Sodium (Coumadin Tab(*)) 5 mg PO SuTuThSa@1700 [facility] PRN Reason: Protocol Last Admin: 01/05/17 17:26 Dose: 5 mg Warfarin Sodium (Coumadin Tab(*)) 10 mg PO MoWeFr@1700 [facility] PRN Reason: Protocol Last Admin: 01/06/17 17:21 Dose: 10 mg Vital Signs 01/07/17 01/07/17 07:51 08:15 Temperature 97.8 F Pulse Rate 71 Respiratory 18 16 Rate Blood Pressure 84/57 (mmHg) O2 Sat by Pulse 100 Oximetry Oxygen Devices in Use Now: None Appearance: Middle aged male lying in bed in [facility], with LE elevated. Eyes: No Scleral Icterus Ears/Nose/Mouth/Throat: Mucous Membranes Moist Neck: Trachea Midline Respiratory: Symmetrical Chest Expansion and Respiratory Effort, Clear to Auscultation, - Cardiovascular: RRR - Normal S1 and S2 Abdominal: - - Soft, NT, ND, BS+, umbilical hernia. RLQ catheter site is clean with chronic skin changes, but no erythema or drainage Extremities: No Edema Neurological: Alert and Oriented x 3, NL Muscle Strength and Tone Lines/Tubes/Other Access: Clean, Dry and Intact Peripheral IV Nutrition: Taking PO's Result Diagrams: 01/07/17 05:40 01/07/17 05:40 Assess/Plan/Problems-Billing Mr Ocampo is a 56 yo M with h/o CHF (systolic-chronic), amyloidosis, CKD, V. tach , ICD, A. fib on Coumadin ,admitted with cardiogenic shock due to hyperkalemia and bradycardia. - Patient Problems (1) Cardiogenic shock Comment: - Resolved. - [place] to be due to bradycardia secondary to marked hyperkalemia. - Remains hypotensive though this is his baseline. (2) Hyperkalemia Comment: - Potassium is normal. - Continue supplementation. (3) Chronic systolic CHF (congestive heart failure) Comment: - End stage CHF. - Give IV lasix 120mg IV today. Continue inspra, metolazone and torsemide. (4) Ascites Comment: - Secondary to severe CHF and cirrhosis. - He continues to use a peritoneal drain daily. Fluid from admission grew enterococcus faecalis, but no signs of peritonitis. - D/w Dr. Wetzel - patient has no signs of infection at this time. He does not recommend further antibiotics at this point. (5) Hyponatremia Comment: - Chronic and stable. - Secondary to his chronic CHF and diuretic usage. (6) Afib Comment: - INR remains therapeutic. Continue current dose of coumadin. HR is controlled on coreg 3.125mg BID. (7) Amyloidosis Comment: - He plans to follow up with Dr. Duyen RUDOLPH to arrange outpatient visit to [facility]. (8) CKD (chronic kidney disease) stage 3, GFR 30-59 ml/min Comment: - Creatinine is stable. (9) DVT prophylaxis Comment: - Warfarin. (10) Full code status (11) Counseling regarding end of life decision making Comment: - I had a long and syd conversation with patient at bedside. He is medically stable for discharge at this time, but overall has a very poor prognosis. He has been admitted almost every month despite being on a hefty outpatient diuretic regimen, including IV Furosemide 3x/week. He describes compliance with home meds and diet, but keeps returning with fluid overload, and this time, with worsening renal function, hyperkalemia, and cardiogenic shock. He has end stage CHF, but his strong denial is a barrier. He strongly believes he'll receive a heart transplant and is not willing to entertain other alternatives as Hospice at this time. He's willing to talk with Palliative care , but he's very clear he's not in a palliative mindset and his goal is transplant. I called his ballistician (Dr. Thomas) and he agrees this patient's best option is Hospice. He would not have any other therapies to offer. Patient is stable for discharge today, but at a very high risk for readmission and , not matter what his care team does. He refuses to leave today, because he wants to be sure his potassium is normal tomorrow and he wants to lose more weight, although he appears to be euvolemic at this time and his treatment, including Furosemide IV and blood draws can be done as outpatient. He will appeal his discharge today. Arrangements will be made so he can continue his Furosemide infusion on // with close monitoring of his renal function and electrolytes by Dr. Thomas. Status and Disposition: Inpatient.
[2017-01-07] MEDS: Phenol 1.4% Spray* 177 ML BTL MT PRN ×2 (13:48→20:14)
[2017-01-07] MEDS: Warfarin TAB(*) 5 MG PO SCH (18:28)
[2017-01-07] MEDS: TRIAMCINOLONE PASTE 0.1% TOPICAL SCH (21:18)
[2017-01-08] MEDS: Omeprazole CAP* 20 MG PO SCH (05:39)
[2017-01-08] MEDS: Gabapentin CAP(*) 300 MG PO SCH ×4 (05:40→23:49)
[2017-01-08] MEDS: Levothyroxine TAB* 50 MCG TAB PO SCH (05:41)
[2017-01-08 07:38] LABS: Calcium 8.2 mg/dL (8.6-10.3); EGFR African American 45.5 (>60); EGFR Non-African American 35.3 (>60); Potassium 4.8 mmol/L (3.5-5.0)
[2017-01-08] MEDS: Phenol 1.4% Spray* 177 ML BTL MT PRN (08:45)
[2017-01-08] MEDS: Bisacodyl SUPP* 10 MG SUPP PR SCH ×2 (08:46→20:06)
[2017-01-08] MEDS: CMCS: Midodrine (NF) 5 MG TAB PO SCH ×3 (08:46→21:43)
[2017-01-08] MEDS: EPLERONONE 25 MG PO SCH ×2 (08:46→22:21)
[2017-01-08] MEDS: Carvedilol TAB* 3.125 MG PO SCH ×2 (08:47→21:41)
[2017-01-08] MEDS: Torsemide TAB* 20 MG PO SCH ×5 (08:47→22:22)
[2017-01-08] MEDS: Magnesium Oxide TAB* 400 MG PO SCH ×2 (08:48→21:43)
[2017-01-08] MEDS: Neomycin/Polym/Bacit TOP OINT* 15 GM TOPICAL SCH (08:48)
[2017-01-08] MEDS: Metolazone TAB* 5 MG PO SCH ×2 (08:48→21:41)
[2017-01-08] MEDS: Allopurinol TAB* 300 MG PO SCH (08:48)
[2017-01-08] MEDS: Potassium Chlor TAB* 20 MEQ TAB.ER PO SCH ×2 (08:49→12:27)
[2017-01-08] MEDS ORDERED: Furosemide IV* 10 MG/ML 2 ML VIAL (20 MG) IV ONE (09:00)
[2017-01-08] MEDS ORDERED: Furosemide IV* 10 MG/ML 10 ML VIAL (100 MG) IV ONE (12:00)
--- NOTE | 2017-01-08 15:47 | PN ---
Subjective Date of Service: 01/08/17 Interval History: HOSPITALIST PROGRESS NOTE Patient seen and examined at bedside. He offers no new complaints today, had a good night of sleep. Family History: Unchanged from Admission Social History: Unchanged from Admission Past Medical History: Unchanged from Admission Objective Active Medications: Acetaminophen (Tylenol Supp*) 650 mg IL Q6H PRN PRN Reason: FEVER/PAIN Albuterol (Ventolin 2.5 Mg/3 Ml Neb.Dede*) 2.5 mg INH .Q20M [facility] Allopurinol (Zyloprim Tab*) 300 mg PO DAILY [facility] Last Admin: 01/08/17 08:48 Dose: 300 mg Bisacodyl (Dulcolax Supp*) 10 mg [place] DAILY [facility] Last Admin: 01/08/17 08:46 Dose: Not Given Carvedilol (Coreg Tab*) 3.125 mg PO BID [facility] Last Admin: 01/08/17 08:47 Dose: 3.125 mg Docusate Sodium (Colace Cap*) 100 mg PO BID PRN PRN Reason: CONSTIPATION Eplerenone (Inspra (Nf)) 25 mg PO BID [facility] Last Admin: 01/08/17 08:46 Dose: 25 mg Gabapentin (Neurontin Cap(*)) 300 mg PO 0000,0600,1200,1800 [facility] Last Admin: 01/08/17 12:27 Dose: 300 mg Gabapentin (Neurontin Cap(*)) 300 mg PO DAILY PRN PRN Reason: PAIN Last Admin: 01/06/17 23:31 Dose: 300 mg Levothyroxine Sodium (Synthroid Tab*) 50 mcg PO DAILY@0600 [facility] Last Admin: 01/08/17 05:41 Dose: 50 mcg Magnesium Oxide (Magox 400 Tab*) 400 mg PO BID [facility] Last Admin: 01/08/17 08:48 Dose: 400 mg Metolazone (Zaroxolyn Tab*) 5 mg PO BID [facility] Last Admin: 01/08/17 08:48 Dose: 5 mg Midodrine (Midodrine (Nf)) 15 mg PO TID [facility] PRN Reason: Protocol Last Admin: 01/08/17 14:42 Dose: 15 mg Neomycin/Polymyxin/Bacitracin (Neosporin Top Oint Tube*) 1 applic TOPICAL DAILY [facility] Last Admin: 01/08/17 08:48 Dose: 1 applic Pto: Gumb Numb Topical Anesthetic Gel [20% Benzocaine] 1 dose TOPICAL Q1H PRN PRN Reason: MOUTH PAIN Last Admin: 01/01/17 21:02 Dose: 1 dose Omeprazole (Prilosec Cap*) 20 mg PO DAILY@0600 [facility] Last Admin: 01/08/17 05:39 Dose: 20 mg Ondansetron HCl (Zofran Inj*) 4 mg IV Q6H PRN PRN Reason: NAUSEA Pharmacy Profile Note (Coumadin Daily Reminder*) 1 note FOLLOW UP 1700 [facility] Last Admin: 01/07/17 18:29 Dose: 1 note Phenol/Menthol (Chloroseptic Throat [place]*) 1 spray MT TID PRN PRN Reason: SORE THROAT Last Admin: 01/08/17 08:45 Dose: 1 spray Potassium Chloride (Klor Con Er Tab*) 60 meq PO QID [facility] Last Admin: 01/08/17 12:27 Dose: 60 meq Throat Lozenges (Chloraseptic Noah*) 1 noah PO Q4H PRN PRN Reason: SORE THROAT Last Admin: 01/07/17 00:30 Dose: 1 noah Torsemide (Demadex*) 140 mg PO TID [facility] Last Admin: 01/08/17 14:41 Dose: 140 mg Triamcinolone Acetonide (Triamcinolone 0.1% Paste *) 1 applic TOPICAL BEDTIME [facility] Last Admin: 01/07/17 21:18 Dose: 1 applic Warfarin Sodium (Coumadin Tab(*)) 5 mg PO SuTuThSa@1700 [facility] PRN Reason: Protocol Last Admin: 01/07/17 18:28 Dose: 5 mg Warfarin Sodium (Coumadin Tab(*)) 10 mg PO MoWeFr@1700 [facility] PRN Reason: Protocol Last Admin: 01/06/17 17:21 Dose: 10 mg Vital Signs 01/08/17 01/08/17 08:24 12:27 Temperature 98.1 F Pulse Rate 69 Respiratory 16 14 Rate Blood Pressure 89/61 (mmHg) O2 Sat by Pulse 100 Oximetry Oxygen Devices in Use Now: None Appearance: Pleasant gentleman lying in bed in NAD. Eyes: No Scleral Icterus Ears/Nose/Mouth/Throat: Mucous Membranes Moist Neck: Trachea Midline Respiratory: Symmetrical Chest Expansion and Respiratory Effort, Clear to Auscultation Cardiovascular: RRR - Normal S1 and S2 Abdominal: NL Sounds; No Tenderness; No Distention, - - RLQ catheter is clean and dry, no erythema Extremities: No Edema Neurological: Alert and Oriented x 3, NL Muscle Strength and Tone Lines/Tubes/Other Access: Clean, Dry and Intact Peripheral IV Nutrition: Taking PO's Result Diagrams: 01/07/17 05:40 01/08/17 07:06 Assess/Plan/Problems-Billing Mr Ocampo is a 56 yo M with h/o CHF (systolic-chronic), amyloidosis, CKD, V. tach , ICD, A. fib on Coumadin ,admitted with cardiogenic shock due to hyperkalemia and bradycardia. - Patient Problems (1) Cardiogenic shock Comment: - Resolved. - [place] to be due to bradycardia secondary to marked hyperkalemia. - Remains hypotensive though this is his baseline. (2) Hyperkalemia Comment: - Potassium is normal. - Continue supplementation. (3) Chronic systolic CHF (congestive heart failure) Comment: - End stage CHF. - Give IV lasix 120mg IV today. Continue inspra, metolazone and torsemide. (4) Ascites Comment: - Secondary to severe CHF and cirrhosis. - He continues to use a peritoneal drain daily. Fluid from admission grew enterococcus faecalis, but no signs of peritonitis. - D/w Dr. Wetzel - patient has no signs of infection at this time. He does not recommend further antibiotics at this point. (5) Hyponatremia Comment: - Chronic and stable. - Secondary to his chronic CHF and diuretic usage. (6) Afib Comment: - INR remains therapeutic. Continue current dose of coumadin. HR is controlled on coreg 3.125mg BID. (7) Amyloidosis Comment: - He plans to follow up with Dr. Duyen RUDOLPH to arrange outpatient visit to [facility]. (8) CKD (chronic kidney disease) stage 3, GFR 30-59 ml/min Comment: - Creatinine is stable. (9) DVT prophylaxis Comment: - Warfarin. (10) Full code status (11) Counseling regarding end of life decision making Comment: - Long conversation with patient at bedside again today. Denial continues to be his stronger barrier. He now plans to have daily Furosemide infusions and daily blood tests as outpatient. I tried to explain that equals "living in the hospital" and may not be feasible, and if he really requires all this care with such tenuous control of his clinical condition, this is another sign he should strongly consider Hospice care. He strongly believes he'll receive a heart transplant (although his snow plow tractor operator PA tells me he was denied in the past) and is not willing to entertain other alternatives as Hospice at this time. I called his snow plow tractor operator (Dr. Thomas) yesterday and he agrees this patient' s best option is Hospice. He would not have any other therapies to offer. I talked to Lili Mora, cardiology PA about patient's wishes for daily infusions and labs, and I explained I don't think this is indicated. Patient is stable for discharge today, but at a very high risk for readmission and , not matter what his care team does. He's awaiting for the response on his discharge appeal. Status and Disposition: Inpatient.
[2017-01-08] MEDS ORDERED: Potassium Chlor TAB* 20 MEQ TAB.ER PO SCH (17:00)
[2017-01-08] MEDS: Warfarin TAB(*) 5 MG PO SCH (17:29)
[2017-01-08] MEDS ORDERED: Potassium Chlor TAB* 10 MEQ TAB.ER PO SCH (21:00)
[2017-01-08] MEDS: TRIAMCINOLONE PASTE 0.1% TOPICAL SCH (21:51)
--- NOTE | 2017-01-08 23:59 | CONS ---
PALLIATIVE CARE CONSULTATION: DATE OF CONSULT: 01/08/17 PRIMARY CARE PHYSICIAN: Dr. Watson. EHS TEACHER: Dr. Geller. GREASE AND TALLOW PUMPER: Dr. Thomas REASON FOR CONSULTATION: Advance care planning. 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 At that time he was noted to be profoundly bradycardic, hypotensive and felt to be hyperkalemic. The patient was admitted to the ICU for cardiogenic shock. He was put on dopamine and bicarb and the property management assistant was also involved in his care. He was also found to have acute on chronic renal failure and as mentioned hyperkalemia. As mentioned, the patient has a history of recurrent admissions with congestive heart failure and fluid issues. The patient states he has had challenges with the fluid issues and being sent home too early. He has been disgruntled with the care here at [facility]. He tries to go Wednesday, Wednesday and Wednesday for Lasix infusions to help with his fluid adjustments but he fears his issues with recurrent hyperkalemia. When speaking regarding his heart transplant he states he made all his arrangements to get to [place] and he went down to [place] and spent 2 weeks on his finances to get there and then when he arrived they said they do not deal with amyloidosis heart transplant candidates. The only place they does it is in [place], [place]. He states that Dr. Geller has been involved in working him up for transplant and that he was retested with bone marrow and liver biopsy that were negative for amyloid. He has not been able to get in touch with Dr. Geller to weigh in and to further where he stands in the transplant list. He states that he has been eligible for hospice for several years and that the doctors have been so impressed with how well he has been doing. I asked if he financially would be able to get to [place], [place]. He is not sure that this is financially feasible, that he thinks he could get there but depending on his duration of stay and returning is not entirely clear as he lives alone and does not have a lot of social support. He denies any shortness of breath at rest but he gets dyspneic after walking more than 100 feet. He has some neuropathy in his toes. He has some mild anxiety and depression that waxes and wanes. He also complains of some soreness around the drain in his abdomen for his recurrent ascites. Otherwise, remaining review of systems is negative. PAST MEDICAL HISTORY: 1. Admission for cardiogenic shock secondary to bradycardia and hyperkalemia. 2. Amyloidosis AL with cardiac involvement. 3. Chronic ascites secondary to CHF and end-stage cardiomyopathy with chronic peritoneal drain in place. 4. History of a cardiac arrest. 5. AFib/Aflutter. 6. History of nonsustained V-tach, status post ICD. 7. Severe cardiomyopathy with ejection fraction less than 20%. 8. Coagulopathy with factor X deficiency. 9. Gout. 10. Chronic hyponatremia. 11. CKD stage 3. 12. History of cirrhosis. 13. Peripheral neuropathy. 14. GERD. MEDICATIONS: 1. Tylenol 650 mg as needed. 2. Albuterol 2.5 mg as needed. 3. Allopurinol 300 mg daily. 4. Benzocaine/menthol one lozenge q.4 hours as needed. 5. Bisacodyl suppository daily. 6. Carvedilol 3.125 mg p.o. b.i.d. 7. Colace 100 mg p.o. b.i.d. as needed. 8. Eplerenone 25 mg p.o. b.i.d. 9. Lasix 120 mg infusion, it appears Wednesday, Wednesday, Wednesday this was done. 10. Gabapentin 300 mg p.o. daily as needed. 11. Gabapentin 300 mg 4 times a day. 12. Levothyroxine 50 mcg daily. 13. Magnesium oxide 400 mg p.o. b.i.d. 14. Metolazone 5 mg p.o. b.i.d. 15. Midodrine 15 mg p.o. b.i.d. 16. Neomycin polymyxin bacitracin apply topically daily. 17. Omeprazole 20 mg daily. 18. Zofran 40 mg IV every 6 hours as needed. 19. Flonase spray t.i.d. as needed. 20. Potassium chloride 60 mEq p.o. q.i.d. 21. Torsemide 140 mg p.o. t.i.d. 22. Triamcinolone one application topical. 23. Warfarin 5 mg Wednesday, Wednesday, , and Wednesday and 10 mg Wednesday, Wednesday and Wednesday. ALLERGIES: OXYCODONE, SPIRONOLACTONE. FAMILY HISTORY: Reviewed and noncontributory. His mother had colon cancer. Father of old age. SOCIAL HISTORY: As mentioned, the patient lives alone. He is relatively independent of ADLs. He does appreciate VNS services coming in to place. No history of smoking or alcohol use. His surrogate decision maker is his sister Aimee. He is , with 2 young children ages 9 and 12 who he states is in a custody yañez as he is trying to obtain full custody of them. A code status currently is full code. He does emphasize that if they cannot wean him off of live support after 5 days to take him off. REVIEW OF SYSTEMS: As mentioned in the HPI. PHYSICAL EXAM: Vitals: Temp 98.1, pulse rate is 69, respiratory rate 16, oxygen saturation is 100% on room air, blood pressure 89/61. In general, in no acute distress, resting comfortably, sitting up on the side of the bed. Neck: Supple. No lymphadenopathy. HEENT: Oropharynx, mucous membranes moist. No erythema or exudates. Pupils are equal, reactive and anicteric. Head is normocephalic. Cardiac: Regular rate and rhythm. Soft systolic murmur heard throughout. Respiratory: Diminished breath sounds. No wheezes, rhonchi or rales. Abdomen is soft, nondistended. The patient with a peritoneal catheter in the right lower quadrant. No surrounding erythema or drainage. Extremities : Trace pedal edema. Neurological: Alert and oriented x3. No focal neurologic deficits. DIAGNOSTIC STUDIES/LAB DATA: White count 9.3, hemoglobin 8.5, hematocrit 29, platelets 250. INR 2.98. Sodium 127, potassium 4.6, chloride 97, bicarb 21, BUN 63, creatinine 2.47. ASSESSMENT: This is a 56-year-old male with a past medical history of amyloidosis with cardiac involvement, endstage cardiomyopathy with ejection fraction of less than 20% with recurrent admissions for decompensated heart failure with chronic kidney disease and history of cardiac arrest who has been readmitted for acute decompensated heart failure. He appears to be medically stable at this time with hesitancy to return home as in the hospital they are able to manage his fluid balance relatively well. The patient is clear in his wishes that he would like to remain a full code at this time and he is adamant that he is going to get on the transplant list. He is just waiting for Dr. Geller to weigh in on the process, although it seems that finances and social support could be a limiting factor in him proceeding with the transplant. I did speak with Dr. Geller who is going to speak with him in followup on where he is at with the transplant and I discussed that this is not an option that he is eligible for hospice with endstage cardiomyopathy. He is interested in the resources that the hospice entails as he wants more assistance at home; however if he is pursuing being a transplant then he would not be a hospice candidate and the patient is understanding of this. RECOMMENDATIONS: Following up with Dr. Geller regarding his feasibility for being on the transplant list as I worry that the patient has unrealistic expectations and that he is not an eligible candidate to pursue transplant, that we should further discuss hospice enrollment. The patient is aware of this recommendation. Thank you for this consultation. I will follow along with you. PATIENT TIME: Greater than 90 minutes spent doing the consultation, more than half the time spent in direct patient contact. CC: Dr. Watson; Dr. Geller; Dr. Thomas* [id number]/[facility] #: [id number] CHRISTOPHE
[2017-01-09] MEDS: Omeprazole CAP* 20 MG PO SCH (05:54)
[2017-01-09] MEDS: Levothyroxine TAB* 50 MCG TAB PO SCH (05:54)
[2017-01-09] MEDS: Gabapentin CAP(*) 300 MG PO SCH ×3 (05:54→17:39)
[2017-01-09 06:28] LABS: BUN/Creatinine Ratio 30.8 (8-20); Calcium 8.1 mg/dL (8.6-10.3); EGFR Non-African American 32.7 (>60); Potassium 5.3 mmol/L (3.5-5.0)
[2017-01-09] MEDS: Magnesium Oxide TAB* 400 MG PO SCH ×2 (09:07→21:14)
[2017-01-09] MEDS: Carvedilol TAB* 3.125 MG PO SCH ×2 (09:08→21:11)
[2017-01-09] MEDS: Metolazone TAB* 5 MG PO SCH ×2 (09:08→21:09)
[2017-01-09] MEDS: CMCS: Midodrine (NF) 5 MG TAB PO SCH ×3 (09:09→21:43)
[2017-01-09] MEDS: EPLERONONE 25 MG PO SCH ×2 (09:09→22:14)
[2017-01-09] MEDS: Torsemide TAB* 20 MG PO SCH ×3 (10:43→22:15)
[2017-01-09] MEDS: Allopurinol TAB* 300 MG PO SCH (10:43)
[2017-01-09] MEDS: Bisacodyl SUPP* 10 MG SUPP PR SCH ×2 (10:45→22:15)
[2017-01-09] MEDS: Neomycin/Polym/Bacit TOP OINT* 15 GM TOPICAL SCH (10:46)
--- NOTE | 2017-01-09 11:46 | PN ---
Subjective Date of Service: 01/09/17 Interval History: HOSPITALIST PROGRESS NOTE Patient seen and examined at bedside. He offers no complaints today. Family History: Unchanged from Admission Social History: Unchanged from Admission Past Medical History: Unchanged from Admission Objective Active Medications: Acetaminophen (Tylenol Supp*) 650 mg RI Q6H PRN PRN Reason: FEVER/PAIN Albuterol (Ventolin 2.5 Mg/3 Ml Neb.Dede*) 2.5 mg INH .Q20M [facility] Allopurinol (Zyloprim Tab*) 300 mg PO DAILY [facility] Last Admin: 01/09/17 10:43 Dose: 300 mg Bisacodyl (Dulcolax Supp*) 10 mg RI DAILY [facility] Last Admin: 01/09/17 10:45 Dose: Not Given Carvedilol (Coreg Tab*) 3.125 mg PO BID [facility] Last Admin: 01/09/17 09:08 Dose: 3.125 mg Docusate Sodium (Colace Cap*) 100 mg PO BID PRN PRN Reason: CONSTIPATION Eplerenone (Inspra (Nf)) 25 mg PO BID [facility] Last Admin: 01/09/17 09:09 Dose: 25 mg Gabapentin (Neurontin Cap(*)) 300 mg PO 0000,0600,1200,1800 [facility] Last Admin: 01/09/17 05:54 Dose: 300 mg Gabapentin (Neurontin Cap(*)) 300 mg PO DAILY PRN PRN Reason: PAIN Last Admin: 01/06/17 23:31 Dose: 300 mg Levothyroxine Sodium (Synthroid Tab*) 50 mcg PO DAILY@0600 [facility] Last Admin: 01/09/17 05:54 Dose: 50 mcg Magnesium Oxide (Magox 400 Tab*) 400 mg PO BID [facility] Last Admin: 01/09/17 09:07 Dose: 400 mg Metolazone (Zaroxolyn Tab*) 5 mg PO BID [facility] Last Admin: 01/09/17 09:08 Dose: 5 mg Midodrine (Midodrine (Nf)) 15 mg PO TID [facility] PRN Reason: Protocol Last Admin: 01/09/17 09:09 Dose: 15 mg Neomycin/Polymyxin/Bacitracin (Neosporin Top Oint Tube*) 1 applic TOPICAL DAILY [facility] Last Admin: 01/09/17 10:46 Dose: 1 applic Pto: Gumb Numb Topical Anesthetic Gel [20% Benzocaine] 1 dose TOPICAL Q1H PRN PRN Reason: MOUTH PAIN Last Admin: 01/01/17 21:02 Dose: 1 dose Omeprazole (Prilosec Cap*) 20 mg PO DAILY@0600 [facility] Last Admin: 01/09/17 05:54 Dose: 20 mg Ondansetron HCl (Zofran Inj*) 4 mg IV Q6H PRN PRN Reason: NAUSEA Pharmacy Profile Note (Coumadin Daily Reminder*) 1 note FOLLOW UP 1700 [facility] Last Admin: 01/08/17 17:38 Dose: 1 note Phenol/Menthol (Chloroseptic Throat [place]*) 1 spray MT TID PRN PRN Reason: SORE THROAT Last Admin: 01/08/17 08:45 Dose: 1 spray Throat Lozenges (Chloraseptic Christine*) 1 christine PO Q4H PRN PRN Reason: SORE THROAT Last Admin: 01/07/17 00:30 Dose: 1 christine Torsemide (Demadex*) 140 mg PO TID [facility] Last Admin: 01/09/17 10:43 Dose: 140 mg Triamcinolone Acetonide (Triamcinolone 0.1% Paste *) 1 applic TOPICAL BEDTIME [facility] Last Admin: 01/08/17 21:51 Dose: 1 applic Warfarin Sodium (Coumadin Tab(*)) 5 mg PO SuTuThSa@1700 [facility] PRN Reason: Protocol Last Admin: 01/07/17 18:28 Dose: 5 mg Warfarin Sodium (Coumadin Tab(*)) 10 mg PO MoWeFr@1700 [facility] PRN Reason: Protocol Last Admin: 01/08/17 17:29 Dose: 10 mg Vital Signs 01/09/17 01/09/17 01/09/17 07:29 07:54 09:13 Temperature 98.5 F Pulse Rate 73 66 Respiratory 16 18 Rate Blood Pressure 81/66 79/54 (mmHg) O2 Sat by Pulse 92 100 Oximetry Oxygen Devices in Use Now: None Appearance: Middle aged male, appears older than stated age, sitting up in bed in [facility], eating breakfast. Eyes: No Scleral Icterus Ears/Nose/Mouth/Throat: Mucous Membranes Moist Neck: Trachea Midline Respiratory: Symmetrical Chest Expansion and Respiratory Effort, Clear to Auscultation Cardiovascular: RRR - Normal S1 and S2 Extremities: No Edema Neurological: Alert and Oriented x 3, NL Muscle Strength and Tone Lines/Tubes/Other Access: Clean, Dry and Intact Peripheral IV Nutrition: Taking PO's Result Diagrams: 01/07/17 05:40 01/09/17 05:53 Assess/Plan/Problems-Billing Mr Ocampo is a 56 yo M with h/o CHF (systolic-chronic), amyloidosis, CKD, V. tach , ICD, A. fib on Coumadin ,admitted with cardiogenic shock due to hyperkalemia and bradycardia. - Patient Problems (1) Cardiogenic shock Comment: - Resolved. - [place] to be due to bradycardia secondary to marked hyperkalemia. - Remains hypotensive though this is his baseline. (2) Hyperkalemia Comment: - Potassium is trending back up. - Hold supplementation today. (3) Chronic systolic CHF (congestive heart failure) Comment: - End stage CHF. - Hold IV lasix as his renal function is worsening again. Continue inspra, metolazone and torsemide. (4) Ascites Comment: - Secondary to severe CHF and cirrhosis. - He continues to use a peritoneal drain daily. Fluid from admission grew enterococcus faecalis, but no signs of peritonitis. - D/w Dr. Wetzel - patient has no signs of infection at this time. He does not recommend further antibiotics at this point. (5) Hyponatremia Comment: - Chronic and stable. - Secondary to his chronic CHF and diuretic usage. (6) Afib Comment: - INR remains therapeutic. Continue current dose of coumadin. HR is controlled on coreg 3.125mg BID. (7) Amyloidosis Comment: - D/w Dr. Geller - patient was denied heart transplant at [facility], [place] , and [place], but [facility] would consider him. Dr. Geller completed his w/u in October and sent results to Dr. Da Ireland ([phone]) in October, but patient has not heard from them. (8) CKD (chronic kidney disease) stage 3, GFR 30-59 ml/min Comment: - Creatinine is stable. (9) DVT prophylaxis Comment: - Warfarin. (10) Full code status (11) Counseling regarding end of life decision making Comment: - Long conversation with patient at bedside again today. I explained I' ll have to hold his Furosemide and Potassium today due to worsening renal function and hyperkalemia (going back to where we started on admission). He has intractable end stage CHF and although this shows that daily Furosemide infusions are not feasible (see worsening renal function and hyperkalemia vs fluid overload and hypokalemia) he does not accept it. Plan to call Dr. Ireland Wednesday and confirm patient would be a candidate for heart transplant at [facility]. If so, patient states he has the financial means to fly to [place]. If [facility] says he's not a candidate, I'll contact [facility] CHF unit to see if he would be a LVAD candidate. Status and Disposition: Inpatient.
--- NOTE | 2017-01-09 15:40 | PN ---
Progress Note - Progress Note SOAP: Subjective: []Better then on admission but has been in and out of hospital over past several weeks with progressive decline in cardiac function. He is anxious about progressive disease and is frustrated he has not had contact from [facility] that he is not a transplant candidate (has been turned down by [facility]). Acetaminophen (Tylenol Supp*) [address] Q6H PRN PRN Reason: FEVER/PAIN Albuterol (Ventolin 2.5 Mg/3 Ml Neb.Dede*) 2.5 mg INH .Q20M [facility] Allopurinol (Zyloprim Tab*) 300 mg PO DAILY [facility] Last Admin: 01/09/17 10:43 Dose: 300 mg Bisacodyl (Dulcolax Supp*) [address] DAILY [facility] Last Admin: 01/09/17 10:45 Dose: Not Given Carvedilol (Coreg Tab*) 3.125 mg PO BID [facility] Last Admin: 01/09/17 09:08 Dose: 3.125 mg Docusate Sodium (Colace Cap*) 100 mg PO BID PRN PRN Reason: CONSTIPATION Eplerenone (Inspra (Nf)) 25 mg PO BID [facility] Last Admin: 01/09/17 09:09 Dose: 25 mg Gabapentin (Neurontin Cap(*)) 300 mg PO 0000,0600,1200,1800 [facility] Last Admin: 01/09/17 13:31 Dose: 300 mg Gabapentin (Neurontin Cap(*)) 300 mg PO DAILY PRN PRN Reason: PAIN Last Admin: 01/06/17 23:31 Dose: 300 mg Levothyroxine Sodium (Synthroid Tab*) 50 mcg PO DAILY@0600 [facility] Last Admin: 01/09/17 05:54 Dose: 50 mcg Magnesium Oxide (Magox 400 Tab*) 400 mg PO BID [facility] Last Admin: 01/09/17 09:07 Dose: 400 mg Metolazone (Zaroxolyn Tab*) 5 mg PO BID [facility] Last Admin: 01/09/17 09:08 Dose: 5 mg Midodrine (Midodrine (Nf)) 15 mg PO TID [facility] PRN Reason: Protocol Last Admin: 01/09/17 13:32 Dose: 15 mg Neomycin/Polymyxin/Bacitracin (Neosporin Top Oint Tube*) 1 applic TOPICAL DAILY [facility] Last Admin: 01/09/17 10:46 Dose: 1 applic Pto: Gumb Numb Topical Anesthetic Gel [20% Benzocaine] 1 dose TOPICAL Q1H PRN PRN Reason: MOUTH PAIN Last Admin: 01/01/17 21:02 Dose: 1 dose Omeprazole (Prilosec Cap*) 20 mg PO DAILY@0600 [facility] Last Admin: 01/09/17 05:54 Dose: 20 mg Ondansetron HCl (Zofran Inj*) 4 mg IV Q6H PRN PRN Reason: NAUSEA Pharmacy Profile Note (Coumadin Daily Reminder*) 1 note FOLLOW UP 1700 [facility] Last Admin: 01/08/17 17:38 Dose: 1 note Phenol/Menthol (Chloroseptic Throat [place]*) 1 spray MT TID PRN PRN Reason: SORE THROAT Last Admin: 01/08/17 08:45 Dose: 1 spray Throat Lozenges (Chloraseptic [place]*) 1 noah PO Q4H PRN PRN Reason: SORE THROAT Last Admin: 01/07/17 00:30 Dose: 1 noah Torsemide (Demadex*) 140 mg PO TID [facility] Last Admin: 01/09/17 13:32 Dose: 140 mg Triamcinolone Acetonide (Triamcinolone 0.1% Paste *) 1 applic TOPICAL BEDTIME [facility] Last Admin: 01/08/17 21:51 Dose: 1 applic Warfarin Sodium (Coumadin Tab(*)) 5 mg PO SuTuThSa@1700 [facility] PRN Reason: Protocol Last Admin: 01/07/17 18:28 Dose: 5 mg Warfarin Sodium (Coumadin Tab(*)) 10 mg PO MoWeFr@1700 [facility] PRN Reason: Protocol Last Admin: 01/08/17 17:29 Dose: 10 mg Objective: [] Vital Signs Temp Pulse Resp BP Pulse Ox 98.5 F 71 18 85/52 100 01/09/17 07:29 01/09/17 09:16 01/09/17 13:31 01/09/17 09:16 01/09/17 09:16 HEENT - Edema, no ora lesions CTA RRR S1S2 distant Fluid and catheter, non tender Eduardo +2 Assessment: []56 year old with 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 He had full hematologic evaluation towards the end of 2015 that showed no detectible disease. Has had contact at [facility] with advise that they would consider him for cardiac transplant but no action has been taken. Now with progressive heart failure and appears to need either hospice services or ventricular assist device. He is willing to travel to [facility] for further evaluation understanding he may not be a transplant candidate. Plan: []1. He was given contact information for the MD at [facility] that was reviewing his case 2. Will plan cardiology consultation on Wednesday and communication with [facility] 3. Consider transfer for ventricular assist device, even if not a transplant candidate.
[2017-01-09] MEDS: Warfarin TAB(*) 5 MG PO SCH (17:39)
[2017-01-09] MEDS: Phenol 1.4% Spray* 177 ML BTL MT PRN (17:44)
[2017-01-09] MEDS: Gabapentin CAP(*) 300 MG PO PRN (21:14)
[2017-01-09] MEDS ORDERED: Acetaminophen TAB* 325 MG ONE (21:24)
[2017-01-09] MEDS: Acetaminophen TAB* 325 MG PO PRN (21:26)
[2017-01-09] MEDS: TRIAMCINOLONE PASTE 0.1% TOPICAL SCH (22:27)
[2017-01-10] MEDS: Gabapentin CAP(*) 300 MG PO SCH ×5 (00:37→23:56)
[2017-01-10] MEDS: Omeprazole CAP* 20 MG PO SCH (06:49)
[2017-01-10] MEDS: Levothyroxine TAB* 50 MCG TAB PO SCH (06:49)
[2017-01-10 07:51] LABS: BUN/Creatinine Ratio 33.5 (8-20); Calcium 7.8 mg/dL (8.6-10.3); EGFR African American 44.7 (>60); EGFR Non-African American 34.7 (>60); Potassium 3.1 mmol/L (3.5-5.0)
[2017-01-10] MEDS: Metolazone TAB* 5 MG PO SCH ×2 (08:44→21:30)
[2017-01-10] MEDS: Potassium Chlor TAB* 20 MEQ TAB.ER PO SCH ×4 (08:44→21:24)
[2017-01-10] MEDS: Magnesium Oxide TAB* 400 MG PO SCH ×2 (08:44→21:24)
[2017-01-10] MEDS: Allopurinol TAB* 300 MG PO SCH (08:45)
[2017-01-10] MEDS: Carvedilol TAB* 3.125 MG PO SCH ×2 (08:45→21:24)
[2017-01-10] MEDS: CMCS: Midodrine (NF) 5 MG TAB PO SCH ×3 (08:45→21:25)
[2017-01-10] MEDS: EPLERONONE 25 MG PO SCH ×2 (08:45→21:26)
[2017-01-10] MEDS: Bisacodyl SUPP* 10 MG SUPP PR SCH (08:47)
[2017-01-10] MEDS: Neomycin/Polym/Bacit TOP OINT* 15 GM TOPICAL SCH (08:49)
[2017-01-10] MEDS: Torsemide TAB* 20 MG PO SCH ×3 (09:48→21:59)
--- NOTE | 2017-01-10 11:00 | PN ---
Subjective Date of Service: 01/10/17 Interval History: HOSPITALIST PROGRESS NOTE Patient seen and examined at bedside. Concerned with his kidneys, potassium, and the fact he gained another pound after holding Furosemide yesterday. Family History: Unchanged from Admission Social History: Unchanged from Admission Past Medical History: Unchanged from Admission Objective Active Medications: Acetaminophen (Tylenol Supp*) 650 mg NC Q6H PRN PRN Reason: FEVER/PAIN Acetaminophen (Tylenol Tab*) 650 mg PO Q6H PRN PRN Reason: FEVER/PAIN Last Admin: 01/09/17 21:26 Dose: 650 mg Albuterol (Ventolin 2.5 Mg/3 Ml Neb.Dede*) 2.5 mg INH .Q20M [facility] Allopurinol (Zyloprim Tab*) 300 mg PO DAILY [facility] Last Admin: 01/10/17 08:45 Dose: 300 mg Bisacodyl (Dulcolax Supp*) 10 mg NC DAILY [facility] Last Admin: 01/10/17 08:47 Dose: Not Given Carvedilol (Coreg Tab*) 3.125 mg PO BID [facility] Last Admin: 01/10/17 08:45 Dose: 3.125 mg Docusate Sodium (Colace Cap*) 100 mg PO BID PRN PRN Reason: CONSTIPATION Eplerenone (Inspra (Nf)) 25 mg PO BID [facility] Last Admin: 01/10/17 08:45 Dose: 25 mg Furosemide (Lasix Iv*) 100 mg IV ONCE ONE Stop: 01/10/17 12:01 Furosemide (Lasix Iv*) 20 mg IV ONCE ONE Stop: 01/10/17 12:01 Gabapentin (Neurontin Cap(*)) 300 mg PO 0000,0600,1200,1800 [facility] Last Admin: 01/10/17 06:49 Dose: 300 mg Gabapentin (Neurontin Cap(*)) 300 mg PO DAILY PRN PRN Reason: PAIN Last Admin: 01/09/17 21:14 Dose: 300 mg Levothyroxine Sodium (Synthroid Tab*) 50 mcg PO DAILY@0600 [facility] Last Admin: 01/10/17 06:49 Dose: 50 mcg Magnesium Oxide (Magox 400 Tab*) 400 mg PO BID [facility] Last Admin: 01/10/17 08:44 Dose: 400 mg Metolazone (Zaroxolyn Tab*) 5 mg PO BID [facility] Last Admin: 01/10/17 08:44 Dose: 5 mg Midodrine (Midodrine (Nf)) 15 mg PO TID [facility] PRN Reason: Protocol Last Admin: 01/10/17 08:45 Dose: 15 mg Neomycin/Polymyxin/Bacitracin (Neosporin Top Oint Tube*) 1 applic TOPICAL DAILY [facility] Last Admin: 01/10/17 08:49 Dose: 1 applic Pto: Gumb Numb Topical Anesthetic Gel [20% Benzocaine] 1 dose TOPICAL Q1H PRN PRN Reason: MOUTH PAIN Last Admin: 01/01/17 21:02 Dose: 1 dose Omeprazole (Prilosec Cap*) 20 mg PO DAILY@0600 [facility] Last Admin: 01/10/17 06:49 Dose: 20 mg Ondansetron HCl (Zofran Inj*) 4 mg IV Q6H PRN PRN Reason: NAUSEA Pharmacy Profile Note (Coumadin Daily Reminder*) 1 note FOLLOW UP 1700 [facility] Last Admin: 01/09/17 17:41 Dose: 1 note Phenol/Menthol (Chloroseptic Throat [place]*) 1 spray MT TID PRN PRN Reason: SORE THROAT Last Admin: 01/09/17 17:44 Dose: 1 spray Potassium Chloride (Klor Con Er Tab*) 40 meq PO QID [facility] Last Admin: 01/10/17 08:44 Dose: 40 meq Throat Lozenges (Chloraseptic Christine*) 1 christine PO Q4H PRN PRN Reason: SORE THROAT Last Admin: 01/07/17 00:30 Dose: 1 christine Torsemide (Demadex*) 140 mg PO TID [facility] Last Admin: 01/10/17 09:48 Dose: 140 mg Triamcinolone Acetonide (Triamcinolone 0.1% Paste *) 1 applic TOPICAL BEDTIME [facility] Last Admin: 01/09/17 22:27 Dose: 1 applic Warfarin Sodium (Coumadin Tab(*)) 5 mg PO SuTuThSa@1700 [facility] PRN Reason: Protocol Last Admin: 01/09/17 17:39 Dose: 5 mg Warfarin Sodium (Coumadin Tab(*)) 10 mg PO MoWeFr@1700 [facility] PRN Reason: Protocol Last Admin: 01/08/17 17:29 Dose: 10 mg Vital Signs 03/26/17 03/26/17 03/26/17 03:37 06:49 07:11 Temperature 97.4 F Pulse Rate 71 69 Respiratory 20 16 Rate Blood Pressure 78/48 87/52 (mmHg) O2 Sat by Pulse 95 100 Oximetry Oxygen Devices in Use Now: None Appearance: Middle aged male sitting up in bed in NAD. Eyes: No Scleral Icterus Ears/Nose/Mouth/Throat: Mucous Membranes Moist Neck: Trachea Midline Respiratory: Symmetrical Chest Expansion and Respiratory Effort, Clear to Auscultation Cardiovascular: RRR - Normal S1 and S2 Abdominal: NL Sounds; No Tenderness; No Distention Extremities: - - Mild LE edema Neurological: Alert and Oriented x 3, NL Muscle Strength and Tone Lines/Tubes/Other Access: Clean, Dry and Intact Peripheral IV Nutrition: Taking PO's Result Diagrams: 01/07/17 05:40 01/10/17 07:28 Assess/Plan/Problems-Billing Mr Ocampo is a 56 yo M with h/o CHF (systolic-chronic), amyloidosis, CKD, V. tach , ICD, A. fib on Coumadin ,admitted with cardiogenic shock due to hyperkalemia and bradycardia. - Patient Problems (1) Cardiogenic shock Comment: - Resolved. - [place] to be due to bradycardia secondary to marked hyperkalemia. - Remains hypotensive though this is his baseline. (2) Hyperkalemia Comment: - Potassium was high yesterday and supplementation was held. - Today potassium is low. - Will resume supplementation at lower dose and monitor. (3) Chronic systolic CHF (congestive heart failure) Comment: - End stage CHF. - Will resume IV lasix today and monitor renal function. Continue inspra, metolazone and torsemide. (4) Ascites Comment: - Secondary to severe CHF and cirrhosis. - He continues to use a peritoneal drain daily. Fluid from admission grew enterococcus faecalis, but no signs of peritonitis. - D/w Dr. Wetzel - patient has no signs of infection at this time. He does not recommend further antibiotics at this point. (5) Hyponatremia Comment: - Chronic and stable. - Secondary to his chronic CHF and diuretic usage. (6) Afib Comment: - INR remains therapeutic. Continue current dose of coumadin. HR is controlled on coreg 3.125mg BID. (7) Amyloidosis Comment: - D/w Dr. Geller - patient was denied heart transplant at [place], [place] , and [place], but [facility] would consider him. Dr. Geller completed his w/u in October and sent results to Dr. Da Ireland ([phone]) in October, but patient has not heard from them. (8) CKD (chronic kidney disease) stage 3, GFR 30-59 ml/min Comment: - Creatinine is stable. (9) DVT prophylaxis Comment: - Warfarin. (10) Full code status (11) Counseling regarding end of life decision making Comment: - Long conversation with patient at bedside again today. Will resume Furosemide and lower dose potassium supplementation. He received the response to his appeal and was told he needs to be discharged today, but with his worsening renal function and potassium, now he has medical needs again to stay in the hospital. Plan to call Dr. Ireland Wednesday and confirm patient would be a candidate for heart transplant at [facility]. If so, patient states he has the financial means to fly to [place]. If [facility] says he's not a candidate, I'll contact [facility]'s CHF unit to see if he would be a LVAD candidate. Status and Disposition: Inpatient.
[2017-01-10] MEDS ORDERED: Furosemide IV* 10 MG/ML 10 ML VIAL (100 MG) IV ONE (12:00)
[2017-01-10] MEDS ORDERED: Furosemide IV* 10 MG/ML 2 ML VIAL (20 MG) IV ONE (12:00)
[2017-01-10] MEDS: Gabapentin CAP(*) 300 MG PO PRN (17:14)
[2017-01-10] MEDS: TRIAMCINOLONE PASTE 0.1% TOPICAL SCH (21:30)
[2017-01-11] MEDS: Gabapentin CAP(*) 300 MG PO SCH ×3 (05:47→18:02)
[2017-01-11] MEDS: Omeprazole CAP* 20 MG PO SCH (05:48)
[2017-01-11] MEDS: Levothyroxine TAB* 50 MCG TAB PO SCH (05:48)
[2017-01-11 07:19] LABS: Calcium 7.9 mg/dL (8.6-10.3); EGFR African American 43.2 (>60); EGFR Non-African American 33.6 (>60); Potassium 3.5 mmol/L (3.5-5.0)
[2017-01-11] MEDS: Acetaminophen TAB* 325 MG PO PRN ×2 (08:46→16:06)
[2017-01-11] MEDS: Allopurinol TAB* 300 MG PO SCH (10:03)
[2017-01-11] MEDS: Magnesium Oxide TAB* 400 MG PO SCH ×2 (10:03→21:57)
[2017-01-11] MEDS: Carvedilol TAB* 3.125 MG PO SCH ×2 (10:03→21:56)
[2017-01-11] MEDS: EPLERONONE 25 MG PO SCH ×2 (10:03→22:53)
[2017-01-11] MEDS: Potassium Chlor TAB* 20 MEQ TAB.ER PO SCH ×4 (10:04→21:57)
[2017-01-11] MEDS: CMCS: Midodrine (NF) 5 MG TAB PO SCH ×2 (10:04→14:39)
[2017-01-11] MEDS: Metolazone TAB* 5 MG PO SCH ×2 (10:04→21:56)
[2017-01-11] MEDS: Bisacodyl SUPP* 10 MG SUPP PR SCH (10:05)
[2017-01-11] MEDS: Neomycin/Polym/Bacit TOP OINT* 15 GM TOPICAL SCH (10:05)
--- NOTE | 2017-01-11 10:25 | PN ---
Progress Note - Progress Note SOAP: Subjective: [] No change, feels better then admission. Eating well, draining fluid daily from abd. \ Acetaminophen (Tylenol Supp*) 650 mg OR Q6H PRN PRN Reason: FEVER/PAIN Acetaminophen (Tylenol Tab*) 650 mg PO Q6H PRN PRN Reason: FEVER/PAIN Last Admin: 01/11/17 08:46 Dose: 650 mg Albuterol (Ventolin 2.5 Mg/3 Ml Neb.Dede*) 2.5 mg INH .Q20M [facility] Allopurinol (Zyloprim Tab*) 300 mg PO DAILY [facility] Last Admin: 01/11/17 10:03 Dose: 300 mg Bisacodyl (Dulcolax Supp*) 10 mg OR DAILY [facility] Last Admin: 01/11/17 10:05 Dose: Not Given Carvedilol (Coreg Tab*) 3.125 mg PO BID [facility] Last Admin: 01/11/17 10:03 Dose: 3.125 mg Docusate Sodium (Colace Cap*) 100 mg PO BID PRN PRN Reason: CONSTIPATION Eplerenone (Inspra (Nf)) 25 mg PO BID [facility] Last Admin: 01/11/17 10:03 Dose: 25 mg Gabapentin (Neurontin Cap(*)) 300 mg PO 0000,0600,1200,1800 [facility] Last Admin: 01/11/17 05:47 Dose: 300 mg Gabapentin (Neurontin Cap(*)) 300 mg PO DAILY PRN PRN Reason: PAIN Last Admin: 01/10/17 17:14 Dose: 300 mg Levothyroxine Sodium (Synthroid Tab*) 50 mcg PO DAILY@0600 [facility] Last Admin: 01/11/17 05:48 Dose: 50 mcg Magnesium Oxide (Magox 400 Tab*) 400 mg PO BID [facility] Last Admin: 01/11/17 10:03 Dose: 400 mg Metolazone (Zaroxolyn Tab*) 5 mg PO BID [facility] Last Admin: 01/11/17 10:04 Dose: 5 mg Midodrine (Midodrine (Nf)) 15 mg PO TID [facility] PRN Reason: Protocol Last Admin: 01/11/17 10:04 Dose: 15 mg Neomycin/Polymyxin/Bacitracin (Neosporin Top Oint Tube*) 1 applic TOPICAL DAILY [facility] Last Admin: 01/11/17 10:05 Dose: 1 applic Pto: Gumb Numb Topical Anesthetic Gel [20% Benzocaine] 1 dose TOPICAL Q1H PRN PRN Reason: MOUTH PAIN Last Admin: 01/01/17 21:02 Dose: 1 dose Omeprazole (Prilosec Cap*) 20 mg PO DAILY@0600 [facility] Last Admin: 01/11/17 05:48 Dose: 20 mg Ondansetron HCl (Zofran Inj*) 4 mg IV Q6H PRN PRN Reason: NAUSEA Pharmacy Profile Note (Coumadin Daily Reminder*) 1 note FOLLOW UP 1700 [facility] Last Admin: 01/10/17 17:12 Dose: 1 note Phenol/Menthol (Chloroseptic Throat [place]*) 1 spray MT TID PRN PRN Reason: SORE THROAT Last Admin: 01/09/17 17:44 Dose: 1 spray Potassium Chloride (Klor Con Er Tab*) 40 meq PO QID [facility] Last Admin: 01/11/17 10:04 Dose: 40 meq Throat Lozenges (Chloraseptic Christine*) 1 christine PO Q4H PRN PRN Reason: SORE THROAT Last Admin: 01/07/17 00:30 Dose: 1 christine Torsemide (Demadex*) 140 mg PO TID [facility] Last Admin: 01/10/17 21:59 Dose: 140 mg Triamcinolone Acetonide (Triamcinolone 0.1% Paste *) 1 applic TOPICAL BEDTIME [facility] Last Admin: 01/10/17 21:30 Dose: 1 applic Warfarin Sodium (Coumadin Tab(*)) 10 mg PO MoWeFr@1700 [facility] PRN Reason: Protocol Last Admin: 01/08/17 17:29 Dose: 10 mg Objective: [] Vital Signs Temp Pulse Resp BP Pulse Ox 97.3 F 67 16 82/48 100 01/11/17 07:11 01/11/17 09:41 01/11/17 09:41 01/11/17 09:41 01/11/17 09:41 HEENT - Edema, no ora lesions CTA RRR S1S2 distant Fluid and catheter, non tender Eduardo +2 Laboratory Results - last 24 hr 01/11/17 01/11/17 06:28 06:28 INR (Anticoag Therapy) 3.30 H Sodium 125 L Potassium 3.5 Chloride 91 L Carbon Dioxide 25 Anion Gap 9 BUN 68 H Creatinine 2.06 H Est GFR ( Amer) 43.2 Est GFR (Non-Af Amer) 33.6 BUN/Creatinine Ratio 33.0 H Glucose 125 H Calcium 7.9 L Assessment: []56 year old with 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 He had full hematologic evaluation towards the end of 2015 that showed no detectible disease. Has had contact at [facility] with advise that they would consider him for cardiac transplant but no action has been taken. Now with progressive heart failure and appears to need either hospice services or ventricular assist device. He is willing to travel to [facility] for further evaluation understanding he may not be a transplant candidate. Plan: []1. Dr. Ybarra call [facility] and I will call as well today. 2. Possible LVAD with cardiac biopsy. 3. Re-check Factor X, PT and PTT
[2017-01-11] MEDS: Torsemide TAB* 20 MG PO SCH ×3 (10:48→22:52)
--- NOTE | 2017-01-11 11:15 | PN ---
Subjective Date of Service: 01/11/17 Interval History: HOSPITALIST PROGRESS NOTE Patient seen and examined at bedside. He offers no complaints at this time. Has already called [facility] multiple times today. Family History: Unchanged from Admission Social History: Unchanged from Admission Past Medical History: Unchanged from Admission Objective Active Medications: Acetaminophen (Tylenol Supp*) 650 mg MN Q6H PRN PRN Reason: FEVER/PAIN Acetaminophen (Tylenol Tab*) 650 mg PO Q6H PRN PRN Reason: FEVER/PAIN Last Admin: 01/11/17 08:46 Dose: 650 mg Albuterol (Ventolin 2.5 Mg/3 Ml Neb.Dede*) 2.5 mg INH .Q20M [facility] Allopurinol (Zyloprim Tab*) 300 mg PO DAILY [facility] Last Admin: 01/11/17 10:03 Dose: 300 mg Bisacodyl (Dulcolax Supp*) 10 mg MN DAILY [facility] Last Admin: 01/11/17 10:05 Dose: Not Given Carvedilol (Coreg Tab*) 3.125 mg PO BID [facility] Last Admin: 01/11/17 10:03 Dose: 3.125 mg Docusate Sodium (Colace Cap*) 100 mg PO BID PRN PRN Reason: CONSTIPATION Eplerenone (Inspra (Nf)) 25 mg PO BID [facility] Last Admin: 01/11/17 10:03 Dose: 25 mg Gabapentin (Neurontin Cap(*)) 300 mg PO 0000,0600,1200,1800 [facility] Last Admin: 01/11/17 05:47 Dose: 300 mg Gabapentin (Neurontin Cap(*)) 300 mg PO DAILY PRN PRN Reason: PAIN Last Admin: 01/10/17 17:14 Dose: 300 mg Levothyroxine Sodium (Synthroid Tab*) 50 mcg PO DAILY@0600 [facility] Last Admin: 01/11/17 05:48 Dose: 50 mcg Magnesium Oxide (Magox 400 Tab*) 400 mg PO BID [facility] Last Admin: 01/11/17 10:03 Dose: 400 mg Metolazone (Zaroxolyn Tab*) 5 mg PO BID [facility] Last Admin: 01/11/17 10:04 Dose: 5 mg Midodrine (Midodrine (Nf)) 15 mg PO TID [facility] PRN Reason: Protocol Last Admin: 01/11/17 10:04 Dose: 15 mg Neomycin/Polymyxin/Bacitracin (Neosporin Top Oint Tube*) 1 applic TOPICAL DAILY [facility] Last Admin: 01/11/17 10:05 Dose: 1 applic Pto: Gumb Numb Topical Anesthetic Gel [20% Benzocaine] 1 dose TOPICAL Q1H PRN PRN Reason: MOUTH PAIN Last Admin: 01/01/17 21:02 Dose: 1 dose Omeprazole (Prilosec Cap*) 20 mg PO DAILY@0600 [facility] Last Admin: 01/11/17 05:48 Dose: 20 mg Ondansetron HCl (Zofran Inj*) 4 mg IV Q6H PRN PRN Reason: NAUSEA Pharmacy Profile Note (Coumadin Daily Reminder*) 1 note FOLLOW UP 1700 [facility] Last Admin: 01/10/17 17:12 Dose: 1 note Phenol/Menthol (Chloroseptic Throat [place]*) 1 spray MT TID PRN PRN Reason: SORE THROAT Last Admin: 01/09/17 17:44 Dose: 1 spray Potassium Chloride (Klor Con Er Tab*) 40 meq PO QID [facility] Last Admin: 01/11/17 10:04 Dose: 40 meq Throat Lozenges (Chloraseptic Christine*) 1 christine PO Q4H PRN PRN Reason: SORE THROAT Last Admin: 01/07/17 00:30 Dose: 1 christine Torsemide (Demadex*) 140 mg PO TID [facility] Last Admin: 01/11/17 10:48 Dose: 140 mg Triamcinolone Acetonide (Triamcinolone 0.1% Paste *) 1 applic TOPICAL BEDTIME [facility] Last Admin: 01/10/17 21:30 Dose: 1 applic Warfarin Sodium (Coumadin Tab(*)) 10 mg PO MoWeFr@1700 [facility] PRN Reason: Protocol Last Admin: 01/08/17 17:29 Dose: 10 mg Vital Signs 01/11/17 01/11/17 01/11/17 07:11 09:10 09:41 Temperature 97.3 F Pulse Rate 65 67 Respiratory 16 18 16 Rate Blood Pressure 83/48 82/48 (mmHg) O2 Sat by Pulse 100 100 Oximetry Oxygen Devices in Use Now: None Appearance: Sitting up in bed in NAD. Eyes: No Scleral Icterus Ears/Nose/Mouth/Throat: Mucous Membranes Moist Neck: Trachea Midline Respiratory: Symmetrical Chest Expansion and Respiratory Effort, Clear to Auscultation Cardiovascular: RRR - Normal S1 and S2 Neurological: Alert and Oriented x 3, NL Muscle Strength and Tone Lines/Tubes/Other Access: Clean, Dry and Intact Peripheral IV Nutrition: Taking PO's Result Diagrams: 01/07/17 05:40 01/11/17 06:28 Assess/Plan/Problems-Billing Mr Ocampo is a 56 yo M with h/o CHF (systolic-chronic), amyloidosis, CKD, V. tach , ICD, A. fib on Coumadin ,admitted with cardiogenic shock due to hyperkalemia and bradycardia. - Patient Problems (1) Cardiogenic shock Comment: - Resolved. - [place] to be due to bradycardia secondary to marked hyperkalemia. - Remains hypotensive though this is his baseline. (2) Hyperkalemia Comment: - Potassium is normal today, but needs close monitoring. - Continue supplementation at lower dose and monitor. (3) Chronic systolic CHF (congestive heart failure) Comment: - End stage CHF. - Continue IV lasix as tolerated and monitor renal function. Continue inspra, metolazone and torsemide. (4) Ascites Comment: - Secondary to severe CHF and cirrhosis. - He continues to use a peritoneal drain daily. Fluid from admission grew enterococcus faecalis, but no signs of peritonitis. - D/w Dr. Wetzel - patient has no signs of infection at this time. He does not recommend further antibiotics at this point. (5) Hyponatremia Comment: - Chronic and stable. - Secondary to his chronic CHF and diuretic usage. (6) Afib Comment: - INR trending down today. Will adjust coumadin dose to 10mg on Wednesdays and Fridays and 5mg on other days. - HR is controlled on coreg 3.125mg BID. (7) Amyloidosis Comment: - D/w Dr. Geller - patient was denied heart transplant at [facility] , and [place], but [facility] would consider him. Dr. Geller completed his w/u in October and sent results to Dr. Da Ireland ([phone]) in October, but patient has not heard from them. - I called [facility] and left a msg requesting a call back. (8) DVT prophylaxis Comment: - Warfarin. (9) Full code status (10) Counseling regarding end of life decision making Comment: - He received the response to his appeal and was told he needs to be discharged, but with his worsening renal function and potassium, now he has medical needs again to stay in the hospital. I called Dr. Ireland Wednesday and confirm patient would be a candidate for heart transplant at [facility]. If so, patient states he has the financial means to fly to [place]. If [facility] says he's not a candidate, I'll contact [facility] CHF unit to see if he would be a LVAD candidate. Status and Disposition: Inpatient.
[2017-01-11] MEDS ORDERED: Furosemide IV* 10 MG/ML 10 ML VIAL (100 MG) IV ONE ×2 (12:00)
--- NOTE | 2017-01-11 17:45 | PN ---
Hospitalist Progress Note HOSPITALIST ADDENDUM CAT called for patient with possible seizure. Patient's ex- was visiting and describes patient twisted in bed to throw away a heat pack and became unresponsive, with eyes open, banging his head on the pillow. This lasted a few seconds and she called for help. By the time I arrived patient was at his baseline. He remember twisting to reach the trash can and then his calling him. He is AAOx3 at this time and does not appear to be post ictal VS were WNL Chest: BS+ bilaterally with no added sounds. CVS: normal S1 and S2, RRR. A/P: - Suspect his LOC was likely a syncopal episode and not a seizure. - Transfer to Telemetry, neurological checks, CT brain. - Interrogate ICD.
[2017-01-11] MEDS: Warfarin TAB(*) 5 MG PO SCH (18:05)
--- NOTE | 2017-01-11 18:55 | RAD ---
HISTORY: Headache, seizure COMPARISONS: July 13, 2016 TECHNIQUE: Multiple contiguous axial CT scans were obtained of the head without intravenous contrast. FINDINGS: HEMORRHAGE/INFARCT: There is no hemorrhage or acute infarct. MASSES/SHIFT: There is no mass or shift. EXTRA-AXIAL SPACES: There are no extra-axial fluid collections. SULCI AND VENTRICLES: The sulci and ventricles are normal in size and position for the patient's stated age. CEREBRUM: There are no focal parenchymal abnormalities. BRAINSTEM: There are no focal parenchymal abnormalities. CEREBELLUM: There are no focal parenchymal abnormalities. VESSELS: The vessels are grossly normal. PARANASAL SINUSES: The paranasal sinuses are clear. ORBITS: The orbits are unremarkable. BONES AND SOFT TISSUE: No bone or soft tissue abnormalities are noted. OTHER: None IMPRESSION: NO ACUTE INTRACRANIAL PATHOLOGY.
[2017-01-11] MEDS: MIDODRINE 5 MG PO SCH (21:57)
[2017-01-11] MEDS: Acetaminophen SUPP* 650 MG SUPP PR PRN (22:09)
[2017-01-11] MEDS: TRIAMCINOLONE PASTE 0.1% TOPICAL SCH (22:10)
[2017-01-12] MEDS: Gabapentin CAP(*) 300 MG PO SCH ×5 (00:26→23:24)
[2017-01-12] MEDS: Levothyroxine TAB* 50 MCG TAB PO SCH (06:03)
[2017-01-12] MEDS: Acetaminophen TAB* 325 MG PO PRN (06:03)
[2017-01-12] MEDS: Omeprazole CAP* 20 MG PO SCH (06:03)
[2017-01-12 06:57] LABS: BUN/Creatinine Ratio 31.3 (8-20); Calcium 7.8 mg/dL (8.6-10.3); EGFR African American 39.2 (>60); EGFR Non-African American 30.5 (>60); Potassium 4.5 mmol/L (3.5-5.0)
[2017-01-12] MEDS: MIDODRINE 5 MG PO SCH ×3 (09:45→21:16)
[2017-01-12] MEDS: Torsemide TAB* 20 MG PO SCH ×3 (09:46→21:58)
[2017-01-12] MEDS: Carvedilol TAB* 3.125 MG PO SCH ×2 (09:46→21:14)
[2017-01-12] MEDS: Potassium Chlor TAB* 20 MEQ TAB.ER PO SCH ×4 (09:46→21:13)
[2017-01-12] MEDS: Magnesium Oxide TAB* 400 MG PO SCH ×2 (09:46→21:14)
[2017-01-12] MEDS: EPLERONONE 25 MG PO SCH ×2 (09:46→21:59)
[2017-01-12] MEDS: Allopurinol TAB* 300 MG PO SCH (09:46)
[2017-01-12] MEDS: Bisacodyl SUPP* 10 MG SUPP PR SCH (09:47)
[2017-01-12] MEDS: Metolazone TAB* 5 MG PO SCH ×2 (09:47→21:16)
[2017-01-12] MEDS: Neomycin/Polym/Bacit TOP OINT* 15 GM TOPICAL SCH (09:50)
--- NOTE | 2017-01-12 13:57 | PN ---
Subjective Date of Service: 01/12/17 Interval History: HOSPITALIST PROGRESS NOTE Patient seen and examined at bedside. He feels dizzy and weak today. Feels more dyspneic today, requested supplemental O2 although his SO2 was 100%. Family History: Unchanged from Admission Social History: Unchanged from Admission Past Medical History: Unchanged from Admission Objective Active Medications: Acetaminophen (Tylenol Supp*) 650 mg [place] Q6H PRN PRN Reason: FEVER/PAIN Last Admin: 01/11/17 22:09 Dose: 650 mg Acetaminophen (Tylenol Tab*) 650 mg PO Q6H PRN PRN Reason: FEVER/PAIN Last Admin: 01/12/17 06:03 Dose: 650 mg Albuterol (Ventolin 2.5 Mg/3 Ml Neb.Dede*) 2.5 mg INH .Q20M [facility] Allopurinol (Zyloprim Tab*) 300 mg PO DAILY [facility] Last Admin: 01/12/17 09:46 Dose: 300 mg Bisacodyl (Dulcolax Supp*) 10 mg VT DAILY [facility] Last Admin: 01/12/17 09:47 Dose: Not Given Carvedilol (Coreg Tab*) 3.125 mg PO BID [facility] Last Admin: 01/12/17 09:46 Dose: 3.125 mg Docusate Sodium (Colace Cap*) 100 mg PO BID PRN PRN Reason: CONSTIPATION Last Admin: 01/12/17 06:03 Dose: 100 mg Eplerenone (Inspra (Nf)) 25 mg PO BID [facility] Last Admin: 01/12/17 09:46 Dose: 25 mg Gabapentin (Neurontin Cap(*)) 300 mg PO 0000,0600,1200,1800 [facility] Last Admin: 01/12/17 12:32 Dose: 300 mg Gabapentin (Neurontin Cap(*)) 300 mg PO DAILY PRN PRN Reason: PAIN Last Admin: 01/10/17 17:14 Dose: 300 mg Levothyroxine Sodium (Synthroid Tab*) 50 mcg PO DAILY@0600 [facility] Last Admin: 01/12/17 06:03 Dose: 50 mcg Magnesium Oxide (Magox 400 Tab*) 400 mg PO BID [facility] Last Admin: 01/12/17 09:46 Dose: 400 mg Metolazone (Zaroxolyn Tab*) 5 mg PO BID [facility] Last Admin: 01/12/17 09:47 Dose: 5 mg Midodrine (Midodrine (Nf)) 15 mg PO TID [facility] PRN Reason: Protocol Last Admin: 01/12/17 13:49 Dose: 15 mg Neomycin/Polymyxin/Bacitracin (Neosporin Top Oint Tube*) 1 applic TOPICAL DAILY [facility] Last Admin: 01/12/17 09:50 Dose: 1 applic Pto: Gumb Numb Topical Anesthetic Gel [20% Benzocaine] 1 dose TOPICAL Q1H PRN PRN Reason: MOUTH PAIN Last Admin: 01/01/17 21:02 Dose: 1 dose Omeprazole (Prilosec Cap*) 20 mg PO DAILY@0600 [facility] Last Admin: 01/12/17 06:03 Dose: 20 mg Ondansetron HCl (Zofran Inj*) 4 mg IV Q6H PRN PRN Reason: NAUSEA Pharmacy Profile Note (Coumadin Daily Reminder*) 1 note FOLLOW UP 1700 [facility] Last Admin: 01/12/17 03:41 Dose: 1 note Phenol/Menthol (Chloroseptic Throat [place]*) 1 spray MT TID PRN PRN Reason: SORE THROAT Last Admin: 01/09/17 17:44 Dose: 1 spray Potassium Chloride (Klor Con Er Tab*) 40 meq PO QID [facility] Last Admin: 01/12/17 12:32 Dose: 40 meq Throat Lozenges (Chloraseptic Christine*) 1 christine PO Q4H PRN PRN Reason: SORE THROAT Last Admin: 01/07/17 00:30 Dose: 1 christine Torsemide (Demadex*) 140 mg PO TID [facility] Last Admin: 01/12/17 13:49 Dose: 140 mg Triamcinolone Acetonide (Triamcinolone 0.1% Paste *) 1 applic TOPICAL BEDTIME [facility] Last Admin: 01/11/17 22:10 Dose: 1 applic Warfarin Sodium (Coumadin Tab(*)) 5 mg PO SUMOTUTHSA@1700 [facility] PRN Reason: Protocol Last Admin: 01/11/17 18:05 Dose: 5 mg Warfarin Sodium (Coumadin Tab(*)) 10 mg PO WEFR@1700 [facility] PRN Reason: Protocol Vital Signs 01/12/17 01/12/17 01/12/17 08:03 11:38 12:32 Temperature 96.6 F Pulse Rate 62 Respiratory 16 16 16 Rate Blood Pressure 85/53 (mmHg) O2 Sat by Pulse 100 Oximetry Oxygen Devices in Use Now: Simple Face Mask Appearance: Middle aged male, appears older than stated age, sitting up in bed in NAD, eating breakfast. Eyes: No Scleral Icterus Ears/Nose/Mouth/Throat: Mucous Membranes Moist Neck: Trachea Midline Respiratory: Symmetrical Chest Expansion and Respiratory Effort, - - Cardiovascular: RRR - Normal S1 and S2 Abdominal: - - Soft, peritoneal catheter in place, no drainage or erythema surrounding it. Extremities: - - Mild bilateral LE edema Neurological: Alert and Oriented x 3, NL Muscle Strength and Tone Lines/Tubes/Other Access: Clean, Dry and Intact Peripheral IV Nutrition: Taking PO's Result Diagrams: 01/07/17 05:40 01/12/17 05:54 Assess/Plan/Problems-Billing Mr Ocampo is a 56 yo M with h/o CHF (systolic-chronic), amyloidosis, CKD, V. tach , ICD, A. fib on Coumadin ,admitted with cardiogenic shock due to hyperkalemia and bradycardia. - Patient Problems (1) Syncope Comment: - Suspect he had a syncopal episode yesterday. - CT brain is negative. - Follow EEG and ICD interrogation. (2) Cardiogenic shock Comment: - Resolved. - [place] to be due to bradycardia secondary to marked hyperkalemia. - Remains hypotensive though this is his baseline. (3) Hyperkalemia Comment: - Potassium is normal today, but needs close monitoring. - Continue supplementation at lower dose and monitor. (4) Chronic systolic CHF (congestive heart failure) Comment: - End stage CHF. - Hold IV lasix today and continue to monitor renal function. Continue inspra, metolazone and torsemide. (5) Ascites Comment: - Secondary to severe CHF and cirrhosis. - He continues to use a peritoneal drain daily. Fluid from admission grew enterococcus faecalis, but no signs of peritonitis. - D/w Dr. Wetzel - patient has no signs of infection at this time. He does not recommend further antibiotics. (6) Hyponatremia Comment: - Chronic and stable. - Secondary to his chronic CHF and diuretic usage. (7) Afib Comment: - INR trending down today. Will adjust coumadin dose to 10mg on Wednesdays and Fridays and 5mg on other days. - HR is controlled on coreg 3.125mg BID. (8) Amyloidosis Comment: - D/w Dr. Geller - patient was denied heart transplant at [place], [place] , and [place], but [facility] would consider him. Dr. Geller completed his w/u in October and sent results to Dr. Da Ireland ([phone]) in October, but patient has not heard from them. - I called [facility] ([phone]) and talked to Dr. Ireland - he' s studying the case, but has not offered a bed at this time. (9) DVT prophylaxis Comment: - Warfarin. (10) Full code status (11) Counseling regarding end of life decision making Comment: - He received the response to his appeal and was told he needs to be discharged, but with his worsening renal function and potassium, now he has medical needs again to stay in the hospital. I called Dr. Ireland Wednesday and confirm patient would be a candidate for heart transplant at [facility]. If [place] says he's not a candidate, I'll contact [place]'s CHF unit to see if he would be a LVAD candidate. Status and Disposition: Inpatient.
[2017-01-12] MEDS: Warfarin TAB(*) 5 MG PO SCH (17:20)
[2017-01-12] MEDS: Acetaminophen SUPP* 650 MG SUPP PR PRN (21:26)
[2017-01-12] MEDS: TRIAMCINOLONE PASTE 0.1% TOPICAL SCH (21:30)
--- NOTE | 2017-01-13 01:16 | EEG ---
ELECTROENCEPHALOGRAPHY: DATE OF STUDY: DATE OF DICTATION: 01/12/17 - ROOM #445 PATIENT OF: Dr. Evans. HISTORY: This is a 56-year-old man, inpatient, who is being evaluated for possible seizure with an unresponsive episode and head banging but without any clear postictal. MEDICATIONS: Include: 1. Zyloprim 2. Neurontin. 3. Ventolin. 4. Zofran. 5. Colace. 6. Prilosec. 7. Synthroid. 8. Triamcinolone. 9. Coumadin. 10. Demadex. 11. Potassium. 12. Midodrine. 13. Zaroxolyn. 14. Coreg. 15. Dulcolax. 16. Chloraseptic. INTERPRETATION: With the patient awake, background cerebral activity consists of moderate amplitude posterior dominant 7 Hz rhythm. Prominent muscle movement artifact is noted at times. The patient becomes drowsy with slowing to the further theta range, but the patient never falls fully sleep. Some body jerking in both left leg and then whole body and then the right upper extremity. This is not associated with any electrographic changes. No epileptiform potentials, focal abnormalities or major asymmetries of background are noted. IMPRESSION: This awake and drowsy EEG is abnormal because of mild slowing of background. The medications the patient is consuming may contribute to some of this slowing, but this slowing is also consistent mild general encephalopathy or sleep deprivation. No epileptiform potentials were noted. [id number]/[facility] #: [id number] [facility]
[2017-01-13] MEDS: Gabapentin CAP(*) 300 MG PO PRN (04:11)
[2017-01-13] MEDS: Acetaminophen TAB* 325 MG PO PRN ×2 (04:13→17:57)
[2017-01-13] MEDS: Levothyroxine TAB* 50 MCG TAB PO SCH (06:01)
[2017-01-13] MEDS: Omeprazole CAP* 20 MG PO SCH (06:01)
[2017-01-13] MEDS: Carvedilol TAB* 3.125 MG PO SCH ×2 (07:37→22:37)
[2017-01-13] MEDS: Gabapentin CAP(*) 300 MG PO SCH ×3 (07:49→17:57)
[2017-01-13] MEDS: EPLERONONE 25 MG PO SCH ×2 (07:50→22:15)
[2017-01-13] MEDS: Bisacodyl SUPP* 10 MG SUPP PR SCH (07:50)
[2017-01-13] MEDS: Magnesium Oxide TAB* 400 MG PO SCH ×2 (07:51→21:56)
[2017-01-13] MEDS: MIDODRINE 5 MG PO SCH ×3 (07:51→22:17)
[2017-01-13] MEDS: Metolazone TAB* 5 MG PO SCH ×2 (07:51→22:37)
[2017-01-13] MEDS: Potassium Chlor TAB* 20 MEQ TAB.ER PO SCH ×4 (07:52→22:05)
[2017-01-13 08:25] LABS: Add Diff/Slide Review? Slide Review Added; Comments Flag Yes; Hematocrit 28 % (42-52); Hemoglobin 8.2 g/dl (14.0-18.0); Mean Corpuscular HGB Conc 30 g/dl (31-36); Mean Corpuscular Hemoglobin 24 pg (27-31); Mean Corpuscular Volume 81 fL (80-94); Mean Platelet Volume 8 um3 (7.4-10.4); Red Blood Count 3.42 10^6/ul (4.0-5.4); Red Cell Distribution Width 22 % (10.5-15); White Blood Count 13.5 10^3/ul (3.5-10.8)
[2017-01-13] MEDS: Allopurinol TAB* 300 MG PO SCH (08:32)
[2017-01-13] MEDS: Torsemide TAB* 20 MG PO SCH ×3 (08:33→22:07)
[2017-01-13] MEDS: Neomycin/Polym/Bacit TOP OINT* 15 GM TOPICAL SCH (08:36)
[2017-01-13 08:37] LABS: BUN/Creatinine Ratio 32.5 (8-20); Calcium 8.1 mg/dL (8.6-10.3); EGFR African American 36.2 (>60); EGFR Non-African American 28.1 (>60)
--- NOTE | 2017-01-13 08:47 | PN ---
Subjective Date of Service: 01/13/17 Interval History: HOSPITALIST PROGRESS NOTE Patient seen and examined at bedside. He doesn't feel well. Feels weak, dyspnea with exertion is worse. No further syncopal episodes, but feels lightheaded standing up. Family History: Unchanged from Admission Social History: Unchanged from Admission Past Medical History: Unchanged from Admission Objective Active Medications: Acetaminophen (Tylenol Supp*) 650 mg SC Q6H PRN PRN Reason: FEVER/PAIN Last Admin: 01/12/17 21:26 Dose: 650 mg Acetaminophen (Tylenol Tab*) 650 mg PO Q6H PRN PRN Reason: FEVER/PAIN Last Admin: 01/13/17 04:13 Dose: 650 mg Albuterol (Ventolin 2.5 Mg/3 Ml Neb.Dede*) 2.5 mg INH .Q20M [facility] Allopurinol (Zyloprim Tab*) 300 mg PO DAILY [facility] Last Admin: 01/13/17 08:32 Dose: 300 mg Bisacodyl (Dulcolax Supp*) 10 mg SC DAILY [facility] Last Admin: 01/13/17 07:50 Dose: Not Given Carvedilol (Coreg Tab*) 3.125 mg PO BID [facility] Last Admin: 01/13/17 07:37 Dose: Not Given Docusate Sodium (Colace Cap*) 100 mg PO BID PRN PRN Reason: CONSTIPATION Last Admin: 01/12/17 06:03 Dose: 100 mg Eplerenone (Inspra (Nf)) 25 mg PO BID [facility] Last Admin: 01/13/17 07:50 Dose: 25 mg Gabapentin (Neurontin Cap(*)) 300 mg PO 0000,0600,1200,1800 [facility] Last Admin: 01/13/17 07:49 Dose: 300 mg Gabapentin (Neurontin Cap(*)) 300 mg PO DAILY PRN PRN Reason: PAIN Last Admin: 01/13/17 04:11 Dose: 300 mg Levothyroxine Sodium (Synthroid Tab*) 50 mcg PO DAILY@0600 [facility] Last Admin: 01/13/17 06:01 Dose: 50 mcg Magnesium Oxide (Magox 400 Tab*) 400 mg PO BID [facility] Last Admin: 01/13/17 07:51 Dose: 400 mg Metolazone (Zaroxolyn Tab*) 5 mg PO BID [facility] Last Admin: 01/13/17 07:51 Dose: 5 mg Midodrine (Midodrine (Nf)) 15 mg PO TID [facility] PRN Reason: Protocol Last Admin: 01/13/17 07:51 Dose: 15 mg Neomycin/Polymyxin/Bacitracin (Neosporin Top Oint Tube*) 1 applic TOPICAL DAILY [facility] Last Admin: 01/13/17 08:36 Dose: 1 applic Pto: Gumb Numb Topical Anesthetic Gel [20% Benzocaine] 1 dose TOPICAL Q1H PRN PRN Reason: MOUTH PAIN Last Admin: 01/01/17 21:02 Dose: 1 dose Omeprazole (Prilosec Cap*) 20 mg PO DAILY@0600 [facility] Last Admin: 01/13/17 06:01 Dose: 20 mg Ondansetron HCl (Zofran Inj*) 4 mg IV Q6H PRN PRN Reason: NAUSEA Pharmacy Profile Note (Coumadin Daily Reminder*) 1 note FOLLOW UP 1700 [facility] Last Admin: 01/12/17 17:21 Dose: 1 note Phenol/Menthol (Chloroseptic Throat [place]*) 1 spray MT TID PRN PRN Reason: SORE THROAT Last Admin: 01/09/17 17:44 Dose: 1 spray Potassium Chloride (Klor Con Er Tab*) 40 meq PO QID [facility] Last Admin: 01/13/17 07:52 Dose: 40 meq Throat Lozenges (Chloraseptic Christine*) 1 christine PO Q4H PRN PRN Reason: SORE THROAT Last Admin: 01/07/17 00:30 Dose: 1 christine Torsemide (Demadex*) 140 mg PO TID [facility] Last Admin: 01/13/17 08:33 Dose: 140 mg Triamcinolone Acetonide (Triamcinolone 0.1% Paste *) 1 applic TOPICAL BEDTIME [facility] Last Admin: 01/12/17 21:30 Dose: 1 applic Warfarin Sodium (Coumadin Tab(*)) 5 mg PO SUMOTUTHSA@1700 [facility] PRN Reason: Protocol Last Admin: 01/12/17 17:20 Dose: 5 mg Warfarin Sodium (Coumadin Tab(*)) 10 mg PO WEFR@1700 [facility] PRN Reason: Protocol Vital Signs 01/13/17 01/13/17 01/13/17 06:11 07:35 07:49 Temperature 97.5 F Pulse Rate 60 Respiratory 18 16 18 Rate Blood Pressure 77/54 (mmHg) O2 Sat by Pulse 100 Oximetry Oxygen Devices in Use Now: None Appearance: Middle aged male, appears older than stated age, sitting up in bed in NAD. Eyes: No Scleral Icterus Ears/Nose/Mouth/Throat: Mucous Membranes Moist Neck: Trachea Midline Respiratory: Symmetrical Chest Expansion and Respiratory Effort, - - BS+ bilaterally decreased in both bases Cardiovascular: RRR - Normal S1 and S2 Abdominal: NL Sounds; No Tenderness; No Distention, - - Peritoneal drain in place, CDI Extremities: - - Mild bilateral LE edema Neurological: Alert and Oriented x 3, NL Muscle Strength and Tone Lines/Tubes/Other Access: Clean, Dry and Intact Peripheral IV Nutrition: Taking PO's Result Diagrams: 01/13/17 08:05 01/13/17 08:05 Assess/Plan/Problems-Billing Mr Ocampo is a 56 yo M with h/o CHF (systolic-chronic), amyloidosis, CKD, V. tach , ICD, A. fib on Coumadin ,admitted with cardiogenic shock due to hyperkalemia and bradycardia. - Patient Problems (1) Cardiorenal syndrome with renal failure Comment: - Worsening renal function secondary to cardiorenal syndrome. - Not perfusing his kidneys well due to his end stage CHF. - Last dose Furosemide was 01/11. - If his renal function continues to worse, may have to consider dyalisis. Patient would be willingto have dyalisis is medically indicated. (2) Syncope Comment: - CT brain was negative. - EEG showed low voltage, but no epileptiform discharges. - ICD interrogation revealed one episode of NSVT 27 beats on 12/29, most recent episode 01/07, no shocks. - Suspect his syncopal episode was secondary to hypotension. (3) Cardiogenic shock Comment: - Resolved. - Ashley to be due to bradycardia secondary to marked hyperkalemia. - Remains hypotensive, a little lower than his baseline now. (4) Hyperkalemia Comment: - Potassium is normal today, but needs close monitoring. - Continue supplementation at lower dose and monitor. (5) Chronic systolic CHF (congestive heart failure) Comment: - End stage CHF. - Hold IV lasix today and continue to monitor renal function. Continue inspra, metolazone and torsemide. (6) Ascites Comment: - Secondary to severe CHF and cirrhosis. - He continues to use a peritoneal drain daily. Fluid from admission grew enterococcus faecalis, but no signs of peritonitis. - Has drained almost 800ml of peritoneal fluid so far today. (7) Hyponatremia Comment: - Chronic and trending down again. - Secondary to his chronic CHF and diuretic usage. (8) Afib Comment: - Continue Warfarin 10mg on Wednesdays and Fridays and 5mg on other days. - HR is controlled on coreg 3.125mg BID. (9) Amyloidosis Comment: - D/w Dr. Geller - patient was denied heart transplant at [place], [place] , and [place], but [facility] would consider him. Dr. Geller completed his w/u in October and sent results to Dr. Da Ireland ([phone]) in October, but patient has not heard from them. - I called [facility] ([phone]) and talked to Dr. Ireland - he' s studying the case, but has not offered a bed at this time. (10) DVT prophylaxis Comment: - Warfarin. (11) Full code status (12) Counseling regarding end of life decision making Comment: - He received the response to his appeal and was told he needs to be discharged, but with his worsening renal function and potassium, now he has medical needs again to stay in the hospital. If [facility] says he's not a candidate, I'll contact [place]'s CHF unit to see if he would be a LVAD candidate. Status and Disposition: Inpatient.
[2017-01-13] MEDS: Warfarin TAB(*) 5 MG PO SCH (17:09)
[2017-01-13] MEDS: TRIAMCINOLONE PASTE 0.1% TOPICAL SCH (22:37)
[2017-01-14] MEDS: Gabapentin CAP(*) 300 MG PO SCH ×4 (00:17→17:42)
[2017-01-14] MEDS: Omeprazole CAP* 20 MG PO SCH (05:47)
[2017-01-14] MEDS: Levothyroxine TAB* 50 MCG TAB PO SCH (05:48)
[2017-01-14 06:49] LABS: BUN/Creatinine Ratio 37.1 (8-20); EGFR African American 43.4 (>60); EGFR Non-African American 33.8 (>60); Potassium 4.2 mmol/L (3.5-5.0)
[2017-01-14] MEDS: Carvedilol TAB* 3.125 MG PO SCH ×2 (08:46→22:10)
[2017-01-14] MEDS: Bisacodyl SUPP* 10 MG SUPP PR SCH (08:46)
[2017-01-14] MEDS ORDERED: Metolazone TAB* 5 MG PO SCH (08:52)
[2017-01-14] MEDS: Metolazone TAB* 5 MG PO SCH ×3 (09:03→22:05)
[2017-01-14] MEDS: MIDODRINE 5 MG PO SCH ×3 (09:03→22:05)
[2017-01-14] MEDS: EPLERONONE 25 MG PO SCH ×2 (09:03→22:06)
[2017-01-14] MEDS: Magnesium Oxide TAB* 400 MG PO SCH ×2 (09:03→22:05)
[2017-01-14] MEDS: Potassium Chlor TAB* 20 MEQ TAB.ER PO SCH ×4 (09:03→22:05)
[2017-01-14] MEDS: Metolazone TAB* 5 MG ONE ×2 (09:10→09:12)
[2017-01-14] MEDS: Allopurinol TAB* 300 MG PO SCH (09:39)
[2017-01-14] MEDS: Torsemide TAB* 20 MG PO SCH ×3 (09:39→23:04)
[2017-01-14] MEDS: Neomycin/Polym/Bacit TOP OINT* 15 GM TOPICAL SCH (09:45)
--- NOTE | 2017-01-14 10:42 | PN ---
Subjective Date of Service: 01/14/17 Interval History: HOSPITALIST PROGRESS NOTE Patient seen and examined at bedside. Offers no new complaints today. Family History: Unchanged from Admission Social History: Unchanged from Admission Past Medical History: Unchanged from Admission Objective Active Medications: Acetaminophen (Tylenol Supp*) 650 mg [place] Q6H PRN PRN Reason: FEVER/PAIN Last Admin: 01/12/17 21:26 Dose: 650 mg Acetaminophen (Tylenol Tab*) 650 mg PO Q6H PRN PRN Reason: FEVER/PAIN Last Admin: 01/13/17 17:57 Dose: 650 mg Albuterol (Ventolin 2.5 Mg/3 Ml Neb.Dede*) 2.5 mg INH .Q20M [facility] Allopurinol (Zyloprim Tab*) 300 mg PO DAILY [facility] Last Admin: 01/14/17 09:39 Dose: 300 mg Bisacodyl (Dulcolax Supp*) 10 mg [place] DAILY [facility] Last Admin: 01/14/17 08:46 Dose: Not Given Carvedilol (Coreg Tab*) 3.125 mg PO BID [facility] Last Admin: 01/14/17 08:46 Dose: Not Given Docusate Sodium (Colace Cap*) 100 mg PO BID PRN PRN Reason: CONSTIPATION Last Admin: 01/12/17 06:03 Dose: 100 mg Eplerenone (Inspra (Nf)) 25 mg PO BID [facility] Last Admin: 01/14/17 09:03 Dose: 25 mg Furosemide (Lasix Iv*) 100 mg IV ONCE ONE Stop: 01/14/17 12:01 Furosemide (Lasix Iv*) 20 mg IV ONCE ONE Stop: 01/14/17 12:01 Gabapentin (Neurontin Cap(*)) 300 mg PO 0000,0600,1200,1800 [facility] Last Admin: 01/14/17 05:47 Dose: 300 mg Gabapentin (Neurontin Cap(*)) 300 mg PO DAILY PRN PRN Reason: PAIN Last Admin: 01/13/17 04:11 Dose: 300 mg Levothyroxine Sodium (Synthroid Tab*) 50 mcg PO DAILY@0600 [facility] Last Admin: 01/14/17 05:48 Dose: 50 mcg Magnesium Oxide (Magox 400 Tab*) 400 mg PO BID [facility] Last Admin: 01/14/17 09:03 Dose: 400 mg Metolazone (Zaroxolyn Tab*) 5 mg PO BID@0900,2100 [facility] Last Admin: 01/14/17 09:10 Dose: 5 mg Midodrine (Midodrine (Nf)) 15 mg PO TID [facility] PRN Reason: Protocol Last Admin: 01/14/17 09:03 Dose: 15 mg Neomycin/Polymyxin/Bacitracin (Neosporin Top Oint Tube*) 1 applic TOPICAL DAILY [facility] Last Admin: 01/14/17 09:45 Dose: 1 applic Pto: Gumb Numb Topical Anesthetic Gel [20% Benzocaine] 1 dose TOPICAL Q1H PRN PRN Reason: MOUTH PAIN Last Admin: 01/01/17 21:02 Dose: 1 dose Omeprazole (Prilosec Cap*) 20 mg PO DAILY@0600 [facility] Last Admin: 01/14/17 05:47 Dose: 20 mg Ondansetron HCl (Zofran Inj*) 4 mg IV Q6H PRN PRN Reason: NAUSEA Pharmacy Profile Note (Coumadin Daily Reminder*) 1 note FOLLOW UP 1700 [facility] Last Admin: 01/13/17 19:46 Dose: 1 note Phenol/Menthol (Chloroseptic Throat [place]*) 1 spray MT TID PRN PRN Reason: SORE THROAT Last Admin: 01/09/17 17:44 Dose: 1 spray Potassium Chloride (Klor Con Er Tab*) 40 meq PO QID [facility] Last Admin: 01/14/17 09:03 Dose: 40 meq Throat Lozenges (Chloraseptic Christine*) 1 christine PO Q4H PRN PRN Reason: SORE THROAT Last Admin: 01/07/17 00:30 Dose: 1 christine Torsemide (Demadex*) 140 mg PO TID [facility] Last Admin: 01/14/17 09:39 Dose: 140 mg Triamcinolone Acetonide (Triamcinolone 0.1% Paste *) 1 applic TOPICAL BEDTIME [facility] Last Admin: 01/13/17 22:37 Dose: 1 applic Warfarin Sodium (Coumadin Tab(*)) 5 mg PO SUMOTUTHSA@1700 [facility] PRN Reason: Protocol Last Admin: 01/12/17 17:20 Dose: 5 mg Warfarin Sodium (Coumadin Tab(*)) 10 mg PO WEFR@1700 [facility] PRN Reason: Protocol Last Admin: 01/13/17 17:09 Dose: 10 mg Vital Signs 01/14/17 01/14/17 01/14/17 05:47 06:17 07:29 Temperature 97.9 F Pulse Rate 69 Respiratory 17 18 14 Rate Blood Pressure 77/46 (mmHg) O2 Sat by Pulse 97 Oximetry Oxygen Devices in Use Now: None Appearance: Sitting up in bed in NAD. Eyes: No Scleral Icterus Ears/Nose/Mouth/Throat: Mucous Membranes Moist Neck: Trachea Midline Respiratory: Symmetrical Chest Expansion and Respiratory Effort, - - BS+ bilaterally with no added sounds, decreased in both bases Cardiovascular: RRR - Normal S1 and S2 Extremities: - - Mild LE edema Neurological: Alert and Oriented x 3, NL Muscle Strength and Tone Lines/Tubes/Other Access: Clean, Dry and Intact Peripheral IV Nutrition: Taking PO's Result Diagrams: 01/13/17 08:05 01/14/17 06:03 Assess/Plan/Problems-Billing Mr Ocampo is a 56 yo M with h/o CHF (systolic-chronic), amyloidosis, CKD, V. tach , ICD, A. fib on Coumadin ,admitted with cardiogenic shock due to hyperkalemia and bradycardia. - Patient Problems (1) Cardiorenal syndrome with renal failure Comment: - Worsening renal function secondary to cardiorenal syndrome. - Not perfusing his kidneys well due to his end stage CHF. - Last dose Furosemide was 01/11 - as creatinine came down today will give Furosemide again. - If his renal function continues to worse, may have to consider dyalisis. Patient would be willing to have dyalisis if medically indicated. (2) Syncope Comment: - CT brain was negative. - EEG showed low voltage, but no epileptiform discharges. - ICD interrogation revealed one episode of NSVT 27 beats on 12/29, most recent episode 01/07, no shocks. - Suspect his syncopal episode was secondary to hypotension. (3) Cardiogenic shock Comment: - Resolved. - [place] to be due to bradycardia secondary to marked hyperkalemia. - Remains hypotensive, a little lower than his baseline now. (4) Hyperkalemia Comment: - Potassium is normal today, but needs close monitoring. - Continue supplementation at lower dose and monitor. (5) Chronic systolic CHF (congestive heart failure) Comment: - End stage CHF. - Will give IV lasix today and continue to monitor renal function. Continue inspra, metolazone and torsemide. (6) Ascites Comment: - Secondary to severe CHF and cirrhosis. - He continues to use a peritoneal drain daily. Fluid from admission grew enterococcus faecalis, but no signs of peritonitis. (7) Hyponatremia Comment: - Chronic and trending down again. - Secondary to his chronic CHF and diuretic usage. (8) Afib Comment: - Continue Warfarin 10mg on Wednesdays and Fridays and 5mg on other days. - HR is controlled on coreg 3.125mg BID. (9) Amyloidosis Comment: - D/w Dr. Geller - patient was denied heart transplant at [facility] , and [place], but [facility] would [facility] him. Dr. Geller completed his w/u in October and sent results to Dr. Da Ireland ([phone]) in October, but patient has not heard from them. - I called [facility] ([phone]) and talked to Dr. Ireland - he continues to study the case, but has not offered a bed at this time. He'll contact me again today. (10) DVT prophylaxis Comment: - Warfarin. (11) Full code status Status and Disposition: Inpatient.
[2017-01-14] MEDS ORDERED: Furosemide IV* 10 MG/ML 10 ML VIAL (100 MG) IV ONE ×2 (12:00)
[2017-01-14] MEDS: Warfarin TAB(*) 5 MG PO SCH (17:27)
--- NOTE | 2017-01-14 17:57 | PN ---
Hospitalist Progress Note HOSPITALIST ADDENDUM Case discussed with Dr. Ireland again - he will not offer a bed for this patient at this time, especially considering his renal function. He suggested transferring the patient to a Tertiary center closer to us for inotropic medications, possible right heart cath, consideration for LVAD, all of those hoping for renal function improvement. They would still see him as outpatient, but will not offer bed for transfer at this time. I called [place]'s transfer center and was told the CHF service does not have anything to offer this patient, they feel he's beyond a LVAD at this time and recommend Palliative care. I talked to patient's propellant assembler (Dr. Thomas) who also called [place] and talked to the CHF specialist electron beam photo mask maker and the answer was the same, they have nothing else to offer. Will continue current management, but at this point I don't see any other options beyond Palliative care for this patient, but he's not accepting and plans to call [place] himself.
[2017-01-14] MEDS: Acetaminophen SUPP* 650 MG SUPP PR PRN (22:05)
[2017-01-15] MEDS: Gabapentin CAP(*) 300 MG PO SCH ×4 (00:08→17:06)
[2017-01-15] MEDS: TRIAMCINOLONE PASTE 0.1% TOPICAL SCH ×2 (00:17→20:15)
[2017-01-15] MEDS: Sodium Phosphate ADULT ENEMA* 118 ml bottle PR PRN (02:44)
[2017-01-15 05:33] LABS: Hematocrit 27 % (42-52); Mean Corpuscular HGB Conc 30 g/dl (31-36); Mean Corpuscular Hemoglobin 24 pg (27-31); Mean Corpuscular Volume 81 fL (80-94); Mean Platelet Volume 8 um3 (7.4-10.4); Red Blood Count 3.36 10^6/ul (4.0-5.4); Red Cell Distribution Width 22 % (10.5-15); White Blood Count 11.7 10^3/ul (3.5-10.8)
[2017-01-15 05:40] LABS: Comments Flag Yes
[2017-01-15] MEDS: Omeprazole CAP* 20 MG PO SCH (05:44)
[2017-01-15] MEDS: Levothyroxine TAB* 50 MCG TAB PO SCH (05:44)
[2017-01-15 05:45] LABS: BUN/Creatinine Ratio 35.5 (8-20); EGFR African American 43.9 (>60); EGFR Non-African American 34.1 (>60); Potassium 4.2 mmol/L (3.5-5.0)
--- NOTE | 2017-01-15 08:39 | PN ---
Subjective Date of Service: 01/15/17 Interval History: C/O neuropathic pain in his toes, not unusual for him. Chronic JULIEN, no change. Walks to [facility]. No new c/o. Family History: Unchanged from Admission Social History: Unchanged from Admission Past Medical History: Unchanged from Admission Objective Active Medications: Acetaminophen (Tylenol Supp*) 650 mg [place] Q6H PRN PRN Reason: FEVER/PAIN Last Admin: 01/14/17 22:05 Dose: 650 mg Acetaminophen (Tylenol Tab*) 650 mg PO Q6H PRN PRN Reason: FEVER/PAIN Last Admin: 01/13/17 17:57 Dose: 650 mg Albuterol (Ventolin 2.5 Mg/3 Ml Neb.Dede*) 2.5 mg INH .Q20M [facility] Allopurinol (Zyloprim Tab*) 300 mg PO DAILY [facility] Last Admin: 01/14/17 09:39 Dose: 300 mg Bisacodyl (Dulcolax Supp*) 10 mg [place] DAILY [facility] Last Admin: 01/14/17 08:46 Dose: Not Given Carvedilol (Coreg Tab*) 3.125 mg PO BID [facility] Last Admin: 01/14/17 22:10 Dose: Not Given Docusate Sodium (Colace Cap*) 100 mg PO BID PRN PRN Reason: CONSTIPATION Last Admin: 01/12/17 06:03 Dose: 100 mg Eplerenone (Inspra (Nf)) 25 mg PO BID [facility] Last Admin: 01/14/17 22:06 Dose: 25 mg Gabapentin (Neurontin Cap(*)) 300 mg PO 0000,0600,1200,1800 [facility] Last Admin: 01/15/17 05:44 Dose: 300 mg Gabapentin (Neurontin Cap(*)) 300 mg PO DAILY PRN PRN Reason: PAIN Last Admin: 01/13/17 04:11 Dose: 300 mg Levothyroxine Sodium (Synthroid Tab*) 50 mcg PO DAILY@0600 [facility] Last Admin: 01/15/17 05:44 Dose: 50 mcg Magnesium Oxide (Magox 400 Tab*) 400 mg PO BID [facility] Last Admin: 01/14/17 22:05 Dose: 400 mg Metolazone (Zaroxolyn Tab*) 5 mg PO BID@0900,2100 [facility] Last Admin: 01/14/17 22:05 Dose: 5 mg Midodrine (Midodrine (Nf)) 15 mg PO TID [facility] PRN Reason: Protocol Last Admin: 01/14/17 22:05 Dose: 15 mg Neomycin/Polymyxin/Bacitracin (Neosporin Top Oint Tube*) 1 applic TOPICAL DAILY [facility] Last Admin: 01/14/17 09:45 Dose: 1 applic Pto: Gumb Numb Topical Anesthetic Gel [20% Benzocaine] 1 dose TOPICAL Q1H PRN PRN Reason: MOUTH PAIN Last Admin: 01/01/17 21:02 Dose: 1 dose Omeprazole (Prilosec Cap*) 20 mg PO DAILY@0600 [facility] Last Admin: 01/15/17 05:44 Dose: 20 mg Ondansetron HCl (Zofran Inj*) 4 mg IV Q6H PRN PRN Reason: NAUSEA Pharmacy Profile Note (Coumadin Daily Reminder*) 1 note FOLLOW UP 1700 [facility] Last Admin: 01/14/17 18:10 Dose: 1 note Phenol/Menthol (Chloroseptic Throat [place]*) 1 spray MT TID PRN PRN Reason: SORE THROAT Last Admin: 01/09/17 17:44 Dose: 1 spray Potassium Chloride (Klor Con Er Tab*) 40 meq PO QID [facility] Last Admin: 01/14/17 22:05 Dose: 40 meq Sodium Biphosphate/Sodium Phosphate (Fleet Enema*) 1 bottle [place] DAILY PRN PRN Reason: CONSTIPATION Last Admin: 01/15/17 02:44 Dose: 1 bottle Throat Lozenges (Chloraseptic Christine*) 1 christine PO Q4H PRN PRN Reason: SORE THROAT Last Admin: 01/07/17 00:30 Dose: 1 christine Torsemide (Demadex*) 140 mg PO TID [facility] Last Admin: 01/14/17 23:04 Dose: 140 mg Triamcinolone Acetonide (Triamcinolone 0.1% Paste *) 1 applic TOPICAL BEDTIME [facility] Last Admin: 01/15/17 00:17 Dose: 1 applic Warfarin Sodium (Coumadin Tab(*)) 5 mg PO SUMOTUTHSA@1700 [facility] PRN Reason: Protocol Last Admin: 01/14/17 17:27 Dose: 5 mg Warfarin Sodium (Coumadin Tab(*)) 10 mg PO WEFR@1700 [facility] PRN Reason: Protocol Last Admin: 01/13/17 17:09 Dose: 10 mg Vital Signs 01/14/17 01/14/17 01/14/17 11:16 11:48 13:38 Temperature 97.5 F 97.5 F Pulse Rate 76 81 Respiratory 20 18 16 Rate Blood Pressure 71/45 93/56 (mmHg) O2 Sat by Pulse 97 98 Oximetry 01/14/17 01/14/17 01/14/17 13:45 13:48 17:42 Temperature 97.5 F Pulse Rate 83 Respiratory 16 18 14 Rate Blood Pressure 93/56 (mmHg) O2 Sat by Pulse 99 Oximetry 01/14/17 01/14/17 01/14/17 19:19 19:42 20:00 Temperature 98.0 F Pulse Rate 80 Respiratory 17 16 14 Rate Blood Pressure 87/53 (mmHg) O2 Sat by Pulse 99 Oximetry 01/14/17 01/14/17 01/15/17 22:09 23:43 00:08 Temperature 98.4 F Pulse Rate 80 142 79 Respiratory 20 14 Rate Blood Pressure 72/46 65/34 87/63 (mmHg) O2 Sat by Pulse 98 Oximetry 01/15/17 01/15/17 01/15/17 02:08 03:51 05:44 Temperature 97.7 F Pulse Rate 77 Respiratory 14 20 16 Rate Blood Pressure 86/52 (mmHg) O2 Sat by Pulse 100 Oximetry 01/15/17 01/15/17 07:11 07:17 Temperature 98.4 F Pulse Rate 80 Respiratory 18 14 Rate Blood Pressure 85/55 (mmHg) O2 Sat by Pulse 100 Oximetry Oxygen Devices in Use Now: None Appearance: Alert, sitting on the edge of the bed. In fair spirits. Looks comfortable. Eyes: No Scleral Icterus Ears/Nose/Mouth/Throat: Clear Oropharnyx, Mucous Membranes Moist Neck: No Thyroid Enlargement, Masses Respiratory: Symmetrical Chest Expansion and Respiratory Effort, Clear to Auscultation, Clear to Percussion Cardiovascular: RRR Abdominal: - - peritoneal drain RLQ. Site looks clean. Extremities: No Clubbing, Cyanosis, - - Tr edema BL Skin: No Rash or Ulcers, No Nodules or Sclerosis Neurological: Alert and Oriented x 3, NL Sensation Result Diagrams: 01/15/17 04:53 01/15/17 04:53 Microbiology and Other Data: Microbiology 12/31/16 21:50 Gram Stain - Final Peritoneal Fluid Body Fluid Culture - Preliminary No Growth Day 1 01/01/17 05:05 Aerobic Blood Culture - Preliminary Blood Line No Growth Day 1 Anaerobic Blood Culture - Preliminary No Growth Day 1 01/01/17 04:50 Aerobic Blood Culture - Preliminary Blood Venous No Growth Day 1 Anaerobic Blood Culture - Preliminary No Growth Day 1 Assess/Plan/Problems-Billing Mr Ocampo is a 56 yo M with h/o CHF (systolic-chronic), amyloidosis, CKD, V. tach , ICD, A. fib on Coumadin ,admitted with cardiogenic shock due to hyperkalemia and bradycardia. - Patient Problems (1) Amyloidosis Current Visit: Yes Status: Acute Code(s): E85.9 - AMYLOIDOSIS, UNSPECIFIED SNOMED Code(s): 33844565 Comment: Continue present tx for CHF. Note daily neg fluid balance. BMP for 01/16. Patient insists he is at risk of dying if we don't check his K+ level daily. (2) Ascites Current Visit: Yes Status: Acute Code(s): R18.8 - OTHER ASCITES SNOMED Code(s): 901790529 Comment: I again advised him that the risk of his peritoneal drain outweighed the benefit but he insists that it not be removed. (3) CKD (chronic kidney disease) stage 3, GFR 30-59 ml/min Current Visit: Yes Status: Acute Code(s): N18.3 - CHRONIC KIDNEY DISEASE, STAGE 3 (MODERATE) SNOMED Code(s): 429032028 Comment: GFR 34.1 01/15/17. (4) Afib Current Visit: Yes Status: Acute Code(s): I48.91 - UNSPECIFIED ATRIAL FIBRILLATION SNOMED Code(s): 76918932 Comment: - Continue Warfarin 10mg on Wednesdays and Fridays and 5mg on other days. - HR is controlled on coreg 3.125mg BID. (5) Hypothyroidism Current Visit: Yes Status: Acute Code(s): E03.9 - HYPOTHYROIDISM, UNSPECIFIED SNOMED Code(s): 94527942 Comment: TSH wnl on 12/28/16. Continue current dose of synthroid. (6) V-tach Current Visit: No Status: Acute Code(s): I47.2 - VENTRICULAR TACHYCARDIA SNOMED Code(s): 55080644 Comment: AICD checked on schedule. Status and Disposition: Inpatient.
[2017-01-15] MEDS: Bisacodyl SUPP* 10 MG SUPP PR SCH (08:44)
[2017-01-15] MEDS: Carvedilol TAB* 3.125 MG PO SCH ×2 (09:08→20:12)
[2017-01-15] MEDS: Allopurinol TAB* 300 MG PO SCH (09:08)
[2017-01-15] MEDS: Potassium Chlor TAB* 20 MEQ TAB.ER PO SCH ×4 (09:08→20:11)
[2017-01-15] MEDS: Metolazone TAB* 5 MG PO SCH ×2 (09:08→20:11)
[2017-01-15] MEDS: Magnesium Oxide TAB* 400 MG PO SCH ×2 (09:08→20:12)
[2017-01-15] MEDS: MIDODRINE 5 MG PO SCH ×3 (09:09→20:12)
[2017-01-15] MEDS: Torsemide TAB* 20 MG PO SCH ×2 (09:47→15:14)
[2017-01-15] MEDS: Acetaminophen TAB* 325 MG PO PRN ×2 (09:48→15:14)
[2017-01-15] MEDS: EPLERONONE 25 MG PO SCH ×2 (09:48→20:12)
[2017-01-15] MEDS: Neomycin/Polym/Bacit TOP OINT* 15 GM TOPICAL SCH (09:49)
--- NOTE | 2017-01-15 15:55 | PN ---
Progress Note - Progress Note Note: Palliative care follow up note: Patient insistent on pursing an apt with Dr. Ireland at [facility] in [place]. Dr. Martínez spoke with Dr. Ireland and he would not offer a bed but was willing to see him. He felt that he would need a BM, Heart and renal transplant and that is not ever going to happen. He recommeneded fine tuning of his renal function at an academic center before being transferred. [facility] was called regarding this and they felt he was palliative care appropriate and he is not a candidate for LVAD or transplant. There was also discussion of transfer to ICU for dobutamine infusion, however, Dr. Schneider did not recommend this with his history of vtach. Bottom line patient will not consider palliative care/hospice care until he is evaluated at [facility] with Dr. Ireland. I encouraged him to make the appointment and travel arrangements now. I also expressed my concern that he may while trying to make this happen. Patient did not feel that would be the case. He said if [facility] will not offer him a transplant then he will come back and do palliative/hospice care.
[2017-01-15] MEDS: Warfarin TAB(*) 5 MG PO SCH (17:07)
[2017-01-15] MEDS: Gabapentin CAP(*) 300 MG PO PRN (20:20)
[2017-01-15] MEDS: TORSEMIDE 100 MG PO SCH (21:14)
[2017-01-15] MEDS: TORSEMIDE 20 MG PO SCH (21:14)
[2017-01-16] MEDS: Gabapentin CAP(*) 300 MG PO SCH ×5 (00:34→23:48)
[2017-01-16] MEDS: Omeprazole CAP* 20 MG PO SCH (05:38)
[2017-01-16] MEDS: Levothyroxine TAB* 50 MCG TAB PO SCH (05:38)
[2017-01-16 06:20] LABS: BUN/Creatinine Ratio 36.5 (8-20); Calcium 8.3 mg/dL (8.6-10.3); EGFR African American 45.5 (>60); EGFR Non-African American 35.3 (>60); Potassium 4.5 mmol/L (3.5-5.0)
[2017-01-16] MEDS: Bisacodyl SUPP* 10 MG SUPP PR SCH (08:46)
[2017-01-16] MEDS: Allopurinol TAB* 300 MG PO SCH (08:52)
[2017-01-16] MEDS: MIDODRINE 5 MG PO SCH ×3 (08:53→21:29)
[2017-01-16] MEDS: Carvedilol TAB* 3.125 MG PO SCH ×2 (08:53→21:28)
[2017-01-16] MEDS: Metolazone TAB* 5 MG PO SCH ×2 (08:53→21:28)
[2017-01-16] MEDS: Magnesium Oxide TAB* 400 MG PO SCH ×2 (08:53→21:28)
[2017-01-16] MEDS: Potassium Chlor TAB* 20 MEQ TAB.ER PO SCH ×4 (08:54→21:28)
[2017-01-16] MEDS: Neomycin/Polym/Bacit TOP OINT* 15 GM TOPICAL SCH (08:54)
[2017-01-16] MEDS: EPLERONONE 25 MG PO SCH ×2 (09:32→21:28)
[2017-01-16] MEDS: TORSEMIDE 20 MG PO SCH ×3 (09:32→22:19)
[2017-01-16] MEDS: TORSEMIDE 100 MG PO SCH ×3 (09:33→22:19)
[2017-01-16] MEDS: Acetaminophen TAB* 325 MG PO PRN (09:36)
--- NOTE | 2017-01-16 11:37 | PN ---
Subjective Date of Service: 01/16/17 Interval History: No new c/o. L arm sore, using hot packs. Family History: Unchanged from Admission Social History: Unchanged from Admission Past Medical History: Unchanged from Admission Objective Active Medications: Acetaminophen (Tylenol Supp*) 650 mg [place] Q6H PRN PRN Reason: FEVER/PAIN Last Admin: 01/14/17 22:05 Dose: 650 mg Acetaminophen (Tylenol Tab*) 650 mg PO Q6H PRN PRN Reason: FEVER/PAIN Last Admin: 01/16/17 09:36 Dose: 650 mg Albuterol (Ventolin 2.5 Mg/3 Ml Neb.Dede*) 2.5 mg INH .Q20M [facility] Allopurinol (Zyloprim Tab*) 300 mg PO DAILY [facility] Last Admin: 01/16/17 08:52 Dose: 300 mg Bisacodyl (Dulcolax Supp*) 10 mg MT DAILY [facility] Last Admin: 01/16/17 08:46 Dose: Not Given Carvedilol (Coreg Tab*) 3.125 mg PO BID [facility] Last Admin: 01/16/17 08:53 Dose: 3.125 mg Docusate Sodium (Colace Cap*) 100 mg PO BID PRN PRN Reason: CONSTIPATION Last Admin: 01/12/17 06:03 Dose: 100 mg Eplerenone (Inspra (Nf)) 25 mg PO BID [facility] Last Admin: 01/16/17 09:32 Dose: 25 mg Gabapentin (Neurontin Cap(*)) 300 mg PO 0000,0600,1200,1800 [facility] Last Admin: 01/16/17 05:38 Dose: 300 mg Gabapentin (Neurontin Cap(*)) 300 mg PO DAILY PRN PRN Reason: PAIN Last Admin: 01/15/17 20:20 Dose: 300 mg Levothyroxine Sodium (Synthroid Tab*) 50 mcg PO DAILY@0600 [facility] Last Admin: 01/16/17 05:38 Dose: 50 mcg Magnesium Oxide (Magox 400 Tab*) 400 mg PO BID [facility] Last Admin: 01/16/17 08:53 Dose: 400 mg Metolazone (Zaroxolyn Tab*) 5 mg PO BID@0900,2100 [facility] Last Admin: 01/16/17 08:53 Dose: 5 mg Midodrine (Midodrine (Nf)) 15 mg PO TID [facility] PRN Reason: Protocol Last Admin: 01/16/17 08:53 Dose: 15 mg Neomycin/Polymyxin/Bacitracin (Neosporin Top Oint Tube*) 1 applic TOPICAL DAILY [facility] Last Admin: 01/16/17 08:54 Dose: 1 applic Pto: Gumb Numb Topical Anesthetic Gel [20% Benzocaine] 1 dose TOPICAL Q1H PRN PRN Reason: MOUTH PAIN Last Admin: 01/01/17 21:02 Dose: 1 dose Omeprazole (Prilosec Cap*) 20 mg PO DAILY@0600 [facility] Last Admin: 01/16/17 05:38 Dose: 20 mg Ondansetron HCl (Zofran Inj*) 4 mg IV Q6H PRN PRN Reason: NAUSEA Pharmacy Profile Note (Coumadin Daily Reminder*) 1 note FOLLOW UP 1700 [facility] Last Admin: 01/15/17 17:07 Dose: 1 note Phenol/Menthol (Chloroseptic Throat [place]*) 1 spray MT TID PRN PRN Reason: SORE THROAT Last Admin: 01/09/17 17:44 Dose: 1 spray Potassium Chloride (Klor Con Er Tab*) 40 meq PO QID [facility] Last Admin: 01/16/17 08:54 Dose: 40 meq Sodium Biphosphate/Sodium Phosphate (Fleet Enema*) 1 bottle MT DAILY PRN PRN Reason: CONSTIPATION Last Admin: 01/15/17 02:44 Dose: 1 bottle Throat Lozenges (Chloraseptic Christine*) 1 christine PO Q4H PRN PRN Reason: SORE THROAT Last Admin: 01/07/17 00:30 Dose: 1 christine Torsemide (Demadex*) 100 mg PO TID [facility] Last Admin: 01/16/17 09:33 Dose: 100 mg Torsemide (Demadex*) 40 mg PO TID [facility] Last Admin: 01/16/17 09:32 Dose: 40 mg Triamcinolone Acetonide (Triamcinolone 0.1% Paste *) 1 applic TOPICAL BEDTIME [facility] Last Admin: 01/15/17 20:15 Dose: 1 applic Warfarin Sodium (Coumadin Tab(*)) 5 mg PO SUMOTUTHSA@1700 [facility] PRN Reason: Protocol Last Admin: 01/14/17 17:27 Dose: 5 mg Warfarin Sodium (Coumadin Tab(*)) 10 mg PO WEFR@1700 [facility] PRN Reason: Protocol Last Admin: 01/15/17 17:07 Dose: 10 mg Vital Signs 01/15/17 01/15/17 01/15/17 12:06 14:06 15:29 Temperature 97.3 F Pulse Rate 76 Respiratory 18 16 18 Rate Blood Pressure 78/51 (mmHg) O2 Sat by Pulse 100 Oximetry 01/15/17 01/15/17 01/15/17 15:31 17:06 19:06 Temperature Pulse Rate 77 Respiratory 16 14 Rate Blood Pressure 76/52 (mmHg) O2 Sat by Pulse Oximetry 01/15/17 01/15/17 01/15/17 19:30 19:35 20:00 Temperature 97.3 F Pulse Rate 76 Respiratory 16 14 Rate Blood Pressure 116/102 85/50 (mmHg) O2 Sat by Pulse 96 Oximetry 01/15/17 01/15/17 01/15/17 20:20 21:06 22:20 Temperature Pulse Rate Respiratory 14 14 16 Rate Blood Pressure (mmHg) O2 Sat by Pulse Oximetry 01/15/17 01/16/17 01/16/17 22:59 00:34 02:34 Temperature 97.4 F Pulse Rate 66 Respiratory 16 14 16 Rate Blood Pressure 86/56 (mmHg) O2 Sat by Pulse 100 Oximetry 01/16/17 01/16/17 01/16/17 03:58 05:38 07:27 Temperature 97.1 F 98.1 F Pulse Rate 65 70 Respiratory 16 12 18 Rate Blood Pressure 77/50 81/55 (mmHg) O2 Sat by Pulse 100 99 Oximetry 01/16/17 01/16/17 07:38 08:00 Temperature Pulse Rate Respiratory 18 18 Rate Blood Pressure (mmHg) O2 Sat by Pulse Oximetry Oxygen Devices in Use Now: None Appearance: Alert, on his side in bed, looks uncomfortable from L arm pain. Respiratory: Symmetrical Chest Expansion and Respiratory Effort, Clear to Auscultation, Clear to Percussion Cardiovascular: RRR Extremities: No Clubbing, Cyanosis, - - Tr edema BL. No swelling, discoloration , or warmth L arm Skin: No Rash or Ulcers, No Nodules or Sclerosis Neurological: Alert and Oriented x 3, NL Sensation Result Diagrams: 01/15/17 04:53 01/16/17 05:47 Microbiology and Other Data: Microbiology 12/31/16 21:50 Gram Stain - Final Peritoneal Fluid Body Fluid Culture - Preliminary No Growth Day 1 01/01/17 05:05 Aerobic Blood Culture - Preliminary Blood Line No Growth Day 1 Anaerobic Blood Culture - Preliminary No Growth Day 1 01/01/17 04:50 Aerobic Blood Culture - Preliminary Blood Venous No Growth Day 1 Anaerobic Blood Culture - Preliminary No Growth Day 1 Assess/Plan/Problems-Billing Mr Ocampo is a 56 yo M with h/o CHF (systolic-chronic), amyloidosis, CKD, V. tach , ICD, A. fib on Coumadin ,admitted with cardiogenic shock due to hyperkalemia and bradycardia. - Patient Problems (1) Amyloidosis Current Visit: Yes Status: Acute Code(s): E85.9 - AMYLOIDOSIS, UNSPECIFIED SNOMED Code(s): 84435784 Comment: Continue present tx for CHF. K+ 4.5, creatinine sl decreased on 01/16. Note daily neg fluid balance. BMP planned for 01/18. Patient agrees to skip . (2) Ascites Current Visit: Yes Status: Acute Code(s): R18.8 - OTHER ASCITES SNOMED Code(s): 868075261 Comment: I advised him on 01/15 that the risk of his peritoneal drain outweighed the benefit but he insists that it not be removed. (3) CKD (chronic kidney disease) stage 3, GFR 30-59 ml/min Current Visit: Yes Status: Acute Code(s): N18.3 - CHRONIC KIDNEY DISEASE, STAGE 3 (MODERATE) SNOMED Code(s): 997314920 Comment: GFR 34.1 01/15/17. (4) Afib Current Visit: Yes Status: Acute Code(s): I48.91 - UNSPECIFIED ATRIAL FIBRILLATION SNOMED Code(s): 91634000 Comment: - Continue Warfarin 10mg on Wednesdays and Fridays and 5mg on other days. - HR is controlled on coreg 3.125mg BID. Plan INR 01/18. (5) Hypothyroidism Current Visit: Yes Status: Acute Code(s): E03.9 - HYPOTHYROIDISM, UNSPECIFIED SNOMED Code(s): 36859658 Comment: TSH wnl on 12/28/16. Continue current dose of synthroid. (6) V-tach Current Visit: No Status: Acute Code(s): I47.2 - VENTRICULAR TACHYCARDIA SNOMED Code(s): 97924578 Comment: AICD checked on schedule. Status and Disposition: Inpatient.
[2017-01-16] MEDS: Warfarin TAB(*) 5 MG PO SCH (17:28)
[2017-01-16] MEDS: TRIAMCINOLONE PASTE 0.1% TOPICAL SCH (21:31)
[2017-01-17] MEDS: Sodium Phosphate ADULT ENEMA* 118 ml bottle PR PRN (00:45)
[2017-01-17] MEDS: Omeprazole CAP* 20 MG PO SCH (05:42)
[2017-01-17] MEDS: Levothyroxine TAB* 50 MCG TAB PO SCH (05:42)
[2017-01-17] MEDS: Gabapentin CAP(*) 300 MG PO SCH ×4 (05:42→23:55)
[2017-01-17] MEDS: Carvedilol TAB* 3.125 MG PO SCH ×2 (08:56→21:46)
[2017-01-17] MEDS: Potassium Chlor TAB* 20 MEQ TAB.ER PO SCH ×4 (08:56→21:46)
[2017-01-17] MEDS: Magnesium Oxide TAB* 400 MG PO SCH ×2 (08:56→21:47)
[2017-01-17] MEDS: Metolazone TAB* 5 MG PO SCH ×2 (08:57→21:46)
[2017-01-17] MEDS: MIDODRINE 5 MG PO SCH ×3 (08:57→21:46)
[2017-01-17] MEDS: Allopurinol TAB* 300 MG PO SCH (08:57)
[2017-01-17] MEDS: Neomycin/Polym/Bacit TOP OINT* 15 GM TOPICAL SCH (08:58)
[2017-01-17] MEDS: Bisacodyl SUPP* 10 MG SUPP PR SCH (08:59)
[2017-01-17 09:22] LABS: Magnesium 2.3 mg/dL (1.9-2.7)
[2017-01-17] MEDS: TORSEMIDE 100 MG PO SCH ×3 (09:51→22:21)
[2017-01-17] MEDS: EPLERONONE 25 MG PO SCH ×2 (09:51→22:21)
[2017-01-17] MEDS: TORSEMIDE 20 MG PO SCH ×3 (09:52→22:21)
[2017-01-17] MEDS: Gabapentin CAP(*) 300 MG PO PRN (13:39)
--- NOTE | 2017-01-17 13:59 | PN ---
Subjective Date of Service: 01/17/17 Interval History: c/o cramps both hands, lower arms. He states he never had it like this before, but states he had something like this before and it could be due to either a low or high potassium level. Family History: Unchanged from Admission Social History: Unchanged from Admission Past Medical History: Unchanged from Admission Objective Active Medications: Acetaminophen (Tylenol Supp*) 650 mg [place] Q6H PRN PRN Reason: FEVER/PAIN Last Admin: 01/14/17 22:05 Dose: 650 mg Acetaminophen (Tylenol Tab*) 650 mg PO Q6H PRN PRN Reason: FEVER/PAIN Last Admin: 01/16/17 09:36 Dose: 650 mg Albuterol (Ventolin 2.5 Mg/3 Ml Neb.Dede*) 2.5 mg INH .Q20M [facility] Allopurinol (Zyloprim Tab*) 300 mg PO DAILY [facility] Last Admin: 01/17/17 08:57 Dose: 300 mg Bisacodyl (Dulcolax Supp*) 10 mg [place] DAILY [facility] Last Admin: 01/17/17 08:59 Dose: Not Given Carvedilol (Coreg Tab*) 3.125 mg PO BID [facility] Last Admin: 01/17/17 08:56 Dose: 3.125 mg Docusate Sodium (Colace Cap*) 100 mg PO BID PRN PRN Reason: CONSTIPATION Last Admin: 01/12/17 06:03 Dose: 100 mg Eplerenone (Inspra (Nf)) 25 mg PO BID [facility] Last Admin: 01/17/17 09:51 Dose: 25 mg Gabapentin (Neurontin Cap(*)) 300 mg PO 0000,0600,1200,1800 [facility] Last Admin: 01/17/17 12:00 Dose: 300 mg Gabapentin (Neurontin Cap(*)) 300 mg PO DAILY PRN PRN Reason: PAIN Last Admin: 01/17/17 13:39 Dose: 300 mg Levothyroxine Sodium (Synthroid Tab*) 50 mcg PO DAILY@0600 [facility] Last Admin: 01/17/17 05:42 Dose: 50 mcg Magnesium Oxide (Magox 400 Tab*) 400 mg PO BID [facility] Last Admin: 01/17/17 08:56 Dose: 400 mg Metolazone (Zaroxolyn Tab*) 5 mg PO BID@0900,2100 [facility] Last Admin: 01/17/17 08:57 Dose: 5 mg Midodrine (Midodrine (Nf)) 15 mg PO TID [facility] PRN Reason: Protocol Last Admin: 01/17/17 12:53 Dose: 15 mg Neomycin/Polymyxin/Bacitracin (Neosporin Top Oint Tube*) 1 applic TOPICAL DAILY [facility] Last Admin: 01/17/17 08:58 Dose: 1 applic Pto: Gumb Numb Topical Anesthetic Gel [20% Benzocaine] 1 dose TOPICAL Q1H PRN PRN Reason: MOUTH PAIN Last Admin: 01/01/17 21:02 Dose: 1 dose Omeprazole (Prilosec Cap*) 20 mg PO DAILY@0600 [facility] Last Admin: 01/17/17 05:42 Dose: 20 mg Ondansetron HCl (Zofran Inj*) 4 mg IV Q6H PRN PRN Reason: NAUSEA Pharmacy Profile Note (Coumadin Daily Reminder*) 1 note FOLLOW UP 1700 [facility] Last Admin: 01/16/17 17:28 Dose: 1 note Phenol/Menthol (Chloroseptic Throat [place]*) 1 spray MT TID PRN PRN Reason: SORE THROAT Last Admin: 01/09/17 17:44 Dose: 1 spray Potassium Chloride (Klor Con Er Tab*) 40 meq PO QID [facility] Last Admin: 01/17/17 11:59 Dose: 40 meq Sodium Biphosphate/Sodium Phosphate (Fleet Enema*) 1 bottle [place] DAILY PRN PRN Reason: CONSTIPATION Last Admin: 01/17/17 00:45 Dose: 1 bottle Throat Lozenges (Chloraseptic Christine*) 1 christine PO Q4H PRN PRN Reason: SORE THROAT Last Admin: 01/07/17 00:30 Dose: 1 christine Torsemide (Demadex*) 100 mg PO TID [facility] Last Admin: 01/17/17 12:54 Dose: 100 mg Torsemide (Demadex*) 40 mg PO TID [facility] Last Admin: 01/17/17 12:54 Dose: 40 mg Triamcinolone Acetonide (Triamcinolone 0.1% Paste *) 1 applic TOPICAL BEDTIME [facility] Last Admin: 01/16/17 21:31 Dose: 1 applic Warfarin Sodium (Coumadin Tab(*)) 5 mg PO SUMOTUTHSA@1700 [facility] PRN Reason: Protocol Last Admin: 01/16/17 17:28 Dose: 5 mg Warfarin Sodium (Coumadin Tab(*)) 10 mg PO WEFR@1700 [facility] PRN Reason: Protocol Last Admin: 01/15/17 17:07 Dose: 10 mg Vital Signs 01/16/17 01/16/17 01/16/17 14:37 15:06 17:28 Temperature 98.3 F Pulse Rate 67 Respiratory 16 18 16 Rate Blood Pressure 76/48 (mmHg) O2 Sat by Pulse 100 Oximetry 01/16/17 01/16/17 01/16/17 19:28 19:49 20:00 Temperature 98.4 F Pulse Rate 73 Respiratory 14 17 12 Rate Blood Pressure 90/51 (mmHg) O2 Sat by Pulse 100 Oximetry 01/16/17 01/16/17 01/17/17 23:35 23:48 01:48 Temperature 98.2 F Pulse Rate 66 Respiratory 16 12 12 Rate Blood Pressure 82/56 (mmHg) O2 Sat by Pulse 100 Oximetry 01/17/17 01/17/17 01/17/17 03:49 05:42 07:32 Temperature 98.2 F 98.1 F Pulse Rate 71 65 Respiratory 16 12 18 Rate Blood Pressure 76/55 81/53 (mmHg) O2 Sat by Pulse 95 92 Oximetry 01/17/17 01/17/17 01/17/17 07:40 07:42 12:00 Temperature Pulse Rate Respiratory 16 16 18 Rate Blood Pressure (mmHg) O2 Sat by Pulse Oximetry 01/17/17 13:39 Temperature Pulse Rate Respiratory 20 Rate Blood Pressure (mmHg) O2 Sat by Pulse Oximetry Oxygen Devices in Use Now: None Appearance: Alert, partly up in bed. Holding heating pad in both hands, looks uncomfortable. Result Diagrams: 01/15/17 04:53 01/16/17 05:47 Microbiology and Other Data: Microbiology 12/31/16 21:50 Gram Stain - Final Peritoneal Fluid Body Fluid Culture - Preliminary No Growth Day 1 01/01/17 05:05 Aerobic Blood Culture - Preliminary Blood Line No Growth Day 1 Anaerobic Blood Culture - Preliminary No Growth Day 1 01/01/17 04:50 Aerobic Blood Culture - Preliminary Blood Venous No Growth Day 1 Anaerobic Blood Culture - Preliminary No Growth Day 1 Assess/Plan/Problems-Billing Mr Ocampo is a 56 yo M with h/o CHF (systolic-chronic), amyloidosis, CKD, V. tach , ICD, A. fib on Coumadin ,admitted with cardiogenic shock due to hyperkalemia and bradycardia. - Patient Problems (1) Amyloidosis Current Visit: Yes Status: Acute Code(s): E85.9 - AMYLOIDOSIS, UNSPECIFIED SNOMED Code(s): 24200997 Comment: Continue present tx for CHF. K+ 4.5, creatinine sl decreased on 01/16. Note daily neg fluid balance. BMP planned for 01/17 15:300 PM, will not do labs 01/18. (2) Ascites Current Visit: Yes Status: Acute Code(s): R18.8 - OTHER ASCITES SNOMED Code(s): 437402951 Comment: I advised him on 01/15 that the risk of his peritoneal drain outweighed the benefit but he insists that it not be removed. (3) CKD (chronic kidney disease) stage 3, GFR 30-59 ml/min Current Visit: Yes Status: Acute Code(s): N18.3 - CHRONIC KIDNEY DISEASE, STAGE 3 (MODERATE) SNOMED Code(s): 171096343 Comment: GFR 34.1 01/15/17. (4) Afib Current Visit: Yes Status: Acute Code(s): I48.91 - UNSPECIFIED ATRIAL FIBRILLATION SNOMED Code(s): 67940859 Comment: - Continue Warfarin 10mg on Wednesdays and Fridays and 5mg on other days. - HR is controlled on coreg 3.125mg BID. INR 01/17 15:30 hrs. (5) Hypothyroidism Current Visit: Yes Status: Acute Code(s): E03.9 - HYPOTHYROIDISM, UNSPECIFIED SNOMED Code(s): 92616925 Comment: TSH wnl on 12/28/16. Continue current dose of synthroid. (6) V-tach Current Visit: No Status: Acute Code(s): I47.2 - VENTRICULAR TACHYCARDIA SNOMED Code(s): 82126165 Comment: AICD checked on schedule. Status and Disposition: Inpatient.
[2017-01-17 14:37] LABS: BUN/Creatinine Ratio 33.8 (8-20); EGFR African American 42.2 (>60); EGFR Non-African American 32.8 (>60); Magnesium 2.2 mg/dL (1.9-2.7); Potassium 4.1 mmol/L (3.5-5.0)
[2017-01-17] MEDS: Cholecalciferol TAB* 1000 UNITS PO SCH (15:32)
[2017-01-17] MEDS: Calcium Carbonate TAB* 1250 MG (CALCIUM 500 MG) PO SCH (15:32)
[2017-01-17] MEDS: Warfarin TAB(*) 5 MG PO SCH (15:34)
[2017-01-17] MEDS: TRIAMCINOLONE PASTE 0.1% TOPICAL SCH (21:47)
[2017-01-17] MEDS: Acetaminophen TAB* 325 MG PO PRN (22:22)
[2017-01-18] MEDS: Sodium Phosphate ADULT ENEMA* 118 ml bottle PR PRN (01:10)
[2017-01-18] MEDS: Omeprazole CAP* 20 MG PO SCH (05:53)
[2017-01-18] MEDS: Gabapentin CAP(*) 300 MG PO SCH ×3 (05:54→18:22)
[2017-01-18] MEDS: Levothyroxine TAB* 50 MCG TAB PO SCH (05:55)
[2017-01-18] MEDS: Bisacodyl SUPP* 10 MG SUPP PR SCH (08:57)
[2017-01-18] MEDS: Allopurinol TAB* 300 MG PO SCH (09:15)
[2017-01-18] MEDS: Calcium Carbonate TAB* 1250 MG (CALCIUM 500 MG) PO SCH (09:16)
[2017-01-18] MEDS: Carvedilol TAB* 3.125 MG PO SCH ×2 (09:16→21:35)
[2017-01-18] MEDS: Cholecalciferol TAB* 1000 UNITS PO SCH (09:16)
[2017-01-18] MEDS: Metolazone TAB* 5 MG PO SCH ×2 (09:17→21:36)
[2017-01-18] MEDS: Magnesium Oxide TAB* 400 MG PO SCH ×2 (09:17→21:36)
[2017-01-18] MEDS: Potassium Chlor TAB* 20 MEQ TAB.ER PO SCH ×4 (09:18→21:37)
[2017-01-18] MEDS: MIDODRINE 5 MG PO SCH ×3 (09:18→21:36)
[2017-01-18] MEDS: TORSEMIDE 100 MG PO SCH ×3 (10:17→22:13)
[2017-01-18] MEDS: EPLERONONE 25 MG PO SCH ×2 (10:17→21:35)
[2017-01-18] MEDS: TORSEMIDE 20 MG PO SCH ×3 (10:17→22:13)
[2017-01-18] MEDS: Neomycin/Polym/Bacit TOP OINT* 15 GM TOPICAL SCH (10:17)
[2017-01-18] MEDS: Gabapentin CAP(*) 300 MG PO PRN ×2 (15:47→18:59)
[2017-01-18] MEDS: TRIAMCINOLONE PASTE 0.1% TOPICAL SCH (21:39)
[2017-01-19] MEDS: Gabapentin CAP(*) 300 MG PO SCH ×4 (00:30→12:03)
[2017-01-19 05:06] LABS: BUN/Creatinine Ratio 32.7 (8-20); Calcium 8.1 mg/dL (8.6-10.3); EGFR African American 41.3 (>60); EGFR Non-African American 32.1 (>60); Potassium 4.4 mmol/L (3.5-5.0)
[2017-01-19] MEDS: Levothyroxine TAB* 50 MCG TAB PO SCH (05:26)
[2017-01-19] MEDS: Omeprazole CAP* 20 MG PO SCH (05:26)
[2017-01-19 08:28] VITALS: BP 87/58
[2017-01-19] MEDS: Allopurinol TAB* 300 MG PO SCH (08:45)
[2017-01-19] MEDS: MIDODRINE 5 MG PO SCH (08:46)
[2017-01-19] MEDS: Cholecalciferol TAB* 1000 UNITS PO SCH (08:46)
[2017-01-19] MEDS: Magnesium Oxide TAB* 400 MG PO SCH (08:47)
[2017-01-19] MEDS: Carvedilol TAB* 3.125 MG PO SCH (08:47)
[2017-01-19] MEDS: Metolazone TAB* 5 MG PO SCH (08:47)
[2017-01-19] MEDS: Potassium Chlor TAB* 20 MEQ TAB.ER PO SCH ×2 (08:49→12:03)
[2017-01-19] MEDS: Calcium Carbonate TAB* 1250 MG (CALCIUM 500 MG) PO SCH (09:27)
[2017-01-19] MEDS: Neomycin/Polym/Bacit TOP OINT* 15 GM TOPICAL SCH (09:27)
[2017-01-19] MEDS: EPLERONONE 25 MG PO SCH (09:27)
[2017-01-19] MEDS: TORSEMIDE 20 MG PO SCH (09:29)
[2017-01-19] MEDS: TORSEMIDE 100 MG PO SCH (09:29)
[2017-01-19] MEDS: Bisacodyl SUPP* 10 MG SUPP PR SCH (10:39)
[2017-01-19] MEDS ORDERED: Warfarin TAB(*) 4 MG PO SCH (17:00)
--- NOTE | 2017-01-20 08:32 | DS ---
DISCHARGE SUMMARY: DATE OF ADMISSION: 12/31/16 DATE OF DISCHARGE: 01/19/17 PRIMARY CARE PROVIDER: Dr. Watson. PALLIATIVE CARE SPECIALIST: Dr. Thomas. ONCOLOGIST: Dr. Geller. PRIMARY DIAGNOSES: 1. Cardiogenic shock. 2. Enterococcus line infection - peritoneal drain. 3. Bradycardia. 4. Acute renal failure. 5. Hyperkalemia. 6. Acute decompensated systolic heart failure. SECONDARY DIAGNOSES: 1. Amyloidosis with cardiomyopathy. 2. Chronic ascites. 3. History of cardiac arrest. 4. Atrial fibrillation and flutter. 5. History of nonsustained ventricular tachycardia, status post ICD. 6. Severe cardiomyopathy with EF less than 20%. 7. Coagulopathy - factor X deficiency. 8. Gout. 9. Chronic hyponatremia. 10. Chronic kidney disease stage 3. 11. Peripheral neuropathy. 12. Gastroesophageal reflux disease. HISTORY OF PRESENT ILLNESS AND HOSPITAL COURSE: This is a 56-year-old man with multiple hospital stays at [facility] secondary to multiple medical problems including advanced cardiomyopathy in the setting of amyloidosis, recent discharge, returning 2 days after last discharge with a sensation of feeling weakness, found with potassium of 7.2, heart rate in the 40s, and blood pressures recorded as low as 53/40. The patient was consulted on and admitted to the ICU. He improved and diuresis was reinstituted. He was seen in conjunction with Infectious Diseases after his peritoneal fluid grew enterococcus. However , peritoneal fluid was not notable for SBP. Total white blood cell count 303, 26% neutrophils. Vancomycin was dwelled in catheter overnight. Multiple conversations were undergone with the patient to remove peritoneal catheter, which he continued to refuse through the day of discharge. He was also seen in conjunction with Dr. Geller, his primary oncologist. Multiple conversations were instituted with Dr. Ireland and determined not to offer the patient a bed it at this time. Dr. Ireland's recommendation was transfer to a tertiary care center for optimization and multiple conversations were had with [facility] who deemed him not to be a candidate for inotropic medications or LVAD. Conversations between Dr. Thomas, his weighter at [facility], yielded the same results. They thought him appropriate for hospice. Dr. Ireland in [place] also thought the patient would need a renal transplant, heart transplant, and bone marrow, which he does not foresee as being possible. The patient was seen in conjunction with our palliative care consultants and declined their services at this time. The patient after resumption of his diuretics had his potassium reinstated; however, at a lower dose as the kidney function remains stable. The patient unfortunately has end-stage heart failure, it is unlikely to improve , but is not likely to progress and continue to fail. We have optimized them during this hospital stay with continued diuresis, stabilization of his electrolytes and renal function. The patient at this point is not planning on pursuing a trip to [place] for another evaluation. When asked what his plan is, he indicates he will go home and when he gets worse come back and when he starts to , will sign on with hospice. It is difficult to connect with this patient; however, this author is only in charge of his care on his last day of hospital stay. He seems hesitant to accept further advice from a physician he does not have a long-term care relationship with. Followup with Dr. Watson will be important to further pursue end-of-life planning and ensure discharge medications remain in some form of stability. At followup, please; 1. Check INR, check BMP for continued Coumadin stability and renal stability. 2. To evaluate any evidence of infection as the patient will continue the peritoneal catheter which has already been infected twice now. 3. To evaluate blood pressure, heart rate control. 4. No other specific labs or vital signs to follow. Reasons to return to the hospital including but not limited to recurrent or worsening of symptoms including weakness, shortness of breath, chest pain, nausea, vomiting, lightheadedness, loss of consciousness, palpitations, bleeding from any source, or inability to obtain or tolerate medications were discussed with the patient and his sister. They acknowledged understanding. Greater than 60 minutes was spent on the discharge of this patient, greater than half was spent [id number] with the patient. CC: Dr. Watson; Dr. Thomas; Dr. Geller* [id number]/[facility] #: [id number] [facility] CENTERAmber
== END 2017-01-19 14:20 | disposition home or self-care (01) | DRG 308 ==
LOC: ED 13:23 → ICU 17:01 → MEDTELE 01-01 23:40 → MED 01-05 19:55 → MEDTELE 01-11 17:42
PROVIDERS: ADMIT Internal Medicine Critical Care Medicine; ATTEND Internal Medicine
PROC: 05HM33Z Insertion of Infusion Device into Right Internal Jugular Vein, Percutaneous Approach (ICD-10-PCS; principal; 2016-12-31)
PROC: 4A10X4Z Monitoring of Central Nervous Electrical Activity, External Approach (ICD-10-PCS; 2017-01-12)
PROC: 0WPGX3Z Removal of Infusion Device from Peritoneal Cavity, External Approach (ICD-10-PCS; 2017-01-17)
DX: R00.1 Bradycardia, unspecified (principal); R57.0 Cardiogenic shock; I50.43 Acute on chronic combined systolic (congestive) and diastolic (congestive) heart failure; K65.9 Peritonitis, unspecified; E85.4 Organ-limited amyloidosis; D68.51 Activated protein C resistance; N17.9 Acute kidney failure, unspecified; N18.3 Chronic kidney disease, stage 3 (moderate); I43 Cardiomyopathy in diseases classified elsewhere; I13.0 Hypertensive heart and chronic kidney disease with heart failure and stage 1 through stage 4 chronic kidney disease, or unspecified chronic kidney disease; R18.8 Other ascites; E87.1 Hypo-osmolality and hyponatremia; T85.79XA Infection and inflammatory reaction due to other internal prosthetic devices, implants and grafts, initial encounter; E87.5 Hyperkalemia; I47.2 Ventricular tachycardia; I95.9 Hypotension, unspecified; Z88.5 Allergy status to narcotic agent; Z88.8 Allergy status to other drugs, medicaments and biological substances; Z95.810 Presence of automatic (implantable) cardiac defibrillator; E78.00 Pure hypercholesterolemia, unspecified; G47.30 Sleep apnea, unspecified; K21.9 Gastro-esophageal reflux disease without esophagitis; M19.90 Unspecified osteoarthritis, unspecified site; M10.9 Gout, unspecified; K42.9 Umbilical hernia without obstruction or gangrene; I48.91 Unspecified atrial fibrillation; R51 Headache; G62.9 Polyneuropathy, unspecified; Z80.0 Family history of malignant neoplasm of digestive organs; K74.60 Unspecified cirrhosis of liver; B96.89 Other specified bacterial agents as the cause of diseases classified elsewhere; D64.9 Anemia, unspecified; R79.1 Abnormal coagulation profile; T45.515A Adverse effect of anticoagulants, initial encounter; R55 Syncope and collapse; Y82.8 Other medical devices associated with adverse incidents; Y92.9 Unspecified place or not applicable
CPT/HCPCS: 36415; 70450; 71010; 74176; 76775; 80048; 80051; 80053; 82272; 82330; 82570; 83605; 83735; 83880; 83986; 84100; 84157; 84300; 84302; 84443; 84484; 85025; 85027; 85610; 85730; 87040; 87070; 87077; 87186; 87205; 89051; 93005; 94640; 94760; 95819; 96374; 99232; 99284; A9270-GY; G0378; J0171; J0610; J1265; J1644; J1940; J2543; J3370

== ENCOUNTER 2017-01-22 13:17 | Inpatient (IN) | payer MEDICARE, BC ==
[2017-01-22 13:58] LABS: Hematocrit 28 % (42-52); Hemoglobin 8.2 g/dl (14.0-18.0); Mean Corpuscular HGB Conc 30 g/dl (31-36); Mean Corpuscular Hemoglobin 24 pg (27-31); Mean Corpuscular Volume 81 fL (80-94); Mean Platelet Volume 8 um3 (7.4-10.4); Red Blood Count 3.45 10^6/ul (4.0-5.4)
[2017-01-22 13:59] LABS: Comments Flag Yes; Red Cell Distribution Width 22 % (10.5-15)
--- NOTE | 2017-01-22 14:07 | RAD ---
INDICATION: Syncope. COMPARISON: Comparison is made with a prior chest x-ray study from December 31, 2016. TECHNIQUE: A portable view of the chest was obtained. FINDINGS: The heart is mildly enlarged and unchanged from the prior exam. There is a transvenous pacemaker present. The lungs are clear. No pleural effusion is seen. IMPRESSION: NO EVIDENCE FOR ACUTE FINDING.
[2017-01-22 14:15] LABS: Albumin 2.7 g/dL (3.2-5.2); BUN/Creatinine Ratio 26.9 (8-20); Calcium 8.1 mg/dL (8.6-10.3); EGFR African American 29.6 (>60); Potassium 4.8 mmol/L (3.5-5.0); Total Bilirubin 0.5 mg/dL (0.2-1.0); Total Protein 5.7 g/dL (6.4-8.9)
[2017-01-22 14:19] LABS: Troponin I 0.11 ng/mL (<0.04)
[2017-01-22 14:51] LABS: Urine Bilirubin Negative (Negative); Urine Glucose Negative (Negative); Urine Nitrite Negative (Negative)
[2017-01-22] MEDS ORDERED: HYDROCORTISONE PR PRN (15:28)
--- NOTE | 2017-01-22 16:17 | CONSULT ---
Consult Consult: CRITICAL CARE MEDICINE DATE: 01/22/17 TIME: 1530 REFERRING PROVIDER: Tate REASON/CHIEF COMPLAINT: acute on chronic multisystem organ failure HISTORY OF PRESENT ILLNESS: 56 M, [place] [facility] [place], just discharged about 3 days ago representing with low bp, mild elevated LA. pt tells me he feels about same, but sent over as nurses recorded bp 80s but then when coming for his lasix infusion he was 60. In ED, wbc higher, pt feeling cold and given his fragility he is being admitted. Long history and care off the medical textbooks at this point. Pt remains hopefully for transplant potentials, but these have been declined previous and seem to be less and less. Pt himself is actually not unrealistic, he just wants to live and remains hopeful. We discussed his dynamics at length and admission plans for icu. REVIEW OF SYSTEMS: As per HPI. Just drained his peritoneal drain last pm with 900ml off. PAST MEDICAL HISTORY: As per records already recorded. MEDICATIONS: Reviewed. ALLERGIES: Reviewed. SOCIAL HISTORY: Reviewed. sister is proxy FAMILY HISTORY: Noncontributory at present. PHYSICAL EXAM: looks much older then age Vital Signs: Reviewed. Neurologic: awake, communiating and holds capacity. HEENT: inc jvp bl Cardiovascular: distant, no discernable gallop Respiratory: few basilar crackles Abdomen: obese, soft, not a lot of fluid at present. drain in place Extremities: cool; dep edema and changes Access: piv LABS: Reviewed. IMAGING: Reviewed. MEDICATIONS: Reviewed. ASSESSMENT: 56M Acute on chronic decompensated systolic and diasolic hf (class IV) Cardiogenic shock Lactic acidosis MSOF Amylodosis PLAN: Neurologic: comfortable and can remain at baseline. maintained mental perfusion. Cardiovascular: poor reserve. care limited. as d/w pt. trial milrinone gtt for ~ 24h and see if we can improve perfusion at all globally and make any strides towards improved renal function. Vol status always and issue. Try just colloid loading this 24hr for any benefit. May actual remain salt deficient and need back NaCl with lasix to avoid water sequestration but can wait this out. Can stay on loop diuretics but hold thiazide. midodrine continued. Respiratory: mask O2 as he prefers this over NC. No inc wob and would avoid. maintain good ventilation. Gastrointestinal: po. wait till tomorrow to relieve drain. Renal/Metabolic: need to see if we can find a better perfusion flow for his renal function. milrinone rather then dobutamine to aviod arrhythmias. Infectious Disease: per primary but no obvious infection. Hematology: stable. prophylaxis. Endocrine: baseline. Musculoskeletal: deconditioned. continued support. Psych/Social: d/w pt at length. He express understandings of our very syd discussion. Sister is proxy. He agrees to remain full code presently but is realistic in knowing that if he ends up on ventilatory that he would then have instructed his sister to change his status to treatment continued as a DNR, and would not want to be on vent longer then 5 days. He will ensure his sister is aware of his wishes. Supportive and preventative care as ordered. Disposition: ICU Code Status: Full presently D/w Dr. Ybarra Critical Care Time: 45min Karma Rangel DO
[2017-01-22] MEDS: Acetaminophen TAB* 325 MG PO PRN (16:21)
--- NOTE | 2017-01-22 16:57 | RAD ---
INDICATION: Right knee pain COMPARISON: July 13, 2016 TECHNIQUE: AP and crosstable lateral views were obtained. FINDINGS: There is osteopenia. There is no acute bony change. There is mild diffuse soft tissue edema. IMPRESSION: NO ACUTE BONY FINDINGS.
[2017-01-22] MEDS ORDERED: Gabapentin CAP(*) 300 MG PO SCH (17:00)
--- NOTE | 2017-01-22 17:03 | ED ---
Michelle Vazquez Michael, scribed for Gaetano Owusu MD on 01/22/17 at 1437 . Complex/Multi-Sys Presentation - HPI Summary HPI Summary: 56 y/o male comes to the ED presenting with hypotension that started today while he was at infusion services of IV lasix. The pt's blood pressure was 60/40 , and it normally is 85 systolically. He also states general pain of 10 out of 10, and the pt describes the pain as aching. Since the pt has been in the ED, he had a one minute episode of unresponsiveness. This episode spontaneously alleviated. The PMHx is significant for amyolordosis. - History Of Current Complaint Chief Complaint: EDGeneral Hx Obtained From: Patient, Medical Records Onset/Duration: Gradual Onset, Lasting Hours, Still Present Timing: Constant Severity Currently: Moderate Severity Initially: Moderate Location: Pain At: - general Character: Dull - aching Associated Signs And Symptoms: Positive: Syncope, Other - hypotension. generalized pain. - Allergies/Home Medications Allergies/Adverse Reactions: Allergies Allergy/AdvReac Type Severity Reaction Status Date / Time Oxycodone Allergy Intermediate Altered Verified 01/20/17 13:37 Mental Status Spironolactone Allergy Intermediate Rash And Verified 01/20/17 13:37 Itching PMH/Surg Hx/FS Hx/Imm Hx Endocrine/Hematology History: Reports: Hx Anticoagulant Therapy - warfarin, Hx Blood Disorders - factor X deficiency, thrombocytopenia, Hx Anemia, Other Endocrine/Hematological Disorders - amyloidosis Denies: Hx Blood Transfusions, Hx Bone Marrow Disease, Hx Diabetes, Hx Sickle Cell Disease, Hx Thyroid Disease, Hx Unexplained Bleeding Cardiovascular History: Reports: Hx Auto Implanted Cardiovert Defib, Hx Congestive Heart Failure - EF 20% DUE TO AMLOYDOSIS, Hx Hypertension, Hx Pacemaker/ICD, Other Cardiovascular Problems/Disorders - CARDIOMYOPATHY Denies: Hx Aneurysm, Hx Angina, Hx Angioplasty, Hx Cardiac Arrest, Hx Cardiomegaly, Hx Congenital Heart Disease, Hx Coronary Artery Disease, Hx Deep Vein Thrombosis, Hx Embolism, Hx Hypercholesterolemia, Hx Hypotension, Hx Peripheral Vascular Disease, Hx Rheumatic Fever, Hx Syncope, Hx Valvular Heart Disease Respiratory History: Reports: Other Respiratory Problems/Disorders - PNA Denies: Hx Asthma, Hx Chronic Bronchitis, Hx Chronic Obstructive Pulmonary Disease (COPD), Hx Cystic Fibrosis, Hx Lung Cancer, Hx Pleural Effusion, Hx Pneumonia, Hx Pulmonary Edema, Hx Pulmonary Embolism, Hx Seasonal Allergies, Hx Sleep Apnea GI History: Reports: Hx Gastroesophageal Reflux Disease, Hx Hiatal Hernia - UMBILICAL & PARAUMBILICAL, Other GI Disorders - ASCITES Denies: Hx Cirrhosis, Hx Crohn's Disease, Hx Diverticulosis, Hx Gall Bladder Disease, Hx Gastrointestinal Bleed, Hx Irritable Bowel, Hx Jaundice, Hx Obstructive Bowel, Hx Ileostomy, Hx Pyloric Stenosis, Hx Ulcer History: Reports: Hx Acute Renal Failure, Hx Chronic Renal Failure, Other Problems/Disorders - CKD Denies: Hx Benign Prostatic Hyperplasia, Hx Dialysis, Hx Kidney Infection, Hx Kidney Stones, Hx Renal Disease Musculoskeletal History: Reports: Hx Arthritis, Hx Back Problems, Hx Gout, Hx Osteoporosis Denies: Hx Bursitis, Hx Congenital Bone Abnormalities, Hx Fibromyalgia, Hx Orthopedic Injury, Hx Scoliosis, Hx Tendonitis, Other Musculoskeletal History Sensory History: Reports: Hx Contacts or Glasses - reading glasses, Hx Hearing Problem - [place] Denies: Hx Cataracts, Hx Eye Injury, Hx Eye Prosthesis, Hx Glaucoma, Hx Legally Blind, Hx Macular Degeneration, Hx Vision Problem, Hx Deafness, Hx Hearing Aid, Other Sensory Impairments Opthamlomology History: Reports: Hx Contacts or Glasses - reading glasses Denies: Hx Cataracts, Hx Eye Injury, Hx Eye Prosthesis, Hx Glaucoma, Hx Legally Blind, Hx Macular Degeneration, Hx Vision Problem, Other Sensory Impairments Neurological History: Reports: Hx Nerve Disease - neuropathy Denies: Hx Dementia, Hx Developmental Delay, Hx Headaches, Hx Migraine, Hx Seizures, Hx Spinal Cord Injury, Hx Transient Ischemic Attacks (TIA), Other Neuro Impairments/Disorders Psychiatric History: Denies: Hx Anxiety, Hx Attention Deficit Hyperactivity Disorder, Hx Eating Disorder, Hx Depression, Hx Panic Disorder, Hx Post Traumatic Stress Disorder, Hx Inpatient Treatment, Hx Community Mental Health Tx, Hx Schizophrenia, Hx Bipolar Disorder, Hx Suicide Attempt, Hx of Violent Episodes Against Others, Hx Substance Abuse, Other Psychiatric Issues/Disorders - Cancer History Cancer Type, Location and Year: PT. STATES FAMILY HX OF [place] Hx Hematologic Symptoms: No Hx Chemotherapy: No Hx Radiation Therapy: No Hx Palliative Cancer Treatment: No - Surgical History Surgery Procedure, Year, and Place: R leg vericose vein stripping. Hemorrhioidectomy. aicd/pacer- strong memoral 01/28/16. paracentesis 04/15/16 Hx Anesthesia Reactions: No - Immunization History Date of Tetanus Vaccine: 2007 Date of Influenza Vaccine: UNKNOWN & REFUSED Infectious Disease History: Denies: Hx Clostridium Difficile, Hx Hepatitis, Hx Human Immunodeficiency Virus (HIV), Hx of Known/Suspected MRSA, Hx Shingles, Hx Tuberculosis, History Other Infectious Disease, Traveled Outside the [place] in Last 30 Days - Family History Known Family History: Positive: Other - [place] Family History: no malignant hyperthemia. no anesthesia reaction. - Social History Occupation: Retired Lives: Alone Alcohol Use: None Hx Substance Use: No Substance Use Type: Reports: None Hx Tobacco Use: No Smoking Status (MU): Never Smoked Tobacco Have You Smoked in the Last Year: No Review of Systems Negative: Fever Positive: Other - hypotension Positive: Syncope All Other Systems Reviewed And Are Negative: Yes Physical Exam Triage Information Reviewed: Yes Vital Signs On Initial Exam: Initial Vitals Temp Pulse Resp BP Pulse Ox 97.7 F 80 16 60/40 100 01/22/17 13:20 01/22/17 13:20 01/22/17 13:20 01/22/17 13:20 01/22/17 13:20 Vital Signs Reviewed: Yes Appearance: Positive: Well-Appearing, No Pain Distress Skin: Positive: Pale Head/Face: Positive: Normal Head/Face Inspection Eyes: Positive: Normal ENT: Positive: Normal ENT inspection Respiratory/Lung Sounds: Positive: Clear to Auscultation, Breath Sounds Present Cardiovascular: Positive: Bradycardia, Other - palpate corotid pulses. Abdomen Description: Positive: Nontender, Soft Bowel Sounds: Positive: Present Musculoskeletal: Positive: Normal Neurological: Positive: Other - stuporous Psychiatric: Positive: Affect/Mood Appropriate - Shay Coma Scale Coma Scale Total: 15 Diagnostics - Vital Signs Vital Signs Temp Pulse Resp BP Pulse Ox 01/22/17 14:15 61 13 87/56 100 01/22/17 14:00 59 11 79/61 100 01/22/17 13:45 68 15 86/59 99 01/22/17 13:40 64 14 93/56 87 01/22/17 13:37 71 15 90/61 93 01/22/17 13:36 69 17 86/58 97 01/22/17 13:35 111 25 85 01/22/17 13:33 81/48 01/22/17 13:20 97.7 F 80 16 60/40 100 - Laboratory Lab Results: Lab Results 01/22/17 01/22/1701/22/17 Range/Units 13:37 13:37 13:37 WBC 17.0 H (3.5-10.8) 10^3/ul RBC 3.45 L (4.0-5.4) 10^6/ul Hgb 8.2 L (14.0-18.0) g/dl Hct 28 L (42-52) % MCV 81 (80-94) fL MCH 24 L (27-31) pg MCHC 30 L (31-36) g/dl RDW 22 H (10.5-15) % Plt Count 350 (150-450) 10^3/ul MPV 8 (7.4-10.4) um3 Neut % (Auto) 88.8 H (38-83) % Lymph % (Auto) 2.4 L (25-47) % [place] % (Auto) 7.1 (1-9) % Eos % (Auto) 0.7 (0-6) % Baso % (Auto) 1.0 (0-2) % Absolute Neuts (auto) 15.1 H (1.5-7.7) 10^3/ul Absolute Lymphs (auto) 0.4 L (1.0-4.8) 10^3/ul Absolute Monos (auto) 1.2 H (0-0.8) 10^3/ul Absolute Eos (auto) 0.1 (0-0.6) 10^3/ul Absolute Basos (auto) 0.2 (0-0.2) 10^3/ul Absolute Nucleated RBC 0.05 10^3/ul Nucleated RBC % 0.3 Sodium 119 L* (133-145) mmol/L Potassium 4.8 (3.5-5.0) mmol/L Chloride 86 L (101-111) mmol/L Carbon Dioxide 21 L (22-32) mmol/L Anion Gap 12 H (2-11) mmol/L BUN 77 H (6-24) mg/dL Creatinine 2.86 H (0.67-1.17) mg/dL Est GFR ( Amer) 29.6 (>60) Est GFR (Non-Af Amer) 23.0 (>60) BUN/Creatinine Ratio 26.9 H (8-20) Glucose 110 H (70-100) mg/dL Lactic Acid 3.5 H* (0.5-2.0) mmol/L Calcium 8.1 L (8.6-10.3) mg/dL Total Bilirubin 0.50 (0.2-1.0) mg/dL AST 19 (13-39) U/L ALT 13 (7-52) U/L Alkaline Phosphatase 92 (34-104) U/L Troponin I 0.11 H* (<0.04) ng/mL C-Reactive Protein 12.00 H (< 5.00) mg/L B-Natriuretic Peptide ( - 100) pg/mL Total Protein 5.7 L (6.4-8.9) g/dL Albumin 2.7 L (3.2-5.2) g/dL Globulin 3.0 (2-4) g/dL Albumin/Globulin Ratio 0.9 L (1-3) 01/22/17 Range/Units 13:37 WBC (3.5-10.8) 10^3/ul RBC (4.0-5.4) 10^6/ul Hgb (14.0-18.0) g/dl Hct (42-52) % MCV (80-94) fL MCH (27-31) pg MCHC (31-36) g/dl RDW (10.5-15) % Plt Count (150-450) 10^3/ul MPV (7.4-10.4) um3 Neut % (Auto) (38-83) % Lymph % (Auto) (25-47) % [place] % (Auto) (1-9) % Eos % (Auto) (0-6) % Baso % (Auto) (0-2) % Absolute Neuts (auto) (1.5-7.7) 10^3/ul Absolute Lymphs (auto) (1.0-4.8) 10^3/ul Absolute Monos (auto) (0-0.8) 10^3/ul Absolute Eos (auto) (0-0.6) 10^3/ul Absolute Basos (auto) (0-0.2) 10^3/ul Absolute Nucleated RBC 10^3/ul Nucleated RBC % Sodium (133-145) mmol/L Potassium (3.5-5.0) mmol/L Chloride (101-111) mmol/L Carbon Dioxide (22-32) mmol/L Anion Gap (2-11) mmol/L BUN (6-24) mg/dL Creatinine (0.67-1.17) mg/dL Est GFR ( Amer) (>60) Est GFR (Non-Af Amer) (>60) BUN/Creatinine Ratio (8-20) Glucose (70-100) mg/dL Lactic Acid (0.5-2.0) mmol/L Calcium (8.6-10.3) mg/dL Total Bilirubin (0.2-1.0) mg/dL AST (13-39) U/L ALT (7-52) U/L Alkaline Phosphatase (34-104) U/L Troponin I (<0.04) ng/mL C-Reactive Protein (< 5.00) mg/L B-Natriuretic Peptide 1414 H ( - 100) pg/mL Total Protein (6.4-8.9) g/dL Albumin (3.2-5.2) g/dL Globulin (2-4) g/dL Albumin/Globulin Ratio (1-3) Result Diagrams: 01/22/17 13:37 01/22/17 13:37 Lab Statement: Any lab studies that have been ordered have been reviewed, and results considered in the medical decision making process. - Radiology CXR Xray Interpretation: No Acute Changes Radiology Interpretation Completed By: Radiologist - EKG EK EKG Rhythm: Sinus Rhythm - boarderline bradycardia EKG Interpretation: RBBB. prolonged MO interval. unchanged from 12/31/16 Complex Multi-Symp Course/Dx Course Of Treatment: Discussed care of patient with Dr. Martínez (Hospitalist) at 1445. Dr. Martínez will evaluate the patient. - Diagnoses Provider Diagnoses: Syncope and collapse - Critical Care Time Critical Care Time: 30-74 min Discharge - Discharge Plan Condition: Guarded Disposition: ADMITTED TO [facility] documentation as recorded by the Michelle villarreal Michael accurately reflects the service I personally performed and the decisions made by , Gaetano Owusu MD.
[2017-01-22] MEDS: Docusate CAP* 100 MG PO PRN (17:20)
[2017-01-22] MEDS: Warfarin TAB(*) 5 MG PO SCH (17:21)
[2017-01-22] MEDS: Potassium Chlor TAB* 20 MEQ TAB.ER PO SCH ×2 (17:21→21:17)
[2017-01-22] MEDS: Milrinone* 100 ML IVPB SCH (17:26)
[2017-01-22] MEDS: Albumin Human 25%* 100 ML in PREMIX* 0 ML IV SCH ×2 (18:18→23:36)
--- NOTE | 2017-01-22 18:53 | HP ---
CC: Dr. Watson; Dr. Thomas; Dr. Geller HISTORY AND PHYSICAL: DATE OF ADMISSION: 01/22/17 TIME OF EVALUATION: 3 p.m. PRIMARY CARE PROVIDER: Dr. Watson. TREE TRIMMER: Dr. Thomas. BARN BOSS: Dr. Geller. CHIEF COMPLAINT: "My blood pressure was low." HISTORY OF PRESENT ILLNESS: Mr. Ocampo is a 56-year-old male well known to me from multiple prior ad missions with a past medical history of end-stage congestive heart failure secondary to amyloidosis; CKD; V-tach, status post ICD; atrial fibrillation; chronic ascites with peritoneal drain with prior episode of infection; status post cardiac arrest; coagulopathy with factor X deficiency; gout; senior net web developer pranay hyponatremia; peripheral neuropathy; GERD, who was sent from the infusion center to the emergenc y room for hypotension. The patient had a prolonged admission from December 31 to January 19. At that time, he was admitted w ith cardiogenic shock and it was very difficult to manage his CHF, his renal function, and electroly isaiah. I contacted [facility] multiple times during the admission and due to his renal failure, he w as felt not to be a candidate for transfer, but the plan at that time was if he had improvement of h is renal function, he could be evaluated as an outpatient. The patient was discharged home on January 19 and he states that he had one furosemide infusion 2 day s ago and when he went for another one today, he was told that they could not do it because his bloo d pressure was too low with a reported systolic in the 60s. When he arrived to the emergency room, his initial blood pressure was 60/40. As per nurse report, the patient was able to walk from the wheelchair to the ED stretcher with his c ane though when he lied in bed, he lost consciousness for at least a minute and had agonal breathing during that time. ED providers came to his room, but he regained consciousness. The patient does not recall anything about the episode. He denies chest pain, change in his usual shortness of breath, palpitations. States that he is still draining 800 to 900 mL of fluid from his peritoneal drain. He denies abdominal pain, nausea, or vom iting. PAST MEDICAL HISTORY: 1. Amyloidosis AL. 2. Status post cardiac arrest. 3. End-stage congestive heart failure with ejection fraction less than 20%. 4. Chronic ascites, status post peritoneal drain with history of drain infection. 5. Atrial fibrillation, on Coumadin. 6. V-tach, status post ICD. 7. Coagulopathy with factor X deficiency. 8. Gout. 9. Chronic hyponatremia. 10. CKD, stage 3. 11. Peripheral neuropathy. 12. GERD. 13. Recent admission for cardiogenic shock with hyperkalemia and bradycardia. 14. Cardiorenal syndrome. 15. Recurrent syncope. MEDICATION LIST: 1. Acetaminophen 650 mg p.o. q.6 hours p.r.n. pain or fever. 2. Allopurinol 300 mg p.o. daily. 3. Bisacodyl suppository 10 mg per rectum daily. 4. Calcium carbonate 1250 mg p.o. daily. 5. Carvedilol 3.125 mg p.o. b.i.d. 6. Colace 100 mg p.o. b.i.d. p.r.n. constipation. 7. Inspra 25 mg p.o. b.i.d. 8. Gabapentin 300 mg p.o. four times a day. 9. GumNumb benzocaine 20% apply to gums q.1 hour p.r.n. pain. 10. Hydrocortisone rectal 1 dose per rectum t.i.d. as needed for hemorrhoids. 11. Levothyroxine 50 mcg daily. 12. Magnesium oxide 400 mg p.o. b.i.d. 13. Metolazone 5 mg p.o. b.i.d. 14. Midodrine 15 mg p.o. t.i.d. 15. Multivitamin 1 tablet p.o. b.i.d. 16. Neosporin ointment apply to skin around peritoneal drain daily. 17. Pantoprazole 40 mg p.o. daily. 18. Potassium chloride 40 mEq p.o. four times a day. 19. Fleet Enema 1 bottle per rectum daily as needed for constipation. 20. Torsemide 140 mg p.o. t.i.d. 21. Warfarin 4 mg p.o. daily. ALLERGIES: With OXYCODONE, the patient had hallucinations and SPIRONOLACTONE, he had rash and itchi ng. FAMILY HISTORY: Mother had colon cancer. Father of old age. SOCIAL HISTORY: No history of tobacco, alcohol, or drug use. Surrogate decision maker is his sisally r, Sol Vásquez; phone number is [phone]. REVIEW OF SYSTEMS: A 14-point review of systems was performed and all the pertinent negative and po sitive findings are in the HPI. PHYSICAL EXAMINATION GENERAL: The patient is a middle-aged male that appears older than his stated age, lying in the ER stretcher, watching TV, in no acute distress. VITAL SIGNS: Temperature 98.1, heart rate is 66, respiratory rate is 18, oxygen saturation is 100% on 5 L, blood pressure is 83/45. HEENT: Pupils are equal, reactive to light. Moist mucous membranes. CHEST: Breath sounds present bilaterally with crackles in both bases. CVS: Normal S1, S2. Regular rate and rhythm. ABDOMEN: Obese, soft, nontender. Peritoneal drain is in place with a clean dressing. EXTREMITIES: There is moderate bilateral lower extremity edema. NEURO: The patient is alert, awake, and oriented x3. Able to move all 4 extremities. DIAGNOSTIC STUDIES/LAB DATA: The patient had a CBC that showed a WBC of 17,000, hemoglobin of 8.2, hematocrit of 28, platelets of 350 with 88% neutrophils. INR is 1.59. Chemistry showed a sodium o f 119, potassium 4.8, chloride of 86, bicarb of 21, anion gap of 12, BUN of 77, creatinine of 2.86, glucose of 110, lactic acid of 3.5, calcium of 8.1. LFTs are normal. Troponin is 0.11. BNP is 140 0. Urinalysis was normal. EKG done on January 22 at 1335 shows sinus rhythm at 64 beats per minute with left atrial enlargement , RBBB, left posterior fascicular block. No significant change when compared to his prior EKG from December 31. Chest x-ray showed no significant change when compared to his prior x-ray from December 31. ASSESSMENT AND PLAN: Mr. Ocampo is a 56-year-old male with a past medical history of amyloidosis AL with cardiac involvement; end-stage congestive heart failure, ejection fraction less than 20%; chron ic ascites with peritoneal drain, status post episode of infection; status post cardiac arrest; stat us post ICD; history of ventricular tachycardia; atrial fibrillation; coagulopathy with factor X def iciency; gout; chronic hyponatremia; chronic kidney disease; peripheral neuropathy; gastroesophageal reflux disease; recent admission for cardiogenic shock, hyperkalemia, who presents to the emergency room 3 days after discharge with hypotension and also sustained a syncopal episode while in the [facility] room. 1. Cardiogenic shock: The patient has end-stage congestive heart failure, but at this point, he is still not ready for hospice. He states that his goal is to eventually get to [place] to be evaluated, but he does understand that the odds of getting any sort of transplant are nil. At this point, I b elieve his hypotension, worsening renal function, elevated lactic acid, low sodium all represent car diogenic shock. He will be admitted to the intensive care unit and I requested a consultation with Dr. Rangel for assistance with an inotropic positive agent like dobutamine. He has signs of poor p erfusion and signs of fluid overload, but I will not be able to evaluate him with this blood pressur e. We will continue conversation with the patient regarding his plan for his near future. At this point, the plan is to continue his diuretics as his blood pressure allows. 2. Syncopal episode: The patient had a similar episode when he was admitted and at that point, we interrogated his ICD and although he had episodes of ventricular tachycardia before, he did not have it during the syncopal episode. Per RN description, I believe he had another syncopal episode like ly secondary to hypotension and poor perfusion. He is hyponatremic, but I do not think this was a s eizure, as he woke up right away and had no postictal state. 3. Acute on chronic renal failure: This is secondary to cardiorenal syndrome with poor perfusion. We will continue to monitor his renal function, but it took us almost 3 weeks to improve his renal function and in 3 days, he is back to where he was earlier on on his prior admission. 4. Lactic acidosis secondary to poor perfusion: I am going to send his peritoneal fluid for cultur e, but he does not appear to be infected at this time. 5. Atrial fibrillation: The patient's INR is subtherapeutic at this time. I am going to increase his warfarin dose. 6. DVT prophylaxis: The patient will have subcu heparin until his INR is therapeutic. 7. Code status was discussed once again extensively with the patient. He is very clear that he wis hes to be a full code and if he is resuscitated, he would agree to 5 days of life support, but if he is not showing any improvement at that time, he would like to be disconnected. His sister is his h ealthcare proxy and he states that she is aware of his wishes. 8. End of life issues: I will continue to talk with the patient about palliative care/hospice. TIME SPENT: Approximately 60 minutes was spent in patient interview, medical records review, physic al examination to complete this admission, more than half this time was spent [id number] with the patient in coordination of care. [id number]/CPS #: [id number]
[2017-01-22] MEDS ORDERED: Gabapentin CAP(*) 300 MG PO ONE (19:46)
[2017-01-22 20:28] LABS: BUN/Creatinine Ratio 28.2 (8-20); Calcium 7.9 mg/dL (8.6-10.3); EGFR African American 31.2 (>60); EGFR Non-African American 24.3 (>60); Potassium 4.5 mmol/L (3.5-5.0)
[2017-01-22] MEDS ORDERED: Metolazone TAB* 5 MG PO SCH (20:30)
[2017-01-22] MEDS: Carvedilol TAB* 3.125 MG PO SCH (20:39)
[2017-01-22] MEDS: Torsemide TAB* 20 MG PO SCH (20:40)
[2017-01-22] MEDS: CMC: Epleronone (NF) 25 MG TAB PO SCH (20:40)
[2017-01-22] MEDS: Magnesium Oxide TAB* 400 MG PO SCH (21:17)
[2017-01-22] MEDS: Multivitamins/Minerals TAB PO SCH (21:17)
[2017-01-22] MEDS: CMC: Midodrine (NF) 5 MG TAB PO SCH (21:17)
[2017-01-22] MEDS: Heparin VIAL(*) 5000 UNITS/ML VIAL (FIVE THOUSAND) SUBCUT SCH (21:18)
[2017-01-22] MEDS: Gabapentin CAP(*) 300 MG PO SCH (23:35)
[2017-01-23] MEDS ORDERED: traMADol TAB* 50 MG PO ONE (00:53)
--- NOTE | 2017-01-23 00:55 | PN ---
Progress Note - Progress Note Note: Patient screaming out in pain all evening from cramps in his legs and feet. He is getting tylenol, gabapentin and heat packs every 20 minutes. K has been high normal. Will add on a magnesium. Will give one time dose of tramadol.
[2017-01-23 01:14] LABS: Magnesium 2.4 mg/dL (1.9-2.7)
[2017-01-23] MEDS: Milrinone* 100 ML IVPB SCH (03:31)
[2017-01-23] MEDS: Sodium Phosphate ADULT ENEMA* 118 ml bottle PR PRN (04:06)
[2017-01-23] MEDS: Levothyroxine TAB* 50 MCG TAB PO SCH (05:48)
[2017-01-23] MEDS: Heparin VIAL(*) 5000 UNITS/ML VIAL (FIVE THOUSAND) SUBCUT SCH ×3 (05:48→21:10)
[2017-01-23] MEDS: Albumin Human 25%* 100 ML in PREMIX* 0 ML IV SCH ×2 (05:48→11:58)
[2017-01-23] MEDS: Gabapentin CAP(*) 300 MG PO SCH ×4 (05:48→23:35)
[2017-01-23 06:04] LABS: Hematocrit 24 % (42-52); Hemoglobin 7.2 g/dl (14.0-18.0); Mean Corpuscular HGB Conc 30 g/dl (31-36); Mean Corpuscular Hemoglobin 24 pg (27-31); Mean Corpuscular Volume 81 fL (80-94); Mean Platelet Volume 7 um3 (7.4-10.4); Red Blood Count 2.97 10^6/ul (4.0-5.4); Red Cell Distribution Width 22 % (10.5-15)
[2017-01-23 06:17] LABS: BUN/Creatinine Ratio 25.6 (8-20); Calcium 7.9 mg/dL (8.6-10.3); EGFR African American 27.4 (>60); EGFR Non-African American 21.3 (>60); Potassium 5.8 mmol/L (3.5-5.0)
[2017-01-23 06:18] LABS: Add Diff/Slide Review? Slide Review Added; Comments Flag Yes
[2017-01-23] MEDS: CMC: Midodrine (NF) 5 MG TAB PO SCH ×3 (07:38→20:03)
[2017-01-23] MEDS: Acetaminophen TAB* 325 MG PO PRN ×3 (07:38→19:51)
[2017-01-23] MEDS: Omeprazole CAP* 20 MG PO SCH (07:39)
[2017-01-23] MEDS: Allopurinol TAB* 300 MG PO SCH (07:42)
[2017-01-23] MEDS: Torsemide TAB* 20 MG PO SCH ×2 (09:04→14:17)
[2017-01-23] MEDS: Potassium Chlor TAB* 20 MEQ TAB.ER PO SCH (09:04)
[2017-01-23] MEDS: Carvedilol TAB* 3.125 MG PO SCH ×2 (09:04→20:03)
[2017-01-23] MEDS: CMC: Epleronone (NF) 25 MG TAB PO SCH ×2 (09:04→20:03)
[2017-01-23] MEDS ORDERED: Morphine ORAL CONCENTRATE* 5 MG/0.25 ML ORAL.SYRIN SL PRN (09:09)
[2017-01-23] MEDS: Calcium Carbonate TAB* 1250 MG (CALCIUM 500 MG) PO SCH (09:49)
[2017-01-23] MEDS: Neomycin/Polym/Bacit TOP OINT* 15 GM TOPICAL SCH (09:50)
[2017-01-23] MEDS: Multivitamins/Minerals TAB PO SCH (09:50)
[2017-01-23] MEDS: Bisacodyl SUPP* 10 MG SUPP PR SCH (09:50)
[2017-01-23] MEDS ORDERED: Sodium Chloride 3% HYPERTONIC* 500 ML IVPB ONE ×2 (09:58→10:00)
[2017-01-23] MEDS: Morphine ORAL.SOLN 10 mg* 2 MG/ML UDC 5 ml PO PRN ×3 (10:08→21:35)
--- NOTE | 2017-01-23 12:11 | PN ---
Progress Note - Progress Note Note: CRITICAL CARE MEDICINE DATE: 01/23/17 TIME: 1030 SUBJECTIVE: Patient seen and examined. PHYSICAL EXAM: Vital Signs: Reviewed. Neurologic: awake, communiating and holds capacity. HEENT: inc jvp bl Cardiovascular: distant, no discernable gallop Respiratory: few basilar crackles Abdomen: obese, soft, drain in place -1000ml this am. Extremities: cool; dep edema and changes Access: piv LABS: Reviewed. IMAGING: Reviewed. MEDICATIONS: Reviewed. ASSESSMENT: 56M Acute on chronic decompensated systolic and diasolic hf (class IV) Cardiogenic shock on milrinone and midodrine, without ability to change flow state. Lactic acidosis MSOF Amylodosis PLAN: D/w pt and family on milirinone without much benefit seen. on albumin without much benefit seen. Utilize today. Trial hypertonic saline for same benefit of supporting mobilization and flow phase but unlikely to work. Would follow up these entities with lasix, but again probably not great benefits. If not improving yet again we will discuss other potentials of central line and levophed, dobutamine potentials. D/w pt, his sister, and his son at bedside. Explained again his dynamics and difficulties. Continued support. Full code, unless requires intubation, at which time he would then change to DNR with tx and support for ~5 days per his wishes. Care per primary team. D/w Dr. Ybarra. Supportive and preventative care as ordered. Disposition: ICU Code Status: Full presently Critical Care Time: 30min Karma Rangel DO
--- NOTE | 2017-01-23 14:20 | PN ---
Subjective Date of Service: 01/23/17 Interval History: HOSPITALIST PROGRESS NOTE Patient seen and examined at bedside. He had a difficult night with LE pain, dyspnea, abdominal discomfort, relieved after he had a BM. Family History: Unchanged from Admission Social History: Unchanged from Admission Past Medical History: Unchanged from Admission Objective Active Medications: Acetaminophen (Tylenol Tab*) 650 mg PO Q6H PRN PRN Reason: FEVER/PAIN Last Admin: 01/23/17 13:56 Dose: 650 mg Allopurinol (Zyloprim Tab*) 300 mg PO DAILY [facility] Last Admin: 01/23/17 07:42 Dose: 300 mg Bisacodyl (Dulcolax Supp*) 10 mg ID DAILY [facility] Last Admin: 01/23/17 09:50 Dose: 10 mg Calcium Carbonate (Calcium Carbonate Tab*) 1,250 mg PO DAILY [facility] Last Admin: 01/23/17 09:49 Dose: 1,250 mg Carvedilol (Coreg Tab*) 3.125 mg PO BID [facility] Last Admin: 01/23/17 09:04 Dose: Not Given Docusate Sodium (Colace Cap*) 100 mg PO BID PRN PRN Reason: CONSTIPATION Last Admin: 01/22/17 17:20 Dose: 100 mg Eplerenone (Inspra (Nf)) 25 mg PO BID [facility] Last Admin: 01/23/17 09:04 Dose: Not Given Gabapentin (Neurontin Cap(*)) 300 mg PO 0600,1200,1700,2300 [facility] Last Admin: 01/23/17 11:59 Dose: 300 mg Heparin Sodium (Porcine) (Heparin Vial(*)) 5,000 units SUBCUT Q8HR [facility] Last Admin: 01/23/17 13:55 Dose: 5,000 units Albumin Human 100 ml/ IV (Solution) 100 mls @ 0 mls/hr IV Q6HR [facility] PRN Reason: As Directed Stop: 01/23/17 17:59 Last Admin: 01/23/17 11:58 Dose: 100 mls/hr Milrinone Lactate/Dextrose (Primacor*) 100 mls @ 7.875 mls/hr IVPB PER RATE [facility] PRN Reason: 0.25 MCG/KG/MIN Last Admin: 01/23/17 03:31 Dose: 7.875 mls/hr Sodium Chloride (Hypertonic) (Hypertonic Sod Chloride 3%*) 500 mls @ 20 mls/hr IVPB ONCE ONE; Per Protocol PRN Reason: Protocol Stop: 01/24/17 10:59 Last Admin: 01/23/17 10:25 Dose: 20 mls/hr Levothyroxine Sodium (Synthroid Tab*) 50 mcg PO DAILY@0600 [facility] Last Admin: 01/23/17 05:48 Dose: 50 mcg Midodrine (Midodrine (Nf)) 15 mg PO TID [facility] PRN Reason: Protocol Last Admin: 01/23/17 13:55 Dose: 15 mg Morphine Sulfate (Morphine Oral.Soln 10 Mg*) 2.5 mg PO Q2H PRN PRN Reason: Pain / Tachypne RR>24 Last Admin: 01/23/17 10:08 Dose: 2.5 mg Multivitamins/Minerals (Theragran/Minerals Tab*) 1 tab PO BID [facility] Last Admin: 01/23/17 09:50 Dose: 1 tab Neomycin/Polymyxin/Bacitracin (Neosporin Top Oint Tube*) 1 applic TOPICAL DAILY [facility] Last Admin: 01/23/17 09:50 Dose: 1 applic Non-Formulary Medication (Hydrocortisone (Rectal) [Proctozone-Hc]) 1 dose ID TID PRN PRN Reason: PAIN Non-Formulary Medication (Gum Numb Benzocaine 20%) 1 applic TOPICAL Q1HR PRN PRN Reason: PAIN Omeprazole (Prilosec Cap*) 20 mg PO DAILY@0730 [facility] Last Admin: 01/23/17 07:39 Dose: 20 mg Pharmacy Profile Note (Coumadin Daily Reminder*) 0 note FOLLOW UP 1700 [facility] Last Admin: 01/22/17 17:24 Dose: 1 note Sodium Biphosphate/Sodium Phosphate (Fleet Enema*) 1 bottle ID DAILY PRN PRN Reason: CONSTIPATION Last Admin: 01/23/17 04:06 Dose: 1 bottle Torsemide (Demadex*) 140 mg PO TID [facility] Last Admin: 01/23/17 09:04 Dose: Not Given Warfarin Sodium (Coumadin Tab(*)) 5 mg PO DAILY@1700 [facility] PRN Reason: Protocol Last Admin: 01/22/17 17:21 Dose: 5 mg Vital Signs 01/23/17 01/23/17 01/23/17 11:30 12:00 12:30 Temperature 97.7 F Pulse Rate 58 59 59 Respiratory 13 14 13 Rate Blood Pressure 71/45 78/53 73/43 (mmHg) O2 Sat by Pulse 96 98 99 Oximetry Oxygen Devices in Use Now: None Appearance: Middle aged male, appears older than stated age, sitting up in bed in NAD. Eyes: No Scleral Icterus Ears/Nose/Mouth/Throat: Mucous Membranes Moist Neck: Trachea Midline Respiratory: Symmetrical Chest Expansion and Respiratory Effort, - - BS+ bilaterally with bibasilar rales Cardiovascular: RRR - Normal S1 and S2 Abdominal: - - Soft, obese, non tender BS+, CDI on peritoneal drain Extremities: - - Bilateral LE edema Neurological: Alert and Oriented x 3, NL Muscle Strength and Tone Lines/Tubes/Other Access: Clean, Dry and Intact Peripheral IV Nutrition: Taking PO's Result Diagrams: 01/23/17 05:50 01/23/17 05:50 Assess/Plan/Problems-Billing Assessment: Mr Ocampo is a 56 yo M with h/o CHF (systolic-chronic), amyloidosis, CKD, V. tach , ICD, A. fib on Coumadin, admitted once again with cardiogenic shock and MSOF. - Patient Problems (1) Cardiogenic shock Comment: - Secondary to end stage CHF. - Critical care input much appreciated - continue milrinone and midodrine. Did not respond to albumin, trial of hypertonic saline, but overall prognosis very poor. (2) MSOF (multiple systems organ failure) Comment: - Secondary to cardiogenic shock. (3) Cardiorenal syndrome with renal failure Comment: - Worsening renal function secondary to cardiorenal syndrome. - Not perfusing his kidneys well due to his end stage CHF. (4) Lactic acidosis Comment: - Secondary to cardiogenic shock. (5) Peripheral neuropathy Comment: - Gabapentin not controlling the pain anymore. - Will try low dose Morphine PRN. (6) Ascites Comment: - Secondary to end stage CHF. - Has drained 1000ml so far today. - Fluid growing Gram + cocci, likely enterococcus again. No signs of infection at this time, but will continue to monitor. (7) DVT prophylaxis Comment: - SQ heparin until INR is therapeutic. (8) Full code status Status and Disposition: Inpatient.
[2017-01-23 14:33] LABS: BUN/Creatinine Ratio 24.5 (8-20); EGFR African American 26.2 (>60); EGFR Non-African American 20.3 (>60); Potassium 5.6 mmol/L (3.5-5.0)
[2017-01-23] MEDS: Warfarin TAB(*) 5 MG PO SCH (16:30)
[2017-01-23] MEDS: Magnesium Oxide TAB* 400 MG PO SCH (19:21)
[2017-01-23] MEDS ORDERED: Norepinephrine 16MCG/ML IVPRE* 4,000 MCG/250 ML BAG IV ONE (22:36)
[2017-01-23] MEDS ORDERED: Norepinephrine 16MCG/ML IVPRE* 4,000 MCG/250 ML BAG IV SCH (23:00)
[2017-01-24] MEDS: Milrinone* 100 ML IVPB SCH (04:20)
[2017-01-24] MEDS: Levothyroxine TAB* 50 MCG TAB PO SCH (05:49)
[2017-01-24] MEDS: Gabapentin CAP(*) 300 MG PO SCH ×4 (05:49→22:17)
[2017-01-24] MEDS: Heparin VIAL(*) 5000 UNITS/ML VIAL (FIVE THOUSAND) SUBCUT SCH ×3 (05:49→22:17)
[2017-01-24] MEDS: Acetaminophen TAB* 325 MG PO PRN ×2 (05:56→17:47)
[2017-01-24 06:11] LABS: Albumin 3.1 g/dL (3.2-5.2); BUN/Creatinine Ratio 23.9 (8-20); Calcium 8.2 mg/dL (8.6-10.3); Direct Bilirubin 0.3 mg/dL (0.03-0.18); EGFR African American 25.1 (>60); EGFR Non-African American 19.5 (>60); Globulin 2.6 g/dL (2-4); Indirect Bilirubin 0.3 mg/dL (0.3-1.0); Magnesium 2.4 mg/dL (1.9-2.7); Phosphorus 6.2 mg/dL (2.5-5.0); Potassium 4.9 mmol/L (3.5-5.0); Total Bilirubin 0.6 mg/dL (0.2-1.0); Total Protein 5.7 g/dL (6.4-8.9)
[2017-01-24 06:46] LABS: Free T4 0.94 ng/dL (0.61-1.12)
--- NOTE | 2017-01-24 08:20 | PN ---
Subjective Date of Service: 01/24/17 Interval History: HOSPITALIST PROGRESS NOTE Patient seen and examined at bedside. He's oriented x 3, but more sluggish on his responses. LE pain is better controlled with Morphine, he experienced no hallucinations, and was able to sleep in intervals overnight. Feels more dyspneic with minimal movement in bed. Family History: Unchanged from Admission Social History: Unchanged from Admission Past Medical History: Unchanged from Admission Objective Active Medications: Acetaminophen (Tylenol Tab*) 650 mg PO Q6H PRN PRN Reason: FEVER/PAIN Last Admin: 01/24/17 05:56 Dose: 650 mg Allopurinol (Zyloprim Tab*) 300 mg PO DAILY REPLACED BY [facility] Last Admin: 01/23/17 07:42 Dose: 300 mg Bisacodyl (Dulcolax Supp*) 10 mg NE DAILY [facility]PL[facility] BY [facility] Last Admin: 01/23/17 09:50 Dose: 10 mg Calcium Carbonate (Calcium Carbonate Tab*) 1,250 mg PO DAILY [facility]PL[facility] Last Admin: 01/23/17 09:49 Dose: 1,250 mg Carvedilol (Coreg Tab*) 3.125 mg PO BID [facility]PL[facility] BY [facility] Last Admin: 01/23/17 20:03 Dose: 3.125 mg Docusate Sodium (Colace Cap*) 100 mg PO BID PRN PRN Reason: CONSTIPATION Last Admin: 01/22/17 17:20 Dose: 100 mg Eplerenone (Inspra (Nf)) 25 mg PO BID [facility]PL[facility] Last Admin: 01/23/17 20:03 Dose: 25 mg Gabapentin (Neurontin Cap(*)) 300 mg PO 0600,1200,1700,2300 [facility]PLACED [facility] Last Admin: 01/24/17 05:49 Dose: 300 mg Heparin Sodium (Porcine) (Heparin Vial(*)) 5,000 units SUBCUT Q8HR [facility]PL[facility]ED BY [facility] Last Admin: 01/24/17 05:49 Dose: 5,000 units Milrinone Lactate/Dextrose (Primacor*) 100 mls @ 7.875 mls/hr IVPB PER RATE [facility]PLACED BY [facility] PRN Reason: 0.25 MCG/KG/MIN Last Admin: 01/24/17 04:20 Dose: 7.875 mls/hr Sodium Chloride (Hypertonic) (Hypertonic Sod Chloride 3%*) 500 mls @ 20 mls/hr IVPB ONCE ONE; Per Protocol PRN Reason: Protocol Stop: 01/24/17 10:59 Last Admin: 01/23/17 10:25 Dose: 20 mls/hr Furosemide 100 mg/ Sodium (Chloride) 100 mls @ 15 mls/hr IV .(as INITIAL RATE) [facility] PRN Reason: 15 MG/HR Stop: 01/25/17 15:59 Last Admin: 01/24/17 04:20 Dose: 15 mls/hr Norepinephrine Bitartrate (Levophed 16 Mcg/Ml Premix Bag*) 4,000 mcg in 250 mls @ 0 mls/hr IV .INITIAL RATE [facility]; 0 MCG/MIN PRN Reason: Protocol Last Admin: 01/23/17 22:45 Dose: 7.5 mls/hr Levothyroxine Sodium (Synthroid Tab*) 50 mcg PO DAILY@0600 [facility]PLACED [facility] Last Admin: 01/24/17 05:49 Dose: 50 mcg Midodrine (Midodrine (Nf)) 15 mg PO TID [facility] PRN Reason: Protocol Last Admin: 01/23/17 20:03 Dose: 15 mg Morphine Sulfate (Morphine Oral.Soln 10 Mg*) 2.5 mg PO Q2H PRN PRN Reason: Pain / Tachypne RR>24 Last Admin: 01/23/17 21:35 Dose: 2.5 mg Multivitamins/Minerals (Theragran/Minerals Tab*) 1 tab PO DAILY [facility]PLACED BY [facility] Neomycin/Polymyxin/Bacitracin (Neosporin Top Oint Tube*) 1 applic TOPICAL DAILY [facility]PLAC[facility] Last Admin: 01/23/17 09:50 Dose: 1 applic Non-Formulary Medication (Hydrocortisone (Rectal) [Proctozone-Hc]) 1 dose NE TID PRN PRN Reason: PAIN Non-Formulary Medication (Gum Numb Benzocaine 20%) 1 applic TOPICAL Q1HR PRN PRN Reason: PAIN Omeprazole (Prilosec Cap*) 20 mg PO DAILY@0730 [facility]PLACED [facility] Last Admin: 01/23/17 07:39 Dose: 20 mg Pharmacy Profile Note (Coumadin Daily Reminder*) 0 note FOLLOW UP 1700 REPLACED BY [facility] Last Admin: 01/23/17 16:40 Dose: Not Given Sodium Biphosphate/Sodium Phosphate (Fleet Enema*) 1 bottle NE DAILY PRN PRN Reason: CONSTIPATION Last Admin: 01/23/17 04:06 Dose: 1 bottle Torsemide (Demadex*) 140 mg PO TID REPLACED BY [facility] Warfarin Sodium (Coumadin Tab(*)) 5 mg PO DAILY@1700 REPLACED BY [facility] PRN Reason: Protocol Last Admin: 01/23/17 16:30 Dose: 5 mg Vital Signs 01/24/17 01/24/17 01/24/17 03:45 04:00 04:15 Temperature 97.8 F Pulse Rate 66 64 65 Respiratory 12 12 17 Rate Blood Pressure 84/58 (mmHg) O2 Sat by Pulse 100 100 100 Oximetry 01/24/17 01/24/17 06:00 06:15 Temperature Pulse Rate 73 69 Respiratory 12 15 Rate Blood Pressure 80/45 (mmHg) O2 Sat by Pulse 100 100 Oximetry Oxygen Devices in Use Now: None Appearance: Middle aged male, appears older than stated age, lying in bed in NAD. Eyes: No Scleral Icterus Ears/Nose/Mouth/Throat: Mucous Membranes Moist Neck: Trachea Midline Respiratory: Symmetrical Chest Expansion and Respiratory Effort, - - BS+ bilaterally with bibasilar rales Cardiovascular: RRR - Normal S1 and S2 Abdominal: - - Obese, soft, NT, BS+, peritoneal drain in place Extremities: - - Mild bilateral LE edema Neurological: Alert and Oriented x 3, NL Muscle Strength and Tone Lines/Tubes/Other Access: Clean, Dry and Intact Peripheral IV Nutrition: Taking PO's Result Diagrams: 01/23/17 05:50 01/24/17 05:45 Assess/Plan/Problems-Billing Assessment: Mr Ocampo is a 56 yo M with h/o CHF (systolic-chronic), amyloidosis, CKD, V. tach , ICD, A. fib on Coumadin, admitted once again with cardiogenic shock and MSOF. - Patient Problems (1) Cardiogenic shock Comment: - Secondary to end stage CHF. - Critical care input much appreciated - on milrinone, midodrine, and Furosemide drip. Hypotensive overnight with SBO in the 50s, so Levophed started. - UO 775ml despite all those measures. Peritoneal drain output 1450ml. Weight still went up - 240lbs. - Overall prognosis is very poor. (2) MSOF (multiple systems organ failure) Comment: - Secondary to cardiogenic shock. (3) Cardiorenal syndrome with renal failure Comment: - Worsening renal function secondary to cardiorenal syndrome. Creatinine up to 3.3 today. - Not perfusing his kidneys well due to his end stage CHF. (4) Lactic acidosis Comment: - Secondary to cardiogenic shock. (5) Peripheral neuropathy Comment: - Gabapentin not controlling the pain anymore. - Continue low dose Morphine PRN. (6) Ascites Comment: - Secondary to end stage CHF. - Has drained 1000ml so far today. - Fluid growing Gram + cocci, likely enterococcus again. No signs of infection at this time, but will continue to monitor. (7) DVT prophylaxis Comment: - SQ heparin until INR is therapeutic. (8) Full code status Status and Disposition: Inpatient.
[2017-01-24] MEDS: Neomycin/Polym/Bacit TOP OINT* 15 GM TOPICAL SCH (08:39)
[2017-01-24] MEDS: Omeprazole CAP* 20 MG PO SCH (08:39)
[2017-01-24] MEDS: Bisacodyl SUPP* 10 MG SUPP PR SCH (08:39)
[2017-01-24] MEDS: CMC: Midodrine (NF) 5 MG TAB PO SCH ×3 (08:40→20:13)
[2017-01-24] MEDS: Allopurinol TAB* 300 MG PO SCH (08:40)
[2017-01-24] MEDS: Calcium Carbonate TAB* 1250 MG (CALCIUM 500 MG) PO SCH (08:40)
[2017-01-24] MEDS: Multivitamins/Minerals TAB PO SCH (08:40)
--- NOTE | 2017-01-24 10:56 | PN ---
Progress Note - Progress Note Note: CRITICAL CARE MEDICINE DATE: 01/24/17 TIME: 1030 SUBJECTIVE: Patient seen and examined. PHYSICAL EXAM: Vital Signs: Reviewed. Neurologic: awake, communicating and holds capacity. HEENT: inc jvp bl Cardiovascular: distant, no discernable gallop Respiratory: few basilar crackles still Abdomen: obese, soft, drain in place. chronic anasarca Extremities: cool; dep edema and changes Access: piv LABS: Reviewed. IMAGING: Reviewed. MEDICATIONS: Reviewed. ASSESSMENT: 56M Acute on chronic decompensation systolic and diasolic hf (class IV) Cardiogenic shock on milrinone and midodrine, without ability to change flow state. Cardiorenal syndrome Acute on chronic reanl failure Lactic acidosis on admission Acute on chronic MSOF Systemic amylodosis Anasarca PLAN: Neurologic: tolerating. pain rx prn Cardiovascular: low end perfusion without reserve. discussed risk/benefit of central line and trying combo of levophed and dobutamine to see if we can improve CO and improve renal perfusion. He accepts. Explained it may not help. Explained it may also be difficult to come off of. He accepts. keep lasix gtt. stop milrinone. Respiratory: RA and tolerating without extra lung water other then baseline Gastrointestinal: po diet. Renal/Metabolic: as above. may need phos binder. keep hypertonic today to mobilize water overload. Infectious Disease: no abx need Hematology: low end Hb; may even try unit prbc for colloid and carrying capacity for what it could be worth Endocrine: am cortisol low for his needs and given plans as above, treat for relative adrenal insuff as well for now as we try to mobilize fluid. on t4 Musculoskeletal: oob as able. avoid further deconditioning Psych/Social: pt expresses understanding Supportive and preventative care as ordered. SUP: ppi VTE prophylaxis: coumadin Disposition: ICU Code Status: Full Critical Care Time: 25min, excl procedures Supportive and preventative care as ordered. Karma Rangel DO
[2017-01-24] MEDS: CMC: Epleronone (NF) 25 MG TAB PO SCH ×2 (11:10→20:13)
[2017-01-24] MEDS: Carvedilol TAB* 3.125 MG PO SCH (11:10)
[2017-01-24] MEDS ORDERED: fentaNYL* 50 MCG/ML 2 ML VIAL (100 MCG VIAL) ONE (12:46)
[2017-01-24] MEDS ORDERED: fentaNYL* 50 MCG/ML 2 ML VIAL (100 MCG VIAL) IV SLOW PU ONE (13:00)
[2017-01-24] MEDS: Sodium Chloride 3% HYPERTONIC* 500 ML IVPB SCH (13:17)
--- NOTE | 2017-01-24 13:25 | PN ---
Progress Note - Progress Note Note: CRITICAL CARE MEDICINE PROCEDURE NOTE DATE: 01/24/17 TIME: 1320 SERVICE: Critical Care Medicine LOCATION OF PROCEDURE: ICU PROCEDURE: Central line insertion. PROCEDURALIST: Dr. Rangel Consent obtain: Yes from pt Time out held: Yes INDICATION: Cardiogenic shock. PROCEDURE: Oxygenation maintained and vitals monitored. Patient in supine position. Pre-medication prior to procedure with fentanyl 25mcg for his pain ailments. SITE: RIGHT Internal jugular Site preparation with chlorhexidine locally. Full sterile drape, gown, hat, mask, gloves. 5ml 1% Lidocaine utilized at incision site. Standard sterile Seldinger technique utilized via ultrasound guidance and catheter was inserted to 15cm and sutured in place. Good blood return. Minimal blood loss. Site dressed with tegaderm. Portable chest x-ray pending. Patient otherwise tolerated well. Karma Rangel DO
[2017-01-24] MEDS ORDERED: DoBUTamine INJ* 500 MG in D5W 100 ML BAG* 60 ML IVPB SCH (14:00)
--- NOTE | 2017-01-24 14:14 | RAD ---
INDICATION: Right-sided intravenous catheter placement COMPARISON: January 22, 2017 TECHNIQUE: An AP portable view obtained at 1254 hours is submitted. FINDINGS: Bones/Soft Tissues: There are no acute bony findings. There is a right IJ catheter terminating in the superior vena cava. There is left sided cardiac pacemaker/defibrillator Cardiomediastinal: Enlarged correct silhouette, unchanged. Lungs: There are no infiltrates. There is no pneumothorax. Pleura: There are no pleural effusions. Other: None IMPRESSION: LUNGS CLEAR. INTERVAL PLACEMENT RIGHT IJ CATHETER IN EXPECTED POSITION. NO PNEUMOTHORAX.
[2017-01-24] MEDS: Hydrocortisone INJ* 100 MG VIAL IV SCH ×2 (14:25→19:18)
[2017-01-24] MEDS: Norepinephrine 16MCG/ML IVPRE* 4,000 MCG/250 ML BAG IV SCH (15:16)
[2017-01-24] MEDS: Meropenem 1 GM PREMIX(*) 1 GM/50 ML BAG IV SCH (16:32)
[2017-01-24] MEDS: Warfarin TAB(*) 5 MG PO SCH (16:48)
--- NOTE | 2017-01-24 20:07 | RAD ---
INDICATION: Pain and swelling. COMPARISON: November 05, 2016 TECHNIQUE: Duplex interrogation of the Lowerextremity was performed. FINDINGS: Deep veins: The common femoral, great saphenous, profunda femoris, proximal, mid, and distal deep femoral, popliteal, posterior tibial, and peroneal veins are patent. There is normal compressibility, augmentation, and phasic flow. Superficial veins: There are no findings of superficial thrombophlebitis. Popliteal fossa:There is no evidence of a popliteal cyst. Soft tissues:There are no soft tissue abnormalities. IMPRESSION: No evidence of deep venous thrombosis
[2017-01-24] MEDS: Morphine ORAL.SOLN 10 mg* 2 MG/ML UDC 5 ml PO PRN (20:20)
[2017-01-25] MEDS: Sodium Chloride 3% HYPERTONIC* 500 ML IVPB SCH (01:29)
[2017-01-25] MEDS: Hydrocortisone INJ* 100 MG VIAL IV SCH ×4 (01:29→20:14)
[2017-01-25] MEDS: Meropenem 1 GM PREMIX(*) 1 GM/50 ML BAG IV SCH ×2 (04:54→16:53)
[2017-01-25 05:15] LABS: Hematocrit 26 % (42-52); Mean Corpuscular HGB Conc 31 g/dl (31-36); Mean Corpuscular Hemoglobin 25 pg (27-31); Mean Corpuscular Volume 81 fL (80-94); Mean Platelet Volume 8 um3 (7.4-10.4); Red Blood Count 3.23 10^6/ul (4.0-5.4); White Blood Count 11.2 10^3/ul (3.5-10.8)
[2017-01-25 05:19] LABS: Comments Flag Yes; Red Cell Distribution Width 22 % (10.5-15)
[2017-01-25 05:38] LABS: BUN/Creatinine Ratio 29.1 (8-20); Calcium 8.2 mg/dL (8.6-10.3); EGFR African American 34.4 (>60); EGFR Non-African American 26.7 (>60); Magnesium 2.4 mg/dL (1.9-2.7); Potassium 3.2 mmol/L (3.5-5.0)
[2017-01-25] MEDS: Gabapentin CAP(*) 300 MG PO SCH ×4 (06:00→22:59)
[2017-01-25] MEDS: Heparin VIAL(*) 5000 UNITS/ML VIAL (FIVE THOUSAND) SUBCUT SCH ×3 (06:01→21:38)
[2017-01-25] MEDS: Levothyroxine TAB* 50 MCG TAB PO SCH (06:01)
[2017-01-25] MEDS: Norepinephrine 16MCG/ML IVPRE* 4,000 MCG/250 ML BAG IV SCH (07:02)
[2017-01-25] MEDS: Bisacodyl SUPP* 10 MG SUPP PR SCH (07:35)
[2017-01-25] MEDS: CMC: Epleronone (NF) 25 MG TAB PO SCH ×2 (09:04→21:38)
[2017-01-25] MEDS: Omeprazole CAP* 20 MG PO SCH (09:04)
[2017-01-25] MEDS: Multivitamins/Minerals TAB PO SCH (09:05)
[2017-01-25] MEDS: Allopurinol TAB* 300 MG PO SCH (09:05)
[2017-01-25] MEDS: Calcium Carbonate TAB* 1250 MG (CALCIUM 500 MG) PO SCH (09:05)
[2017-01-25] MEDS: CMC: Midodrine (NF) 5 MG TAB PO SCH ×3 (09:05→21:38)
[2017-01-25] MEDS: Neomycin/Polym/Bacit TOP OINT* 15 GM TOPICAL SCH (09:09)
[2017-01-25] MEDS ORDERED: Furosemide IV* 10 MG/ML 10 ML VIAL (100 MG) ONE (09:16)
[2017-01-25] MEDS ORDERED: Potassium Chlor TAB* 20 MEQ TAB.ER PO ONE (09:30)
[2017-01-25] MEDS: Potassium Chlor TAB* 20 MEQ TAB.ER PO SCH ×3 (10:08→21:37)
[2017-01-25] MEDS ORDERED: Sodium Chloride 3% HYPERTONIC* 500 ML IVPB ONE (10:16)
--- NOTE | 2017-01-25 10:29 | PN ---
Subjective Date of Service: 01/25/17 Interval History: HOSPITALIST PROGRESS NOTE Patient seen and examined at bedside. He's in good spirits today, happy he's making more urine. Still has some dyspnea , denies abdominal pain. Family History: Unchanged from Admission Social History: Unchanged from Admission Past Medical History: Unchanged from Admission Objective Active Medications: Acetaminophen (Tylenol Tab*) 650 mg PO Q6H PRN PRN Reason: FEVER/PAIN Last Admin: 01/24/17 17:47 Dose: 650 mg Allopurinol (Zyloprim Tab*) 300 mg PO DAILY [facility] Last Admin: 01/25/17 09:05 Dose: 300 mg Bisacodyl (Dulcolax Supp*) 10 mg AR DAILY [facility] Last Admin: 01/25/17 07:35 Dose: 10 mg Calcium Carbonate (Calcium Carbonate Tab*) 1,250 mg PO DAILY [facility] Last Admin: 01/25/17 09:05 Dose: 1,250 mg Docusate Sodium (Colace Cap*) 100 mg PO BID PRN PRN Reason: CONSTIPATION Last Admin: 01/22/17 17:20 Dose: 100 mg Eplerenone (Inspra (Nf)) 25 mg PO BID [facility] Last Admin: 01/25/17 09:04 Dose: Not Given Gabapentin (Neurontin Cap(*)) 300 mg PO 0600,1200,1700,2300 [facility] Last Admin: 01/25/17 06:00 Dose: 300 mg Heparin Sodium (Porcine) (Heparin Vial(*)) 5,000 units SUBCUT Q8HR [facility] Last Admin: 01/25/17 06:01 Dose: 5,000 units Hydrocortisone Sodium Succinate (Solu-Cortef*) 50 mg IV Q6H [facility] Last Admin: 01/25/17 09:04 Dose: 50 mg Furosemide 100 mg/ Sodium (Chloride) 100 mls @ 15 mls/hr IV .(as INITIAL RATE) ANAHI PRN Reason: 15 MG/HR Stop: 01/25/17 15:59 Last Admin: 01/25/17 09:27 Dose: 15 mls/hr Sodium Chloride (Hypertonic) (Hypertonic Sod Chloride 3%*) 500 mls @ 40 mls/hr IVPB Q12H ANAHI; Per Protocol PRN Reason: Protocol Stop: 01/25/17 11:59 Last Admin: 01/25/17 01:29 Dose: 40 mls/hr Dobutamine HCl 500 mg/ (Dextrose) 100 mls @ 3.25 mls/hr IVPB Q30H ANAHI PRN Reason: 2.5 MCG/KG/MIN Stop: 01/25/17 13:59 Last Admin: 01/24/17 14:25 Dose: 3.25 mls/hr Norepinephrine Bitartrate (Levophed 16 Mcg/Ml Premix Bag*) 4,000 mcg in 250 mls @ 15 mls/hr IV .INITIAL RATE ANAHI; 4 MCG/MIN PRN Reason: Protocol Last Admin: 01/25/17 07:02 Dose: 15 mls/hr Dobutamine HCl 500 mg/ (Dextrose) 100 mls @ 3.25 mls/hr IVPB Q24H ANAHI PRN Reason: 2.5 MCG/KG/MIN Meropenem (Merrem 1 Gm Premix(*)) 1 gm in 50 mls @ 100 mls/hr IV Q12H [facility] Last Admin: 01/25/17 04:54 Dose: 100 mls/hr Levothyroxine Sodium (Synthroid Tab*) 50 mcg PO DAILY@0600 [facility] Last Admin: 01/25/17 06:01 Dose: 50 mcg Midodrine (Midodrine (Nf)) 15 mg PO TID ANAHI PRN Reason: Protocol Last Admin: 01/25/17 09:05 Dose: 15 mg Morphine Sulfate (Morphine Oral.Soln 10 Mg*) 2.5 mg PO Q2H PRN PRN Reason: Pain / Tachypne RR>24 Last Admin: 01/24/17 20:20 Dose: 2.5 mg Multivitamins/Minerals (Theragran/Minerals Tab*) 1 tab PO DAILY [facility] Last Admin: 01/25/17 09:05 Dose: 1 tab Neomycin/Polymyxin/Bacitracin (Neosporin Top Oint Tube*) 1 applic TOPICAL DAILY [facility] Last Admin: 01/25/17 09:09 Dose: 1 applic Non-Formulary Medication (Hydrocortisone (Rectal) [Proctozone-Hc]) 1 dose AR TID PRN PRN Reason: PAIN Non-Formulary Medication (Gum Numb Benzocaine 20%) 1 applic TOPICAL Q1HR PRN PRN Reason: PAIN Omeprazole (Prilosec Cap*) 20 mg PO DAILY@0730 [facility] Last Admin: 01/25/17 09:04 Dose: 20 mg Pharmacy Profile Note (Coumadin Daily Reminder*) 0 note FOLLOW UP 1700 [facility] Last Admin: 01/24/17 16:48 Dose: Not Given Potassium Chloride (Klor Con Er Tab*) 20 meq PO TID [facility] Last Admin: 01/25/17 10:08 Dose: 20 meq Sodium Biphosphate/Sodium Phosphate (Fleet Enema*) 1 bottle AR DAILY PRN PRN Reason: CONSTIPATION Last Admin: 01/23/17 04:06 Dose: 1 bottle Torsemide (Demadex*) 140 mg PO TID [facility] Warfarin Sodium (Coumadin Tab(*)) 5 mg PO DAILY@1700 ANAHI PRN Reason: Protocol Last Admin: 01/24/17 16:48 Dose: 5 mg Vital Signs 01/25/17 01/25/17 01/25/17 06:45 07:00 08:00 Temperature 98 F Pulse Rate 91 96 Respiratory 24 17 Rate Blood Pressure 102/68 (mmHg) O2 Sat by Pulse 99 97 Oximetry Oxygen Devices in Use Now: None Appearance: Middle aged male, appears older than stated age, sitting up in bed in [facility]. Eyes: No Scleral Icterus Ears/Nose/Mouth/Throat: Mucous Membranes Moist Neck: Trachea Midline Respiratory: Symmetrical Chest Expansion and Respiratory Effort, - - BS+ bilaterally with bibasilar rales Cardiovascular: RRR - Normal S1 and S2 Abdominal: NL Sounds; No Tenderness; No Distention, - - Peritoneal drain in place with no drainage Extremities: - - Mild bilateral LE edema Neurological: Alert and Oriented x 3, NL Muscle Strength and Tone Lines/Tubes/Other Access: Clean, Dry and Intact Peripheral IV Nutrition: Taking PO's Result Diagrams: 01/25/17 05:05 01/25/17 05:05 Assess/Plan/Problems-Billing Assessment: Mr Ocampo is a 56 yo M with h/o CHF (systolic-chronic), amyloidosis, CKD, V. tach , ICD, A. fib on Coumadin, admitted once again with cardiogenic shock and MSOF. - Patient Problems (1) Cardiogenic shock Comment: - Secondary to end stage CHF. - Critical care input much appreciated - now on levophed, dobutamine, furosemide drips, and hypertonic saline. - Fluid balance was negative - 1600ml over the past 24h. - Overall prognosis is very poor. (2) MSOF (multiple systems organ failure) Comment: - Secondary to cardiogenic shock. (3) Cardiorenal syndrome with renal failure Comment: - Creatinine 2.5 today. - Not perfusing his kidneys well due to his end stage CHF. (4) Lactic acidosis Comment: - Secondary to cardiogenic shock. (5) Peripheral neuropathy Comment: - Gabapentin not controlling the pain anymore. - Continue low dose Morphine PRN. (6) Ascites Comment: - Secondary to end stage CHF. - Fluid growing Gram + cocci, likely enterococcus again. No signs of infection at this time, but will continue to monitor. (7) Hyponatremia Comment: - Trending up. (8) DVT prophylaxis Comment: - D/c SQ heparin as INR is therapeutic. (9) Full code status Status and Disposition: Inpatient.
--- NOTE | 2017-01-25 13:00 | PN ---
Progress Note - Progress Note Note: CRITICAL CARE MEDICINE DATE: 01/25/17 TIME: 1000 SUBJECTIVE: Patient seen and examined. PHYSICAL EXAM: Vital Signs: Reviewed. SBP >100 Neurologic: awake, communicating and holds capacity. HEENT: inc jvp bl Cardiovascular: distant, no discernable gallop Respiratory: few basilar crackles still Abdomen: obese, soft, drain in place. chronic anasarca Extremities: little warmer; dep edema and changes Access: piv LABS: Reviewed. IMAGING: Reviewed. MEDICATIONS: Reviewed. ASSESSMENT: 56M Acute on chronic decompensation systolic and diasolic hf (class IV) Cardiogenic shock on milrinone and midodrine, without ability to change flow state. 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 pain rx prn Cardiovascular: better perfusion with levo/dobutamine combo. Able to mobilize fluid and cr with lasix gtt as well. keep today. 3% for mobility flow phase and na correct. steroids for adrenal insuff may be helping bp. Respiratory: RA and tolerating without extra lung water Gastrointestinal: po diet. 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 likely chronic ailments and oppurtunistic. would anticipate 7 day course to see if there is a benefit as he is unlikely to desire discontine of tube given comfort needs. Hematology: low end Hb but ok. hold off on blood Endocrine: steroids as is. Musculoskeletal: oob, avoid further deconditioning Psych/Social: pt expresses understanding Supportive and preventative care as ordered. SUP: ppi VTE prophylaxis: coumadin Disposition: ICU Code Status: Full Critical Care Time: 25min Supportive and preventative care as ordered. Karma Rangel DO
[2017-01-25] MEDS: Torsemide TAB* 20 MG PO SCH ×2 (14:35→21:37)
[2017-01-25] MEDS: TORSEMIDE 100 MG PO SCH ×2 (14:42→21:37)
[2017-01-25] MEDS: DoBUTamine INJ* 500 MG in D5W 100 ML BAG* 60 ML IVPB SCH (15:03)
[2017-01-25] MEDS: Warfarin TAB(*) 5 MG PO SCH (17:08)
[2017-01-26] MEDS: Morphine ORAL.SOLN 10 mg* 2 MG/ML UDC 5 ml PO PRN (00:34)
[2017-01-26] MEDS: Hydrocortisone INJ* 100 MG VIAL IV SCH ×4 (03:06→20:02)
[2017-01-26] MEDS: Meropenem 1 GM PREMIX(*) 1 GM/50 ML BAG IV SCH ×2 (03:06→15:04)
[2017-01-26] MEDS: Heparin VIAL(*) 5000 UNITS/ML VIAL (FIVE THOUSAND) SUBCUT SCH (05:16)
[2017-01-26] MEDS: Gabapentin CAP(*) 300 MG PO SCH ×4 (05:17→23:50)
[2017-01-26] MEDS: Levothyroxine TAB* 50 MCG TAB PO SCH (05:17)
[2017-01-26 06:24] LABS: BUN/Creatinine Ratio 33.3 (8-20); Calcium 8.1 mg/dL (8.6-10.3); EGFR African American 45.2 (>60); EGFR Non-African American 35.1 (>60)
[2017-01-26 06:27] LABS: Potassium 2.6 mmol/L (3.5-5.0)
[2017-01-26] MEDS: KCL 20 MEQ/100 ML IVPREMIX* 100 ML BAG IV SCH ×2 (07:32→09:38)
[2017-01-26] MEDS: CMC: Midodrine (NF) 5 MG TAB PO SCH ×3 (08:12→20:05)
[2017-01-26] MEDS: Neomycin/Polym/Bacit TOP OINT* 15 GM TOPICAL SCH (08:12)
[2017-01-26] MEDS: CMC: Epleronone (NF) 25 MG TAB PO SCH ×2 (08:12→20:05)
[2017-01-26] MEDS: TORSEMIDE 100 MG PO SCH (08:13)
[2017-01-26] MEDS: Torsemide TAB* 20 MG PO SCH (08:13)
[2017-01-26] MEDS: Allopurinol TAB* 300 MG PO SCH (08:13)
[2017-01-26] MEDS: Multivitamins/Minerals TAB PO SCH (08:13)
[2017-01-26] MEDS: Calcium Carbonate TAB* 1250 MG (CALCIUM 500 MG) PO SCH (08:13)
[2017-01-26] MEDS: Potassium Chlor TAB* 20 MEQ TAB.ER PO SCH ×3 (08:14→20:02)
[2017-01-26] MEDS: Omeprazole CAP* 20 MG PO SCH (08:14)
[2017-01-26] MEDS ORDERED: Potassium Chlor TAB* 20 MEQ TAB.ER PO ONE (09:33)
[2017-01-26] MEDS ORDERED: Magnesium Sulfate 2 GM IV* 2 GM/50 ML BAG IVPB ONE (09:34)
[2017-01-26] MEDS: Bisacodyl SUPP* 10 MG SUPP PR SCH (11:07)
[2017-01-26] MEDS: KCL 20 MEQ/100 ML IVPREMIX* 20 MEQ/100 ML BAG IV SCH ×3 (11:40→15:55)
[2017-01-26] MEDS: Acetaminophen TAB* 325 MG PO PRN (12:08)
--- NOTE | 2017-01-26 12:09 | PN ---
Progress Note - Progress Note Note: CRITICAL CARE MEDICINE DATE: 01/26/17 TIME: 1135 SUBJECTIVE: Patient seen and examined. sister present PHYSICAL EXAM: Vital Signs: Reviewed. SBP >100. HR up with pvcs Neurologic: awake, communicating. HEENT: jvp up bl Cardiovascular: distant, no discernable gallop Respiratory: clear Abdomen: obese, soft, drain in place. chronic anasarca still Extremities: warmer; dep edema and changes Access: cvc LABS: Reviewed. IMAGING: Reviewed. MEDICATIONS: Reviewed. 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 pain rx prn Cardiovascular: davis with levo/dobutamine combo and levophed almost off. + ectopy but K down. Continue with therapy. lasix gtt. off 3%. may need to attempt adding back low dose bb. Respiratory: RA and tolerating without extra lung water Gastrointestinal: po diet. Renal/Metabolic: improving, continue course as above Infectious Disease: treatment with meropenum for his polymicrobial peritnitis - 12/22 Hematology: stable. inr tx Endocrine: steroids as is and slow taper sierra Musculoskeletal: oob, ambulate. avoid further deconditioning Psych/Social: pt expresses understanding Supportive and preventative care as ordered. SUP: ppi VTE prophylaxis: coumadin Disposition: ICU Code Status: Full Critical Care Time: 25min Supportive and preventative care as ordered. Karma Rangel DO
[2017-01-26] MEDS ORDERED: Furosemide IV* 10 MG/ML 10 ML VIAL (100 MG) ONE (12:28)
[2017-01-26] MEDS ORDERED: Benzocaine (DENTAL) 7.5%* 10 GM TOP.GEL TOPICAL PRN (14:28)
[2017-01-26] MEDS: DoBUTamine INJ* 500 MG in D5W 100 ML BAG* 60 ML IVPB SCH (15:03)
[2017-01-26] MEDS: Warfarin TAB(*) 2.5 MG PO SCH (17:29)
[2017-01-27] MEDS: Hydrocortisone INJ* 100 MG VIAL IV SCH ×2 (02:32→08:34)
[2017-01-27] MEDS: Meropenem 1 GM PREMIX(*) 1 GM/50 ML BAG IV SCH ×2 (04:42→15:41)
[2017-01-27] MEDS: Gabapentin CAP(*) 300 MG PO SCH ×4 (06:04→22:23)
[2017-01-27] MEDS: Levothyroxine TAB* 50 MCG TAB PO SCH (06:04)
[2017-01-27 06:43] LABS: BUN/Creatinine Ratio 33.5 (8-20); Calcium 8.2 mg/dL (8.6-10.3); EGFR African American 46.3 (>60); Magnesium 2.3 mg/dL (1.9-2.7); Phosphorus 4.2 mg/dL (2.5-5.0); Potassium 3.6 mmol/L (3.5-5.0)
[2017-01-27] MEDS: Allopurinol TAB* 300 MG PO SCH (08:34)
[2017-01-27] MEDS: Multivitamins/Minerals TAB PO SCH (08:34)
[2017-01-27] MEDS: Calcium Carbonate TAB* 1250 MG (CALCIUM 500 MG) PO SCH (08:34)
[2017-01-27] MEDS: CMC: Midodrine (NF) 5 MG TAB PO SCH ×3 (08:34→20:12)
[2017-01-27] MEDS: Omeprazole CAP* 20 MG PO SCH (08:34)
[2017-01-27] MEDS: Potassium Chlor TAB* 20 MEQ TAB.ER PO SCH ×3 (08:34→20:13)
[2017-01-27] MEDS: CMC: Epleronone (NF) 25 MG TAB PO SCH ×2 (08:34→20:12)
[2017-01-27] MEDS: Bisacodyl SUPP* 10 MG SUPP PR SCH (08:47)
[2017-01-27] MEDS: Phenol 1.4% Spray* 177 ML BTL MT PRN ×2 (09:23→22:22)
[2017-01-27] MEDS: Neomycin/Polym/Bacit TOP OINT* 15 GM TOPICAL SCH (11:38)
--- NOTE | 2017-01-27 12:00 | PN ---
Progress Note - Progress Note Note: CRITICAL CARE MEDICINE DATE: 01/27/17 TIME: 820 SUBJECTIVE: Patient seen and examined. PHYSICAL EXAM: Vital Signs: Reviewed. SBP >100. HR up with pvcs still and nsvt Neurologic: awake, communicating. HEENT: jvp up Cardiovascular: distant, no discernable gallop Respiratory: clear Abdomen: obese, soft, drain in place. chronic anasarca still but better Extremities: warmer; dep edema but better Access: cvc LABS: Reviewed. IMAGING: Reviewed. MEDICATIONS: Reviewed. 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 +ectopy f/u. no room for bb. lasix gtt. Respiratory: RA and tolerating without extra lung water Gastrointestinal: po diet. Renal/Metabolic: stable. f/u lytes and k repletion Infectious Disease: treatment with meropenum for his polymicrobial peritnitis - 01/22 Hematology: stable. coumadin tx Endocrine: steroids taper to po Musculoskeletal: oob, ambulate. Psych/Social: pt expresses understanding Supportive and preventative care as ordered. SUP: ppi VTE prophylaxis: coumadin Disposition: ICU Code Status: Full Critical Care Time: 25min Karma Rangel DO
[2017-01-27] MEDS: predniSONE TAB* 20 MG PO SCH (14:14)
[2017-01-27] MEDS: DoBUTamine INJ* 500 MG in D5W 100 ML BAG* 60 ML IVPB SCH (15:41)
[2017-01-27] MEDS: Warfarin TAB(*) 2.5 MG PO SCH (16:54)
[2017-01-28] MEDS: Meropenem 1 GM PREMIX(*) 1 GM/50 ML BAG IV SCH ×2 (03:37→16:38)
[2017-01-28] MEDS: Levothyroxine TAB* 50 MCG TAB PO SCH (05:52)
[2017-01-28] MEDS: Gabapentin CAP(*) 300 MG PO SCH ×3 (05:52→16:39)
[2017-01-28 06:27] LABS: Hematocrit 26 % (42-52); Hemoglobin 7.8 g/dl (14.0-18.0); Mean Corpuscular HGB Conc 30 g/dl (31-36); Mean Corpuscular Hemoglobin 25 pg (27-31); Mean Corpuscular Volume 82 fL (80-94); Mean Platelet Volume 8 um3 (7.4-10.4); Red Blood Count 3.19 10^6/ul (4.0-5.4); White Blood Count 10.3 10^3/ul (3.5-10.8)
[2017-01-28 06:38] LABS: BUN/Creatinine Ratio 38.2 (8-20); Calcium 8.2 mg/dL (8.6-10.3); EGFR African American 52.8 (>60); EGFR Non-African American 41.1 (>60); Magnesium 2.2 mg/dL (1.9-2.7); Phosphorus 4.3 mg/dL (2.5-5.0); Potassium 3.8 mmol/L (3.5-5.0)
[2017-01-28] MEDS: Phenol 1.4% Spray* 177 ML BTL MT PRN (06:41)
[2017-01-28 07:40] LABS: Comments Flag Yes
[2017-01-28 07:41] LABS: Red Cell Distribution Width 23 % (10.5-15)
[2017-01-28] MEDS: CMC: Midodrine (NF) 5 MG TAB PO SCH ×3 (07:58→20:53)
[2017-01-28] MEDS: predniSONE TAB* 20 MG PO SCH (07:59)
[2017-01-28] MEDS: Omeprazole CAP* 20 MG PO SCH (07:59)
[2017-01-28] MEDS: Allopurinol TAB* 300 MG PO SCH (07:59)
[2017-01-28] MEDS: Multivitamins/Minerals TAB PO SCH (07:59)
[2017-01-28] MEDS: CMC: Epleronone (NF) 25 MG TAB PO SCH ×2 (07:59→20:53)
[2017-01-28] MEDS: Potassium Chlor TAB* 20 MEQ TAB.ER PO SCH ×3 (07:59→20:52)
[2017-01-28] MEDS: Calcium Carbonate TAB* 1250 MG (CALCIUM 500 MG) PO SCH (07:59)
[2017-01-28] MEDS: Neomycin/Polym/Bacit TOP OINT* 15 GM TOPICAL SCH (08:00)
[2017-01-28] MEDS: Bisacodyl SUPP* 10 MG SUPP PR SCH (09:23)
--- NOTE | 2017-01-28 11:28 | PN ---
Progress Note - Progress Note Note: CRITICAL CARE MEDICINE DATE: 01/28/17 TIME: 925 SUBJECTIVE: Patient seen and examined. PHYSICAL EXAM: Vital Signs: Reviewed. SBP >100. HR up with pvcs still and nsvt stable Neurologic: awake, communicating. HEENT: jvp up Cardiovascular: distant, no discernable gallop Respiratory: clear Abdomen: obese, soft, drain in place. chronic anasarca better Extremities: warmer; dep edema but much better Access: cvc LABS: Reviewed. IMAGING: Reviewed. MEDICATIONS: Reviewed. 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 +ectopy tolerating. lasix gtt today and then to tid po tomorrow perhaps. Respiratory: RA and tolerating without extra lung water Gastrointestinal: po diet. Renal/Metabolic: stable. f/u lytes and k repletion Infectious Disease: treatment with meropenum for his polymicrobial peritnitis - 02/21 Hematology: stable. coumadin tx adjusted Endocrine: steroids taper to po continued Musculoskeletal: oob, ambulate. Psych/Social: pt expresses understanding Supportive and preventative care as ordered. SUP: ppi VTE prophylaxis: coumadin Disposition: ICU Code Status: Full Critical Care Time: 25min Karma Rangel DO
[2017-01-28] MEDS: DoBUTamine INJ* 500 MG in D5W 100 ML BAG* 60 ML IVPB SCH (16:38)
[2017-01-28] MEDS ORDERED: Warfarin TAB(*) 4 MG PO SCH (17:00)
[2017-01-29] MEDS: Gabapentin CAP(*) 300 MG PO SCH ×5 (00:10→22:40)
[2017-01-29] MEDS: Meropenem 1 GM PREMIX(*) 1 GM/50 ML BAG IV SCH ×2 (03:14→16:43)
[2017-01-29 06:15] LABS: BUN/Creatinine Ratio 42.6 (8-20); Calcium 8.1 mg/dL (8.6-10.3); EGFR African American 59.9 (>60); EGFR Non-African American 46.6 (>60); Phosphorus 3.9 mg/dL (2.5-5.0); Potassium 3.8 mmol/L (3.5-5.0)
[2017-01-29] MEDS: Levothyroxine TAB* 50 MCG TAB PO SCH (06:56)
[2017-01-29] MEDS: Bisacodyl SUPP* 10 MG SUPP PR SCH ×2 (08:04→17:56)
[2017-01-29] MEDS: Phenol 1.4% Spray* 177 ML BTL MT PRN (08:08)
[2017-01-29] MEDS: Calcium Carbonate TAB* 1250 MG (CALCIUM 500 MG) PO SCH (09:16)
[2017-01-29] MEDS: predniSONE TAB* 20 MG PO SCH (09:16)
[2017-01-29] MEDS: Omeprazole CAP* 20 MG PO SCH (09:17)
[2017-01-29] MEDS: Multivitamins/Minerals TAB PO SCH (09:17)
[2017-01-29] MEDS: CMC: Midodrine (NF) 5 MG TAB PO SCH ×3 (09:17→21:05)
[2017-01-29] MEDS: Potassium Chlor TAB* 20 MEQ TAB.ER PO SCH ×3 (09:17→21:05)
[2017-01-29] MEDS: Allopurinol TAB* 300 MG PO SCH (09:17)
[2017-01-29] MEDS: CMC: Epleronone (NF) 25 MG TAB PO SCH ×2 (09:17→21:05)
[2017-01-29] MEDS: Neomycin/Polym/Bacit TOP OINT* 15 GM TOPICAL SCH (09:18)
--- NOTE | 2017-01-29 11:24 | PN ---
Progress Note - Progress Note Note: CRITICAL CARE MEDICINE DATE: 01/28/17 TIME: 1035 SUBJECTIVE: Patient seen and examined. PHYSICAL EXAM: Vital Signs: Reviewed. SBP >100. HR up at touch. pvcs, few short nsvt Neurologic: awake, communicating. HEENT: jvp up Cardiovascular: distant, no discernable gallop Respiratory: clear Abdomen: obese, soft, drain in place. chronic anasarca better Extremities: warm; dep edema improved Access: cvc intact LABS: Reviewed. IMAGING: Reviewed. MEDICATIONS: Reviewed. 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 Cardiovascular: doing well with regimen and almost time to wean off and see how his heart can equilibrate vs discussing alternatives. keep dobutamine another 24h and then come off. Leaving lasix till tomorrow and then overlap with torosemide tid po. +ectopy tolerating. Respiratory: RA. Gastrointestinal: po diet. Renal/Metabolic: stable. f/u lytes and k repletion Infectious Disease: treatment with meropenum for his polymicrobial peritnitis - 03/24 Hematology: stable. coumadin tx adjusted Endocrine: steroids po Musculoskeletal: oob, ambulate. Psych/Social: pt expresses understanding Supportive and preventative care as ordered. SUP: ppi VTE prophylaxis: coumadin Disposition: ICU Code Status: Full Critical Care Time: 25min Karma Rangel DO
[2017-01-29] MEDS ORDERED: Hydrocortisone SUPP* 25 MG SUPP (2.5%) PR PRN ×2 (12:25→12:35)
[2017-01-29] MEDS: Warfarin TAB(*) 5 MG PO SCH (17:18)
[2017-01-29] MEDS: Docusate CAP* 100 MG PO PRN (17:56)
[2017-01-29] MEDS: DoBUTamine INJ* 500 MG in D5W 100 ML BAG* 60 ML IVPB SCH (22:21)
[2017-01-30] MEDS: Meropenem 1 GM PREMIX(*) 1 GM/50 ML BAG IV SCH ×2 (03:42→16:25)
[2017-01-30] MEDS: Gabapentin CAP(*) 300 MG PO SCH ×4 (05:33→23:11)
[2017-01-30] MEDS: Levothyroxine TAB* 50 MCG TAB PO SCH (05:33)
[2017-01-30 05:54] LABS: BUN/Creatinine Ratio 43.8 (8-20); Calcium 7.9 mg/dL (8.6-10.3); EGFR African American 69.1 (>60); EGFR Non-African American 53.7 (>60); Potassium 3.9 mmol/L (3.5-5.0)
[2017-01-30] MEDS: Calcium Carbonate TAB* 1250 MG (CALCIUM 500 MG) PO SCH (08:09)
[2017-01-30] MEDS: CMC: Midodrine (NF) 5 MG TAB PO SCH ×3 (08:09→20:42)
[2017-01-30] MEDS: CMC: Epleronone (NF) 25 MG TAB PO SCH ×2 (08:09→20:42)
[2017-01-30] MEDS: Potassium Chlor TAB* 20 MEQ TAB.ER PO SCH ×3 (08:09→20:43)
[2017-01-30] MEDS: Allopurinol TAB* 300 MG PO SCH (08:09)
[2017-01-30] MEDS: predniSONE TAB* 20 MG PO SCH (08:09)
[2017-01-30] MEDS: Multivitamins/Minerals TAB PO SCH (08:09)
[2017-01-30] MEDS: Omeprazole CAP* 20 MG PO SCH (08:10)
[2017-01-30] MEDS: Docusate CAP* 100 MG PO PRN ×2 (08:10→18:26)
[2017-01-30] MEDS: Bisacodyl SUPP* 10 MG SUPP PR SCH (08:10)
[2017-01-30] MEDS: Neomycin/Polym/Bacit TOP OINT* 15 GM TOPICAL SCH (09:57)
[2017-01-30] MEDS: Enoxaparin(*) 40 MG/0.4 ML SYR SUBCUT SCH (10:00)
--- NOTE | 2017-01-30 11:04 | PN ---
Progress Note - Progress Note Note: CRITICAL CARE MEDICINE DATE: 01/30/17 TIME: 1035 SUBJECTIVE: Patient seen and examined. PHYSICAL EXAM: Vital Signs: Reviewed. SBP >100. HR ok. NSVT stable, asym. Neurologic: awake, communicating. HEENT: jvp remaining Cardiovascular: distant, no discernable gallop Respiratory: clear Abdomen: obese, soft, drain in place. chronic anasarca better Extremities: warm; dep edema improved but still present at thighs and sacrum Access: cvc intact LABS: Reviewed. IMAGING: Reviewed. MEDICATIONS: Reviewed. 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 Cardiovascular: add back his outpt torosemide tid and overlap with dc of lasix gtt today to see if we can hold the course. looking to then come off dobutamine tomorrow. maintained with midodrine. not using thiazides due to Na balance. K sparing ok still. hold off on bb. Respiratory: RA. Gastrointestinal: po diet. Renal/Metabolic: stable. f/u lytes and k repletion ongoing. Cr best since 2014. Infectious Disease: treatment with meropenum for his polymicrobial peritnitis - 04/26 will go for 10days as fluid still cloudy and he is improving and don't want a rebound and rather eradicate. Hematology: stable. coumadin tx adjusted. give lovenoz subq for now at prophylaxis dosing until INR back the correct direction Endocrine: steroids po still as this seems to maintaining bp. Musculoskeletal: oob, must ambulate. Psych/Social: pt expresses understanding Supportive and preventative care as ordered. SUP: ppi VTE prophylaxis: coumadin Disposition: ICU Code Status: Full Critical Care Time: 25min Karma Rangel DO
[2017-01-30] MEDS: Torsemide TAB* 20 MG PO SCH ×2 (14:26→20:43)
[2017-01-30] MEDS: Torsemide TAB* 100 MG PO SCH ×2 (14:26→20:43)
[2017-01-30] MEDS: Warfarin TAB(*) 5 MG PO SCH (16:34)
[2017-01-30] MEDS ORDERED: Warfarin TAB(*) 2.5 MG PO ONE (17:00)
[2017-01-30] MEDS ORDERED: DoBUTamine INJ* 500 MG in D5W 100 ML BAG* 60 ML IVPB SCH (19:30)
[2017-01-30] MEDS: DoBUTamine INJ* 500 MG in D5W 100 ML BAG* 60 ML IVPB SCH (20:09)
[2017-01-30] MEDS: Acetaminophen TAB* 325 MG PO PRN (20:43)
[2017-01-31] MEDS: Meropenem 1 GM PREMIX(*) 1 GM/50 ML BAG IV SCH ×2 (04:00→16:57)
[2017-01-31] MEDS: Gabapentin CAP(*) 300 MG PO SCH ×4 (05:59→23:16)
[2017-01-31] MEDS: Levothyroxine TAB* 50 MCG TAB PO SCH (05:59)
[2017-01-31 06:30] LABS: BUN/Creatinine Ratio 44.6 (8-20); Calcium 7.9 mg/dL (8.6-10.3); EGFR African American 79.8 (>60); Potassium 3.6 mmol/L (3.5-5.0)
[2017-01-31] MEDS: Phenol 1.4% Spray* 177 ML BTL MT PRN (07:49)
[2017-01-31] MEDS: Docusate CAP* 100 MG PO PRN (07:50)
[2017-01-31] MEDS: Neomycin/Polym/Bacit TOP OINT* 15 GM TOPICAL SCH (08:44)
[2017-01-31] MEDS: Omeprazole CAP* 20 MG PO SCH (08:45)
[2017-01-31] MEDS: Allopurinol TAB* 300 MG PO SCH (08:45)
[2017-01-31] MEDS: CMC: Midodrine (NF) 5 MG TAB PO SCH ×3 (08:45→20:34)
[2017-01-31] MEDS: Torsemide TAB* 100 MG PO SCH ×3 (08:45→20:34)
[2017-01-31] MEDS: Calcium Carbonate TAB* 1250 MG (CALCIUM 500 MG) PO SCH (08:45)
[2017-01-31] MEDS: predniSONE TAB* 20 MG PO SCH (08:45)
[2017-01-31] MEDS: CMC: Epleronone (NF) 25 MG TAB PO SCH ×2 (08:45→20:35)
[2017-01-31] MEDS: Potassium Chlor TAB* 20 MEQ TAB.ER PO SCH ×3 (08:45→20:34)
[2017-01-31] MEDS: Torsemide TAB* 20 MG PO SCH ×3 (08:45→20:34)
[2017-01-31] MEDS: Multivitamins/Minerals TAB PO SCH (08:45)
[2017-01-31] MEDS: Bisacodyl SUPP* 10 MG SUPP PR SCH (08:46)
[2017-01-31] MEDS: Enoxaparin(*) 40 MG/0.4 ML SYR SUBCUT SCH (09:46)
[2017-01-31] MEDS ORDERED: DoBUTamine INJ* 500 MG in D5W 100 ML BAG* 60 ML IVPB SCH (10:40)
--- NOTE | 2017-01-31 12:48 | PN ---
Progress Note - Progress Note Note: CRITICAL CARE MEDICINE DATE: 01/31/17 TIME: 1200 SUBJECTIVE: Patient seen and examined. PHYSICAL EXAM: Vital Signs: Reviewed. Neurologic: awake, communicating. HEENT: jvp remaining but a little better actually Cardiovascular: distant, no discernable gallop Respiratory: clear Abdomen: obese, soft, drain in place. chronic anasarca much better Extremities: warm Access: cvc intact LABS: Reviewed. IMAGING: Reviewed. MEDICATIONS: Reviewed. 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 vision disturbance still ailment. can f/u as outpt for optho eval. Cardiovascular: back to torosemide tid. come off dobutamine today and see how he does. leave cvc today but potential dc tomorrow. maintained with midodrine and slow steroid taper sec to adrenal insuff. not using thiazides due to Na deficit. K sparing good. hold off on bb. Respiratory: RA. Gastrointestinal: po diet. Renal/Metabolic: stable. Cr best since 2014. Infectious Disease: treatment with meropenum for his polymicrobial peritnitis - 8/10 days. Hematology: stable. coumadin tx adjusted. given lovenoz subq for prophylaxis today but as long as INR close to 1.8 tomorrow he'll be thereapeutic. Endocrine: steroids po Musculoskeletal: oob, ambulating. Psych/Social: pt expresses understanding Supportive and preventative care as ordered. SUP: ppi VTE prophylaxis: coumadin Disposition: ICU today but potential floor sierra Code Status: Full Critical Care Time: 25min FMelo Rangel DO
[2017-01-31] MEDS: Warfarin TAB(*) 5 MG PO SCH (16:57)
[2017-01-31] MEDS: Nystatin SUSPENSION* 100000 UNITS/ML 5 ML UDC SWISH SWAL SCH (20:36)
[2017-02-01] MEDS: Meropenem 1 GM PREMIX(*) 1 GM/50 ML BAG IV SCH ×2 (04:34→17:18)
[2017-02-01] MEDS: Levothyroxine TAB* 50 MCG TAB PO SCH (05:26)
[2017-02-01] MEDS: Gabapentin CAP(*) 300 MG PO SCH ×3 (05:29→17:17)
[2017-02-01 05:54] LABS: Hematocrit 28 % (42-52); Hemoglobin 8.2 g/dl (14.0-18.0); Mean Corpuscular HGB Conc 29 g/dl (31-36); Mean Corpuscular Hemoglobin 23 pg (27-31); Mean Corpuscular Volume 80 fL (80-94); Mean Platelet Volume 8 um3 (7.4-10.4); Red Blood Count 3.51 10^6/ul (4.0-5.4); White Blood Count 13.6 10^3/ul (3.5-10.8)
[2017-02-01 05:55] LABS: Comments Flag Yes; Red Cell Distribution Width 23 % (10.5-15)
[2017-02-01 06:13] LABS: BUN/Creatinine Ratio 46.2 (8-20); Calcium 7.8 mg/dL (8.6-10.3); EGFR African American 92.9 (>60); EGFR Non-African American 72.3 (>60); Magnesium 1.9 mg/dL (1.9-2.7); Phosphorus 3.6 mg/dL (2.5-5.0); Potassium 3.8 mmol/L (3.5-5.0)
[2017-02-01] MEDS: Bisacodyl SUPP* 10 MG SUPP PR SCH (07:35)
[2017-02-01] MEDS: Nystatin SUSPENSION* 100000 UNITS/ML 5 ML UDC SWISH SWAL SCH (08:11)
[2017-02-01] MEDS: Torsemide TAB* 20 MG PO SCH ×3 (08:12→21:40)
[2017-02-01] MEDS: Calcium Carbonate TAB* 1250 MG (CALCIUM 500 MG) PO SCH (08:12)
[2017-02-01] MEDS: Torsemide TAB* 100 MG PO SCH ×3 (08:12→21:39)
[2017-02-01] MEDS: predniSONE TAB* 20 MG PO SCH (08:13)
[2017-02-01] MEDS: Omeprazole CAP* 20 MG PO SCH (08:13)
[2017-02-01] MEDS: Allopurinol TAB* 300 MG PO SCH (08:14)
[2017-02-01] MEDS: Potassium Chlor TAB* 20 MEQ TAB.ER PO SCH ×3 (08:14→21:39)
[2017-02-01] MEDS: CMC: Midodrine (NF) 5 MG TAB PO SCH ×3 (08:14→21:39)
[2017-02-01] MEDS: Multivitamins/Minerals TAB PO SCH (08:14)
[2017-02-01] MEDS: Neomycin/Polym/Bacit TOP OINT* 15 GM TOPICAL SCH (08:14)
[2017-02-01] MEDS: CMC: Epleronone (NF) 25 MG TAB PO SCH ×2 (08:14→21:39)
[2017-02-01] MEDS: Clotrimazole TROCHE* 10 MG TROCHE PO SCH ×4 (10:07→21:38)
--- NOTE | 2017-02-01 10:44 | PN ---
Subjective Date of Service: 02/01/17 Interval History: HOSPITALIST PROGRESS NOTE Patient seen and examined at bedside. He looks much improved today compared to when I saw him last week. Breathing is at baseline, appetite is good, denies CP or palpitations. Family History: Unchanged from Admission Social History: Unchanged from Admission Past Medical History: Unchanged from Admission Objective Active Medications: Acetaminophen (Tylenol Tab*) 650 mg PO Q6H PRN PRN Reason: FEVER/PAIN Last Admin: 01/30/17 20:43 Dose: 650 mg Allopurinol (Zyloprim Tab*) 300 mg PO DAILY [facility] Last Admin: 02/01/17 08:14 Dose: 300 mg Bisacodyl (Dulcolax Supp*) 10 mg NH DAILY [facility] Last Admin: 02/01/17 07:35 Dose: Not Given Calcium Carbonate (Calcium Carbonate Tab*) 1,250 mg PO DAILY [facility] Last Admin: 02/01/17 08:12 Dose: 1,250 mg Clotrimazole (Mycelex Angélica*) 10 mg PO QID [facility] Last Admin: 02/01/17 10:07 Dose: 10 mg Docusate Sodium (Colace Cap*) 100 mg PO BID PRN PRN Reason: CONSTIPATION Last Admin: 01/31/17 07:50 Dose: 100 mg Eplerenone (Inspra (Nf)) 25 mg PO BID [facility] Last Admin: 02/01/17 08:14 Dose: 25 mg Gabapentin (Neurontin Cap(*)) 300 mg PO 0600,1200,1700,2300 [facility] Last Admin: 02/01/17 05:29 Dose: 300 mg Hydrocortisone (Anusol Hc Supp*) 25 mg NH TID PRN PRN Reason: PAIN Meropenem (Merrem 1 Gm Premix(*)) 1 gm in 50 mls @ 100 mls/hr IV Q12H [facility] Last Admin: 02/01/17 04:34 Dose: 100 mls/hr Levothyroxine Sodium (Synthroid Tab*) 50 mcg PO DAILY@0600 [facility] Last Admin: 02/01/17 05:26 Dose: 50 mcg Midodrine (Midodrine (Nf)) 15 mg PO TID ANAHI PRN Reason: Protocol Last Admin: 02/01/17 08:14 Dose: 15 mg Multivitamins/Minerals (Theragran/Minerals Tab*) 1 tab PO DAILY [facility] Last Admin: 02/01/17 08:14 Dose: 1 tab Neomycin/Polymyxin/Bacitracin (Neosporin Top Oint Tube*) 1 applic TOPICAL DAILY [facility] Last Admin: 02/01/17 08:14 Dose: 1 applic Omeprazole (Prilosec Cap*) 20 mg PO DAILY@0730 [facility] Last Admin: 02/01/17 08:13 Dose: 20 mg Pharmacy Profile Note (Coumadin Daily Reminder*) 0 note FOLLOW UP 1700 [facility] Last Admin: 01/31/17 16:53 Dose: 1 note Phenol/Menthol (Chloroseptic Throat Clarkson*) 1 spray MT Q2H PRN PRN Reason: THROAT PAIN Last Admin: 01/31/17 07:49 Dose: 1 spray Potassium Chloride (Klor Con Er Tab*) 20 meq PO TID [facility] Last Admin: 02/01/17 08:14 Dose: 20 meq Prednisone (Deltasone Tab*) 40 mg PO DAILY [facility] Last Admin: 02/01/17 08:13 Dose: 40 mg Sodium Biphosphate/Sodium Phosphate (Fleet Enema*) 1 bottle NH DAILY PRN PRN Reason: CONSTIPATION Last Admin: 01/23/17 04:06 Dose: 1 bottle Torsemide (Demadex*) 100 mg PO TID [facility] Last Admin: 02/01/17 08:12 Dose: 100 mg Torsemide (Demadex*) 40 mg PO TID [facility] Last Admin: 02/01/17 08:12 Dose: 40 mg Warfarin Sodium (Coumadin Tab(*)) 5 mg PO DAILY@1700 [facility] PRN Reason: Protocol Last Admin: 01/31/17 16:57 Dose: 5 mg Vital Signs 02/01/17 02/01/17 02/01/17 07:46 08:00 09:09 Temperature 97.7 F Pulse Rate 79 83 Respiratory 16 14 16 Rate Blood Pressure 100/73 95/69 (mmHg) O2 Sat by Pulse 100 100 Oximetry Oxygen Devices in Use Now: None Appearance: Middle aged male lying in bed in [facility]. Eyes: No Scleral Icterus Ears/Nose/Mouth/Throat: Mucous Membranes Moist Neck: Trachea Midline Respiratory: Symmetrical Chest Expansion and Respiratory Effort, Clear to Auscultation Cardiovascular: RRR - Normal S1 and S2 Abdominal: NL Sounds; No Tenderness; No Distention, - - RLQ peritoneal drain with no erythema or drainage Extremities: - - Mild bilateral LE edema Neurological: Alert and Oriented x 3, NL Muscle Strength and Tone Lines/Tubes/Other Access: Clean, Dry and Intact Peripheral IV Nutrition: Taking PO's Result Diagrams: 02/01/17 05:30 02/01/17 05:30 Assess/Plan/Problems-Billing Assessment: Mr Ocampo is a 56 yo M with h/o CHF (systolic-chronic), amyloidosis, CKD, V. tach , ICD, A. fib on Coumadin, admitted once again with cardiogenic shock and MSOF. - Patient Problems (1) Cardiogenic shock Comment: - Secondary to end stage CHF. - Significant improvement after Milrinone, Levophed, Dobutamine, and Furosemide drips. - Weight down to 223lbs. - Continue Inspra and Torsemide. (2) Cardiorenal syndrome with renal failure Comment: - Creatinine 1.06 today. - Contacted [facility] again to see if they would reconsider transfer now his renal function is improved - awaiting call back. (3) Ascites Comment: - Secondary to end stage CHF. - Fluid grew Enterococcus, Morganella - he has no fever, no abdominal pain at this point. Started on Meropenem while in ICU #9/10. (4) Peripheral neuropathy Comment: - Gabapentin not controlling the pain anymore. - Continue low dose Morphine PRN. (5) Hyponatremia Comment: - Stable. (6) DVT prophylaxis Comment: - Lovenox until INR is therapeutic. (7) Full code status Status and Disposition: Inpatient.
[2017-02-01] MEDS: Enoxaparin(*) 40 MG/0.4 ML SYR SUBCUT SCH (12:43)
[2017-02-01] MEDS: Warfarin TAB(*) 5 MG PO SCH (17:18)
[2017-02-01] MEDS: Sodium Phosphate ADULT ENEMA* 118 ml bottle PR PRN (22:23)
[2017-02-02] MEDS: Gabapentin CAP(*) 300 MG PO SCH ×3 (00:03→12:58)
[2017-02-02] MEDS: Meropenem 1 GM PREMIX(*) 1 GM/50 ML BAG IV SCH (04:52)
[2017-02-02] MEDS: Levothyroxine TAB* 50 MCG TAB PO SCH (06:21)
[2017-02-02 07:22] VITALS: BP 86/62
[2017-02-02] MEDS: Allopurinol TAB* 300 MG PO SCH (07:36)
[2017-02-02] MEDS: Omeprazole CAP* 20 MG PO SCH (07:36)
[2017-02-02] MEDS: predniSONE TAB* 20 MG PO SCH (08:57)
[2017-02-02] MEDS: Multivitamins/Minerals TAB PO SCH (08:58)
[2017-02-02] MEDS: Calcium Carbonate TAB* 1250 MG (CALCIUM 500 MG) PO SCH (08:58)
[2017-02-02] MEDS: CMC: Epleronone (NF) 25 MG TAB PO SCH (08:58)
[2017-02-02] MEDS: Potassium Chlor TAB* 20 MEQ TAB.ER PO SCH ×2 (08:58→12:57)
[2017-02-02] MEDS: Torsemide TAB* 20 MG PO SCH ×2 (08:58→12:57)
[2017-02-02] MEDS: CMC: Midodrine (NF) 5 MG TAB PO SCH ×2 (08:59→12:58)
[2017-02-02] MEDS: Clotrimazole TROCHE* 10 MG TROCHE PO SCH (08:59)
[2017-02-02] MEDS: Bisacodyl SUPP* 10 MG SUPP PR SCH (08:59)
[2017-02-02] MEDS: Neomycin/Polym/Bacit TOP OINT* 15 GM TOPICAL SCH (09:03)
[2017-02-02] MEDS: Torsemide TAB* 100 MG PO SCH ×2 (09:03→12:57)
[2017-02-02] MEDS: Enoxaparin(*) 40 MG/0.4 ML SYR SUBCUT SCH (12:57)
[2017-02-02] MEDS ORDERED: Nystatin SUSPENSION* 100000 UNITS/ML 5 ML UDC PO SCH (13:00)
[2017-02-02] MEDS ORDERED: Meropenem 1 GM PREMIX(*) 1 GM/50 ML BAG IV ONE (13:00)
[2017-02-02] MEDS ORDERED: Warfarin TAB(*) 6 MG PO SCH (17:00)
--- NOTE | 2017-02-03 08:52 | DS ---
DISCHARGE SUMMARY: DATE OF ADMISSION: 01/22/2017. DATE OF DISCHARGE: 02/02/2017. DISCHARGE DIAGNOSES: 1. Cardiogenic shock. 2. Multiple system organ failure. 3. Cardiorenal syndrome with renal failure. 4. Lactic acidosis. 5. Syncopal episode. 6. Oral thrush. 7. Adrenal insufficiency. SECONDARY DIAGNOSES: 1. Amyloidosis AL. 2. Status post cardiac arrest. 3. Endstage congestive heart failure with ejection fraction less than 20%. 4. Chronic ascites, status post peritoneal drain with history of drain infection. 5. Atrial fibrillation, on Coumadin. 6. Ventricular tachycardia, status post ICD. 7. Coagulopathy with factor X deficiency. 8. Gout. 9. Chronic hyponatremia. 10. Chronic kidney disease, stage 3. 11. Peripheral neuropathy. 12. Gastroesophageal reflux disease. MEDICATIONS: 1. Acetaminophen 650 mg p.o. q.6 hours p.r.n. pain and fever. 2. Allopurinol 300 mg p.o. daily. 3. Bisacodyl suppository 10 mg per rectum daily. 4. Calcium carbonate 1250 mg p.o. daily. 5. Carvedilol 3.125 mg p.o. b.i.d. 6. Colace 100 mg p.o. b.i.d. p.r.n. constipation. 7. Lovenox 40 mg subcutaneously q.24 hours. 8. Eplerenone 25 mg p.o. b.i.d. 9. Gabapentin 300 mg p.o. q.i.d. 10. GumNumb benzocaine 20% one application topical to gum pain q.1 hour as needed. 11. Hydrocortisone 1 dose per rectum t.i.d. as needed for pain or itching. 12. Levothyroxine 50 mcg p.o. daily. 13. Magnesium oxide 500 mg p.o. b.i.d. 14. Midodrine 15 mg p.o. t.i.d. 15. Multivitamin 1 tablet p.o. b.i.d. 16. Neosporin ointment applied around peritoneal drain tube daily. 17. Nystatin suspension 200,000 units p.o. q.i.d. swish and spit for 10 days. 18. Pantoprazole 40 mg p.o. q.a.m. 19. Potassium chloride 10 mEq p.o. t.i.d. 20. Prednisone 40 mg p.o. daily. 21. Fleet enema 1 bottle per rectum daily as needed for constipation. 22. Torsemide 140 mg p.o. t.i.d. 23. Warfarin 6 mg p.o. daily. HOSPITAL COURSE: Mr. Ocampo is a 56-year-old male well-known to the hospitalist service who had a prolonged admission to [facility] from 12/31/2016 to 01/19/2017. He went to the infusion center on 01/22/2017 for his outpatient furosemide infusion and he was found to be hypotensive with systolic blood pressure in the 60s. So, he was referred to the emergency room for further evaluation. He had had syncopal episode while in the emergency room and he was admitted to the intensive care unit under the impression of cardiogenic shock. He was seen consultation by critical care (Dr. Rangel) and stayed in ICU for prolonged period of time, initially on a milrinone drip, that later on was changed to dobutamine, Levophed, and furosemide drip with slow but good response. While under Dr. Rangel's care, there was concern for relative adrenal insufficiency and the patient was started on prednisone. He was found to have a morning cortisol of 13.[address] Rangel felt that this was low for his needs. With his regimen, the patient was diuresed and his weight went down from 249 to 223 pounds. His renal function also had significant improvement down from highest of 3.3 to 1.06 on the day of discharge. The patient had significant symptomatic improvement and feels that he is breathing better and his peripheral edema is almost resolved. I contacted Dr. Ireland again to inform him about the patient's improvement of his renal function to see if this would change the recommendations. He still feels that hospital to hospital transfer is not indicated but they are willing to see the patient as outpatient. The patient is very anxious to be evaluated as he knows that this is a temporary reprieve with his medications but eventually he will develop edema, shortness of breath, and worsening of his renal function again. So, his plan is to be discharge to home today and he already has plane ticket brought for tomorrow at 6 a.m. and his plan is to go to the [facility] Emergency Room if he is not able to get an appointment to be seen as outpatient. The patient's peritoneal fluid grew Morganella morganii, Enterococcus faecalis, and Staphylococcus epidermidis. He was afebrile with no abdominal pain and I believe this represents colonization. We had multiple conversations about removing his peritoneal drain but the patient is adamant that he cannot live without it. He is draining 500 to 900 mL of fluid daily from that drain. Dr. Rangel felt this could represent infection and recommend a treatment with 10 days of meropenem that the patient completed today. The patient's INR was subtherapeutic, so he was discharged to [facility] and his warfarin dose was increased to 6 mg. He will need INR monitoring as outpatient. The patient is mentally stable for discharge at this time but he has a very poor prognosis and remains at a very high risk for readmission. If after evaluation in the [facility], the patient is felt not to be a candidate for any other therapies, I believe we have exhausted all of our options. This treatment with Levophed, dobutamine, and furosemide drips, is a bridge to something but at this point, if he is not offered LVAD or transplant, I do not see how he can continue. So, if he returns to do facility, I believe the plan would be for hospice. PHYSICAL EXAMINATION: Vital signs: Temperature 97.5. Heart rate 76. Respiratory rate 18. Oxygen saturation is 99% on room air. Blood pressure is 86/62. General: The patient is a middle-aged male, that appears older than stated age, lying in bed in no acute distress. CVS: Normal S1 and S2. Regular rate and rhythm. Chest: Breath sounds present bilaterally. No added sounds. Abdomen is obese, soft, nontender. Catheter is clean with no discharge or edema surrounding it. Bowel sounds are present. Extremities: There is trace to mild lower extremity edema. Neurologic: He is alert, awake and oriented x3. Able to move all four extremities. DIET: Heart-healthy diet with a 1.5 L fluid restriction. ACTIVITY: As tolerated. DISPOSITION: To home. STATUS WHILE IN THE HOSPITAL: Inpatient. Please keep in mind that this is a summarized version of this patient's prolonged and complex hospital stay. If you need any more information, please feel free to call me at [phone] or please obtain the full medical records. TIME SPENT: Approximately 50 minutes was spent to complete this discharge. CC: Dr. Watson; Dr. Geller; Dr. Thomas; PRIMO Bassett; [facility] [employer] Dr. Da Ireland, .* [id number]/[facility] #: [id number] MTDD
== END 2017-02-02 14:00 | disposition home or self-care (01) | DRG 291 ==
LOC: ED 13:17 → ICU 15:02 → MEDTELE 02-01 08:08
PROVIDERS: ADMIT Internal Medicine; ATTEND Internal Medicine
PROC: 05HM33Z Insertion of Infusion Device into Right Internal Jugular Vein, Percutaneous Approach (ICD-10-PCS; principal; 2017-01-24)
DX: I13.0 Hypertensive heart and chronic kidney disease with heart failure and stage 1 through stage 4 chronic kidney disease, or unspecified chronic kidney disease (principal); R57.0 Cardiogenic shock; N17.9 Acute kidney failure, unspecified; K65.9 Peritonitis, unspecified; D68.2 Hereditary deficiency of other clotting factors; B37.0 Candidal stomatitis; D68.9 Coagulation defect, unspecified; I50.43 Acute on chronic combined systolic (congestive) and diastolic (congestive) heart failure; E87.2 Acidosis; R18.8 Other ascites; E87.1 Hypo-osmolality and hyponatremia; E27.40 Unspecified adrenocortical insufficiency; E85.8 Other amyloidosis; Z88.5 Allergy status to narcotic agent; I42.9 Cardiomyopathy, unspecified; Z95.810 Presence of automatic (implantable) cardiac defibrillator; K21.9 Gastro-esophageal reflux disease without esophagitis; K42.9 Umbilical hernia without obstruction or gangrene; N18.9 Chronic kidney disease, unspecified; M19.90 Unspecified osteoarthritis, unspecified site; M10.9 Gout, unspecified; M81.0 Age-related osteoporosis without current pathological fracture; G62.9 Polyneuropathy, unspecified; I48.91 Unspecified atrial fibrillation; Z80.0 Family history of malignant neoplasm of digestive organs; Z51.5 Encounter for palliative care; Z79.01 Long term (current) use of anticoagulants; Z79.52 Long term (current) use of systemic steroids; B95.2 Enterococcus as the cause of diseases classified elsewhere; B95.7 Other staphylococcus as the cause of diseases classified elsewhere; B96.89 Other specified bacterial agents as the cause of diseases classified elsewhere
CPT/HCPCS: 36415; 71010; 80048; 80053; 80076; 81003; 82533; 83605; 83735; 83880; 84100; 84300; 84439; 84484; 85025; 85027; 85610; 86140; 86850; 86900; 86901; 87040; 87070; 87077; 87186; 87205; 87640; 87641; 93005; 93970; 96365; 99211; A9270-GY; G0463; J1250; J1644; J1650; J1720; J1940; J2185; J2260; J3010; J3480; J7512; P9047